=== PATIENT | female | born 2000 | race Caucasian/White ===

== ENCOUNTER 2023-07-15 06:45 | Emergency (ER) | payer OTHER, MEDICAID, SELFPAY ==
[2023-07-15 06:47] VITALS: BP 130/79; PULSE 86; RESP 18; TEMP 36.6; O2SAT 96; BMI 36.7
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
== END 2023-07-15 08:07 | disposition home or self-care (01) ==
PROVIDERS: Emergency Provider Emergency Medicine
DX: O9A.213 Injury, poisoning and certain other consequences of external causes complicating pregnancy, third trimester (principal); S20.219A Contusion of unspecified front wall of thorax, initial encounter; Z3A.37 37 weeks gestation of pregnancy; V40.5XXA Car driver injured in collision with pedestrian or animal in traffic accident, initial encounter
CPT/HCPCS: 71045; 99283

== ENCOUNTER 2023-07-15 08:09 | Observation (INO) | payer OTHER, MEDICAID, SELFPAY ==
[2023-07-15] MEDS: ACETAMINOPHEN 500 MG TABLET 1000 MG PO (09:52)
== END 2023-07-15 10:30 | disposition home or self-care (01) ==
LOC: FBC 08:13
PROVIDERS: Admitting Provider Obstetrics & Gynecology; Visit Provider Obstetrics & Gynecology
DX: O9A.213 Injury, poisoning and certain other consequences of external causes complicating pregnancy, third trimester (principal); S20.219A Contusion of unspecified front wall of thorax, initial encounter; Z3A.37 37 weeks gestation of pregnancy; V40.5XXA Car driver injured in collision with pedestrian or animal in traffic accident, initial encounter
CPT/HCPCS: 59025; 71045; 99283; G0378

== ENCOUNTER 2024-04-24 10:10 | Outpatient (OUT) | payer MEDICAID, SELFPAY ==
--- NOTE | 2024-04-24 10:13 | US_ITS ---
[address] [address] Patient Name: HOLLIS RFEED MRN: [id number] date: 2000 Sex: F Assigned Patient Location: [facility] Current Patient Location: [facility] Accession/Order Number: [id number] Exam Date: 04/24/2024 10:13 Report Date: 04/24/2024 15:49 At the request of: JO SAEZ Procedure: US OB transvaginal EXAMINATION: US OB transvaginal HISTORY: MISSED MENSES COMPARISON: No relevant comparison available. FINDINGS: GESTATIONAL SAC: Present and normal appearing. YOLK SAC: Present and normal appearing. POLE: Present and normal appearing. CARDIAC: Present. UTERUS: Normal size and appearance. OVARIES: Right: Normal. Left: Not seen. CERVIX: 4.0 cm in length and closed. CUL-DE-SAC: Normal. OTHER: None. AGE BY LMP: 8 weeks 5 days NOEMI BY LMP: 11/29/2024 AGE BY US CRL: 9 weeks 2 days NOEMI BY US CRL: 11/25/2024 US/US OB transvaginal IMPRESSION: 1. Single live intrauterine . Electronically authenticated by: LLUVIA ASTORGA Date: 04/24/2024 15:49
--- OUTSIDE RECORDS SUMMARY | 2024-04-24 10:14 | XMS_ITS | CCD ---
Author Organization [facility] Care Team Providers Care Finish Carpenter Name Role Phone NO FAMILY DOCTOR Unavailable Unavailable NO FAMILY DOCTOR, NO FAMILY DOCTOR Unavailable Unavailable STEVE COELLO Unavailable Unavailable Unavailable Unavailable Gricelda, Dr. Bee Campbell Attending Unavai lable Ledesma, Dr. Bee Campbell Attending Unavai labletha Undetermined, Awaiting Assignment Primary Care P rovider Unavailable Jos Fuchs Attending Unavailable Jos Fuchs Admitting Unavailable Gwen Sky Primary Care Physician TAWANA MONTENEGRO Attending Unavailable TAWANA MONTENEGRO Referring Unavailable GWEN SKY Primary Care Unavailable TAWANA MONTENEGRO Attending Unavailable TAWANA MONTENEGRO Referring Unavailable GWEN SKY Primary Care Unavailable TAWANA MONTENEGRO Attending Unavailable TAWANA MONTENEGRO Referring Unavailable UNDETERMINED, AWAITING ASSIGNMENT Primary Care Unavailable TAWANA MONTENEGRO Admitting Unavailable TAWANA MONTENEGRO Attending Unavailable GWEN SKY Primary Care Unavailable Allergies Allergy Classification Reported Allergen(s) Allergy Type Date of Onset Reaction(s) Facility (4 sources) Penicillins; Translations: [PENICILLINS] Propensity to adverse reactions to drug (disorder) 04-01-20 08 Hives [facility] Repository (1 source) Oseltamivir Drug Allergy 05-08-20 [facility] (2 sources) Sulfamethoxazole / Trimethoprim; Translations: [sulfamethoxazole-t rimethoprim] Drug Allergy 10-18-19 Vomiting (disorder) [facility] (2 sources) Amoxicillin / Clavulanate; Translations: [Augmentin] Drug Allergy [facility] Repository (2 sources) cefdinir; Translations: [cefdinir] Drug Allergy Eruption of skin (disorder) [facility] Repository (2 sources) Oseltamivir; Translations: [Tamiflu] Drug Allergy [facility] Repository (1 source) Sulfamethoxazole / Trimethoprim; Translations: [Bactrim] Drug Allergy [facility] Repository Medications Current Medications Medication Drug Class(es) Dates Sig (Normalized) Sig (Original) docusate sodium 100 mg oral tablet (1 source) Start: 04-22-2023 Dulcolax Stool Softener 100 mg, Oral, Refills(s) 0 Start Date: 04/22/23 Status: Ordered Multivitamins (1 source) Start: 04-22-2023 take 1 tablet by mouth once daily Multivitamins 1 tab(s), Oral, Daily, Refill(s) 0 Start Date: 04/22/23 Status: Ordered promethazine hydrochloride 25 mg oral tablet (1 source) Phenothiazine Start: 04-30-2021 take 1 tablet by mouth every four hours promethazine 25 mg Tab 25 mg = 1 tab(s), Oral, q4hr, # 12 tab(s), Refills(s) 0, Pharmacy: [facility], 163, cm, 04/30/21 15:32:00 EDT, Height/Length Dosing, 68, kg, 04/30/21 15:32:00 EDT, Weight Dosing Start Date: 04/30/21 Status: Ordered Completed/Discontinued Medications Medication Drug Class(es) Dates Sig (Normalized) Sig (Original) ibuprofen 400 mg oral tablet (1 source) Nonsteroidal Anti-inflammator y Drug Start: 1 take 1-3 tablets by mouth every six hours as needed ibuprofen 400 mg Tab 400 mg = 1 tab(s), Oral, q6hr, PRN Pain 1-3, # 12 tab(s), Refills(s) 0, Pharmacy: [facility], 163, cm, 04/30/21 15:32:00 EDT, Height/Length Dosing, 68, kg, 04/30/21 15:32:00 EDT, Weight Dosing Start Date: 04/30/21 Status: Ordered methylPREDNISolone 4 MG Oral Tablet Therapy Pack (1 source) Start: 2 methylPREDNISolone 4 MG Oral Tablet Therapy Pack USE DIRECTED ; QTY 21 TABLET Quantity: 1 Refills: 0 Ordered: 20-Mar-2022 Bee Ledesma MD Start : 20-Mar-2022 Active Problems Active Problems Problem Classification Problem Date Documented Date Episodic/Chronic Abdominal pain (2 sources) Abdominal pain; Translations: [Pelvic and perineal pain] Onset: 01-17-2024 11-20-2013 Episodic Fluid and electrolyte disorders (1 source) Hypokalemia 11-20-2013 Episodic Headache; including migraine (1 source) Headache 10-09-2013 Episodic Menstrual disorders (1 source) Secondary amenorrhea; Translations: [Secondary amenorrhea] Chronic Nausea and vomiting (1 source) Vomiting 11-20-2013 Episodic Other connective tissue disease (1 source) Foot pain; Translations: [Pain in limb] Episodic Other connective tissue disease (1 source) Pain in right foot; Translations: [Pain in right foot] Onset: 03-20-2022 Episodic Other endocrine disorders (1 source) Precocious puberty; Translations: [Precocious puberty] Onset: 04-01-2008 10-23-2019 Chronic Other non-traumatic joint disorders (1 source) Ankle pain; Translations: [Pain in joint, ankle and foot] Episodic Other non-traumatic joint disorders (1 source) Sesamoiditis; Translations: [Other disorders of bone and cartilage] Episodic Other non-traumatic joint disorders (1 source) Other specified joint disorders, right ankle and foot; Translations: [Other specified joint disorders, right ankle and foot] Onset: 03-20-2022 Episodic Other non-traumatic joint disorders (1 source) Pain in right ankle and joints of right foot; Translations: [Pain in right ankle] Onset: 03-20-2022 Episodic Sprains and strains (1 source) Unspecified sprain of right foot, initial encounter; Translations: [Unspecified sprain of right foot, initial encounter] Onset: 03-20-2022 Episodic Substance-related disorders (1 source) Smoker 01-13-2020 Chronic Comment on above: Added secondary to d ocumentation in Social History. Unclassified (1 source) Unknown / UNK(Unknown) Onset: 05-27-2017 Unclassified (1 source) Onset: 04-22-2023 04-22-2023 Past or Other Problems Problem Classification Problem Date Documented Da te Episodic/Chronic Heart valve disorders (1 source) Heart murmur Onset: 07-29-2015 01-13-2020 Episodic Other and delivery including normal (7 sources) Urine test positive; Translations: [Encounter for test, result positive] Onset: 03-01-2023 Episodic Ovarian cyst (1 source) Unspecified ovarian cyst, right side; Translations: [Unspecified ovarian cyst, right side] Onset: 07-12-2023 Episodic Residual codes; unclassified (1 source) 31 weeks gestation of ; Translations: [31 weeks gestation of ] Onset: 06-28-2023 Episodic Residual codes; unclassified (1 source) 11 weeks gestation of ; Translations: [11 weeks gestation of ] Onset: 03-01-2023 Episodic Unclassified (1 source) None (qualifier value) 2012 Results Test Name Value Interpretation Reference Range Facility US NON OB TRANSVAGINALon US NON OB TRANSVAGINAL EXAM: US Pelvis Transabdominal and Transvaginal, Complete and US Duplex Arterial/Venous of the Pelvis, Complete EXAM DATE/TIME: 01/17/2024 6:09 pm; 01/17/2024 7:16 pm CLINICAL HISTORY: ORDERING SYSTEM PROVIDED HISTORY: Right ovarian cyst, Pelvic pain TECHNOLOGIST PROVIDED HISTORY: This procedure can be scheduled via [employer]. Release to patient - Note: Delayed release will only apply to this order. Orders that are changed or resulted outside of the EHR will not respect a delayed release to MyChart.->Delay Immediate Release by 3 Days Reason for preventing immediate release->Likely risk of substantial harm What reading provider will be dictating this exam?->CRC; ORDERING SYSTEM PROVIDED HISTORY: PELVIC PAIN TECHNOLOGIST PROVIDED HISTORY: This procedure can be scheduled via [employer]. ; ORDERING SYSTEM PROVIDED HISTORY: Right ovarian cyst, Pelvic pain TECHNOLOGIST PROVIDED HISTORY: Release to patient - Note: Delayed release will only apply to this order. Orders that are changed or resulted outside of the EHR will not respect a delayed release to MyChart.->Delay Immediate Release by 3 Days Reason for preventing immediate release->Likely risk of substantial harm What reading provider will be dictating this exam?->CRC TECHNIQUE: Real-time complete transabdominal and transvaginal pelvic ultrasound with image documentation. Transvaginal imaging was used for better evaluation of the endometrium and adnexa. Real-time duplex ultrasound scan of the arterial and venous flow of the pelvis with color Doppler flow and spectral waveform analysis. COMPARISON: 06/28/2023 FINDINGS: Uterus/cervix: No acute findings. No myometrial mass. The uterus measures 9.2 x 4.3 x 3.3 cm. The endometrial stripe measures 1.12 cm in thickness. Right ovary: Interval resolution of a previously noted right ovarian cyst. No torsion. The right ovary measures 2.9 x 2.2 x 1.3 cm. Left ovary: No acute findings. No torsion. The left ovary measures 2.8 x 1.6 x 1.7 cm. Free fluid: Very small amount of free fluid noted within the retrouterine cul-de-sac. Bladder: Unremarkable as visualized. Wall is normal thickness for degree of distention. IMPRESSION: 1. Interval resolution of a previously noted right ovarian cyst. 2. Very small amount of free fluid noted within the retrouterine cul-de-sac. 3. Otherwise negative exam with no evidence of ovarian torsion. Interpreted by: Steve Borja MD Signed by: Steve Borja MD 01/18/24 Final result Normal [facility] US PELVIS COMPLETEon 024 US PELVIS COMPLETE EXAM: US Pelvis Transabdominal and Transvaginal, Complete and US Duplex Arterial/Venous of the Pelvis, Complete EXAM DATE/TIME: 01/17/2024 6:09 pm; 01/17/2024 7:16 pm CLINICAL HISTORY: ORDERING SYSTEM PROVIDED HISTORY: Right ovarian cyst, Pelvic pain TECHNOLOGIST PROVIDED HISTORY: This procedure can be scheduled via MyChart. Release to patient - Note: Delayed release will only apply to this order. Orders that are changed or resulted outside of the EHR will not respect a delayed release to MyChart.->Delay Immediate Release by 3 Days Reason for preventing immediate release->Likely risk of substantial harm What reading provider will be dictating this exam?->CRC; ORDERING SYSTEM PROVIDED HISTORY: PELVIC PAIN TECHNOLOGIST PROVIDED HISTORY: This procedure can be scheduled via MyChart. ; ORDERING SYSTEM PROVIDED HISTORY: Right ovarian cyst, Pelvic pain TECHNOLOGIST PROVIDED HISTORY: Release to patient - Note: Delayed release will only apply to this order. Orders that are changed or resulted outside of the EHR will not respect a delayed release to MyChart.->Delay Immediate Release by 3 Days Reason for preventing immediate release->Likely risk of substantial harm What reading provider will be dictating this exam?->CRC TECHNIQUE: Real-time complete transabdominal and transvaginal pelvic ultrasound with image documentation. Transvaginal imaging was used for better evaluation of the endometrium and adnexa. Real-time duplex ultrasound scan of the arterial and venous flow of the pelvis with color Doppler flow and spectral waveform analysis. COMPARISON: 06/28/2023 FINDINGS: Uterus/cervix: No acute findings. No myometrial mass. The uterus measures 9.2 x 4.3 x 3.3 cm. The endometrial stripe measures 1.12 cm in thickness. Right ovary: Interval resolution of a previously noted right ovarian cyst. No torsion. The right ovary measures 2.9 x 2.2 x 1.3 cm. Left ovary: No acute findings. No torsion. The left ovary measures 2.8 x 1.6 x 1.7 cm. Free fluid: Very small amount of free fluid noted within the retrouterine cul-de-sac. Bladder: Unremarkable as visualized. Wall is normal thickness for degree of distention. IMPRESSION: 1. Interval resolution of a previously noted right ovarian cyst. 2. Very small amount of free fluid noted within the retrouterine cul-de-sac. 3. Otherwise negative exam with no evidence of ovarian torsion. Interpreted by: Steve Borja MD Signed by: Steve Borja MD 01/18/24 Final result Normal [facility] CBC With Platelet No Differe ntialon 07-28-2023 Erythrocyte distribution width (RBC) [Ratio] 12.5 % Normal 11.5-14.5 [facility] Comment on above: Performed By: #### C BCND #### [facility] [address] [place] [address] Hematocrit (Bld) [Volume fraction] 28.3 % Low 37.0-47.0 [facility] Comment on above: Performed By: #### C BCND #### [facility] [address] [place] [address] Hemoglobin (Bld) [Mass/Vol] 9.2 g/dL Low 12.0-16.0 [facility] Comment on above: Performed By: #### C BCND #### [facility] [address] [place] [address] MCH (RBC) [Entitic mass] 28.9 pg Normal 27.0-31.3 [facility] Comment on above: Performed By: #### C BCND #### [facility] [address] [place] [address] MCHC 32.5 % Low 33.0-37.0 [facility] Comment on above: Performed By: #### C BCND #### [facility] [address] [place] [address] MCV (RBC) [Entitic vol] 89.0 fL Normal 79.4-94.8 [facility] Comment on above: Performed By: #### C BCND #### [facility] [address] [place] [address] Platelets (Bld) [#/Vol] 241 10*3/uL Normal 130-400 [facility] Comment on above: Performed By: #### C BCND #### [facility] [address] [place] [address] RBC (Bld) [#/Vol] 3.18 10*6/uL Low 4.20-5.40 [facility] Comment on above: Performed By: #### C BCND #### [facility] [address] [place] [address] WBC (Bld) [#/Vol] 16.6 10*3/uL Critically high 4.8-10.8 [facility] Comment on above: Performed By: #### C BCND #### [facility] [address] [place] [address] HIV Ag/Abon 07-27-2023 HIV Ag/Ab Non-Reactive Normal NR [facility] Comment on above: Result Comment: No l aboratory evidence of HIV infection. If acute HIV infection is suspected, consider testing for HIV-1 RNA. Performed at [facility], [address] [place] [id number] . CBC With Platelet and Differ entialon 07-26-2023 Basophils (Bld) [#/Vol] 0.1 10*3/uL Normal 0.0-0.2 [facility] Comment on above: Performed By: #### U A #### [facility] [address] [place] [address] Basophils/100 WBC (Bld) 0.5 % Normal [facility] Comment on above: Performed By: #### U A #### [facility] [address] [place] [address] Eosinophils (Bld) [#/Vol] 0.1 10*3/uL Normal 0.0-0.7 [facility] Comment on above: Performed By: #### U A #### [facility] [address] [place] [address] Eosinophils/100 WBC (Bld) 1.0 % Normal [facility] Comment on above: Performed By: #### U A #### [facility] [address] [place] [address] Erythrocyte distribution width (RBC) [Ratio] 12.3 % Normal 11.5-14.5 [facility] Comment on above: Performed By: #### U A #### [facility] [address] [place] [address] Hematocrit (Bld) [Volume fraction] 36.9 % Low 37.0-47.0 [facility] Comment on above: Performed By: #### U A #### [facility] [address] [place] [address] Hemoglobin (Bld) [Mass/Vol] 11.9 g/dL Low 12.0-16.0 [facility] Comment on above: Performed By: #### U A #### [facility] [address] [place] [address] Lymphocytes (Bld) [#/Vol] 2.0 10*3/uL Normal 1.0-4.8 [facility] Comment on above: Performed By: #### U A #### [facility] [address] [place] [address] Lymphocytes/100 WBC (Bld) 17.5 % Normal [facility] Comment on above: Performed By: #### U A #### [facility] [address] [place] [address] MCH (RBC) [Entitic mass] 29.0 pg Normal 27.0-31.3 [facility] Comment on above: Performed By: #### U A #### [facility] [address] [place] [address] MCHC 32.2 % Low 33.0-37.0 [facility] Comment on above: Performed By: #### U A #### [facility] [address] [place] [address] MCV (RBC) [Entitic vol] 90.0 fL Normal 79.4-94.8 [facility] Comment on above: Performed By: #### U A #### [facility] [address] [place] [address] Monocytes (Bld) [#/Vol] 1.1 10*3/uL Critically high 0.2-0.8 [facility] Comment on above: Performed By: #### U A #### [facility] [address] [place] [address] Monocytes/100 WBC (Bld) 9.7 % Normal [facility] Comment on above: Performed By: #### U A #### [facility] [address] [place] [address] Neutrophils (Bld) [#/Vol] 7.9 10*3/uL Critically high 1.4-6.5 [facility] Comment on above: Performed By: #### U A #### [facility] [address] [place] [address] Neutrophils/100 WBC (Bld) 70.4 % Normal [facility] Comment on above: Performed By: #### U A #### [facility] [address] [place] [address] Platelets (Bld) [#/Vol] 289 10*3/uL Normal 130-400 [facility] Comment on above: Performed By: #### U A #### [facility] [address] [place] [address] RBC (Bld) [#/Vol] 4.10 10*6/uL Low 4.20-5.40 [facility] Comment on above: Performed By: #### U A #### [facility] [address] [place] [address] WBC (Bld) [#/Vol] 11.2 10*3/uL Critically high 4.8-10.8 [facility] Comment on above: Performed By: #### U A #### [facility] [address] [place] [address] Comprehensive Metabolic Pane mello 07-26-2023 Albumin [Mass/Vol] 3.4 g/dL Low 3.5-4.6 [facility] Comment on above: Performed By: #### C MP #### [facility] [address] [place] [address] ALP [Catalytic activity/Vol] 134 U/L Critically high 40-130 [facility] Comment on above: Performed By: #### C MP #### [facility] [address] [place] [address] ALT [Catalytic activity/Vol] 13 U/L Normal 0-33 [facility] Comment on above: Performed By: #### C MP #### [facility] [address] [place] [address] Anion gap [Moles/Vol] 14 mmol/L Normal 9-15 [facility] Comment on above: Performed By: #### C MP #### [facility] [address] [place] [address] AST [Catalytic activity/Vol] 19 U/L Normal 0-35 [facility] Comment on above: Performed By: #### C MP #### [facility] [address] [place] [address] Bilirubin [Mass/Vol] mg/dL Normal 0.2-0.7 [facility] Comment on above: Performed By: #### C MP #### [facility] [address] [place] [address] Calcium [Mass/Vol] 9.7 mg/dL Normal 8.5-9.9 [facility] Comment on above: Performed By: #### C MP #### [facility] [address] [place] [address] Chloride [Moles/Vol] 103 mmol/L Normal 95-107 [facility] Comment on above: Performed By: #### C MP #### [facility] [address] [place] [address] CO2 [Moles/Vol] 19 mmol/L Low 20-31 [facility] Comment on above: Performed By: #### C MP #### [facility] [address] [place] [address] Creatinine [Mass/Vol] 0.75 mg/dL Normal 0.50-0.90 [facility] Comment on above: Performed By: #### C MP #### [facility] [address] [place] [address] GFR >60.0 Normal >60 [facility] Comment on above: Result Comment: Gunnar atric calculator link https://www.kidney.org/professionals/kdoqi/gfr_calculatorped Effective Apr 30, 2022 These results are not intended for use in patients <18 years of age. eGFR results are calculated without a race factor using the 2020 CKD-EPI equation. Careful clinical correlation is recommended, particularly when comparing to results calculated using previous equations. The CKD-EPI equation is less accurate in patients with extremes of muscle mass, extra-renal metabolism of creatinine, excessive creatinine ingestion, or following therapy that affects renal tubular secretion. Performed By: #### C MP #### [facility] [address] [place] [address] Globulin (S) [Mass/Vol] 2.9 g/dL Normal 2.3-3.5 [facility] Comment on above: Performed By: #### C MP #### [facility] [address] [place] [address] Glucose [Mass/Vol] 65 mg/dL Low 70-99 [facility] Comment on above: Performed By: #### C MP #### [facility] [address] [place] [address] Potassium [Moles/Vol] 4.5 mmol/L Normal 3.4-4.9 [facility] Comment on above: Performed By: #### C MP #### [facility] [address] [place] [address] Protein [Mass/Vol] 6.3 g/dL Normal 6.3-8.0 [facility] Comment on above: Performed By: #### C MP #### [facility] [address] [place] [address] Sodium [Moles/Vol] 136 mmol/L Normal 135-144 [facility] Comment on above: Performed By: #### C MP #### [facility] [address] [place] [address] Urea nitrogen [Mass/Vol] 8 mg/dL Normal 6-20 [facility] Comment on above: Performed By: #### C MP #### [facility] [address] [place] [address] Hepatitis B Surface Agon Hepatitis B Surface Ag Interp Non-Reactive Normal [facility] Comment on above: Performed By: #### H BSG #### [facility] [address] [place] [address] RPRon 07-26-2023 Reagin Ab RPR Ql (S) Non-Reactive Normal Non-reacti [facility] Comment on above: Performed By: #### R GA #### [facility] [address] [place] [address] Type and Screen Capture 3 sc rn cellon 07-26-2023 Type and Screen Capture 3 scrn cell PATIENT: ABDIAZIZ Drake LOC: [facility],0324,01 BILL# : [id number] : 2000 SEX: F ORDERED BY: KASSIDY BARAHONA ORDERED : 07/26/2023 09:26 COLLECTED: 07/26/2023 09:44 ORDER : [id number] RECEIVED : 07/26/2023 09:44 TEST NAME RESULT UNITS RANGES ABN FL ST ABORH Capture A POS F Antibody 3 Cell Scrn Captu NEG F Normal [facility] Comment on above: Performed By: #### T S3C #### [facility] [address] [place] [address] UR Drugs of Abuse Panelon Drug Screen Comment see below Normal [facility] Comment on above: Result Comment: This method is a screening test to detect only these drug classes as part of a medical workup. Confirmatory testing by another method should be ordered if clinically indicated. Performed By: #### U DRGS #### [facility] [address] [place] [address] UR Amphetamines Screen Negative Normal Negative < [facility] Comment on above: Performed By: #### U DRGS #### [facility] [address] [place] [address] UR Barbiturates Screen Negative Normal Negative < [facility] Comment on above: Performed By: #### U DRGS #### [facility] [address] [place] [address] UR Benzo Screen Negative Normal Negative < [facility] Comment on above: Performed By: #### U DRGS #### [facility] [address] [place] [address] UR Cannabinoids Screen Negative Normal Negative < [facility] Comment on above: Performed By: #### U DRGS #### [facility] [address] [place] [address] UR Cocaine Screen Negative Normal Negative < [facility] Comment on above: Performed By: #### U DRGS #### [facility] [address] [place] [address] UR Fentanyl Screen Negative Normal Negative < [facility] Comment on above: Performed By: #### U DRGS #### [facility] [address] [place] [address] UR Methadone Screen Negative Normal Negative < [facility] Comment on above: Performed By: #### U DRGS #### [facility] [address] [place] [address] UR Opiates Screen Negative Normal Negative < [facility] Comment on above: Performed By: #### U DRGS #### [facility] [address] [place] [address] UR Oxycodone Screen Negative Normal Negative < [facility] Comment on above: Performed By: #### U DRGS #### [facility] [address] [place] [address] UR PCP Screen Negative Normal Negative < [facility] Comment on above: Performed By: #### U DRGS #### [facility] [address] [place] [address] UR Propoxyphene Screen Negative Normal Negative < [facility] Comment on above: Performed By: #### U DRGS #### [facility] [address] [place] [address] Urinalysis, reflex to micros copicon 07-26-2023 Bilirubin Ql (U) Negative Normal Negative [facility] Comment on above: Performed By: #### U A #### [facility] [address] [place] [address] Clarity (U) Clear Normal Clear [facility] Comment on above: Performed By: #### U A #### [facility] [address] [place] [address] Color (U) Yellow Normal Straw/[place] [facility] Comment on above: Performed By: #### U A #### [facility] [address] [place] [address] Glucose Ql (U) Negative Normal Negative [facility] Comment on above: Performed By: #### U A #### [facility] [address] [place] [address] Hemoglobin Ql (U) Negative Normal Negative [facility] Comment on above: Performed By: #### U A #### [facility] [address] [place] [address] Ketones Ql (U) Negative Normal Negative [facility] Comment on above: Performed By: #### U A #### [facility] [address] [place] [address] Leukocyte esterase Test strip Ql (U) TRACE Abnormal Negative [facility] Comment on above: Performed By: #### U A #### [facility] [address] [place] [address] Nitrite Ql (U) Negative Normal Negative [facility] Comment on above: Performed By: #### U A #### [facility] [address] [place] [address] pH (U) 6.5 [pH] Normal 5.0-9.0 [facility] Comment on above: Performed By: #### U A #### [facility] [address] [place] [address] Protein Ql (U) TRACE Abnormal Negative [facility] Comment on above: Performed By: #### U A #### [facility] [address] [place] [address] Specific gravity (U) [Rel density] 1.009 Normal 1.005-1.03 [facility] Comment on above: Performed By: #### U A #### [facility] [address] [place] [address] Urobilinogen Qn (U) 0.2 {Yoselyn'U}/dL Normal < 2.0 [facility] Comment on above: Performed By: #### U A #### [facility] [address] [place] [address] Urine Microscopicon 07-26-20 23 Urine Bacteria RARE Abnormal Negative [facility] Comment on above: Performed By: #### U DEBBI #### [facility] [address] [place] [address] Urine Epithelial Cells Auto 20-50 Normal 0-5 [facility] Comment on above: Performed By: #### U DEBBI #### [facility] [address] [place] [address] Urine Hyaline Casts Auto 1-3 Normal 0-5 [facility] Comment on above: Performed By: #### U DEBBI #### [facility] [address] [place] [address] Urine RBC Auto 0-2 Normal 0-5 [facility] Comment on above: Performed By: #### U DEBBI #### [facility] [address] [place] [address] Urine WBC Auto 10-20 Abnormal 0-5 [facility] Comment on above: Performed By: #### U DEBBI #### [facility] [address] [place] [address] Culture, Group B Strepon Culture, Group B Strep ORDER#: [id number] ORDERED BY: TAWANA YI SOURCE: Vagina Genital COLLECTED: 07/12/23 15:54 ANTIBIOTICS AT [place].: RECEIVED : 07/12/23 16:18 Culture, Group B Strep FINAL 07/16/23 08:16 Rule Out Grp.B Strep: NEGATIVE FOR GROUP B STREPTOCOCCI Performed at [facility] [address] [place] [address] ([phone] Normal [facility] Comment on above: Performed By: #### R UBEL #### [facility] [address] [place] [address] US OB 1 OR MORE FETUS LIMITE Don 06-28-2023 US OB 1 OR MORE FETUS LIMITED EXAMINATION: 3rd TRIMESTER OBSTETRIC ULTRASOUND 06/28/2023 COMPARISON: None HISTORY: ORDERING SYSTEM PROVIDED HISTORY: Encounter for supervision in primigravida, antepartum, 31 weeks gestation of TECHNOLOGIST PROVIDED HISTORY: This procedure can be scheduled via [employer]. Access your [employer] account by visiting [employer]. What reading provider will be dictating this exam?->CRC FINDINGS: Single live intrauterine . heart rate 140 beats per minute. body and limb movements identified. Cephalic position. Grade 2 posterior placenta. DARÍO 18.4 cm. Cervical length not visualized secondary to gestational age. Limited imaging secondary to gestational age shows a 6.0 x 5.9 x 4.2 cm cyst is visualized within the right adnexa. Four-chamber heart, stomach, kidneys, three-vessel cord, urinary bladder, cervical, thoracic, and lumbar spine identified. Estimated sonographic gestational age 35 weeks, 6 days. Gestational age by dates, 35 weeks, 0 days. Sonographic estimated date of delivery July 27, 2023. Estimated weight 2845 g (78%, by LMP percentile). BPD 8.90 cm. HC 32.58 cm. AC 33.63 cm. FL 6.28 cm. IMPRESSION: Single live intrauterine with estimated sonographic gestational age 35 weeks, 6 days. Estimated weight 2845 g. Limited imaging secondary to gestational age shows a 6.0 x 5.9 x 4.2 cm right adnexal cyst. Interpreted by: Casey Hall MD Signed by: Casey Hall MD 07/02/23 Final result Normal [facility] RPRon 05-01-2023 Reagin Ab RPR Ql (S) Non-Reactive Normal Non-reacti [facility] Comment on above: Performed By: #### R GA #### [facility] [address] [place] [address] Glucose 1hr PPon 04-30-2023 Glucose [Mass/Vol] 101 mg/dL Normal 60-140 [facility] Comment on above: Result Comment: Gluc ose tolerance is IMPAIRED when the 1 hour post 50 gram load glucose is greater than 130mg/dL Performed By: #### G L1PP #### [facility] [address] [place] [address] Hemoglobin and Hematocriton 04-30-2023 Hematocrit (Bld) [Volume fraction] 35.4 % Low 37.0-47.0 [facility] Comment on above: Performed By: #### C BCWD #### [facility] [address] [place] [address] Hemoglobin (Bld) [Mass/Vol] 11.3 g/dL Low 12.0-16.0 [facility] Comment on above: Performed By: #### C BCWD #### [facility] [address] [place] [address] Nursing Assessmenton 023 Nursing Assessment [id number]#[id number]:127 Normal [facility] Auth for Release of Medical Recordson 04-22-2023 Auth for Release of Medical Records [id number]#[id number]:127 Normal [facility] Discharge Instructionson Discharge Instructions [id number]#[id number]:127 Normal [facility] Inpatient Clinical Summaryon 04-22-2023 Inpatient Clinical Summary [place] [id number] Clinical Summary Person Information Name: SARA FREED[place] Age: 23 Years : 2000 Sex: Female PCP: Gwen Sky DO Marital Status: Single Race: White Ethnicity: Non- or Language: Indonesian Visit Id: Visit Reason: fELL AT HOME Speciality: Acuity: Obs Enc Type: OB Triage Med Service: Obstetrics Arrival: 04/22/2023 14:32:43 Discharge: 04/22/2023 16:33:00 Dispo Type: Home (Routine DC) Address: [address] [place] [id number] Provider Notes: Diagnosis: Problems Active (04/22/2023) Smoker Abdominal pain Vomiting Hypokalemia Smoking Status: Former Smoker Functional Status: Sensory Deficits: History of Falls: Mobility Assistance Prior to Admission: ADLs: Current Level of Assistance for Self-Care/Mobility: Cognitive Status: Allergies penicillins (Augmentin) Augmentin Tamiflu Bactrim (Vomiting) cefdinir (Rash) Laboratory or Other Results This Visit (last charted value for your 04/22/2023 visit) Urinalysis 04/22/2023 2:43 PM UA Bacteria: Trace /HPF UA Bili: Negative UA CA Ox Crystal: Present UA Color: Yellow UA Glucose: Negative UA Ketones: Negative UA Leuk Est: Trace UA Mucous: Trace UA Nitrite: Negative UA Protein: Negative UA RBC: 0-3 /HPF UA Squam Epithelial: 9-10 /HPF UA Urobilinogen: 0.2 EU/dL -- Normal range between ( 0.0 and 1.0 ) UA WBC: 0-5 /HPF UA Spec Desc: Clean Catch UA Blood: Negative UA Clarity: SL CLOUDY UA pH: 7.5 -- Normal range between ( 5.0 and 9.0 ) UA Spec Grav: 1.010 -- Normal range between ( 1.005 and 1.030 ) UA Amorph Katarzyna: Present Measurements: Height: 160 cm Weight: 77 kg Blood Pressure: 124 mmHg / 64 mmHg BMI: 30.08 kg/m2 Procedures No Procedures Documented Immunizations No Immunizations Documented This Visit Final Med List: docusate (Dulcolax Stool Softener) 100 Milligram By Mouth. ibuprofen (ibuprofen 400 mg Tab) 1 Tablets By Mouth every 6 hours as needed Pain 1-3. Refills: 0. multivitamin, ( Multivitamins) 1 Tablets By Mouth every day. promethazine (promethazine 25 mg Tab) 1 Tablets By Mouth every 4 hours. Refills: 0. Care Team Members: Attending Physician: Jos Fuchs MD Consulting Physician: Referring Physician: Follow up: With: Address: When: TWAANA YI [address] [place] [address] 04/30/2023 10:15 AM Patient Education Information: Round Ligament Pain Normal [facility] Inpatient Patient Summaryon 04-22-2023 Inpatient Patient Summary [place] [address] Patient Discharge Instructions PERSON INFORMATION Name: SARA FREED Date of : 2000 Current Date: 04/22/2023 16:38:22 PHYSICIANS Admitting Physician: Primary Care Physician: Gwen Sky DO PCP Comment: Discharge Diagnosis: Condition at Discharge: SARA FREED has been given the following list of follow-up instructions, prescriptions, and patient education materials: PATIENT FOLLOW-UP INFORMATION Diet: Activity: Wound Care Instructions: Remove Your Dressing IN: Days Call Your Doctor For: IF UNABLE TO CONTACT YOUR PHYSICIAN AND YOU FEEL IT IS AN EMERGENCY, GO TO THE NEAREST EMERGENCY ROOM OR CALL 911 Home Treatment: Devices/Equipment: Special Services: Additional Instructions: Physician to provide the following pending test results: Follow up: With: Address: When: TAWANA YI [address] [place] [address] 04/30/2023 10:15 AM In the event that this physician does not participate in your insurance network, please consult with your insurance company to find a nearby participating provider. Comment: IABDIAZIZ AUDREY P, have received the attached patient education materials/instructions and have verbalized understanding. Patient Signature Date Clinican/Nurse Signature Date MEDICATION LIST Medications to Continue with No Changes Other Medications docusate (Dulcolax Stool Softener) 100 Milligram By Mouth. Last Dose: Next Dose: ibuprofen (ibuprofen 400 mg Tab) 1 Tablets By Mouth every 6 hours as needed Pain 1-3. Refills: 0. Last Dose: Next Dose: multivitamin, ( Multivitamins) 1 Tablets By Mouth every day. Last Dose: Next Dose: promethazine (promethazine 25 mg Tab) 1 Tablets By Mouth every 4 hours. Refills: 0. Last Dose: Next Dose: Pharmacy Information: [facility] PATIENT EDUCATION INFORMATION Instructions: Round Ligament Pain The round ligaments are a pair of cord-like tissues that help support the uterus. They can become a source of pain during as the ligaments soften and stretch as the baby grows. The pain usually begins in the second trimester (13?28 weeks) of , and should only last for a few seconds when it occurs. However, the pain can come and go until the baby is delivered. The pain does not cause harm to the baby. Round ligament pain is usually a short, sharp, and pinching pain, but it can also be a dull, lingering, and aching pain. The pain is felt in the lower side of the abdomen or in the groin. It usually starts deep in the groin and moves up to the outside of the hip area. The pain may happen when you: ? Suddenly change position, such as quickly going from a sitting to standing position. ? Do physical activity. ? Cough or sneeze. Follow these instructions at home: Managing pain ? When the pain starts, relax. Then, try any of these methods to help with the pain: ? Sit down. ? Flex your knees up to your abdomen. ? Lie on your side with one pillow under your abdomen and another pillow between your legs. ? Sit in a warm bath for 15?20 minutes or until the pain goes away. General instructions ? Watch your condition for any changes. ? Move slowly when you sit down or stand up. ? Stop or reduce your physical activities if they cause pain. ? Avoid long walks if they cause pain. ? Take crfs-kcv-teanaab and prescription medicines only as told by your health care provider. ? Keep all follow-up visits. This is important. Contact a health care provider if: ? Your pain does not go away with treatment. ? You feel pain in your back that you did not have before. ? Your medicine is not helping. ? You have a fever or chills. ? You have nausea or vomiting. ? You have diarrhea. ? You have pain when you urinate. Get help right away if: ? You have pain that is a rhythmic, cramping pain similar to labor pains. Labor pains are usually 2 minutes apart, last for about 1 minute, and involve a bearing down feeling or pressure in your pelvis. ? You have vaginal bleeding. These symptoms may represent a serious problem that is an emergency. Do not wait to see if the symptoms will go away. Get medical help right away. Call your local emergency services (911 in the [place] Do not drive yourself to the hospital. Summary ? Round ligament pain is felt in the lower abdomen or groin. ? This pain usually begins in the second trimester (13?28 weeks) and should only last for a few sec (more content not included)... Normal [facility] Insurance Correspondence Off ice04-22-2023 Insurance Correspondence Office [id number]#[id number]:127 Normal [facility] UA With Cult Reflexon 2022 Bacteria LM Ql (Urine sed) TRACE Normal Trace [facility] Comment on above: Performed By: #### 1 [id number] #### [facility] [address] [address] Bilirubin Ql (U) Negative Normal Negative [facility] Comment on above: Performed By: #### 1 [id number] #### [facility] [address] [place] [address] Calcium oxalate crystals LM Ql (Urine sed) Present Normal [facility] Comment on above: Performed By: #### 1 [id number] #### [facility] [address] [place] [address] Clarity (U) SL CLOUDY Invalid Interpretation Code [facility] Comment on above: Performed By: #### 1 [id number] #### [facility] [address] [place] [address] Color (U) YELLOW Normal Yellow [facility] Comment on above: Performed By: #### 1 [id number] #### [facility] [address] [place] [address] Crystals LM Ql (Urine sed) Present Normal [facility] Comment on above: Performed By: #### 1 [id number] #### [facility] [address] [place] [address] Epithelial cells.squamous LM.HPF (Urine sed) [#/Area] 9-10 Normal 0-2 [facility] Comment on above: Performed By: #### 1 [id number] #### [facility] [address] [place] [address] Glucose Test strip (U) [Mass/Vol] Negative Normal Negative [facility] Comment on above: Performed By: #### 1 [id number] #### [facility] [address] [place] [address] Hemoglobin Ql (U) Negative Normal Negative [facility] Comment on above: Performed By: #### 1 [id number] #### [facility] [address] [place] [address] Ketones (U) [Mass/Vol] Negative Normal Negative [facility] Comment on above: Performed By: #### 1 [id number] #### [facility] [address] [place] [address] [place].plasma/Lit hium.RBC (Bld) [Mass ratio] 0-3 Normal 0-3 [facility] Comment on above: Performed By: #### 1 [id number] #### [facility] [address] [place] [address] Mucus Ql (Urine sed) TRACE Normal [facility] Comment on above: Performed By: #### 1 [id number] #### [facility] [address] [place] [address] Nitrite Ql (U) Negative Normal Negative [facility] Comment on above: Performed By: #### 1 [id number] #### [facility] [address] [place] [address] pH (U) 7.5 [pH] Invalid Interpretation Code 5.0-9.0 [facility] Comment on above: Performed By: #### 1 [id number] #### [facility] [address] [place] [address] Protein (U) [Mass/Vol] Negative Normal Negative [facility] Comment on above: Performed By: #### 1 [id number] #### [facility] [address] [place] [address] Specific gravity (U) [Rel density] 1.010 Invalid Interpretation Code 1.005-1.03 0 [facility] Comment on above: Performed By: #### 1 [id number] #### [facility] [address] [place] [address] Type of Urine collection method Clean Catch Normal [facility] Comment on above: Performed By: #### 1 [id number] #### [facility] [address] [place] [address] Urobilinogen Qn (U) 0.2 {Yoselyn'U}/dL Normal 0.0-1.0 [facility] Comment on above: Performed By: #### 1 [id number] #### [facility] [address] [place] [address] WBC Auto Ql (U) TRACE Abnormal Negative [facility] Comment on above: Performed By: #### 1 [id number] #### [facility] [address] [place] [address] WBC LM.HPF (Urine sed) [#/Area] 0-5 Normal 0-5 [facility] Comment on above: Performed By: #### 1 [id number] #### [facility] [address] [facility] [place] [address] US OB 14 PLUS WEEKS SINGLE O R FIRST GESTATIONon 03-01-2023 US OB 14 PLUS WEEKS SINGLE OR FIRST GESTATION EXAMINATION: OBSTETRIC ULTRASOUND 03/01/2023 3:11 pm TECHNIQUE: Transabdominal sonographic evaluation of the pelvis was performed. COMPARISON: 12/31/2022. HISTORY: ORDERING SYSTEM PROVIDED HISTORY: 11 weeks gestation of , Supervision of other normal , antepartum TECHNOLOGIST PROVIDED HISTORY: This procedure can be scheduled via [employer]. Access your [employer] account by visiting [employer]. What reading provider will be dictating this exam?->CRC FINDINGS: A single live intrauterine is identified in transverse position. Somatic movement is observed. The heart rate is 150 beats per minute. The cerebral ventricles, choroid plexus, posterior fossa, cerebellum, four-chamber heart, stomach, urinary bladder, three-vessel cord, and cord insertion are visualized. There is suboptimal visualization of the right and left ventricular outflow tracts, diaphragm, kidneys, spine, limbs, and nose/lips due to position and the relatively early age of gestation. Standard measurements were obtained and correspond to an estimated gestational age of 18 weeks and 3 days. The estimated current weight is 235 g which correlates to 66th percentile based upon last menstrual period or this 's baseline ultrasound. The placenta is anterior in position. Placental grade is 1. The lower margin of the placenta is 3.8 cm from the internal os. A color image demonstrating no vasa previa was obtained. The cervix measures 3.7 cm in length. Amniotic fluid volume is subjectively within normal limits. IMPRESSION: Single live intrauterine with an estimated gestational age of 18 weeks and 3 days. EFW is 235 g. Cervical length is 3.7 cm. Interpreted by: Jalil Noe MD Signed by: Jalil Noe MD 03/01/23 Final result Normal [facility] US OB LESS THAN 14 WEEKS SIN GLE OR FIRST GESTATIONon 12-31-2022 1. Single IUP with best estimate of gestational age being 9 weeks and 3 days. No abnormal fluid collections about the gestation. Yolk sac, pole and cardiac motion noted, with heart rate of 176 BPM. 2. 2.6 cm, slightly complex, left ovarian cyst. Possibly a corpus luteum cyst. [facility] EXAM: US First Trimester , Transabdominal and US Duplex Arterial/Venous of the Pelvis, Complete EXAM DATE/TIME: 12/31/2022 4:36 pm CLINICAL History lines: ORDERING SYSTEM PROVIDED Secondary amenorrhea, Positive urine test TECHNOLOGIST PROVIDED History lines: This procedure can be scheduled via [employer]. Access your [employer] account by visiting [employer]. What reading provider will be dictating this exam?->CRC TECHNIQUE: Real-time transabdominal obstetrical ultrasound of the maternal pelvis and a first trimester with image documentation. Real-time duplex ultrasound scan of the arterial and venous flow of the pelvis with color Doppler flow and spectral waveform analysis. COMPARISON: No relevant prior studies available. FINDINGS: Gestation: Single IUP with best estimate of gestational age being 9 weeks and 3 days. No abnormal fluid collections about the gestation. Yolk sac, pole and cardiac motion noted, with heart rate of 176 BPM. Placenta/amniotic fluid: Cannot be adequately evaluated due to the early gestational age. Uterus/cervix: No acute findings. No myometrial mass. The uterus measures 10.9 x 6.9 x 4.7 cm. Cervical length was measured at 3.7 cm. Right ovary: No acute findings. No torsion. The right ovary measures 2.4 x 1.6 x 1.0 cm. Left ovary: 2.6 cm, slightly complex, left ovarian cyst. Possibly a corpus luteum cyst. No torsion. The left ovary measures 3.7 x 2.8 x 2.0 cm. Free fluid: No free fluid. [facility] Steve Borja MD - 12/31/2022 EXAM: US First Trimester , Transabdominal and US Duplex Arterial/Venous of the Pelvis, Complete EXAM DATE/TIME: 12/31/2022 4:36 pm CLINICAL History lines: ORDERING SYSTEM PROVIDED Secondary amenorrhea, Positive urine test TECHNOLOGIST PROVIDED History lines: This procedure can be scheduled via [employer]. Access your [employer] account by visiting [employer]. What reading provider will be dictating this exam?->CRC TECHNIQUE: Real-time transabdominal obstetrical ultrasound of the maternal pelvis and a first trimester with image documentation. Real-time duplex ultrasound scan of the arterial and venous flow of the pelvis with color Doppler flow and spectral waveform analysis. COMPARISON: No relevant prior studies available. FINDINGS: Gestation: Single IUP with best estimate of gestational age being 9 weeks and 3 days. No abnormal fluid collections about the gestation. Yolk sac, pole and cardiac motion noted, with heart rate of 176 BPM. Placenta/amniotic fluid: Cannot be adequately evaluated due to the early gestational age. Uterus/cervix: No acute findings. No myometrial mass. The uterus measures 10.9 x 6.9 x 4.7 cm. Cervical length was measured at 3.7 cm. Right ovary: No acute findings. No torsion. The right ovary measures 2.4 x 1.6 x 1.0 cm. Left ovary: 2.6 cm, slightly complex, left ovarian cyst. Possibly a corpus luteum cyst. No torsion. The left ovary measures 3.7 x 2.8 x 2.0 cm. Free fluid: No free fluid. IMPRESSION: 1. Single IUP with best estimate of gestational age being 9 weeks and 3 days. No abnormal fluid collections about the gestation. Yolk sac, pole and cardiac motion noted, with heart rate of 176 BPM. 2. 2.6 cm, slightly complex, left ovarian cyst. Possibly a corpus luteum cyst. [employer] Phone: Radiology Study observation (narrative) [employer] Phone: US OB LESS THAN 14 WEEKS SIN GLE OR FIRST GESTATIONOrdered By: Steve Borja on 12-31-2022 [employer] Phone: HPV DNA Typingon 12-26-2022 HPV Type 16 Not detected Normal Not Detect [facility] HPV Type 18 Not detected Normal Not Detect [facility] HPVOH (Other types) Detected Abnormal Not Detect [facility] Comment on above: Result Comment: *Inc ludes 31,33,35,39,45,51,52,56,58,59,66,68 genotypes C.trachomatis N.gonorrhoeae DNAon 12-25-2022 C. trachomatis DNA EVONNE+probe Ql (Unsp spec) Negative Normal Negative [facility] N. gonorrhoeae DNA EVONNE+probe Ql (Unsp spec) Negative Normal Negative [facility] Drug Panel 9A, Screen Only, Urineon 12-21-2022 Alcohol, Urine Negative Normal Cutoff 40 [facility] Amphetamines, Urine Negative Normal Cutoff 300 [facility] Barbiturates, Urine Negative Normal Cutoff 200 [facility] Benzodiazepines, Urine Negative Normal Cutoff 200 [facility] CDTI 9A Comments See Note Normal [facility] Comment on above: Result Comment: INTE RPRETIVE INFORMATION: Drug Panel 9A, Screen Only, Urine This is a screening test only. False positive and false negative results can occur. Positive results are not automatically reflexed to a confirmatory test. Confirmation by GC/MS and/or LC-MS/MS must be requested separately. Confirmatory testing for drugs and/or drug classes detected by this screening test is recommended. The absence of expected drug(s) and/or drug metabolite(s) may indicate non-compliance, inappropriate timing of specimen collection relative to drug administration, poor drug absorption, diluted/adulterated urine, or limitations of testing. The concentration at which the screening test can detect a drug or metabolite varies within a drug class. The concentration value must be greater than or equal to the cutoff to be reported as positive. Interpretive questions should be directed to the laboratory. The following opioids are not detected in this test, but can be ordered separately: fentanyl, buprenorphine, meperidine, tramadol, and tapentadol. A comprehensive panel that includes these opioids is available or individual opioid testing can be ordered. Refer to [email or web address] for test information. For medical purposes only; not valid for forensic use. Performed by [facility], [address] [place] [id number] [email or web address], Nolberto Marie MD, PHD - Lab. Director Cocaine, Urine Negative Normal Cutoff 150 [facility] Creatinine, Urine 65.0 mg/dL Normal 20.0-400.0 [facility] Marijuana, Urine Positive Normal Cutoff 50 [facility] Comment on above: Result Comment: Pres umptively POSITIVE for cannabinoids (marijuana or Marinol use) by enzyme immunoassay. NOT CONFIRMED by LC-MS/MS. Unconfirmed positive may be useful for medical purposes, but does not meet forensic standards. MDMA, Urine Negative Normal Cutoff 500 [facility] Methadone, Urine Negative Normal Cutoff 150 [facility] Opiates, Urine Negative Normal Cutoff 300 [facility] Oxycodone, Urine Negative Normal Cutoff 100 [facility] Phencyclidine, Urine Negative Normal Cutoff 25 [facility] Propoxyphene, Urine Negative Normal Cutoff 300 [facility] HSV 1 Glycoprotein G Ab, IgG on 12-21-2022 HSV 1 Glycoprotein G Ab, IgG 27.20 IV Critically high <=0.89 [facility] Comment on above: Result Comment: REFE RENCE INTERVAL: HSV 1 Glycoprotein G Ab, IgG 0.89 IV or less ...... Negative - No significant level of detectable IgG antibody to HSV type 1 glycoprotein G. 0.90 - 1.09 IV ....... Equivocal - Questionable presence of IgG antibody to HSV type 1 glycoprotein G. Repeat testing in 10 - 14 days may be helpful. 1.10 IV or greater ... Positive - IgG antibody to HSV type 1 glycoprotein G detected, which may indicate a current or past HSV infection. Individuals infected with HSV may not exhibit detectable IgG antibody to type-specific HSV antigens 1 and 2 in early stages of infection. Detection of antibody presence in these cases may only be possible using a non-type specific screening test. Performed By: [facility] [address] [place] [id number] Methods Specialist Engineer: Nolberto Marie MD, PhD HSV 2 Glycoprotein G Ab, IgG on 12-21-2022 HSV 2 Glycoprotein G Ab, IgG 0.06 IV Normal <=0.89 [facility] Comment on above: Result Comment: REFE RENCE INTERVAL: HSV 2 Glycoprotein G Ab, IgG 0.89 IV or less ....... Negative - No significant level of detectable IgG antibody to HSV type 2 glycoprotein G. 0.90 - 1.09 IV ........ Equivocal - Questionable presence of IgG antibody to HSV type 2 glycoprotein G. Repeat testing in 10 - 14 days may be helpful. 1.10 IV or greater .... Positive - IgG antibody to HSV type 2 glycoprotein G detected, which may indicate a current or past HSV infection. Individuals infected with HSV may not exhibit detectable IgG antibody to type-specific HSV antigens 1 and 2 in early stages of infection. Detection of antibody presence in these cases may only be possible using a non-type specific screening test. Performed By: [facility] [address] [place] [id number] Methods Specialist Engineer: Nolberto Marie MD, PhD Varicella-Zoster Virus Ab, I gGon 12-21-2022 Varicella-Zoster Virus Ab, IgG 240.8 IV Normal [facility] Comment on above: Result Comment: INTE RPRETIVE INFORMATION: VZV Ab, IgG 134.9 IV or less ....... Negative - No significant level of detectable IgG varicella-zoster antibody. 135.0 - 164.9 IV ....... Equivocal - Repeat testing in 10-14 days may be helpful. 165.0 IV or greater .... Positive - IgG antibody to varicella-zoster detected, which may indicate a current or past varicella-zoster infection. The best evidence for current infection is a significant change on two appropriately timed specimens, where both tests are done in the same laboratory at the same time. Performed By: [facility] [address] [place] [address] Methods Specialist Engineer: Nolberto Marie MD, PhD HIV Ag/Abon 12-20-2022 HIV Ag/Ab Non-Reactive Normal NR [facility] Comment on above: Result Comment: No l aboratory evidence of HIV infection. If acute HIV infection is suspected, consider testing for HIV-[address] [address] Hep C Abon 12-20-2022 Hep C Ab Non-Reactive Normal NR [facility] Comment on above: Result Comment: The hepatitis C procedure used in our laboratory is a Chemiluminescent test specific for three recombinant HCV antigens. A negative anti-HCV result indicates that the antibodies to hepatitis C virus are not present at this time. Individuals with reactive anti-HCV should be considered infected and infectious until proven otherwise. Confirmation of all equivocal or reactive results is recommended by ordering HCV RNA by PCR. [address] [place] [address] RPRon 12-20-2022 Reagin Ab RPR Ql (S) Non-Reactive Normal Non-reacti [facility] Comment on above: Performed By: #### R UBEL #### [facility] [address] [place] [address] Trichmonas Vaginalis Screen (EIA)on 12-20-2022 Trichomonas Vaginalis Screen (EIA) Negative Normal [facility] Comment on above: Performed By: #### E TRIC #### [facility] [address] [place] [address] Wet Prep-Medical Purposes On rivera 12-20-2022 Wet Prep Clue Cellls None Seen Normal [facility] Comment on above: Performed By: #### C BCWD #### [facility] [address] [place] [address] Wet Prep Trichomonas See EIA Normal [facility] Comment on above: Performed By: #### C BCWD #### [facility] [address] [place] [address] Wet Prep Yeast None Seen Normal [facility] Comment on above: Performed By: #### C BCWD #### [facility] [address] [place] [address] CBC With Platelet and Differ entialon 12-19-2022 Basophils (Bld) [#/Vol] 0.0 10*3/uL Normal 0.0-0.2 [facility] Comment on above: Performed By: #### C BCWD #### [facility] [address] [place] [address] Basophils/100 WBC (Bld) 0.8 % Normal [facility] Comment on above: Performed By: #### C BCWD #### [facility] [address] [place] [address] Eosinophils (Bld) [#/Vol] 0.1 10*3/uL Normal 0.0-0.7 [facility] Comment on above: Performed By: #### C BCWD #### [facility] [address] [place] [address] Eosinophils/100 WBC (Bld) 1.7 % Normal [facility] Comment on above: Performed By: #### C BCWD #### [facility] [address] [place] [address] Erythrocyte distribution width (RBC) [Ratio] 12.4 % Normal 11.5-14.5 [facility] Comment on above: Performed By: #### C BCWD #### [facility] [address] [place] [address] Hematocrit (Bld) [Volume fraction] 33.7 % Low 37.0-47.0 [facility] Comment on above: Performed By: #### C BCWD #### [facility] [address] [place] [address] Hemoglobin (Bld) [Mass/Vol] 11.5 g/dL Low 12.0-16.0 [facility] Comment on above: Performed By: #### C BCWD #### [facility] [address] [place] [address] Lymphocytes (Bld) [#/Vol] 1.0 10*3/uL Normal 1.0-4.8 [facility] Comment on above: Performed By: #### C BCWD #### [facility] [address] [place] [address] Lymphocytes/100 WBC (Bld) 21.8 % Normal [facility] Comment on above: Performed By: #### C BCWD #### [facility] [address] [place] [address] MCH (RBC) [Entitic mass] 30.7 pg Normal 27.0-31.3 [facility] Comment on above: Performed By: #### C BCWD #### [facility] [address] [place] [address] MCHC 34.1 % Normal 33.0-37.0 [facility] Comment on above: Performed By: #### C BCWD #### [facility] [address] [place] [address] MCV (RBC) [Entitic vol] 89.8 fL Normal 79.4-94.8 [facility] Comment on above: Performed By: #### C BCWD #### [facility] [address] [place] [address] Monocytes (Bld) [#/Vol] 0.4 10*3/uL Normal 0.2-0.8 [facility] Comment on above: Performed By: #### C BCWD #### [facility] [address] [place] [address] Monocytes/100 WBC (Bld) 9.6 % Normal [facility] Comment on above: Performed By: #### C BCWD #### [facility] [address] [place] [address] Neutrophils (Bld) [#/Vol] 3.0 10*3/uL Normal 1.4-6.5 [facility] Comment on above: Performed By: #### C BCWD #### [facility] [address] [place] [address] Neutrophils/100 WBC (Bld) 66.1 % Normal [facility] Comment on above: Performed By: #### C BCWD #### [facility] [address] [place] [address] Platelets (Bld) [#/Vol] 226 10*3/uL Normal 130-400 [facility] Comment on above: Performed By: #### C BCWD #### [facility] [address] [place] [address] RBC (Bld) [#/Vol] 3.76 10*6/uL Low 4.20-5.40 [facility] Comment on above: Performed By: #### C BCWD #### [facility] [address] [place] [address] WBC (Bld) [#/Vol] 4.5 10*3/uL Low 4.8-10.8 [facility] Comment on above: Performed By: #### C BCWD #### [facility] [address] [facility] [place] [address] Culture, Urineon 12-19-2022 Culture, Urine ORDER#: [id number] OR DERED BY: TAWANA YI SOURCE: Urine Clean Catch COLLECTED: 12/19/22 14:44 ANTIBIOTICS AT [place].: RECEIVED : 12/19/22 20:01 Culture, Urine FINAL 12/21/22 12:29 Cult,Urine: NO SIGNIFICANT GROWTH Performed at [address] [address] [phone] Normal [facility] Comment on above: Performed By: #### R UBEL #### [facility] [address] [facility] [address] Gynecological Specimen (Cyto logy)on 12-19-2022 Gynecological Specimen (Cytology) [facility] [address] [place], [place] [id number] FINAL CYTOLOGY PAP REPORT Patient Name: SARA FREED Accession No: [id number] Age Sex: 2000 22 Y / F Location: [facility] Account No: [id number] Collected: 12/19/2022 Med Rec No: [id number] Received: 12/20/2022 Attend Phys: TAWANA YI Completed: 01/03/2023 Perform Phys: TAWANA YI SPECIMEN ADEQUACY: Satisfactory for Evaluation. Endocervical cells/transformation zone component present. GENERAL CATEGORIZATION: Epithelial Cell Abnormality INTERPRETATION/RESULTS: Atypical squamous cells of undetermined significance. Specimen: THINPREP LIQUID BASE IMAGED DIAGNOSTIC History: Source: Thin Prep Site: Cervical History: Previous abnormal smear? No History of CA? No Lab Order#: [id number] Test Name Collected D AND T Result HPV Type 16 12/19/2022 Not Detected HPV Type 18 12/19/2022 Not Detected HPVOH (Other types) 12/19/2022 DETECTED HPV Comment 12/19/2022 See below Test Comment: This is information only. See above for results. HPV other genotypes: 31,33,35,39,45,51,52,56,58,59, 66,68 The Brant Erasmo HPV Test is a qualitative in-vitro test for the detection of Human Papillomavirus that provides specific genotyping information for HPV Types 16 and 18, while concurrently detecting 12 other high-risk HPV types 31,33,35, 39,45,51,52,56,58,59,66,68 in a pooled result. The test utilizes amplification of target DNA by Polymerase Chain Reaction (PCR) and nucleic acid hybridization. CPT: Technical: 51832 X1 Professional: 57193 X1 Screened by: JEROME BROOKS(ASCP) EARL CURRIE M.D. 01/03/2023 Electronically signed out by Cervical cytology is a screening test primarily for squamous cancers and precursors and has associated false negative and positive results. New technologies such as liquid based sampling may decrease but not eliminate all false negative results. Please refer to established guidelines All gynecologic cytology specimen processing and diagnostic testing is processed and screened using a Thin Prep Case Monitor at [facility] [address] [place] [address] All abnormal gynecologic interpretation is performed at [facility], unless otherwise noted in the report. Page 1 of 1 Abnormal [facility] Comment on above: Performed By: #### R UBEL #### [facility] [address] [facility] [address] HCG Quanton 12-19-2022 HCG Quant 55545.0 mIU/mL Normal [facility] Comment on above: Result Comment: Gest ational Age Expected HCG values (mIU/ml) 3 weeks 5-72 4 weeks 10-708 5 weeks 217-8,245 6 weeks 152-32,177 8 weeks 31,366-149,094 12 weeks 27,107-201,615 16 weeks 8,904-55,332 18 weeks 9,649-55,271 Performed By: #### R UBEL #### [facility] [address] [place] [address] HPV DNA Typingon 12-19-2022 HPV Comment See below Normal [facility] Comment on above: Result Comment: Th is is information only. See above for results. HPV other genotypes: 31,33,35,39,45,51,52,56,58,59,66,68 The Brant Erasmo HPV Test is a qualitative in-vitro test for the detection of Human Papillomavirus that provides specific genotyping information for HPV Types 16 and 18, while concurrently detecting 12 other high-risk HPV types 31,33,35, 39,45,51,52,56,58,59,66,68 in a pooled result. The test utilizes amplification of target DNA by Polymerase Chain Reaction (PCR) and nucleic acid hybridization. . Hepatitis B Surface Agon Hepatitis B Surface Ag Interp Non-Reactive Normal [facility] Comment on above: Performed By: #### H BSG #### [facility] [address] [place] [address] Rubella Ab, IgGon 12-19-2022 Rubella Ab, IgG 12.4 IU/mL Normal [facility] Comment on above: Result Comment: Yenni ent's result indicates immunity. Default Normal Ranges >=10 Presumed Immune <10 Presumed Not immune Performed By: #### R UBEL #### [facility] [address] [place] [address] Type and 3 cell Screen OB Ca ptureon 12-19-2022 Type and 3 cell Screen OB Capture PATIENT: ABDIAZIZ Drake LOC: [facility] BILL# : [id number] : 2000 SEX: F ORDERED BY: KASSIDY BARAHONA ORDERED : 12/19/2022 11:18 COLLECTED: 12/19/2022 11:19 ORDER : [id number] RECEIVED : 12/19/2022 15:40 TEST NAME RESULT UNITS RANGES ABN FL ST ABORH Capture A POS F Antibody 3 Cell Scrn Captu NEG F Normal [facility] Comment on above: Performed By: #### R WIL #### [facility] [address] [place] [address] Urinalysis, reflex to micros copicon 12-19-2022 Bilirubin Ql (U) Negative Normal Negative [facility] Comment on above: Performed By: #### C BCWD #### [facility] [address] [place] [address] Clarity (U) Clear Normal Clear [facility] Comment on above: Performed By: #### C BCWD #### [facility] [address] [place] [address] Color (U) Yellow Normal Straw/[place] [facility] Comment on above: Performed By: #### C BCWD #### [facility] [address] [place] [address] Glucose Ql (U) Negative Normal Negative [facility] Comment on above: Performed By: #### C BCWD #### [facility] [address] [place] [address] Hemoglobin Ql (U) Negative Normal Negative [facility] Comment on above: Performed By: #### C BCWD #### [facility] [address] [place] [address] Ketones Ql (U) Negative Normal Negative [facility] Comment on above: Performed By: #### C BCWD #### [facility] [address] [place] [address] Leukocyte esterase Test strip Ql (U) TRACE Abnormal Negative [facility] Comment on above: Performed By: #### C BCWD #### [facility] [address] [place] [address] Nitrite Ql (U) Negative Normal Negative [facility] Comment on above: Performed By: #### C BCWD #### [facility] [address] [place] [address] pH (U) 7.0 [pH] Normal 5.0-9.0 [facility] Comment on above: Performed By: #### C BCWD #### [facility] [address] [place] [address] Protein Ql (U) Negative Normal Negative [facility] Comment on above: Performed By: #### C BCWD #### [facility] [address] [place] [address] Specific gravity (U) [Rel density] 1.013 Normal 1.005-1.03 [facility] Comment on above: Performed By: #### C BCWD #### [facility] [address] [place] [address] Urobilinogen Qn (U) 0.2 {Yoselyn'U}/dL Normal < 2.0 [facility] Comment on above: Performed By: #### C BCWD #### [facility] [address] [place] [address] Urine Microscopicon 12-20-19 23 Bacteria LM.HPF (Urine sed) [#/Area] Negative Normal Negative [facility] Comment on above: Performed By: #### U DEBBI #### [facility] [address] [place] [address] Urine Epithelial Cells Auto 3-5 Normal 0-5 [facility] Comment on above: Performed By: #### U DEBBI #### [facility] [address] [place] [address] Urine Hyaline Casts Auto 0-1 Normal 0-5 [facility] Comment on above: Performed By: #### U DEBBI #### [facility] [address] [place] [address] Urine RBC Auto 3-5 Abnormal 0-5 [facility] Comment on above: Performed By: #### U DEBBI #### [facility] [address] [place] [address] Urine WBC Auto 0-2 Normal 0-5 [facility] Comment on above: Performed By: #### U DEBBI #### [facility] [address] [place] [address] ANKLE, COMPLETE, MIN 3 VIEWS on 03-20-2022 ANKLE, COMPLETE, MIN 3 VIEWS Patient Name: SARA FREED STUDY: ANKLE, COMPLETE, MIN 3 VIEWS; Right; 03/20/2022 2:21 pm INDICATION: pain M25.579: Ankle pain. ACCESSION NUMBER(S): [id number] ORDERING CLINICIAN: BEE LEDESMA FINDINGS: Right ankle x-rays three views AP, lateral and oblique view: No acute fractures, no dislocation. Mortise intact. Electronically signed by: BEE LEDESMA MD Normal [facility] FOOT COMPLETE, MIN 3 VIEWSon 03-20-2022 FOOT COMPLETE, MIN 3 VIEWS Patient Name: SARA FREED STUDY: FOOT; COMPLETE, MIN 3 VIEWS; Right; 03/20/2022 2:21 pm INDICATION: pain M25.579: Ankle pain M79.673: Foot pain. ACCESSION NUMBER(S): [id number] ORDERING CLINICIAN: BEE LEDESMA FINDINGS: Right foot x-rays three views AP, lateral and oblique view: No acute fractures, no dislocation. No significant degenerative changes. Electronically signed by: BEE LEDESMA MD Normal [facility] Initial Visit (Orthopaedic S urgery)on 03-20-2022 Initial Visit (Orthopaedic Surgery) Diagnoses/Problems Assessed Sesamoiditis of foot (733.99) (M25.879) Orders Sesamoiditis of foot Start: methylPREDNISolone 4 MG Oral Tablet Therapy Pack (Medrol); USE DIRECTED ; QTY 21 TABLET Provider Impressions ASSESSMENT: 1. Right foot sprain. 2. Right sesamoiditis. PLAN: Sara presents for right foot pain secondary foot sprain and sesamoiditis of the great toe. I will place her on a Medrol Dosepak and well supportive shoes/sneakers. I will see her back in several weeks. If she is still having some pain, possible custom orthotics, physical therapy, or further imaging. Chief Complaint Here for right foot and ankle pain. RT Foot and ankle injury. Xrays @ [facility] History of Present IllnessSara presents for right foot and ankle pain going on for the past several weeks. There was no fall. No traumatic injury. She had the gradual onset of pain mainly in the great toe, and now due to compensation is causing the ankle pain. Review of Systems Review of systems, past medical history, social history and family history documented and initialed on the patient information form dated March 20, 2022. This was reviewed and entered into the electronic medical record. No fevers or chills. No headache or neck pain. No nausea or vomiting. No blurry vision. No chest pain, shortness of breath, or cough. No rash. No lower extremity pitting edema. Active Problems Problems Ankle pain (719.47) (M25.579) Foot pain (729.5) (M79.673) Past Medical History Past medical history was reviewed; obtained today on March 20, 2022. Allergies No Known Drug Allergies Recorded By: Bee Ledesma; 03/20/2022 2:35:34 PM Physical Exam Physical examination of the right foot and ankle shows that the skin is intact. There are no open wounds. There is no pain over the lateral or medial malleolus. There is no pain of the deltoid ligament. There is no pain of the ATF, CF or PTF ligaments. No pain in the midfoot area. There is some mild pain of the Achilles tendon. The Achilles tendon is intact. Most of her pain is over the first MTP joint. It causes most of the discomfort. Her extensor and flexor mechanism is intact. There is some mild pain of the sesamoid bone. Distal pulses are palpable. She is neurovascularly intact. There is no erythema. There is no warmth. There are no clinical signs of infection. Results/Data DIAGNOSTIC STUDIES: X-rays were reviewed. Signatures Electronically signed by : Ev Gary, ; Mar 22 2022 4:44PM EST (Powder Coat Painter/Recorder) Electronically signed by : Bee Ledesma MD; Mar 23 2022 8:17AM EST Normal [facility] 03-20-2022 XR Ankle 3 Views Normal -[facility] -[facility] Work Phone: XR Foot 3 Views Normal -[facility] Work Phone: Tyrese 02-10-2018 [facility] Telephone (Ph.Creative) CL SARA HEWITT ([id number]) 2000 FDate Time Provider Department02/10/18 STEVE COELLO During your visit today, we recorded the following information about you:Julio Capone 02/10/2018 3:25 PM SignedReceived 02/01/18 lab results from [facility]. Placed in provider's inbox forreview.(Gonococcus, Trich, Chlamydia) negativeRoute to [facility] for scanning.Julio Capone 02/17/2018 8:35 AM SignedSent to scanning.Allergies As of Date: 02/10/2018 Noted Allergy ReactionPENICILLINS 04/01/2008 2 - Rash Comments: BlistersDate Reviewed: 05/27/2017Reviewed by: Cherelle Martinez - Fully AssessedReason for Visit: Outside Lab Results [753] Cmt: GC, chlamyd, trich neg 02/01/18Reason For Visit History RecordedPrescriptions as of 02/10/2018 Sig: NORGESTIMATE-ETHINYL ESTRADIO* Take by mouth.Problem List As Of Date 02/10/2018 Noted Resolved PREMATURE PUBERTY [E30.1] INVALID FOR* Status:Closed by STEVE COELLO MD on 02/15/18 [facility] Tyrese 05-29-2017 [facility]Ph.[facility] SARA CM ([id number]) 2000 FDate Time Provider Nerihnwcjr09/1/17 STEVE COELLO During your visit today, we recorded the following information about you:Rekha Pacheco RN 05/29/2017 8:54 AM Signed----- Message from Steve Coello sent at 05/29/2017 8:02 AM EDT -----The thyroid Function is fineDenise Junior COTA 05/29/2017 8:56 AM SignedMessage left on VMAllergies As of Date: 05/29/2017 Noted Allergy ReactionPENICILLINS 04/01/2008 2 - Rash Comments: BlistersDate Reviewed: 05/27/2017Reviewed by: Cherelle Martinez - Fully AssessedReason for Visit: Results [95] Cmt: thyroid labsReason For Visit History RecordedPrescriptions as of 05/29/2017 Sig: NORGESTIMATE-ETHINYL ESTRADIO* Take by mouth.Problem List As Of Date 05/29/2017 Noted Resolved PREMATURE PUBERTY [E30.1] INVALID FOR* Status:Closed by REKHA PACHECO RN on 05/29/17 Normal [facility] Free T4on 05-28-2017 Thyroxine (T4) free 1.3 ng/dL Normal 0.9-1.7 [facility] Comment on above: Performed By: #### F T4 ####[facility] [address] [place], [place] [id number] CNOVon 05-27-2017 CNOV Office Visit (FAMDNA) SARA CM ([id number]) 2000 [facility] Qicxfhxyyj25/30/17 4:20 PM STEVE COELLO FAMDNA During your visit today, we recorded the following information about you: Temperature Pulse Respiration Blood pressure 98 degrees 70/minute 16/minute 118/61 Weight Height Last Period 70.2 kg 1.613 m 05/25/17Cherelle Martinez MA 05/27/2017 4:29 PM SignedPatient presents with:PhysicalPain (Shoulder Pain): Right side pain on and offLauren SOPHIA Martinez 05/31/2017 2:26 PM SignedTETANUS due on 2009HPV VACCINE(1 of 3 - Female 3 Dose Series) due on 2009GC (GONORRHEA) SCREENING (18-24) due on 01/22/2016CHLAMYDIA SCREENING (18-24) due on 01/22/2016Cherelle Martinez MA 05/27/2017 4:29 PM Addendumplease get shot recordThomas Luis Alberto Coello MD 05/31/2017 2:26 PM SignedSUBJECTIVE:Chief Complaint:Sara Freed is a 17 year old female who presents for a comprehensive problemevaluation.ACTIVE PROBLEM LISTPREMATURE PUBERTYPAST MEDICAL HISTORYDiagnosis Date- NEGATIVE MEDICAL HISTORYPAST SURGICAL HISTORYProcedure Laterality Date- NONEFAMILY HISTORYProblem Relation Age of Onset- None Other- cerebral aneurysm [OTHER] Maternal Grandmother- esophageal cancer [OTHER] Maternal Grandfather- ckd [OTHER] Paternal Grandmother medication induced- gerd [OTHER] Paternal Grandmother- Diabetes Paternal GrandfatherSocial History Marital status: Single Spouse name: Years of education: Number of children:Social History Main TopicsSocial History Narrative April 01, 2008 Pediatric Family Social History: Family Members currently living in the home: Mother, Father, Brother(s) 2 andSister(s) 3; mother expecting 7th child may 02. ETOH: No. Tobacco: No. Substance Abuse: No Family Members have Guns in Home? : No Domestic Violence is a problem in the Home?: No Pets in the Home: Yes. Guinea pigs, dogThere is no immunization history on file for this patient.REVIEW OF SYSTEMS:GENERAL:Denies fever, chills, night sweats, or changes in weight.DERMATOLOGIC: Denies any new skin conditions, rashes or changing moles. nevusLeft thigh long standingEYES: Denies recent visual changes.ENT: Denies hearing loss or tinnitusRESPIRATORY: Denies any cough, dyspnea, or wheezing. Sob When supineCARDIOVASCULAR: Denies any chest pain with exertion or at rest, palpitations,syncope, or edema.BREASTS: Denies any breast lumps, tenderness, dimpling, skin changes, or nippledischarge.GASTROINTESTIN AL: Denies any nausea, vomiting, abdominal pain, heartburn,changes in bowel habit, Denies melena, Denies any rectal bleeding. Has Dailyloose stool For 9 months. No blood unless hemorrhoid . Some gas No relationto foodGENITOURINARY: Denies any urinary frequency, urgency, incontinence, dysuria.Denies vaginal odor, discharge or lesions. Denies irregular vaginal bleeding orspotting. MENSTRUAL HISTORY: menarche 12 G0 On ocp Uses condoms as well HORMONE REPLACEMENT: on ocpMUSCULOSKELETAL: Denies any joint swelling, joint pain, or loss of range ofmotion., Denies back pain. Right shoulder pa in for 1 year intermittentHurts with lifting things . Right hip can pop out at times - Nointerference with activityNEURO: Denies any headaches, tremors, dizziness, vertigo, memory loss,confusion., Denies weakness, numbness or tingling.. occ headache whenoverheated - Behind eyes Uses motrinPSYCHIATRIC: Denies any sleeping problems, history of abuse, marital discord.,Denies any anxiety or depression.HEMATOLOGIC/LYMPHAT IC/IMMUNOLOGIC: Denies anemia, bruising, bleedingabnormalities.ENDOCRIN E: Denies any heat or cold intolerance, polyuria or polydipsia.Exercise - not mch diet Avoiding popOBJECTIVE:PHYSICAL EXAMINATION:BP 118/61 Pulse 70 Temp 36.7 ?C (98 ?F) (Oral) Resp 16 Ht 161.3 cm (5'3.5ANDquot;) Wt 70.2 kg (154 lb 11.2 oz) LMP 05/25/2017 SpO2 98% BMI26.97 kg/m1ILSSTLP APPEARANCE: Well appearing, alert, in no acute distress, well-hydrated,well nourished.SKIN: Skin color, texture, turgor normal, no suspicious rashes or lesionsHEAD: No significant findings.EYES: PERRLA, EOMIEARS: External ears normal, canals clearNOSE/SINUSES: Nares normal. Septum midline.OROPHARYNX: Lips, mucosa, and tongue normal, teeth and gums normal, oropharynxnormalNECK: Supple, full range of motion, no lymphadenopathy, normal thyroid, nocarotid bruits and no JVDBACK: Back symmetric, Normal curvature, ROM normal, No CVAT.LUNGS: Normal breath sounds, Clear to auscultation, No wheezes, No cracklesHEART:Normal PMI, Regular rate and rhythm, Normal heart sounds, S1 and S2, Nomurmurs. and m Base loudest when supineBREASTS: Exam deferredABDOMEN: Soft, Non-tender, No palpable masses, Normal bowel sounds and Nohepatosplenomegaly.EXTREMITI ES:Normal, No deformities, No skin discoloration, No edema and Normalpulses bilaterally.MUSCULOSKELETAL: No joint swelling, deformity, or tendernessNEURO: Awake, alert and oriented x 3, Cranial nerves II-XII grossly intact,Reflexes symmetrical, Normal gait and No involuntary motions.GENITALIA: exam deferredRECTAL: exam deferredASSESSMENT/PLAN:Compre hensive problem evaluaton - Preventive Health Care HealthyRight shoulder pain - nothing on examHeart murmurHeat induced headacheDiarrheaSob When supineP:Exercise discussedDietary and supplemental calcium discussedWeight loss encouragedGet shot recordEchocardiogramincrease fiber in in [id number] PROBLEM LISTPREMATURE PUBERTYThomas Luis Alberto Coello MDKihei Roderick 05/27/2017 5:43 PM SignedVenipuncture performed to right antecubital. Number of tubes collected: 1 gold.Referring Provider: SELF [[id number]]Allergies As of Date: 05/27/2017 Noted Allergy ReactionPENICILLINS 04/01/2008 2 - Rash Comments: BlistersDate Reviewed: 05/27/2017Reviewed by: Cherelle Farfan)(Hist) Juan - Fully AssessedReason for Visit: Physical [83] Pain (Shoulder Pain) [1343] Cmt: Right side pain on and offPrimary Visit Diagnosis:Physical exam [Z00.00] Other Visit Diagnoses:Heart murmur [R01.1] Diarrhea, unspecified type [R19.7] Chronic right shoulder pain [M25.511, G89.29] Shortness of breath [R06.02]Order(s):ECHO [060941] Order #: [id number]: 1 FUTURE T4 FREE/FREE THYROX [SQFT4] Order #: [id number] FUTURE T4 FREE/FREE THYROX [SQFT4] Order #: [id number]. 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 Number of tubes collected: 1gold. Status:Closed by STEVE COELLO MD on 05/31/17 Normal [facility] PROGRESSon 05-27-2017 Protein HNO ID: [id number] thor: Steve Spenceervice: (none)Author Type: PhysicianType: Progress NotesFiled: 05/31/2017 2:26 PMNote Text:SUBJECTIVE:Chief Complaint:Sara Freed is a 17 year old female who presents for a comprehensiveproblem evaluation.ACTIVE PROBLEM LISTPREMATURE PUBERTYPAST MEDICAL HISTORYDiagnosis Date- NEGATIVE MEDICAL HISTORYPAST SURGICAL HISTORYProcedure Laterality Date- NONEFAMILY HISTORYProblem Relation Age of Onset- None Other- cerebral aneurysm [OTHER] Maternal Grandmother- esophageal cancer [OTHER] Maternal Grandfather- ckd [OTHER] Paternal Grandmother medication induced- gerd [OTHER] Paternal Grandmother- Diabetes Paternal GrandfatherSocial History Marital status: Single Spouse name: Years of education: Number of children:Social History Main TopicsSocial History Narrative April 01, 2008 Pediatric Family Social History: Family Members currently living in the home: Mother, Father, Brother(s)2 and Sister(s) 3; mother expecting 7th child may 02. ETOH: No. Tobacco: No. Substance Abuse: No Family Members have Guns in Home? : No Domestic Violence is a problem in the Home?: No Pets in the Home: Yes. Guinea pigs, dogThere is no immunization history on file for this patient.REVIEW OF SYSTEMS:GENERAL:Denies fever, chills, night sweats, or changes in weight.DERMATOLOGIC: Denies any new skin conditions, rashes or changing moles.nevus Left thigh long standingEYES: Denies recent visual changes.ENT: Denies hearing loss or tinnitusRESPIRATORY: Denies any cough, dyspnea, or wheezing. Sob When supineCARDIOVASCULAR: Denies any chest pain with exertion or at rest,palpitations, syncope, or edema.BREASTS: Denies any breast lumps, tenderness, dimpling, skin changes, ornipple discharge.GASTROINTESTINAL: Denies any nausea, vomiting, abdominal pain, heartburn,changes in bowel habit, Denies melena, Denies any rectal bleeding. HasDaily loose stool For 9 months. No blood unless hemorrhoid . Some gasNo relation to foodGENITOURINARY: Denies any urinary frequency, urgency, incontinence,dysuria. Denies vaginal odor, discharge or lesions. Denies irregularvaginal bleeding or spotting. MENSTRUAL HISTORY: menarche 12 G0 On ocp Uses condoms as well HORMONE REPLACEMENT: on ocpMUSCULOSKELETAL: Denies any joint swelling, joint pain, or loss of rangeof motion., Denies back pain. Right shoulder pa in for 1 yearintermittent Hurts with lifting things . Right hip can pop out at times - No interference with activityNEURO: Denies any headaches, tremors, dizziness, vertigo, memory loss,confusion., Denies weakness, numbness or tingling.. occ headache whenoverheated - Behind eyes Uses motrinPSYCHIATRIC: Denies any sleeping problems, history of abuse, maritaldiscord., Denies any anxiety or depression.HEMATOLOGIC/LYMPHAT IC/IMMUNOLOGIC: Denies anemia, bruising, bleedingabnormalities.ENDOCRIN E: Denies any heat or cold intolerance, polyuria or polydipsia.Exercise - not mch diet Avoiding popOBJECTIVE:PHYSICAL EXAMINATION:BP 118/61 Pulse 70 Temp 36.7 ?C (98 ?F) (Oral) Resp 16 Ht 161.3 cm(5' 3.5 ) Wt 70.2 kg (154 lb 11.2 oz) LMP 05/25/2017 SpO2 98% BMI26.97 kg/o7JWGALCB APPEARANCE: Well appearing, alert, in no acute distress,well-hydrated, well nourished.SKIN: Skin color, texture, turgor normal, no suspicious rashes or lesionsHEAD: No significant findings.EYES: PERRLA, EOMIEARS: External ears normal, canals clearNOSE/SINUSES: Nares normal. Septum midline.OROPHARYNX: Lips, mucosa, and tongue normal, teeth and gums normal,oropharynx normalNECK: Supple, full range of motion, no lymphadenopathy, normal thyroid, nocarotid bruits and no JVDBACK: Back symmetric, Normal curvature, ROM normal, No CVAT.LUNGS: Normal breath sounds, Clear to auscultation, No wheezes, NocracklesHEART:Normal PMI, Regular rate and rhythm, Normal heart sounds, S1 and S2,No murmurs. and m Base loudest when supineBREASTS: Exam deferredABDOMEN: Soft, Non-tender, No palpable masses, Normal bowel sounds and Nohepatosplenomegaly.EXTREMITI ES:Normal, No deformities, No skin discoloration, No edema andNormal pulses bilaterally.MUSCULOSKELETAL: No joint swelling, deformity, or tendernessNEURO: Awake, alert and oriented x 3, Cranial nerves II-XII grosslyintact, Reflexes symmetrical, Normal gait and No involuntary motions.GENITALIA: exam deferredRECTAL: exam deferredASSESSMENT/PLAN:Compre hensive problem evaluaton - Preventive Health Care HealthyRight shoulder pain - nothing on examHeart murmurHeat induced headacheDiarrheaSob When supineP:Exercise discussedDietary and supplemental calcium discussedWeight loss encouragedGet shot recordEchocardiogramincrease fiber in in [id number] PROBLEM LISTPREMATURE PUBERTYThomas L MD Mode Normal [facility] Protein HNO ID: [id number] thor: Cherelle Farfan)(Hist) VaughnService: (none)Author Type: Medical AssistantType: Progress NotesFiled: 05/31/2017 2:26 PMNote Text:TETANUS due on 06/26/2009HPV VACCINE(1 of 3 - Female 3 Dose Series) due on 2009GC (GONORRHEA) SCREENING (18-24) due on 01/22/2016CHLAMYDIA SCREENING (18-24) due on 01/22/2016 Normal [facility] Test, Serum (Walk In)on 03-12-2017 Test, Serum (Walk In) Negative Normal [facility] Healthcare Comment on above: Performed By: #### P GSWI ####[id number] [address] Arnulfoclifton springs [facility] [place] [address] Encounters Encounter Date Encounter Type Care Provider Facility Start: 01-17-2024 End: 01-19-2024 ambulatory [facility] Start: 07-26-2023 End: 07-29-2023 Evaluation and management of inpatient [facility] Start: 06-28-2023 End: 06-30-2023 ambulatory [facility] Start: 04-23-2023 End: 05-29-2023 Pre-admission assessment Jos Fuchs [facility] Start: 04-22-2023 End: 04-22-2023 ambulatory Jos Fuchs [facility] Start: 03-01-2023 End: [facility]: 12-31-[facility]22 End: 01-02-2023 Subsequent hospital visit by physician Tawana Montenegro DO Work Phone: [facility] Ul[facility]ound Comment on above: Secondary amenorrhea ; Positive urine test Start: 04-10-[address] Bee canseco Gricelda Facility:[id number] Start: 03-20-[address] Bee canseco Gricelda Facility:[id number] Start: 03-20-2022 Patient encounter procedure Bee Ledesma MD [facility] Phone: [facility] Work Phone: Start: 05-27-2017 End: 06-03-2017 Patient encounter STEVE COELLO [facility] Start: 03-12-2017 Ambulatory NO FAMILY DOCTOR Facili ty:[id number] Procedures Date Procedure Procedure Detail Performing Clinician Start: 12-31-2022 Us uterus 1 4 wk transabdl 07/29 gestat Tawaan Montenegro DO Work Phone: Start: 08-20-2019 Microscopic observat ion [Identifier] in Cervix by Cyto stain Tawana Montenegro DO Work Phone: None (qualifier value) Jos Fuchs Plan of Treatment Date Care Activity Detail Author Start: 12-20-2023 Depression Screen Depression Screen [facility] Start: 12-20-2023 Screening for Chlamy manisha trachomatis Chlamydia/GC screen [facility] Start: 02-26-2023 Influenza vaccination Flu vacc ine (Season Ended) [facility] Start: 01-16-2023 End: 01-16-2023 ambulatory 01/16/2023 Initial Obstetrics and Gynecology Tawana Montenegro DO [address] [place], [place] [id number] [facility] Obstetrics and Gynecology Start: 08-20-2022 Screening for malign ant neoplasm of cervix Pap smear [facility] Start: 04-10-2022 FUV, Provider: Bee Ledesma, Status: Pen, Time: 10:15 AM FUV, Provider: Bee Ledesma, Status: Pen, Time: 10:15 AM [facility] Work Phone: Start: 04-20-2019 DTaP/Tdap/Td vaccine (7 - Td or Tdap) DTaP/Tdap/Td vaccine (7 - Td or Tdap) [facility] Start: 07-06-2010 Hepatitis A vaccine (2 of 2 - 2-dose series) Hepatitis A vaccine (2 of 2 - 2-dose series) [facility] Start: 1998 COVID-19 Vaccine (#1) COVID-19 Vacci ne (#1) [facility] Immunizations Immunization Date Immunization Notes Care Provider Fa cility 05-29-2019 influenza virus vaccine, unspecified formulation Jos Fuchs [facility] Care Comment on above: Result Comment: [facility] [place] 06-07-2010 human papilloma viru s vaccine, quadrivalent Tawana Montenegro DO Work Phone: [facility] Work Phone: 06-07-2010 influenza virus vaccine, unspecified formulation Tawana Montenegro DO Work Phone: [facility] Work Phone: 01-04-2010 hepatitis A vaccine, unspecified formulation Tawana Montenegro DO Work Phone: [facility] Work Phone: 01-04-2010 human papilloma viru s vaccine, quadrivalent Tawana Montenegro DO Work Phone: [facility] Work Phone: 01-04-2010 varicella virus vaccine Tawana Montenegro DO Work Phone: [facility] Work Phone: 04-20-2009 human papilloma viru s vaccine, quadrivalent Tawana Montenegro DO Work Phone: [facility] Work Phone: 04-20-2009 tetanus toxoid, reduced diphtheria toxoid, and acellular pertussis vaccine, adsorbed Tawana Montenegro DO Work Phone: [facility] Work Phone: 08-19-2006 influenza virus vaccine, unspecified formulation Tawana Montenegro DO Work Phone: [facility] Work Phone: 06-14-2006 influenza virus vaccine, unspecified formulation Tawana Montenegro DO Work Phone: [facility] Work Phone: 03-02-2003 diphtheria, tetanus toxoids and acellular pertussis vaccine Tawana Montenegro DO Work Phone: [facility] Work Phone: 03-02-2003 measles, mumps and rubella virus vaccine Tawana Montenegro DO Work Phone: [facility] Work Phone: 03-02-2003 poliovirus vaccine, inactivated Tawana Montenegro DO Work Phone: [facility] Work Phone: 04-28-1999 diphtheria, tetanus toxoids and acellular pertussis vaccine Tawana Montenegro DO Work Phone: [facility] Work Phone: 04-28-1999 poliovirus vaccine, inactivated Tawana Montenegro DO Work Phone: [facility] Work Phone: 01-25-1999 Hib, unspecified Jimenezjoseemmanuel you DO Work Phone: [facility] Work Phone: 01-25-1999 measles, mumps and rubella virus vaccine Tawana Montenegro DO Work Phone: [facility] Work Phone: 01-25-1999 varicella virus vaccine Tawana Montenegro DO Work Phone: [facility] Work Phone: 1998 diphtheria, tetanus toxoids and acellular pertussis vaccine Tawana Montenegro DO Work Phone: [facility] Work Phone: 1998 hepatitis B vaccine, adult dosage Tawana Montenegro DO Work Phone: [facility] Work Phone: 1998 Hib, unspecified Tawana pickenson DO Work Phone: [facility] Work Phone: 1998 diphtheria, tetanus toxoids and acellular pertussis vaccine Tawana Montenegro DO Work Phone: [facility] Work Phone: 1998 hepatitis B vaccine, adult dosage Tawana Montenegro DO Work Phone: [facility] Work Phone: 1998 Hib, unspecified Tawana you DO Work Phone: [facility] Work Phone: 1998 poliovirus vaccine, inactivated Tawana Montenegro DO Work Phone: [facility] Work Phone: 1998 hepatitis B vaccine, adult dosage Tawana Montenegro DO Work Phone: [facility] Work Phone: 1998 diphtheria, tetanus toxoids and acellular pertussis vaccine Tawana Montenegro DO Work Phone: [facility] Work Phone: 1998 poliovirus vaccine, inactivated Tawana Montenegro DO Work Phone: [facility] Work Phone: Payers Date Payer Category Payer Private Health Insurance [id number] 1998 Unknown [id number] [id number] [id number] 1998 Unknown [id number] 2.16.8 [id number] 1998 Unknown [id number] 2.16.8 [id number] 1998 Unknown [id number] 2.16.8 [id number] 1998 Unknown [id number] 2.16.8 [id number] 1998 Unknown [id number] 2.16.8 [id number] 1998 Unknown [id number] 2.16.8 [id number] Unknown 1914 Unknown Self Pay Social History Date Type Detail Facility Start: 03-02-2020 End: 12-19-2022 Tobacco smoking status NHIS Never smoked tobacco [facility] Phone: Start: 12-19-2022 Tobacco use and exposure Smokeless tobacco non-user [facility] Phone: Start: 12-19-2022 Alcohol intake Ex-drinker (finding) [employer] Phone: Start: 2000 Sex Assigned At Not on file B ON [employer] Phone: Sex Assigned At Female [facility] Clinical Note 04-22-2023 Note Date & Type Note Facility 04-22-2023 Note The following Patien t Education Materials have been given to the patient: EducationMaterial [facility] Evaluation + Plan note Note Date & Type Note Facility Evaluation + Plan note No data available for this section [facility] Evaluation note Note Date & Type Note Facility Evaluation note Diagnosis Secondary amenorrhea Absence of menstruation Positive urine test documented in this encounter [facility] Phone: Hospital Discharge instructions Note Date & Type Note Facility Hospital Discharge instructions No data available for this section [facility] Progress note Note Date & Type Note Facility Progress note No data available for this section [facility] Summary Purpose Family History No Family History Records FoundNo Family History Records FoundNo Family History Records FoundNo Family History Records FoundNo Family History Records Found No data available for this section No Family History Records FoundNo Family History Records Found Advance Directives No Advanced Directives Records FoundNo Advanced Directives Records FoundNo Advanced Directives Records FoundNo Advanced Directives Records FoundNo Advanced Directives Records FoundNo Advanced Directives Records FoundNo Advanced Directives Records Found Chief Complaint RT Foot and ankle injury. Xrays @ [facility] Reason for Referral Specialty Diagnoses / Procedures Referred By Contac t Referred To Contact Radiology Diagnoses Secondary amenorrhea Positive urine test Procedures US OB TRANSVAGINAL Tawana Montenegro, DO [address] [place] [address] Referral ID Status Reason Start Date Expiration Date Visits Re quested Visits Authorized [id number] Open 12/19/2022 12/19/2023 1 1 Specialty Diagnoses / Procedures Referred By Contac t Referred To Contact Radiology Diagnoses Secondary amenorrhea Positive urine test Procedures US OB LESS THAN 14 WEEKS SINGLE OR FIRST GESTATION Tawana Montenegro DO [address] [place] [address] Referral ID Status Reason Start Date Expiration Date Visits Re quested Visits Authorized [id number] Open 12/19/2022 12/19/2023 1 1 Additional Source Comments INFORMATION SOURCE (unrecogn ized section and content) DATE CREATED AUTHOR 01/22/[address] [facility] DATE CREATED AUTHOR AUTHOR'S ORGANIZ ATION 02/17/2018 [facility] DATE CREATED AUTHOR AUTHOR'S ORGANIZ ATION 03/25/2022 [facility] DATE CREATED AUTHOR AUTHOR'S ORGANIZ ATION 04/29/2022 [facility] DATE CREATED AUTHOR AUTHOR'S ORGANIZ ATION 04/30/2023 [facility] DATE CREATED AUTHOR AUTHOR'S ORGANIZ ATION 07/17/2023 [facility] DATE CREATED AUTHOR AUTHOR'S ORGANIZ ATION [facility] [place] Reason for Visit (unrecogniz ed section and content) Specialty Diagnoses / Procedures Referred By Contac t Referred To Contact Radiology Diagnoses Secondary amenorrhea Positive urine test Procedures US OB LESS THAN 14 WEEKS SINGLE OR FIRST GESTATION Tawana Montenegro, DO [address] [place] [address] Referral ID Status Reason Start Date Expiration Date Visits Re quested Visits Authorized [id number] Open 12/19/2022 12/19/2023 1 1 Care Teams (unrecognized sec tion and content) Finish Carpenter Relationship Specialty Start Date End Date Undetermined, Awaiting Assignment PCP - General 08/12/19 FOR RECORDS PERTAINING TO PATIENTS WHO ARE OR HAVE BEEN ENROLLED IN A CHEMICAL DEPENDENCY/SUBSTANCEABUSE PROGRAM, SOME INFORMATION MAY BE OMITTED. This clinical summary was aggregated from multiple sources. Caution should be exercised in using it in the provision of clinical care. This summary normalizes information from multiple sources, and as a consequence, information in this document may materially change the coding, format and clinical context of patient data. In addition, data may be omitted in some cases. CLINICAL DECISIONS SHOULD BE BASED ON THE PRIMARY CLINICAL RECORDS. [facility] [employer] [facility]. provides no warranty or guarantee of the accuracy or completeness of information in this document.
== END 2024-04-24 10:11 | disposition home or self-care (01) ==
LOC: NOMS 10:11
PROVIDERS: Visit Provider Obstetrics & Gynecology
DX: Z34.91 Encounter for supervision of normal pregnancy, unspecified, first trimester (principal); Z3A.08 8 weeks gestation of pregnancy; N92.6 Irregular menstruation, unspecified
CPT/HCPCS: 76817

== ENCOUNTER 2024-05-05 10:26 | Outpatient (OUT) | payer MEDICAID, SELFPAY ==
--- OUTSIDE RECORDS SUMMARY | 2024-05-05 10:35 | XMS_ITS | CCD ---
Author Organization [facility] [employer] [facility] Care Team Providers Care Healthcare Consulting Manager Name Role Phone NO FAMILY DOCTOR Unavailable Unavailable NO FAMILY DOCTOR, NO FAMILY DOCTOR Unavailable Unavailable STEVE COELLO Unavailable Unavailable Unavailable Unavailable Gricelda, Dr. Bee Campbell Attending Unavai labletha Ledesma, Dr. Bee Campbell Attending Unavarachel labletha Undetermined, Awaiting Assignment Primary Care P [...] to adverse reactions to drug (disorder) [facility] (1 source) Oseltamivir Drug Allergy 05-08-20 [facility] (2 sources) Sulfamethoxazole / Trimethoprim; Translations: [sulfamethoxazole-t rimethoprim] Drug Allergy 10-18-19 Vomiting (disorder) [facility] (2 sources) Amoxicillin / Clavulanate; Translations: [Augmentin] Drug Allergy [facility] Repository (2 sources) cefdinir; Translations: [cefdinir] Drug Allergy Eruption of skin (disorder) [facility] Repository (2 sources) Oseltamivir; Translations: [Tamiflu] Drug Allergy [facility] Repository (1 source) Sulfamethoxazole / Trimethoprim; Translations: [Bactrim] Drug Allergy [facility] Repository Medications Current Medications Medication Drug [...] q4hr, # 12 tab(s), Refills(s) 0, Pharmacy: [facility] #[facility], 163, cm, 04/30/21 15:32:00 EDT, Height/Length [...] 1-3, # 12 tab(s), Refills(s) 0, Pharmacy: [facility] #[facility], 163, cm, 04/30/21 15:32:00 EDT, Height/Length [...] HISTORY: This procedure can be scheduled via [employer]. Release to patient - Note: Delayed release [...] HISTORY: This procedure can be scheduled via [employer]. ; ORDERING SYSTEM PROVIDED HISTORY: Right ovarian [...] Steve Borja MD 01/18/24 Final result Normal [facility] US PELVIS COMPLETEon 01-16- 024 US PELVIS COMPLETE EXAM: US Pelvis [...] Steve Borja MD 01/18/24 Final result Normal [facility] CBC With Platelet No Differe ntialon 07-28-2023 Erythrocyte distribution width (RBC) [Ratio] 12.5 % Normal 11.5-14.5 [facility] Comment on above: Performed By: #### C BCND #### [facility] [address] [place] [address] Hematocrit (Bld) [Volume fraction] 28.3 % Low 37.0-47.0 [facility] Comment on above: Performed By: #### C BCND #### [facility] [address] [place] [address] Hemoglobin (Bld) [Mass/Vol] 9.2 g/dL Low 12.0-16.0 [facility] Comment on above: Performed By: #### C BCND #### [facility] [address] [place] [address] MCH (RBC) [Entitic mass] 28.9 pg Normal 27.0-31.3 [facility] Comment on above: Performed By: #### C BCND #### [facility] [address] [place] [address] MCHC 32.5 % Low 33.0-37.0 [facility] Comment on above: Performed By: #### C BCND #### [facility] [address] [place] [address] MCV (RBC) [Entitic vol] 89.0 fL Normal 79.4-94.8 [facility] Comment on above: Performed By: #### C BCND #### [facility] [address] [place] [address] Platelets (Bld) [#/Vol] 241 10*3/uL Normal 130-400 [facility] Comment on above: Performed By: #### C BCND #### [facility] [address] [place] [address] RBC (Bld) [#/Vol] 3.18 10*6/uL Low 4.20-5.40 [facility] Comment on above: Performed By: #### C BCND #### [facility] [address] [place] [address] WBC (Bld) [#/Vol] 16.6 10*3/uL Critically high 4.8-10.8 [facility] Comment on above: Performed By: #### C BCND #### [facility] [address] [place] [address] HIV Ag/Abon 07-27-2023 HIV Ag/Ab Non-Reactive Normal NR [facility] Comment on above: Result Comment: No l aboratory evidence of HIV infection. If acute HIV infection is suspected, consider testing for HIV-1 RNA. Performed at [facility], [address] [place] [id number] . CBC With Platelet and Differ entialon 07-26-2023 Basophils (Bld) [#/Vol] 0.1 10*3/uL Normal 0.0-0.2 [facility] Comment on above: Performed By: #### U A #### [facility] [address] [place] [address] Basophils/100 WBC (Bld) 0.5 % Normal [facility] Comment on above: Performed By: #### U A #### [facility] [address] [place] [address] Eosinophils (Bld) [#/Vol] 0.1 10*3/uL Normal 0.0-0.7 [facility] Comment on above: Performed By: #### U A #### [facility] [address] [place] [address] Eosinophils/100 WBC (Bld) 1.0 % Normal [facility] Comment on above: Performed By: #### U A #### [facility] [address] [place] [address] Erythrocyte distribution width (RBC) [Ratio] 12.3 % Normal 11.5-14.5 [facility] Comment on above: Performed By: #### U A #### [facility] [address] [place] [address] Hematocrit (Bld) [Volume fraction] 36.9 % Low 37.0-47.0 [facility] Comment on above: Performed By: #### U A #### [facility] [address] [place] [address] Hemoglobin (Bld) [Mass/Vol] 11.9 g/dL Low 12.0-16.0 [facility] Comment on above: Performed By: #### U A #### [facility] [address] [place] [address] Lymphocytes (Bld) [#/Vol] 2.0 10*3/uL Normal 1.0-4.8 [facility] Comment on above: Performed By: #### U A #### [facility] [address] [place] [address] Lymphocytes/100 WBC (Bld) 17.5 % Normal [facility] Comment on above: Performed By: #### U A #### [facility] [address] [place] [address] MCH (RBC) [Entitic mass] 29.0 pg Normal 27.0-31.3 [facility] Comment on above: Performed By: #### U A #### [facility] [address] [place] [address] MCHC 32.2 % Low 33.0-37.0 [facility] Comment on above: Performed By: #### U A #### [facility] [address] [place] [address] MCV (RBC) [Entitic vol] 90.0 fL Normal 79.4-94.8 [facility] Comment on above: Performed By: #### U A #### [facility] [address] [place] [address] Monocytes (Bld) [#/Vol] 1.1 10*3/uL Critically high 0.2-0.8 [facility] Comment on above: Performed By: #### U A #### [facility] [address] [place] [address] Monocytes/100 WBC (Bld) 9.7 % Normal [facility] Comment on above: Performed By: #### U A #### [facility] [address] [place] [address] Neutrophils (Bld) [#/Vol] 7.9 10*3/uL Critically high 1.4-6.5 [facility] Comment on above: Performed By: #### U A #### [facility] [address] [place] [address] Neutrophils/100 WBC (Bld) 70.4 % Normal [facility] Comment on above: Performed By: #### U A #### [facility] [address] [place] [address] Platelets (Bld) [#/Vol] 289 10*3/uL Normal 130-400 [facility] Comment on above: Performed By: #### U A #### [facility] [address] [place] [address] RBC (Bld) [#/Vol] 4.10 10*6/uL Low 4.20-5.40 [facility] Comment on above: Performed By: #### U A #### [facility] [address] [place] [address] WBC (Bld) [#/Vol] 11.2 10*3/uL Critically high 4.8-10.8 [facility] Comment on above: Performed By: #### U A #### [facility] [address] [place] [address] Comprehensive Metabolic Pane mello 07-26-2023 Albumin [Mass/Vol] 3.4 g/dL Low 3.5-4.6 [facility] Comment on above: Performed By: #### C MP #### [facility] [address] [place] [address] ALP [Catalytic activity/Vol] 134 U/L Critically high 40-130 [facility] Comment on above: Performed By: #### C MP #### [facility] [address] [place] [address] ALT [Catalytic activity/Vol] 13 U/L Normal 0-33 [facility] Comment on above: Performed By: #### C MP #### [facility] [address] [place] [address] Anion gap [Moles/Vol] 14 mmol/L Normal 9-15 [facility] Comment on above: Performed By: #### C MP #### [facility] [address] [place] [address] AST [Catalytic activity/Vol] 19 U/L Normal 0-35 [facility] Comment on above: Performed By: #### C MP #### [facility] [address] [place] [address] Bilirubin [Mass/Vol] mg/dL Normal 0.2-0.7 [facility] Comment on above: Performed By: #### C MP #### [facility] [address] [place] [address] Calcium [Mass/Vol] 9.7 mg/dL Normal 8.5-9.9 [facility] Comment on above: Performed By: #### C MP #### [facility] [address] [place] [address] Chloride [Moles/Vol] 103 mmol/L Normal 95-107 [facility] Comment on above: Performed By: #### C MP #### [facility] [address] [place] [address] CO2 [Moles/Vol] 19 mmol/L Low 20-31 [facility] Comment on above: Performed By: #### C MP #### [facility] [address] [place] [address] Creatinine [Mass/Vol] 0.75 mg/dL Normal 0.50-0.90 [facility] Comment on above: Performed By: #### C MP #### [facility] [address] [place] [address] GFR >60.0 Normal >60 [facility] Comment on above: Result Comment: Gunnar atric [...] secretion. Performed By: #### C MP #### [facility] [address] [place] [address] Globulin (S) [Mass/Vol] 2.9 g/dL Normal 2.3-3.5 [facility] Comment on above: Performed By: #### C MP #### [facility] [address] [place] [address] Glucose [Mass/Vol] 65 mg/dL Low 70-99 [facility] Comment on above: Performed By: #### C MP #### [facility] [address] [place] [address] Potassium [Moles/Vol] 4.5 mmol/L Normal 3.4-4.9 [facility] Comment on above: Performed By: #### C MP #### [facility] [address] [place] [address] Protein [Mass/Vol] 6.3 g/dL Normal 6.3-8.0 [facility] Comment on above: Performed By: #### C MP #### [facility] [address] [place] [address] Sodium [Moles/Vol] 136 mmol/L Normal 135-144 [facility] Comment on above: Performed By: #### C MP #### [facility] [address] [place] [address] Urea nitrogen [Mass/Vol] 8 mg/dL Normal 6-20 [facility] Comment on above: Performed By: #### C MP #### [facility] [address] [place] [address] Hepatitis B Surface Agon Hepatitis B Surface Ag Interp Non-Reactive Normal [facility] Comment on above: Performed By: #### H BSG #### [facility] [address] [place] [address] RPRon 07-26-2023 Reagin Ab RPR Ql (S) Non-Reactive Normal Non-reacti [facility] Comment on above: Performed By: #### R NE #### [facility] [address] [place] [address] Type and Screen Capture 3 sc rn cellon 07-26-2023 Type and Screen Capture 3 scrn cell PATIENT: ABDIAZIZ Drake LOC: [facility],0324,01 BILL# : [id number] : 2000 SEX: F ORDERED BY: KASSIDY BARAHONA ORDERED : 07/26/2023 09:26 COLLECTED: 07/26/2023 09:44 ORDER : [id number] RECEIVED : 07/26/2023 09:44 TEST NAME RESULT UNITS RANGES ABN FL ST ABORH Capture A POS F Antibody 3 Cell Scrn Captu NEG F Normal [facility] Comment on above: Performed By: #### T S3C #### [facility] [address] [place] [address] UR Drugs of Abuse Panelon Drug Screen Comment see below Normal [facility] Comment on above: Result Comment: This method is a screening test to detect only these drug classes as part of a medical workup. Confirmatory testing by another method should be ordered if clinically indicated. Performed By: #### U DRGS #### [facility] [address] [place] [address] UR Amphetamines Screen Negative Normal Negative < [facility] Comment on above: Performed By: #### U DRGS #### [facility] [address] [place] [address] UR Barbiturates Screen Negative Normal Negative < [facility] Comment on above: Performed By: #### U DRGS #### [facility] [address] [place] [address] UR Benzo Screen Negative Normal Negative < [facility] Comment on above: Performed By: #### U DRGS #### [facility] [address] [place] [address] UR Cannabinoids Screen Negative Normal Negative < [facility] Comment on above: Performed By: #### U DRGS #### [facility] [address] [place] [address] UR Cocaine Screen Negative Normal Negative < [facility] Comment on above: Performed By: #### U DRGS #### [facility] [address] [place] [address] UR Fentanyl Screen Negative Normal Negative < [facility] Comment on above: Performed By: #### U DRGS #### [facility] [address] [place] [address] UR Methadone Screen Negative Normal Negative < [facility] Comment on above: Performed By: #### U DRGS #### [facility] [address] [place] [address] UR Opiates Screen Negative Normal Negative < [facility] Comment on above: Performed By: #### U DRGS #### [facility] [address] [place] [address] UR Oxycodone Screen Negative Normal Negative < [facility] Comment on above: Performed By: #### U DRGS #### [facility] [address] [place] [address] UR PCP Screen Negative Normal Negative < [facility] Comment on above: Performed By: #### U DRGS #### [facility] [address] [place] [address] UR Propoxyphene Screen Negative Normal Negative < [facility] Comment on above: Performed By: #### U DRGS #### [facility] [address] [place] [address] Urinalysis, reflex to micros copicon 07-26-2023 Bilirubin Ql (U) Negative Normal Negative [facility] Comment on above: Performed By: #### U A #### [facility] [address] [place] [address] Clarity (U) Clear Normal Clear [facility] Comment on above: Performed By: #### U A #### [facility] [address] [place] [address] Color (U) Yellow Normal Straw/Giles [facility] Comment on above: Performed By: #### U A #### [facility] [address] [place] [address] Glucose Ql (U) Negative Normal Negative [facility] Comment on above: Performed By: #### U A #### [facility] [address] [place] [address] Hemoglobin Ql (U) Negative Normal Negative [facility] Comment on above: Performed By: #### U A #### [facility] [address] [place] [address] Ketones Ql (U) Negative Normal Negative [facility] Comment on above: Performed By: #### U A #### [facility] [address] [place] [address] Leukocyte esterase Test strip Ql (U) TRACE Abnormal Negative [facility] Comment on above: Performed By: #### U A #### [facility] [address] [place] [address] Nitrite Ql (U) Negative Normal Negative [facility] Comment on above: Performed By: #### U A #### [facility] [address] [place] [address] pH (U) 6.5 [pH] Normal 5.0-9.0 [facility] Comment on above: Performed By: #### U A #### [facility] [address] [place] [address] Protein Ql (U) TRACE Abnormal Negative [facility] Comment on above: Performed By: #### U A #### [facility] [address] [place] [address] Specific gravity (U) [Rel density] 1.009 Normal 1.005-1.03 [facility] Comment on above: Performed By: #### U A #### [facility] [address] [place] [address] Urobilinogen Qn (U) 0.2 {Yoselyn'U}/dL Normal < 2.0 [facility] Comment on above: Performed By: #### U A #### [facility] [address] [place] [address] Urine Microscopicon 07-26-20 23 Urine Bacteria RARE Abnormal Negative [facility] Comment on above: Performed By: #### U DEBBI #### [facility] [address] [place] [address] Urine Epithelial Cells Auto 20-50 Normal 0-5 [facility] Comment on above: Performed By: #### U DEBBI #### [facility] [address] [place] [address] Urine Hyaline Casts Auto 1-3 Normal 0-5 [facility] Comment on above: Performed By: #### U DEBBI #### [facility] [address] [place] [address] Urine RBC Auto 0-2 Normal 0-5 [facility] Comment on above: Performed By: #### U DEBBI #### [facility] [address] [place] [address] Urine WBC Auto 10-20 Abnormal 0-5 [facility] Comment on above: Performed By: #### U DEBBI #### [facility] [address] [place] [address] Culture, Group B Strepon Culture, Group B Strep ORDER#: [id number] ORDERED BY: TAWANA YI SOURCE: Vagina Genital COLLECTED: 07/12/23 15:54 ANTIBIOTICS AT [place].: RECEIVED : 07/12/23 16:18 Culture, Group B Strep FINAL 07/16/23 08:16 Rule Out Grp.B Strep: NEGATIVE FOR GROUP B STREPTOCOCCI Performed at [facility] [place], [place] [id number] ([phone] Normal [facility] Comment on above: Performed By: #### R UBEL #### [facility] [address] [place] [address] [phone] US OB 1 OR MORE FETUS LIMITE Don 06-28-2023 US OB 1 OR MORE FETUS LIMITED EXAMINATION: 3rd TRIMESTER OBSTETRIC ULTRASOUND 06/28/2023 COMPARISON: None HISTORY: ORDERING SYSTEM PROVIDED HISTORY: Encounter for supervision in primigravida, antepartum, 31 weeks gestation of TECHNOLOGIST PROVIDED HISTORY: This procedure can be scheduled via [employer]. Access your [employer] account by visiting [employer]. What reading provider will be dictating this [...] Casey Hall MD 07/02/23 Final result Normal [facility] RPRon 05-01-2023 Reagin Ab RPR Ql (S) Non-Reactive Normal Non-reacti [facility] Comment on above: Performed By: #### R NE #### [facility] [address] [place] [address] Glucose 1hr PPon 04-30-2023 Glucose [Mass/Vol] 101 mg/dL Normal 60-140 [facility] Comment on above: Result Comment: Gluc ose tolerance is IMPAIRED when the 1 hour post 50 gram load glucose is greater than 130mg/dL Performed By: #### G L1PP #### [facility] [address] [place] [address] Hemoglobin and Hematocriton 04-30-2023 Hematocrit (Bld) [Volume fraction] 35.4 % Low 37.0-47.0 [facility] Comment on above: Performed By: #### C BCWD #### [facility] [address] [place] [address] Hemoglobin (Bld) [Mass/Vol] 11.3 g/dL Low 12.0-16.0 [facility] Comment on above: Performed By: #### C BCWD #### [facility] [address] [place] [address] Nursing Assessmenton 023 Nursing Assessment [id number]#[id number]:[address] [facility] Auth for Release of Medical Recordson 04-22-2023 Auth for Release of Medical Records [id number]#[id number]:[address] [facility] Discharge Instructionson Discharge Instructions [id number]#[id number]:[address] [facility] Inpatient Clinical Summaryon 04-22-2023 Inpatient Clinical Summary [place] [id number] Clinical Summary Person Information Name: SARA FREED[place] Age: 23 Years : 2000 Sex: Female PCP: Gwen Sky DO Marital Status: Single Race: White Ethnicity: Non- or Language: Romanian Visit Id: Visit Reason: fELL AT HOME Speciality: Acuity: Obs Enc Type: OB Triage Med Service: Obstetrics Arrival: 04/22/2023 14:32:43 Discharge: 04/22/2023 16:33:00 Dispo Type: Home (Routine DC) Address: [address] [place] [id number] Provider Notes: Diagnosis: Problems Active (04/22/2023) Smoker [...] Refills: 0. Care Team Members: Attending Physician: Jef ALLEN, Jos Canales Consulting Physician: Referring Physician: Follow up: With: Address: When: TAWANA YI [address] [place] [address] 04/30/2023 10:15 AM Patient Education Information: Round Ligament Pain Normal [facility] Inpatient Patient Summaryon 04-22-2023 Inpatient Patient Summary [place] [id number] Patient Discharge Instructions PERSON INFORMATION Name: SARA [...] With: Address: When: TAWANA YI [address] [place] [address] 04/30/2023 10:15 AM In the event that [...] Last Dose: Next Dose: [facility] Information: [facility] PATIENT EDUCATION INFORMATION Instructions: Round Ligament Pain [...] walks if they cause pain. ? Take vyps-xjh-evlsckw and prescription medicines only as told by [...] few sec (more content not included)... Normal [facility] Insurance Correspondence Off ice04-22-2023 Insurance Correspondence Office [id number]#[id number]:[address] [facility] UA With Cult Reflexon 2022 Bacteria LM Ql (Urine sed) TRACE Normal Trace [facility] Comment on above: Performed By: #### 1 [id number] #### [facility] [address] [place] [address] Bilirubin Ql (U) Negative Normal Negative [facility] Comment on above: Performed By: #### 1 [id number] #### [facility] [address] [place] [address] Calcium oxalate crystals LM Ql (Urine sed) Present Normal [facility] Comment on above: Performed By: #### 1 [id number] #### [facility] [facility] [address] [place] [address] Clarity (U) SL CLOUDY Invalid Interpretation Code [facility] Comment on above: Performed By: #### 1 [id number] #### [facility] [address] [place] [address] Color (U) YELLOW Normal Yellow [facility] Comment on above: Performed By: #### 1 [id number] #### [facility] [address] [place] [address] Crystals LM Ql (Urine sed) Present Normal [facility] Comment on above: Performed By: #### 1 [id number] #### [facility] [address] [place] [address] Epithelial cells.squamous LM.HPF (Urine sed) [#/Area] 9-10 Normal 0-[address] [facility] Comment on above: Performed By: #### 1 [id number] #### [facility] [address] [place] [address] Glucose Test strip (U) [Mass/Vol] Negative Normal Negative [facility] Comment on above: Performed By: #### 1 [id number] #### [facility] [address] [place] [address] Hemoglobin Ql (U) Negative Normal Negative [facility] Comment on above: Performed By: #### 1 [id number] #### [facility] [address] [place] [address] Ketones (U) [Mass/Vol] Negative Normal Negative [facility] Comment on above: Performed By: #### 1 [id number] #### [facility] [address] [place] [address] [place].plasma/Lit hium.RBC (Bld) [Mass ratio] 0-3 Normal 0-[address] [facility] Comment on above: Performed By: #### 1 [id number] #### [facility] [address] [place] [address] Mucus Ql (Urine sed) TRACE Normal [facility] Comment on above: Performed By: #### 1 [id number] #### [facility] [address] [place] [address] Nitrite Ql (U) Negative Normal Negative [facility] Comment on above: Performed By: #### 1 [id number] #### [facility] [address] [place] [address] pH (U) 7.5 [pH] Invalid Interpretation Code 5.0-9.[address] [facility] Comment on above: Performed By: #### 1 [id number] #### [facility] [address] [place] [address] Protein (U) [Mass/Vol] Negative Normal Negative [facility] Comment on above: Performed By: #### 1 [id number] #### [facility] [address] [place] [address] Specific gravity (U) [Rel density] 1.010 Invalid Interpretation Code 1.005-1.[address] [facility] Comment on above: Performed By: #### 1 [id number] #### [facility] [address] [place] [address] Type of Urine collection method Clean Catch Normal [facility] Comment on above: Performed By: #### 1 [id number] #### [facility] [address] [place] [address] Urobilinogen Qn (U) 0.2 {Yoselyn'U}/dL Normal 0.0-1.[address] [facility] Comment on above: Performed By: #### 1 [id number] #### [facility] [address] [place] [address] WBC Auto Ql (U) TRACE Abnormal Negative [facility] Comment on above: Performed By: #### 1 [id number] #### [facility] [address] [place] [address] WBC LM.HPF (Urine sed) [#/Area] 0-5 Normal 0-[address] [facility] Comment on above: Performed By: #### 1 [id number] #### [facility] [address] [place] [address] US OB 14 PLUS WEEKS SINGLE O R FIRST GESTATIONon 03-01-2023 US OB 14 PLUS WEEKS SINGLE OR FIRST GESTATION EXAMINATION: OBSTETRIC ULTRASOUND 03/01/2023 3:11 pm TECHNIQUE: Transabdominal sonographic evaluation of the pelvis was performed. COMPARISON: 12/31/2022. HISTORY: ORDERING SYSTEM PROVIDED HISTORY: 11 weeks gestation of , Supervision of other normal , antepartum TECHNOLOGIST PROVIDED HISTORY: This procedure can be scheduled via [employer]. Access your [employer] account by visiting [employer]. What reading provider will be dictating this [...] Jalil Noe MD 03/01/23 Final result Normal [facility] US OB LESS THAN 14 WEEKS SIN GLE OR FIRST GESTATIONon 12-31-2022 1. Single IUP with best estimate of gestational age being 9 weeks and 3 days. No abnormal fluid collections about the gestation. Yolk sac, pole and cardiac motion noted, with heart rate of 176 BPM. 2. 2.6 cm, slightly complex, left ovarian cyst. Possibly a corpus luteum cyst. [facility] RADIOLOGY EXAM: US First Trimester , Transabdominal and US Duplex Arterial/Venous of the Pelvis, Complete EXAM DATE/TIME: 12/31/2022 4:36 pm CLINICAL History lines: ORDERING SYSTEM PROVIDED Secondary amenorrhea, Positive urine test TECHNOLOGIST PROVIDED History lines: This procedure can be scheduled via [employer]. Access your [employer] account by visiting [employer]. What reading provider will be dictating this [...] 2.0 cm. Free fluid: No free fluid. [facility] RADIOLOGY Steve Borja MD - 12/31/2022 EXAM: US First Trimester , Transabdominal and US Duplex Arterial/Venous of the Pelvis, Complete EXAM DATE/TIME: 12/31/2022 4:36 pm CLINICAL History lines: ORDERING SYSTEM PROVIDED Secondary amenorrhea, Positive urine test TECHNOLOGIST PROVIDED History lines: This procedure can be scheduled via [employer]. Access your [employer] account by visiting [employer]. What reading provider will be dictating this [...] ovarian cyst. Possibly a corpus luteum cyst. [employer] Phone: Radiology Study observation (narrative) [employer] Phone: US OB LESS THAN 14 WEEKS SIN GLE OR FIRST GESTATIONOrdered By: Steve Borja on 12-31-2022 [employer] Phone: HPV DNA Typingon 12-26-2022 HPV Type 16 Not detected Normal Not Detect [facility] HPV Type 18 Not detected Normal Not Detect [facility] HPVOH (Other types) Detected Abnormal Not Detect [facility] Comment on above: Result Comment: *Inc ludes 31,33,35,39,45,51,52,56,58,59,66,68 genotypes C.trachomatis N.gonorrhoeae DNAon 12-25-2022 C. trachomatis DNA EVONNE+probe Ql (Unsp spec) Negative Normal Negative [facility] N. gonorrhoeae DNA EVONNE+probe Ql (Unsp spec) Negative Normal Negative [facility] Drug Panel 9A, Screen Only, Urineon 12-21-2022 Alcohol, Urine Negative Normal Cutoff 40 [facility] Amphetamines, Urine Negative Normal Cutoff 300 [facility] Barbiturates, Urine Negative Normal Cutoff 200 [facility] Benzodiazepines, Urine Negative Normal Cutoff [address] [facility] CDTI 9A Comments See Note Normal [facility] Comment on above: Result Comment: INTE RPRETIVE [...] opioid testing can be ordered. Refer to [employer] for test information. For medical purposes only; not valid for forensic use. Performed by [facility], [address] [place] [id number] www.[employer], Nolberto Marie MD, PHD - Lab. Director Cocaine, Urine Negative Normal Cutoff 150 [facility] Creatinine, Urine 65.0 mg/dL Normal 20.0-400.0 [facility] Marijuana, Urine Positive Normal Cutoff 50 [facility] Comment on above: Result Comment: Pres umptively POSITIVE for cannabinoids (marijuana or Marinol use) by enzyme immunoassay. NOT CONFIRMED by LC-MS/MS. Unconfirmed positive may be useful for medical purposes, but does not meet forensic standards. MDMA, Urine Negative Normal Cut[address] [facility] Methadone, Urine Negative Normal [address] [facility] Opiates, Urine Negative Normal [address] [facility] Oxycodone, Urine Negative Normal Cutoff 100 [facility] Phencyclidine, Urine Negative Normal Cutoff 25 [facility] Propoxyphene, Urine Negative Normal [address] [facility] HSV 1 Glycoprotein G Ab, IgG on 12-21-2022 HSV 1 Glycoprotein G Ab, IgG 27.20 IV Critically high <=0.89 [facility] Comment on above: Result Comment: REFE RENCE [...] a non-type specific screening test. Performed By: [facility] [address] [place] [address] [employer] Coach: Nolberto Marie MD, PhD HSV 2 Glycoprotein G Ab, IgG on 12-21-2022 HSV 2 Glycoprotein G Ab, IgG 0.06 IV Normal <=0.89 [facility] Comment on above: Result Comment: REFE RENCE [...] a non-type specific screening test. Performed By: [facility] [address] [place] [address] [employer]S Soccer Coach: Nolberto Marie MD, PhD Varicella-Zoster Virus Ab, I gGon 12-21-2022 Varicella-Zoster Virus Ab, IgG 240.8 IV Normal [facility] Comment on above: Result Comment: INTE RPRETIVE [...] laboratory at the same time. Performed By: [facility] [address] [place] [address] Women'S Soccer Coach: Nolberto Marie MD, PhD HIV Ag/Abon 12-20-2022 HIV Ag/Ab Non-Reactive Normal NR [facility] Comment on above: Result Comment: No l aboratory evidence of HIV infection. If acute HIV infection is suspected, consider testing for HIV-[address] [address] Hep C Abon 12-20-2022 Hep C Ab Non-Reactive Normal NR [facility] Comment on above: Result Comment: The hepatitis [...] recommended by ordering HCV RNA by PCR. [employer] [facility] [place] [address] RPRon 12-20-2022 Reagin Ab RPR Ql (S) Non-Reactive Normal Non-reacti [facility] Comment on above: Performed By: #### R UBEL #### [facility] [address] [place] [address] Trichmonas Vaginalis Screen (EIA)on 12-20-2022 Trichomonas Vaginalis Screen (EIA) Negative Normal [facility] Comment on above: Performed By: #### E TRIC #### [facility] [address] [place] [address] Wet Prep-Medical Purposes On rivera 12-20-2022 Wet Prep Clue Cellls None Seen Normal [facility] Comment on above: Performed By: #### C BCWD #### [facility] [address] [place] [address] Wet Prep Trichomonas See EIA Normal [facility] Comment on above: Performed By: #### C BCWD #### [facility] [address] [place] [address] Wet Prep Yeast None Seen Normal [facility] Comment on above: Performed By: #### C BCWD #### [facility] [address] [place] [address] CBC With Platelet and Differ entialon 12-19-2022 Basophils (Bld) [#/Vol] 0.0 10*3/uL Normal 0.0-0.2 [facility] Comment on above: Performed By: #### C BCWD #### [facility] [address] [place] [address] Basophils/100 WBC (Bld) 0.8 % Normal [facility] Comment on above: Performed By: #### C BCWD #### [facility] [address] [place] [address] Eosinophils (Bld) [#/Vol] 0.1 10*3/uL Normal 0.0-0.7 [facility] Comment on above: Performed By: #### C BCWD #### [facility] [address] [place] [address] Eosinophils/100 WBC (Bld) 1.7 % Normal [facility] Comment on above: Performed By: #### C BCWD #### [facility] [address] [place] [address] Erythrocyte distribution width (RBC) [Ratio] 12.4 % Normal 11.5-14.5 [facility] Comment on above: Performed By: #### C BCWD #### [facility] [address] [place] [address] Hematocrit (Bld) [Volume fraction] 33.7 % Low 37.0-47.0 [facility] Comment on above: Performed By: #### C BCWD #### [facility] [address] [place] [address] Hemoglobin (Bld) [Mass/Vol] 11.5 g/dL Low 12.0-16.0 [facility] Comment on above: Performed By: #### C BCWD #### [facility] [address] [place] [address] Lymphocytes (Bld) [#/Vol] 1.0 10*3/uL Normal 1.0-4.8 [facility] Comment on above: Performed By: #### C BCWD #### [facility] [address] [place] [address] Lymphocytes/100 WBC (Bld) 21.8 % Normal [facility] Comment on above: Performed By: #### C BCWD #### [facility] [address] [place] [address] MCH (RBC) [Entitic mass] 30.7 pg Normal 27.0-31.3 [facility] Comment on above: Performed By: #### C BCWD #### [facility] [address] [place] [address] MCHC 34.1 % Normal 33.0-37.0 [facility] Comment on above: Performed By: #### C BCWD #### [facility] [address] [place] [address] MCV (RBC) [Entitic vol] 89.8 fL Normal 79.4-94.8 [facility] Comment on above: Performed By: #### C BCWD #### [facility] [address] [place] [address] Monocytes (Bld) [#/Vol] 0.4 10*3/uL Normal 0.2-0.8 [facility] Comment on above: Performed By: #### C BCWD #### [facility] [address] [place] [address] Monocytes/100 WBC (Bld) 9.6 % Normal [facility] Comment on above: Performed By: #### C BCWD #### [facility] [address] [place] [address] Neutrophils (Bld) [#/Vol] 3.0 10*3/uL Normal 1.4-6.5 [facility] Comment on above: Performed By: #### C BCWD #### [facility] [address] [place] [address] Neutrophils/100 WBC (Bld) 66.1 % Normal [facility] Comment on above: Performed By: #### C BCWD #### [facility] [address] [place] [address] Platelets (Bld) [#/Vol] 226 10*3/uL Normal 130-400 [facility] Comment on above: Performed By: #### C BCWD #### [facility] [address] [place] [address] RBC (Bld) [#/Vol] 3.76 10*6/uL Low 4.20-5.40 [facility] Comment on above: Performed By: #### C BCWD #### [facility] [address] [place] [address] WBC (Bld) [#/Vol] 4.5 10*3/uL Low 4.8-10.8 [facility] Comment on above: Performed By: #### C BCWD #### [facility] [address] [place] [address] Culture, Urineon 12-19-2022 Culture, Urine ORDER#: [id number] OR DERED BY: TAWANA YI SOURCE: Urine Clean Catch COLLECTED: 12/19/22 14:44 ANTIBIOTICS AT [place].: RECEIVED : 12/19/22 20:01 Culture, Urine FINAL 12/21/22 12:29 Cult,Urine: NO SIGNIFICANT GROWTH Performed at [address] [address] [phone] Normal [facility] Comment on above: Performed By: #### R UBEL #### [facility] [address] [facility] [place] [address] Gynecological Specimen (Cyto logy)on 12-19-2022 Gynecological Specimen (Cytology) [facility] [address] [place] [address] FINAL CYTOLOGY PAP REPORT Patient Name: SARA FREED Accession No: [id number] Age Sex: 2000 22 Y / F Location: [facility] Account No: [id number] Collected: 12/19/2022 Med Rec No: [id number] Received: 12/20/2022 Attend Phys: TAWANA YI Completed: 01/03/2023 Perform Phys: TAWANA YI SPECIMEN ADEQUACY: Satisfactory for Evaluation. Endocervical cells/transformation zone component present. GENERAL CATEGORIZATION: Epithelial Cell Abnormality INTERPRETATION/RESULTS: Atypical squamous cells of undetermined significance. Specimen: THINPREP LIQUID BASE IMAGED DIAGNOSTIC History: Source: Thin Prep Site: Cervical History: Previous abnormal smear? No History of CA? No Lab Order#: [id number] Test Name Collected D AND T Result [...] (PCR) and nucleic acid hybridization. CPT: Technical: 85299 X1 Professional: 97528 X1 Screened by: JEROME BROOKS(ASCP) EARL CURRIE [...] processed and screened using a Thin Prep Tractor Driver Teamster at [facility] [address] [place] [address] All abnormal gynecologic interpretation is performed at [facility], unless otherwise noted in the report. Page 1 of 1 Abnormal [facility] Comment on above: Performed By: #### R UBEL #### [facility] [address] [place] [address] HCG Quanton 12-19-2022 HCG Quant 16078.0 mIU/mL Normal [facility] Comment on above: Result Comment: Gest ational Age Expected HCG values (mIU/ml) 3 weeks 5-72 4 weeks 10-708 5 weeks 217-8,245 6 weeks 152-32,177 8 weeks 31,366-149,094 12 weeks 27,107-201,615 16 weeks 8,904-55,332 18 weeks 9,649-55,271 Performed By: #### R UBEL #### [facility] [address] [place] [address] HPV DNA Typingon 12-19-2022 HPV Comment See below Normal [facility] Comment on above: Result Comment: Th is [...] Hepatitis B Surface Ag Interp Non-Reactive Normal [facility] Comment on above: Performed By: #### H BSG #### [facility] [address] [place] [address] Rubella Ab, IgGon 12-19-2022 Rubella Ab, IgG 12.4 IU/mL Normal [facility] Comment on above: Result Comment: Yenni ent's result indicates immunity. Default Normal Ranges >=10 Presumed Immune <10 Presumed Not immune Performed By: #### R UBEL #### [facility] [address] [place] [address] Type and 3 cell Screen OB Ca ptureon 12-19-2022 Type and 3 cell Screen OB Capture PATIENT: ABDIAZIZ Drake LOC: [facility] BILL# : [id number] : 2000 SEX: F ORDERED BY: KASSIDY BARAHONA ORDERED : 12/19/2022 11:18 COLLECTED: 12/19/2022 11:19 ORDER : [id number] RECEIVED : 12/19/2022 15:40 TEST NAME RESULT UNITS RANGES ABN FL ST ABORH Capture A POS F Antibody 3 Cell Scrn Captu NEG F Normal [facility] Comment on above: Performed By: #### R WIL #### [facility] [address] [place] [address] Urinalysis, reflex to micros copicon 12-19-2022 Bilirubin Ql (U) Negative Normal Negative [facility] Comment on above: Performed By: #### C BCWD #### [facility] [address] [place] [address] Clarity (U) Clear Normal Clear [facility] Comment on above: Performed By: #### C BCWD #### [facility] [address] [place] [address] Color (U) Yellow Normal Straw/Giles [facility] Comment on above: Performed By: #### C BCWD #### [facility] [address] [place] [address] Glucose Ql (U) Negative Normal Negative [facility] Comment on above: Performed By: #### C BCWD #### [facility] [address] [place] [address] Hemoglobin Ql (U) Negative Normal Negative [facility] Comment on above: Performed By: #### C BCWD #### [facility] [address] [place] [address] Ketones Ql (U) Negative Normal Negative [facility] Comment on above: Performed By: #### C BCWD #### [facility] [address] [place] [address] Leukocyte esterase Test strip Ql (U) TRACE Abnormal Negative [facility] Comment on above: Performed By: #### C BCWD #### [facility] [address] [place] [address] Nitrite Ql (U) Negative Normal Negative [facility] Comment on above: Performed By: #### C BCWD #### [facility] [address] [place] [address] pH (U) 7.0 [pH] Normal 5.0-9.0 [facility] Comment on above: Performed By: #### C BCWD #### [facility] [address] [place] [address] Protein Ql (U) Negative Normal Negative [facility] Comment on above: Performed By: #### C BCWD #### [facility] [address] [place] [address] Specific gravity (U) [Rel density] 1.013 Normal 1.005-1.03 [facility] Comment on above: Performed By: #### C BCWD #### [facility] [address] [place] [address] Urobilinogen Qn (U) 0.2 {Yoselyn'U}/dL Normal < 2.0 [facility] Comment on above: Performed By: #### C BCWD #### [facility] [address] [place] [address] Urine Microscopicon 12-20-19 23 Bacteria LM.HPF (Urine sed) [#/Area] Negative Normal Negative [facility] Comment on above: Performed By: #### U DEBBI #### [facility] [address] [place] [address] Urine Epithelial Cells Auto 3-5 Normal 0-5 [facility] Comment on above: Performed By: #### U DEBBI #### [facility] [address] [place] [address] Urine Hyaline Casts Auto 0-1 Normal 0-5 [facility] Comment on above: Performed By: #### U DEBBI #### [facility] [address] [place] [address] Urine RBC Auto 3-5 Abnormal 0-5 [facility] Comment on above: Performed By: #### U DEBBI #### [facility] [address] [place] [address] Urine WBC Auto 0-2 Normal 0-5 [facility] Comment on above: Performed By: #### U DEBBI #### [facility] [address] [place] [address] ANKLE, COMPLETE, MIN 3 VIEWS on 03-20-2022 ANKLE, COMPLETE, MIN 3 VIEWS Patient Name: SARA FREED STUDY: ANKLE, COMPLETE, MIN 3 VIEWS; Right; 03/20/2022 2:21 pm INDICATION: pain M25.579: Ankle pain. ACCESSION NUMBER(S): [id number] ORDERING CLINICIAN: BEE LEDESMA FINDINGS: Right ankle x-rays three views AP, lateral and oblique view: No acute fractures, no dislocation. Mortise intact. Electronically signed by: BEE LEDESMA MD Normal [facility] FOOT COMPLETE, MIN 3 VIEWSon 03-20-2022 FOOT COMPLETE, MIN 3 VIEWS Patient Name: SARA FREED STUDY: FOOT; COMPLETE, MIN 3 VIEWS; Right; 03/20/2022 2:21 pm INDICATION: pain M25.579: Ankle pain M79.673: Foot pain. ACCESSION NUMBER(S): [id number] ORDERING CLINICIAN: BEE LEDESMA FINDINGS: Right foot x-rays three views AP, lateral and oblique view: No acute fractures, no dislocation. No significant degenerative changes. Electronically signed by: BEE LEDESMA MD [facility] Initial Visit (Orthopaedic S urgery)on 03-20-2022 Initial [...] RT Foot and ankle injury. Xrays @ [employer] History of Present IllnessSara presents for right [...] Gary, ; Mar 22 2022 4:44PM EST (Medical Billing Coder/Recorder) Electronically signed by : Bee Ledesma MD; Mar 23 2022 8:17AM EST Normal [facility]-20-2022 XR Ankle 3 Views Normal -[facility] Work Phone: XR Foot 3 Views Normal -[facility] Work Phone: COLBYNon 02-10-2018 [facility] Telephone ([employer]AM[employer]umpstarter) CL SARA HEWITT ([id number]) 2000 FDate Time Provider Department02/10/18 STEVE COELLO During your visit today, we recorded the following information about you:Julio Capone 02/10/2018 3:25 PM SignedReceived 02/01/18 lab results from [facility]. Placed in provider's inbox forreview.(Gonococcus, Trich, Chlamydia) [...] Status:Closed by STEVE COELLO MD on 02/15/18 Normal [facility] Tyrese 05-29-2017 [facility] Telephone (FAMJumpstarter) SARA CM ([id number]) 2000 [facility] Time Provider Valcrrgxrf16/1/17 STEVE COELLO During your visit today, we [...] by REKHA PACHECO RN on 05/29/17 Normal [facility] Free T4on 05-28-2017 Thyroxine (T4) free 1.3 ng/dL Normal 0.9-1.7 [facility] Comment on above: Performed By: #### F T4 ####[facility] [address] [place], [place] [phone] CNOVon 05-27-2017 CNOV Office Visit (FAMDNA) SARA CM ([id number]) 2000 FDate Time Provider Ckihkfmihl30/30/17 4:20 PM STEVE COELLO FAMDNA During your [...] 11.2 oz) LMP 05/25/2017 SpO2 98% BMI26.97 kg/d9NWNGYUH APPEARANCE: Well appearing, alert, in no acute [...] loss encouragedGet shot recordEchocardiogramincrease fiber in in [id number] PROBLEM LISTPREMATURE PUBERTYThomas Luis Alberto Coello MDMountain View Campusrashmi nader 05/27/2017 5:43 PM SignedVenipuncture performed to right [...] pain [M25.511, G89.29] Shortness of breath [R06.02]Order(s):ECHO [520384] Order #: [id number]: 1 FUTURE T4 FREE/FREE THYROX [SQFT4] Order #: [id number] FUTURE T4 FREE/FREE THYROX [SQFT4] Order #: [id number]. #:[id number] riptions as of 05/27/2017 Sig: NORGESTIMATE-ETHINYL ESTRADIO* [...] by STEVE COELLO MD on 05/31/17 Normal [facility] PROGRESSon 05-27-2017 Protein HNO ID: [id number] thor: Steve Spenceervice: (none)Author Type: PhysicianType: Progress [...] 11.2 oz) LMP 05/25/2017 SpO2 98% BMI26.97 kg/p5NMFFTAA APPEARANCE: Well appearing, alert, in no acute [...] loss encouragedGet shot recordEchocardiogramincrease fiber in in [id number] PROBLEM LISTPREMATURE PUBERTYThomas L MD Mode Normal [facility] Protein HNO ID: [id number] thor: Cherelle Farfan)(Hist) VaughnService: (none)Author Type: Medical AssistantType: Progress NotesFiled: 05/31/2017 2:26 PMNote Text:TETANUS due on 2009HPV VACCINE(1 of 3 - Female 3 Dose Series) due on 2009GC (GONORRHEA) SCREENING (18-24) due on 01/22/2016CHLAMYDIA SCREENING (18-24) due on 01/22/2016 Normal [facility] Test, Serum (Walk In)on 03-12-2017 Test, Serum (Walk In) Negative Normal [facility] Healthcare Comment on above: Performed By: #### P GSWI ####[id number] [place] [address] Encounters Encounter Date Encounter Type Care Provider Facility Start: 04-24-2024 End: 04-24-2024 ambulatory Not Available Start: 01-17-2024 End: [facility] Start: 07-26-2023 End: 07-29-2023 Evaluation and management of inpatient [facility] Start: 06-28-2023 End: 06-30-2023 ambulatory [facility] Start: 04-23-2023 End: 05-29-2023 Pre-admission assessment Jos Fuchs [facility] Start: 04-22-2023 End: 04-22-2023 ambulatory Jos Fuchs Facility:[facility] Start: 03-01-2023 End: 03-03-2023 [facility] Start: 12-31-2022 End: 01-02-2023 Subsequent hospital visit by physician Tawana Montenegro DO Work Phone: [facility] Ul[facility] Comment on above: Secondary amenorrhea ; Positive urine test Start: 04-10-[address] Bee canseco Gricelda Facility:[id number] Start: 03-20-[address] Bee canseco Gricelda Facility:[id number] Start: 03-20-2022 Patient encounter procedure Bee Ledesma MD Work Phone[facility] Work Phone: Start: 05-27-2017 End: 06-03-2017 Patient encounter STEVE COELLO [facility] Start: 03-12-2017 Ambulatory NO FAMILY DOCTOR Facili ty:[id number] Procedures Date Procedure Procedure Detail Performing Clinician Start: 12-31-2022 Us uterus 1 4 wk transabdl 07/29 gestat Tawana Montenegro DO Work Phone: Start: 08-20-2019 Microscopic observat ion [Identifier] in Cervix by Cyto stain Tawana Montenegro DO Work Phone: None (qualifier value) Jos Fuchs Plan of Treatment Date Care Activity Detail Author Start: 12-20-2023 Depression Screen Depression Screen [facility] Start: 12-20-2023 Screening for Chlamy manisha trachomatis Chlamydia/GC screen [facility] Start: 02-26-2023 Influenza vaccination Flu vacc ine (Season Ended) [facility] Start: 01-16-2023 End: 01-16-2023 ambulatory 01/16/2023 Initial Obstetrics and Gynecology Tawana Montenegro DO [address] [place] [address] [facility] Obstetrics and Gynecology Start: 08-20-2022 Screening for malign ant neoplasm of cervix Pap smear [facility] Start: 04-10-2022 FUV, Provider: Bee Ledesma, Status: Pen, Time: 10:15 AM FUV, Provider: Bee Ledesma, Status: Pen, Time: 10:15 AM -[place] [facility] Work Phone: Start: 04-20-2019 DTaP/Tdap/Td vaccine (7 - Td or Tdap) DTaP/Tdap/Td vaccine (7 - Td or Tdap) [facility] Start: 07-06-2010 Hepatitis A vaccine (2 of 2 - 2-dose series) Hepatitis A vaccine (2 of 2 - 2-dose series) [facility] Start: 2000 COVID-19 Vaccine (#1) COVID-19 Vacci ne (#1) [facility] Immunizations Immunization Date Immunization Notes Care Provider Angelique beatty 05-29-2019 influenza virus vaccine, unspecified formulation Jos Fuchs [facility] Comment on above: Result Comment: [facility] [place] [facility] [place] 06-07-2010 human papilloma viru s vaccine, quadrivalent Tawana Lan DO Work Phone: [employer] Work Phone: 06-07-2010 influenza virus vaccine, unspecified formulation Tawana Lan DO Work Phone: [employer] Work Phone: 01-04-2010 hepatitis A vaccine, unspecified formulation Jimenezjosefa Montenegro DO Work Phone: [employer] Work Phone: 01-04-2010 human papilloma viru s vaccine, quadrivalent Tawana Lan DO Work Phone: [employer] Work Phone: 01-04-2010 varicella virus vaccine Tawana Montenegro DO Work Phone: [employer] Work Phone: 04-20-2009 human papilloma viru s vaccine, quadrivalent Tawana Montenegro DO Work Phone: [employer] Work Phone: 04-20-2009 tetanus toxoid, reduced diphtheria toxoid, and acellular pertussis vaccine, adsorbed Tawana Lan DO Work Phone: [employer] Work Phone: 08-19-2006 influenza virus vaccine, unspecified formulation Tawana Lan DO Work Phone: [employer] Work Phone: 06-14-2006 influenza virus vaccine, unspecified formulation Jimenezjosefa Montenegro DO Work Phone: [employer] Work Phone: 03-02-2003 diphtheria, tetanus toxoids and acellular pertussis vaccine Tawana Montenegro DO Work Phone: [employer] Work Phone: 03-02-2003 measles, mumps and rubella virus vaccine Tawana Montenegro DO Work Phone: [employer] Work Phone: 03-02-2003 poliovirus vaccine, inactivated Tawana Montenegro DO Work Phone: [employer] Work Phone: 04-28-1999 diphtheria, tetanus toxoids and acellular pertussis vaccine Tawana Montenegro DO Work Phone: [employer] Work Phone: 04-28-1999 poliovirus vaccine, inactivated Tawana Montenegro DO Work Phone: [employer] Work Phone: 01-25-1999 Hib, unspecified Tawana Anderson neliaon DO Work Phone: [employer] Work Phone: 01-25-1999 measles, mumps and rubella virus vaccine Tawana Montenegro DO Work Phone: [employer] Work Phone: 01-25-1999 varicella virus vaccine Tawana Montenegro DO Work Phone: [employer] Work Phone: 1998 diphtheria, tetanus toxoids and acellular pertussis vaccine Tawana Montenegro DO Work Phone: [employer] Work Phone: 1998 hepatitis B vaccine, adult dosage Tawana Montenegro DO Work Phone: [employer] Work Phone: 1998 Hib, unspecified Tawana you DO Work Phone: [employer] Work Phone: 2000 diphtheria, tetanus toxoids and acellular pertussis vaccine Tawana Montenegro DO Work Phone: [employer] Work Phone: 1998 hepatitis B vaccine, adult dosage Tawana Montenegro DO Work Phone: [employer] Work Phone: 1998 Hib, unspecified Tawana you DO Work Phone: [employer] Work Phone: 1998 poliovirus vaccine, inactivated Tawana Montenegro DO Work Phone: [employer] Work Phone: 1998 hepatitis B vaccine, adult dosage Tawana Montenegro DO Work Phone: [employer] Work Phone: 1998 diphtheria, tetanus toxoids and acellular pertussis vaccine Tawana Montenegro DO Work Phone: [employer] Work Phone: 1998 poliovirus vaccine, inactivated Tawana Montenegro DO Work Phone: [employer] Work Phone: Payers Date Payer Category Payer Private Health Insurance [id number] 2000 Unknown [id number] 2.16.8 [id number] 1998 Unknown [id number] 2.16.8 [id number] 1998 Unknown [id number] 2.16.8 [id number] 1998 Unknown [id number] 2.16.8 [id number] 1998 Unknown [id number] 2.16.8 [id number] 1998 Unknown [id number] 2.16.8 [id number] 1998 Unknown [id number] 2.16.8 [id number] 1998 Unknown [id number] 2.16.84 [id number] Unknown 1914 Unknown Self Pay Social History Date Type Detail Facility Start: 03-02-2020 End: 12-19-2022 Tobacco smoking status NHIS Never smoked tobacco [employer] Phone: Start: 12-19-2022 Tobacco use and exposure Smokeless tobacco non-user [employer] Phone: Start: 12-19-2022 Alcohol intake Ex-drinker (finding) [employer] Phone: Start: 2000 Sex Assigned At Not on file B ON [employer] Phone: Sex Assigned At Female [facility] Clinical Note 04-22-2023 Note Date & Type Note Facility 04-22-2023 Note The following Patien t Education Materials have been given to the patient: EducationMaterial [facility] Evaluation + Plan note Note Date & Type Note Facility Evaluation + Plan note No data available for this section [facility] Evaluation note Note Date & Type Note Facility Evaluation note Diagnosis Secondary amenorrhea Absence of menstruation Positive urine test documented in this encounter [facility] Phone: Hospital Discharge instructions Note Date & Type Note Facility Hospital Discharge instructions No data available for this section [facility] Progress note Note Date & Type Note Facility Progress note No data available for this section [facility] Summary Purpose Family History No Family History [...] RT Foot and ankle injury. Xrays @ [facility] Reason for Referral Specialty Diagnoses / Procedures Referred By Contac t Referred To Contact Radiology Diagnoses Secondary amenorrhea Positive urine test Procedures US OB TRANSVAGINAL Tawana Montenegro, DO [address] [place] [address] Referral ID Status Reason Start Date Expiration Date Visits Re quested Visits Authorized [id number] Open 12/19/2022 12/19/2023 1 1 Specialty Diagnoses / Procedures Referred By Contac t Referred To Contact Radiology Diagnoses Secondary amenorrhea Positive urine test Procedures US OB LESS THAN 14 WEEKS SINGLE OR FIRST GESTATION Tawana Montenegro, [address] [place] [address] Referral ID Status Reason Start Date Expiration Date Visits Re quested Visits Authorized [id number] Open 12/19/2022 12/19/2023 1 1 Additional Source Comments INFORMATION SOURCE (unrecogn ized section and content) DATE CREATED AUTHOR 01/22/2018 [facility] DATE CREATED AUTHOR AUTHOR'S ORGANIZ ATION 02/17/2018 [facility] DATE CREATED AUTHOR AUTHOR'S ORGANIZ ATION 03/25/2022 [employer] DATE CREATED AUTHOR AUTHOR'S ORGANIZ ATION 04/29/2022 [facility] DATE CREATED AUTHOR AUTHOR'S ORGANIZ ATION 04/30/2023 [facility] DATE CREATED AUTHOR AUTHOR'S ORGANIZ ATION 07/17/2023 [facility] DATE CREATED AUTHOR AUTHOR'S ORGANIZ ATION 01/20/2024 [facility] [place] DATE CREATED AUTHOR AUTHOR'S ORGANIZ ATION 04/25/2024 [facility] Reason for Visit (unrecogniz ed section and content) Specialty Diagnoses / Procedures Referred By Contac t Referred To Contact Radiology Diagnoses Secondary amenorrhea Positive urine test Procedures US OB LESS THAN 14 WEEKS SINGLE OR FIRST GESTATION Tawana Montenegro DO [address] [place] [address] Referral ID Status Reason Start Date Expiration Date Visits Re quested Visits Authorized [id number] Open 12/19/2022 12/19/2023 1 1 Care Teams (unrecognized sec tion and content) Healthcare Consulting Manager Relationship Specialty Start Date End Date Undetermined, [...] BE BASED ON THE PRIMARY CLINICAL RECORDS. [facility] [employer] provides no warranty or guarantee of the accuracy or completeness of information in this document.
[2024-05-05 10:59] LABS: BOX Test Reference Lab UNITY; BOX Test Sent Out UNITY; Basophils Absolute Auto 0.1 10^3/uL (0.0-0.1); Basophils Percent Auto 0.8 % (0.2-2.0); Eosinophils Absolute Auto 0.2 10^3/uL (0.0-0.7); Eosinophils Percent Auto 2.8 % (0.9-7.0); Hematocrit 37.9 % (36.0-48.0); Hemoglobin 12.7 g/dL (12.0-16.0); Immature Granulocytes Abs Auto 0.03 10^3/uL (0.00-0.03); Immature Granulocytes Pct Auto 0.4 % (0.0-0.5); Lymphocytes Absolute Auto 1.1 10^3/uL (1.2-3.8); Lymphocytes Percent Auto 14.2 % (20.5-60.0); Mean Corpuscular HGB Conc 33.5 g/dL (29.9-35.2); Mean Corpuscular Hemoglobin 29.3 pg (26.7-34.0); Mean Corpuscular Volume 87.5 fL (81.0-99.0); Mean Platelet Volume 9.7 fL (9.5-13.5); Monocytes Absolute Auto 0.5 10^3/uL (0.3-0.8); Monocytes Percent Auto 5.7 % (1.7-12.0); Neutrophils Percent Auto 76.1 % (43.0-75.0); Platelet Count 301 10^3/uL (150-450); Red Blood Count 4.33 10^6/uL (4.20-5.40); Red Cell Distribution Width 12.5 % (11.0-15.0); White Blood Count 7.9 10^3/uL (4.0-11.0)
[2024-05-05 11:08] LABS: Estimated Average Glucose 105 mg/dL; Glycohemoglobin A1C 5.3 % (4.5-6.2)
[2024-05-05 11:08] LABS: Amphetamine Screen Urine NEGATIVE (NEGATIVE); Barbiturates Screen Urine NEGATIVE (NEGATIVE); Benzodiazepines Screen Urine NEGATIVE (NEGATIVE); Buprenorphine Screen Urine NEGATIVE (NEGATIVE); Cannabinoid Screen Urine NEGATIVE (NEGATIVE); Cocaine Screen Urine NEGATIVE (NEGATIVE); Methadone Screen Urine NEGATIVE (NEGATIVE); Methamphetamines Screen Urine NEGATIVE (NEGATIVE); Opiate Screen Urine NEGATIVE (NEGATIVE); Oxycodone Screen Urine NEGATIVE (NEGATIVE); Phencyclidine Screen Urine NEGATIVE (NEGATIVE); Tricyclic Antidepressant Urine NEGATIVE (NEGATIVE)
[2024-05-06 06:10] LABS: HBsAg Screen Negative (Negative); HCV Ab Non Reactive (Non Reactive); HIV Ab/p24 Ag Screen Non Reactive (Non Reactive)
[2024-05-06 07:10] LABS: Rubella Antibodies, IgG <0.90 index (Immune >0.99)
[2024-05-06 12:09] LABS: Rapid Plasma Reagin, Quant Non Reactive titer (NonRea<1:1)
== END 2024-05-05 10:27 | disposition home or self-care (01) ==
LOC: LAB 10:28
PROVIDERS: Visit Provider Obstetrics & Gynecology
DX: Z34.01 Encounter for supervision of normal first pregnancy, first trimester (principal); N92.6 Irregular menstruation, unspecified; Z36.0 Encounter for antenatal screening for chromosomal anomalies
CPT/HCPCS: 36415; 80307; 83036; 85025; 86592; 86762; 86803; 86850; 86900; 86901; 87086; 87340; 87389

== ENCOUNTER 2024-07-15 11:02 | Outpatient (OUT) | payer MEDICAID, SELFPAY ==
--- NOTE | 2024-07-15 11:08 | US_ITS ---
[address] [address] Patient Name: HOLLIS FREED MRN: [id number] date: 2000 Sex: F Assigned Patient Location: US Current Patient Location: Accession/Order Number: [id number] Exam Date: 07/15/2024 11:09 Report Date: 07/16/2024 04:35 At the request of: MORENO MCINTYRE Procedure: US OB cervical length EXAMINATION: US OB anatomy, US OB cervical length HISTORY: Screening Anatomic Survey COMPARISON: Ultrasound OB transvaginal 04/24/2024 TECHNIQUE: Transabdominal sonographic examination was performed for obstetrical and evaluation. FINDINGS: Number: 1 Heart Rate: 149.17 bpm Amniotic Fluid Volume: Subjectively normal Placental Location: Anterior-fundal with lower margin 6.4 cm from os. Cervix Length: 4.68 cm ; closed. ANATOMY: Normal Structures -cerebellum, choroid plexus, cisterna magna, lateral cerebral ventricles, orbits, midline falx, hard palate, four-chamber heart, RVOT, LVOT, stomach, kidneys, bladder, umbilical cord insertion into abdomen, three-vessel cord, cervical spine, thoracic spine, lumbar spine, sacral spine, right upper extremity, left upper extremity, right lower extremity, left lower extremity. SUBOPTIMALLY SEEN: None ABNORMALITIES: None BIOMETRY: BPD: 4.96 cm; 21 weeks 0 days; 72.60 % HC: 18.73 cm; 21 weeks 0 days; 69.80 % AC: 16.26 cm; 21 weeks 2 days; 73.50 % FL: 3.40 cm; 20 weeks 5 days; 50.30 % EFW:394.44 g; 78.20 % FL/AC: 20.88 FL/BPD: 68.52 HC/AC: 1.15 GESTATIONAL AGE: Age by EDC: 20 weeks 3 days Age by current US: 21 weeks 0 days NOEMI by current US: 2024-11-25 NOEMI by EDC: 2024-11-29 US/US OB cervical length IMPRESSION: 1. Single live intrauterine with growth detailed above. Electronically authenticated by: LLUVIA ASTORGA Date: 07/16/2024 04:35
--- NOTE | 2024-07-15 11:08 | US_ITS ---
[address] [address] Patient Name: HOLLIS FREED MRN: [id number] date: 2000 Sex: F Assigned Patient Location: US Current Patient Location: Accession/Order Number: [id number] Exam Date: 07/15/2024 11:09 Report Date: 07/16/2024 04:35 At the request of: MORENO MCINTYRE Procedure: US OB anatomy EXAMINATION: US OB anatomy, US OB cervical length HISTORY: Screening Anatomic Survey COMPARISON: Ultrasound OB transvaginal 04/24/2024 TECHNIQUE: Transabdominal sonographic examination was performed for obstetrical and evaluation. FINDINGS: Number: 1 Heart Rate: 149.17 bpm Amniotic Fluid Volume: Subjectively normal Placental Location: Anterior-fundal with lower margin 6.4 cm from os. Cervix Length: 4.68 cm ; closed. ANATOMY: Normal Structures -cerebellum, choroid plexus, cisterna magna, lateral cerebral ventricles, orbits, midline falx, hard palate, four-chamber heart, RVOT, LVOT, stomach, kidneys, bladder, umbilical cord insertion into abdomen, three-vessel cord, cervical spine, thoracic spine, lumbar spine, sacral spine, right upper extremity, left upper extremity, right lower extremity, left lower extremity. SUBOPTIMALLY SEEN: None ABNORMALITIES: None BIOMETRY: BPD: 4.96 cm; 21 weeks 0 days; 72.60 % HC: 18.73 cm; 21 weeks 0 days; 69.80 % AC: 16.26 cm; 21 weeks 2 days; 73.50 % FL: 3.40 cm; 20 weeks 5 days; 50.30 % EFW:394.44 g; 78.20 % FL/AC: 20.88 FL/BPD: 68.52 HC/AC: 1.15 GESTATIONAL AGE: Age by EDC: 20 weeks 3 days Age by current US: 21 weeks 0 days NOEMI by current US: 2024-11-25 NOEMI by EDC: 2024-11-29 US/US OB anatomy IMPRESSION: 1. Single live intrauterine with growth detailed above. Electronically authenticated by: LLUVIA ASTORGA Date: 07/16/2024 04:35
--- OUTSIDE RECORDS SUMMARY | 2024-07-15 11:22 | XMS_ITS | CCD ---
Author Organization [facility] Care Team Providers Care Faculty Administrator Name Role Phone NO FAMILY DOCTOR Unavailable Unavailable NO FAMILY DOCTOR, NO FAMILY DOCTOR Unavailable Unavailable STEVE COELLO Unavailable Unavailable Unavailable Unavailable Gricelda, Dr. Bee Campbell Attending Chin Ledesma, Dr. Bee Campbell Attending Chin flynn Undetermined, Awaiting Assignment Primary Care P connie Unavailable Jos Fuchs Attending Unavailable Jos Fuchs Admitting Unavailable Gwen Sky Primary Care Physician [phone] BROOKLYN MONTENEGRO Attending Unavailable BROOKLYN MONTENEGRO Referring Unavailable LAVINIA GWEN Primary Care Unavailable BROOKLYN MONTENEGRO Attending Unavailable BROOKLYN MONTENEGRO Referring Unavailable LAVINIA, GWEN Primary Care Unavailable BROOKLYN MONTENEGRO Attending Unavailable BROOLKYN MONTENEGRO Referring Unavailable UNDETERMINED, AWAITING ASSIGNMENT Primary Care Unavailable BROOKLYN MONTENEGRO Admitting Unavailable BROOKLYN MONTENEGRO Attending Unavailable LAVINIA, GWEN Primary Care Unavailable Unavailable Primary Care Provider UnavailROBERTO Rodriges Attending Unavailable MARILYN CMINTYRE Attending Unavailable Allergies Allergy Classification Reported Allergen(s) Allergy Type Date of Onset Reaction(s) Facility (12 sources) Penicillins; Translations: [PENICILLINS] Propensity to adverse reactions to drug (disorder) 04-01-[address] [facility] (1 source) Oseltamivir Drug Allergy 05-08-20 18 [facility] (10 sources) Sulfamethoxazole / Trimethoprim; Translations: [sulfamethoxazole-t rimethoprim] Drug Allergy 10-18-19 21 Vomiting (disorder), Nausea And Vomiting [facility] (2 sources) Amoxicillin / Clavulanate; Translations: [Augmentin] Drug Allergy [facility] (10 sources) cefdinir; Translations: [cefdinir] Drug Allergy 05-03-20 Eruption of skin (disorder), Rash [facility] (2 sources) Oseltamivir; Translations: [Tamiflu] Drug Allergy [facility] (1 source) Sulfamethoxazole / Trimethoprim; Translations: [Bactrim] Drug Allergy [facility] (8 sources) Clavulanate Drug Allergy 07-15-20 [facility] (8 sources) Oseltamivir Drug Allergy 05-08-20 [facility] (8 sources) Amoxicillin-Pot Clavulanate Drug Allergy 04-24-20 [facility] Work Phone: Medications Current Medications Medication Drug Class(es) Dates Sig (Normalized) Sig (Original) docusate sodium 100 mg oral tablet (1 source) Start: 04-22-2023 Dulcolax Stool Softener 100 mg, Oral, Refills(s) 0 Start Date: 04/22/23 Status: Ordered ondansetron 4 mg oral tablet (6 sources) Serotonin-3 Receptor Antagonist Start: 05-19-2024 take 1 tablet by mouth every six hours as needed for nausea and vomiting and nausea and nausea ondansetron (Zofran) 4 MG tablet Indications: Nausea Take 1 tablet (4 mg) by mouth every 6 (six) hours if needed for nausea or vomiting for up to 120 doses Take 1 tablet by mouth every 6 hours as needed for nausea. 30 tablet 3 05/19/2024 Active Multivitamins (1 source) Start: 04-22-2023 take 1 tablet by mouth once daily Multivitamins 1 tab(s), Oral, Daily, Refill(s) 0 Start Date: 04/22/23 Status: Ordered Vit-Fe Fumarate-FA ( 1 PLUS 1 PO) (8 sources) Vit-Fe Fumarate-FA ( 1 PLUS 1 PO) Take by mouth Active promethazine hydrochloride 12.5 mg oral tablet (9 sources) Phenothiazine Start: 04-27-2024 take 1 tablet by mouth every six hours as needed for nausea and vomiting and nausea and nausea promethazine (Phenergan) 12.5 MG tablet Indications: Nausea Take 1 tablet (12.5 mg) by mouth every 6 (six) hours if needed for nausea or vomiting for up to 30 doses Take 1 tablet by mouth every 6 hours as needed for nausea. 30 tablet 2 04/27/2024 Active Start: 04-30-2021 take 1 tablet by rowan th every four hours promethazine 25 mg Tab 25 mg = 1 tab(s), Oral, q4hr, # 12 tab(s), Refills(s) 0, Pharmacy: [id number], 163, cm, 04/30/21 15:32:00 EDT, Height/Length Dosing, 68, kg, 04/30/21 15:32:00 EDT, Weight Dosing Start Date: 04/30/21 Status: Ordered Completed/Discontinued Medications Medication Drug Class(es) Dates Sig (Normalized) Sig (Original) ibuprofen 400 mg oral tablet (1 source) Nonsteroidal Anti-inflammator y Drug Start: take 1-3 tablets by mouth every six hours as needed ibuprofen 400 mg Tab 400 mg = 1 tab(s), Oral, q6hr, PRN Pain 1-3, # 12 tab(s), Refills(s) 0, Pharmacy: [id number], 163, cm, 04/30/21 15:32:00 EDT, Height/Length Dosing, 68, kg, 04/30/21 15:32:00 EDT, Weight Dosing Start Date: 04/30/21 Status: Ordered methylPREDNISolone 4 MG Oral Tablet Therapy Pack (1 source) Start: methylPREDNISolone 4 MG Oral Tablet Therapy [...] including migraine (1 source) Headache 10-09-2013 Episodic Immunizations and screening for infectious disease (2 sources) Exposure to sexually transmissible disorder; Translations: [Contact with and (suspected) exposure to infections with a predominantly sexual mode of transmission] 06-16-2024 Episodic Menstrual disorders (1 source) Secondary amenorrhea; Translations: [Secondary amenorrhea] Chronic Nausea and vomiting (3 sources) Vomiting; Translations: [Nausea] 11-20-2013 Episodic Other connective tissue disease (1 [...] [Pain in right ankle] Onset: 03-20-2022 Episodic Other and delivery including normal (11 sources) Urine test positive; Translations: [Encounter for test, result positive] Onset: 03-01-2023 Episodic Other screening for suspected conditions (not mental disorders or infectious disease) (4 sources) Alpha-fetoprotein blood test status; Translations: [Encounter for screening for raised alphafetoprotein level] 06-16-2024 Episodic Residual codes; unclassified (2 sources) Gestation period, 12 weeks; Translations: [12 weeks gestation of ] 05-19-2024 Episodic Sprains and strains (1 source) Unspecified [...] source) Heart murmur Onset: 07-29-2015 01-13-2020 Episodic Ovarian cyst (1 source) Unspecified ovarian [...] Test Name Value Interpretation Reference Range Facility RECURRENT VAGINITIS (HTRX)on 06-18-2024 ATOPOBIUM VAGINAE 0 [facility] ATOPOBIUM VAGINAE Not detected [facility] BVAB 2,3 (BACTERIAL VAGINOSIS ASSOCIATED BACTERIA 2, 3); MOBILUNCUS SPP 0 [facility] BVAB 2,3 (BACTERIAL VAGINOSIS ASSOCIATED BACTERIA 2, 3); MOBILUNCUS SPP Not detected [facility] TIERA ALBICANS, PARAPSILOSIS, TROPICALIS 0 [facility] TIERA ALBICANS, PARAPSILOSIS, TROPICALIS Not detected [facility] TIERA GLABRATA 0 [facility] TIERA GLABRATA Not detected [facility] TIERA KRUSEI 0 [facility] TIERA KRUSEI Not detected [facility] CHLAMYDIA TRACHOMATIS 0 [facility] CHLAMYDIA TRACHOMATIS Not detected [facility] GARDNERELLA VAGINALIS 0 [facility] GARDNERELLA VAGINALIS Not detected [facility] MEGASPHAERA (TYPES 1, 2) 0 [facility] MEGASPHAERA (TYPES 1, 2) Not detected [facility] MYCOPLASMA GENITALIUM 0 [facility] MYCOPLASMA GENITALIUM Not detected [facility] NEISSERIA GONORRHOEAE 0 [facility] NEISSERIA GONORRHOEAE Not detected [facility] TRICHOMONAS VAGINALIS 0 [facility] TRICHOMONAS VAGINALIS Not detected [facility] Urinalysis macro (dipstick) panel (U)on 06-16-2024 Bilirubin, UA Negative Negative - 4(70) +++ mg/dL [facility] Blood, UA Negative Negative - 50 Ilia/mcL [facility] Clarity, UA Clear [facility] Color, UA Colorless [facility] Glucose, UA Negative Negative - 2000(110) ++++ mg/dL [facility] Interpretation and review of laboratory results Normal [facility] Ketones, UA Negative Negative - 160(16) ++++ mg/dL [facility] Leukocytes, UA Negative Negative - 500+++ Sophy/mcL [facility] Nitrite, UA Negative Negative - Positive [facility] pH, UA 7 5 - 9 [facility] Protein, UA Negative Negative - 2000(20) ++++ mg/dL [facility] Spec Grav, UA 1.015 1 - 1.03 [facility] Urobilinogen, UA 0.2 0.2 - 12 mg/dL [facility] Urinalysis macro (dipstick) panel (U)on 05-19-2024 Bilirubin, UA Negative Negative - 4(70) +++ mg/dL [facility] Blood, UA Negative Negative - 50 Ilia/mcL [facility] Clarity, UA Clear [facility] Color, UA Colorless [facility] Glucose, UA Negative Negative - 2000(110) ++++ mg/dL [facility] Interpretation and review of laboratory results Normal [facility] Ketones, UA Negative Negative - 160(16) ++++ mg/dL [facility] Leukocytes, UA Negative Negative - 500+++ Sophy/mcL [facility] Nitrite, UA Negative Negative - Positive [facility] pH, UA 6 5 - 9 [facility] Protein, UA Negative Negative - 2000(20) ++++ mg/dL [facility] Spec Grav, UA 1.01 1 - 1.03 [facility] Urobilinogen, UA 0.2 0.2 - 12 mg/dL [facility] BOX TESTon 05-05-2024 BOX TEST SENT OUT [facility] BOX1 [facility] BOX2 05/05/24 [facility] BOX [facility] US NON OB TRANSVAGINALon US NON OB [...] Steve Borja MD 01/18/24 Final result Normal [facility] US PELVIS COMPLETEon 024 US PELVIS COMPLETE [...] Steve Borja MD 01/18/24 Final result Normal [facility] CBC With Platelet No Differe ntialon 07-28-2023 Erythrocyte distribution width (RBC) [Ratio] 12.5 % Normal 11.5-14.5 [facility] Comment on above: Performed By: #### C BCND #### [facility] [address] [place] [address] Hematocrit (Bld) [Volume fraction] 28.3 % Low 37.0-47.0 [facility] Comment on above: Performed By: #### C BCND #### [facility] [address] [place] [address] Hemoglobin (Bld) [Mass/Vol] 9.2 g/dL Low 12.0-16.0 [facility] Comment on above: Performed By: #### C BCND #### [facility] [address] [place] [address] MCH (RBC) [Entitic mass] 28.9 pg Normal 27.0-31.3 [facility] Comment on above: Performed By: #### C BCND #### [facility] [address] [place] [address] MCHC 32.5 % Low 33.0-37.0 [facility] Comment on above: Performed By: #### C BCND #### [facility] [address] [place] [address] MCV (RBC) [Entitic vol] 89.0 fL Normal 79.4-94.8 [facility] Comment on above: Performed By: #### C BCND #### [facility] [address] [place] [address] Platelets (Bld) [#/Vol] 241 10*3/uL Normal 130-400 [facility] Comment on above: Performed By: #### C BCND #### [facility] [address] [place] [address] RBC (Bld) [#/Vol] 3.18 10*6/uL Low 4.20-5.40 [facility] Comment on above: Performed By: #### C BCND #### [facility] [address] [place] [address] WBC (Bld) [#/Vol] 16.6 10*3/uL Critically high 4.8-10.8 [facility] Comment on above: Performed By: #### C BCND #### [facility] [address] [place] [address] HIV Ag/Abon 07-27-2023 HIV Ag/Ab Non-Reactive Normal NR [facility] Comment on above: Result Comment: No l aboratory evidence of HIV infection. If acute HIV infection is suspected, consider testing for HIV-1 RNA. Performed at [facility], [address] [place], [place] [id number] . CBC With Platelet and Differ entialon 07-26-2023 Basophils (Bld) [#/Vol] 0.1 10*3/uL Normal 0.0-0.2 [facility] Comment on above: Performed By: #### U A #### [facility] [address] [place] [address] Basophils/100 WBC (Bld) 0.5 % Normal [facility] Comment on above: Performed By: #### U A #### [facility] [address] [place] [address] Eosinophils (Bld) [#/Vol] 0.1 10*3/uL Normal 0.0-0.7 [facility] Comment on above: Performed By: #### U A #### [facility] [address] [place] [address] Eosinophils/100 WBC (Bld) 1.0 % Normal [facility] Comment on above: Performed By: #### U A #### [facility] [address] [facility] [address] Erythrocyte distribution width (RBC) [Ratio] 12.3 % Normal 11.5-14.5 [facility] Comment on above: Performed By: #### U A #### [facility] [address] [place] [address] Hematocrit (Bld) [Volume fraction] 36.9 % Low 37.0-47.0 [facility] Comment on above: Performed By: #### U A #### [facility] [address] [place] [address] Hemoglobin (Bld) [Mass/Vol] 11.9 g/dL Low 12.0-16.0 [facility] Comment on above: Performed By: #### U A #### [facility] [address] [place] [address] Lymphocytes (Bld) [#/Vol] 2.0 10*3/uL Normal 1.0-4.8 [facility] Comment on above: Performed By: #### U A #### [facility] [address] [place] [address] Lymphocytes/100 WBC (Bld) 17.5 % Normal [facility] Comment on above: Performed By: #### U A #### [facility] [address] [place] [address] MCH (RBC) [Entitic mass] 29.0 pg Normal 27.0-31.3 [facility] Comment on above: Performed By: #### U A #### [facility] [address] [place] [address] MCHC 32.2 % Low 33.0-37.0 [facility] Comment on above: Performed By: #### U A #### [facility] [address] [place] [address] MCV (RBC) [Entitic vol] 90.0 fL Normal 79.4-94.8 [facility] Comment on above: Performed By: #### U A #### [facility] [address] [place] [address] Monocytes (Bld) [#/Vol] 1.1 10*3/uL Critically high 0.2-0.8 [facility] Comment on above: Performed By: #### U A #### [facility] [address] [place] [address] Monocytes/100 WBC (Bld) 9.7 % Normal [facility] Comment on above: Performed By: #### U A #### [facility] [address] [place] [address] Neutrophils (Bld) [#/Vol] 7.9 10*3/uL Critically high 1.4-6.5 [facility] Comment on above: Performed By: #### U A #### [facility] [address] [place] [address] Neutrophils/100 WBC (Bld) 70.4 % Normal [facility] Comment on above: Performed By: #### U A #### [facility] [address] [place] [address] Platelets (Bld) [#/Vol] 289 10*3/uL Normal 130-400 [facility] Comment on above: Performed By: #### U A #### [facility] [address] [place] [address] RBC (Bld) [#/Vol] 4.10 10*6/uL Low 4.20-5.40 [facility] Comment on above: Performed By: #### U A #### [facility] [address] [place] [address] WBC (Bld) [#/Vol] 11.2 10*3/uL Critically high 4.8-10.8 [facility] Comment on above: Performed By: #### U A #### [facility] [address] [place] [address] Comprehensive Metabolic Pane mello 07-26-2023 Albumin [Mass/Vol] 3.4 g/dL Low 3.5-4.6 [facility] Comment on above: Performed By: #### C MP #### [facility] [address] [place] [address] ALP [Catalytic activity/Vol] 134 U/L Critically high 40-130 [facility] [place] Comment on above: Performed By: #### C MP #### [facility] [address] [place] [address] ALT [Catalytic activity/Vol] 13 U/L Normal 0-33 [facility] Comment on above: Performed By: #### C MP #### [facility] [address] [place] [address] Anion gap [Moles/Vol] 14 mmol/L Normal 9-15 [facility] Comment on above: Performed By: #### C MP #### [facility] [address] [place] [address] AST [Catalytic activity/Vol] 19 U/L Normal 0-35 [facility] Comment on above: Performed By: #### C MP #### [facility] [address] [place] [address] Bilirubin [Mass/Vol] mg/dL Normal 0.2-0.7 [facility] Comment on above: Performed By: #### C MP #### [facility] [address] [place] [address] Calcium [Mass/Vol] 9.7 mg/dL Normal 8.5-9.9 [facility] Comment on above: Performed By: #### C MP #### [facility] [address] [place] [address] Chloride [Moles/Vol] 103 mmol/L Normal 95-107 [facility] Comment on above: Performed By: #### C MP #### [facility] [address] [place] [address] CO2 [Moles/Vol] 19 mmol/L Low 20-31 [facility] Comment on above: Performed By: #### C MP #### [facility] [address] [place] [address] Creatinine [Mass/Vol] 0.75 mg/dL Normal 0.50-0.90 [facility] Comment on above: Performed By: #### C MP #### [facility] [address] [place] [address] GFR >60.0 Normal >60 [facility] Comment on above: Result Comment: Gunnar atric [...] secretion. Performed By: #### C MP #### [facility] [address] [place] [address] Globulin (S) [Mass/Vol] 2.9 g/dL Normal 2.3-3.5 [facility] [place] Comment on above: Performed By: #### C MP #### [facility] [address] [place] [address] Glucose [Mass/Vol] 65 mg/dL Low 70-99 [facility] Comment on above: Performed By: #### C MP #### [facility] [address] [place] [address] Potassium [Moles/Vol] 4.5 mmol/L Normal 3.4-4.9 [facility] Comment on above: Performed By: #### C MP #### [facility] [address] [place] [address] Protein [Mass/Vol] 6.3 g/dL Normal 6.3-8.0 [facility] Comment on above: Performed By: #### C MP #### [facility] [address] [place] [address] Sodium [Moles/Vol] 136 mmol/L Normal 135-144 [facility] Comment on above: Performed By: #### C MP #### [facility] [address] [place] [address] Urea nitrogen [Mass/Vol] 8 mg/dL Normal 6-20 [facility] Comment on above: Performed By: #### C MP #### [facility] [address] [place] [address] Hepatitis B Surface Agon Hepatitis B Surface Ag Interp Non-Reactive Normal [facility] [place] [facility] Comment on above: Performed By: #### H BSG #### [facility] [address] [place] [address] RPRon 07-26-2023 Reagin Ab RPR Ql (S) Non-Reactive Normal Non-reacti [facility] [place] [facility] Comment on above: Performed By: #### R VT #### [facility] [address] [place] [address] Type and Screen Capture 3 sc rn cellon 07-26-2023 Type and Screen Capture 3 scrn cell PATIENT: ABDIAZIZ Drake LOC: [facility],[id number] BILL# : [id number] : 2000 SEX: F ORDERED BY: KASSIDY BARAHONA ORDERED : 07/26/2023 09:26 COLLECTED: 07/26/2023 09:44 ORDER : [id number] RECEIVED : 07/26/2023 09:44 TEST NAME RESULT UNITS RANGES ABN FL ST ABORH Capture A POS F Antibody 3 Cell Scrn Captu NEG F Normal [facility] [place] Comment on above: Performed By: #### T S3C #### [facility] [place] [facility] [address] [place] [address] UR Drugs of Abuse Panelon Drug Screen Comment see below Normal [facility] Comment on above: Result Comment: This method is a screening test to detect only these drug classes as part of a medical workup. Confirmatory testing by another method should be ordered if clinically indicated. Performed By: #### U DRGS #### [facility] [address] [place] [address] UR Amphetamines Screen Negative Normal Negative < [facility] Comment on above: Performed By: #### U DRGS #### [facility] [place] [facility] [address] [place] [address] UR Barbiturates Screen Negative Normal Negative < [facility] Comment on above: Performed By: #### U DRGS #### [facility] [place] [facility] [address] [place] [address] UR Benzo Screen Negative Normal Negative < [facility] Comment on above: Performed By: #### U DRGS #### [facility] [place] [facility] [address] [place] [address] UR Cannabinoids Screen Negative Normal Negative < [facility] [place] [facility] Comment on above: Performed By: #### U DRGS #### [facility] [address] [place] [address] UR Cocaine Screen Negative Normal Negative < [facility] Comment on above: Performed By: #### U DRGS #### [facility] [address] [place] [address] UR Fentanyl Screen Negative Normal Negative < [facility] Comment on above: Performed By: #### U DRGS #### [facility] [address] [place] [address] UR Methadone Screen Negative Normal Negative < [facility] [place] [facility] Comment on above: Performed By: #### U DRGS #### [facility] [place] [facility] [address] [place] [address] UR Opiates Screen Negative Normal Negative < [facility] Comment on above: Performed By: #### U DRGS #### [facility] [place] [address] [place] [address] UR Oxycodone Screen Negative Normal Negative < [facility] [place] Comment on above: Performed By: #### U DRGS #### [facility] [place] [address] [place] [address] UR PCP Screen Negative Normal Negative < [facility] [place] Comment on above: Performed By: #### U DRGS #### [facility] [place] [address] [place] [address] UR Propoxyphene Screen Negative Normal Negative < [facility] [place] Comment on above: Performed By: #### U DRGS #### [facility] [place] [address] [place] [address] Urinalysis, reflex to micros copicon 07-26-2023 Bilirubin Ql (U) Negative Normal Negative [facility] [place] Comment on above: Performed By: #### U A #### [facility] [place] [address] [place] [address] Clarity (U) Clear Normal Clear [facility] [place] Comment on above: Performed By: #### U A #### [facility] [place] [address] [place] [address] Color (U) Yellow Normal Straw/Arroyo [facility] [place] Comment on above: Performed By: #### U A #### [facility] [place] [address] [place] [address] Glucose Ql (U) Negative Normal Negative [facility] [place] Comment on above: Performed By: #### U A #### [facility] [place] [address] [place] [address] Hemoglobin Ql (U) Negative Normal Negative [facility] [place] Comment on above: Performed By: #### U A #### [facility] [place] [address] [place] [address] Ketones Ql (U) Negative Normal Negative [facility] [place] Comment on above: Performed By: #### U A #### [facility] [place] [address] [place] [address] Leukocyte esterase Test strip Ql (U) TRACE Abnormal Negative [facility] [place] Comment on above: Performed By: #### U A #### [facility] [place] [address] [place] [address] Nitrite Ql (U) Negative Normal Negative [facility] [place] Comment on above: Performed By: #### U A #### [facility] [place] [address] [place] [address] pH (U) 6.5 [pH] Normal 5.0-9.0 [facility] [place] Comment on above: Performed By: #### U A #### [facility] [place] [address] [place] [address] Protein Ql (U) TRACE Abnormal Negative [facility] [place] Comment on above: Performed By: #### U A #### [facility] [place] [address] [place] [address] Specific gravity (U) [Rel density] 1.009 Normal 1.005-1.03 [facility] [place] Comment on above: Performed By: #### U A #### [facility] [place] [address] [place] [address] Urobilinogen Qn (U) 0.2 {Yoselyn'U}/dL Normal < 2.0 [facility] [place] Comment on above: Performed By: #### U A #### [facility] [place] [address] [place] [address] Urine Microscopicon 07-26-20 23 Urine Bacteria RARE Abnormal Negative [facility] [place] Comment on above: Performed By: #### U DEBBI #### [facility] [place] [address] [place] [address] Urine Epithelial Cells Auto 20-50 Normal 0-5 [facility] [place] Comment on above: Performed By: #### U DEBBI #### [facility] [place] [address] [place] [address] Urine Hyaline Casts Auto 1-3 Normal 0-5 [facility] [place] Comment on above: Performed By: #### U DEBBI #### [facility] [place] [address] [place] [address] Urine RBC Auto 0-2 Normal 0-5 [facility] [place] Comment on above: Performed By: #### U DEBBI #### [facility] [place] [address] [place] [address] Urine WBC Auto 10-20 Abnormal 0-5 [facility] [place] Comment on above: Performed By: #### U DEBBI #### [facility] [place] [address] [place] [address] Culture, Group B Strepon Culture, Group B Strep ORDER#: [id number] ORDERED BY: [place] Y[place] SOURCE: Vagina Genital COLLECTED: 07/12/23 15:54 ANTIBIOTICS AT [place].: RECEIVED : 07/12/23 16:18 Culture, Group B Strep FINAL 07/16/23 08:16 Rule Out Grp.B Strep: NEGATIVE FOR GROUP B STREPTOCOCCI Performed at [facility] [address] [place] [phone] ([phone] Normal [facility] [place] Comment on above: Performed By: #### R UBEL #### [facility] [place] [address] [place] [address] US OB 1 OR MORE FETUS LIMITE Don 06-28-2023 US OB 1 OR MORE FETUS LIMITED EXAMINATION: 3rd TRIMESTER OBSTETRIC ULTRASOUND 06/28/2023 COMPARISON: None HISTORY: ORDERING SYSTEM PROVIDED HISTORY: Encounter for supervision in primigravida, antepartum, 31 weeks gestation of TECHNOLOGIST PROVIDED HISTORY: This procedure can be scheduled via [facility]. Access your [facility] account by visiting [employer]. What reading provider will be dictating this [...] Casey Hall MD 07/02/23 Final result Normal [facility] [place] RPRon 05-01-2023 Reagin Ab RPR Ql (S) Non-Reactive Normal Non-reacti [facility] [place] Comment on above: Performed By: #### R VT #### [facility] [place] [address] [facility] [address] Glucose 1hr PPon 04-30-2023 Glucose [Mass/Vol] 101 mg/dL Normal 60-140 [facility] [place] Comment on above: Result Comment: Gluc ose tolerance is IMPAIRED when the 1 hour post 50 gram load glucose is greater than 130mg/dL Performed By: #### G L1PP #### [facility] [place] [address] [facility] [address] Hemoglobin and Hematocriton 04-30-2023 Hematocrit (Bld) [Volume fraction] 35.4 % Low 37.0-47.0 [facility] [place] Comment on above: Performed By: #### C BCWD #### [facility] [place] [address] [place] [address] Hemoglobin (Bld) [Mass/Vol] 11.3 g/dL Low 12.0-16.0 [facility] [place] [facility] Comment on above: Performed By: #### C BCWD #### [facility] [place] [address] [place] [address] Nursing Assessmenton 023 Nursing Assessment [id number]#[id number]:127 Normal [facility] Auth for Release of Medical Recordson 04-22-2023 Auth for Release of Medical Records [id number]#[id number]:127 Normal [facility] Discharge Instructionson Discharge Instructions [id number]#[id number]:127 Normal [facility] Inpatient Clinical Summaryon 04-22-2023 Inpatient Clinical Summary [address] [address] Clinical Summary Person Information Name: HOLLIS FREED [place] Age: 23 Years : 2000 Sex: Female PCP: Gwen Sky DO Marital Status: Single Race: White Ethnicity: Non- or Language: Cape Verdean Visit Id: Visit Reason: fELL AT HOME Speciality: Acuity: Obs Enc Type: OB Triage Med Service: Obstetrics Arrival: 04/22/2023 14:32:43 Discharge: 04/22/2023 16:33:00 Dispo Type: Home (Routine DC) Address: [address] [place] [id number] Provider Notes: Diagnosis: Problems Active (04/22/2023) Smoker [...] Referring Physician: Follow up: With: Address: When: [place] [address] [place] [address] 04/30/2023 10:15 AM Patient Education Information: Round Ligament Pain Normal [facility] Inpatient Patient Summaryon 04-22-2023 Inpatient Patient Summary [place] [id number] Patient Discharge Instructions PERSON INFORMATION Name: HOLLIS FREED Date of : 2000 Current Date: 04/22/2023 16:38:22 PHYSICIANS Admitting Physician: Primary Care Physician: Gwen Sky DO PCP Comment: Discharge Diagnosis: Condition at Discharge: HOLLIS FREED has been given the following list [...] test results: Follow up: With: Address: When: [place] [address] [place] [address] 04/30/2023 10:15 AM In the event that this physician does not participate in your insurance network, please consult with your insurance company to find a nearby participating provider. Comment: ABDIAZIZ Simms AUDREY P, have received the attached patient [...] 0. Last Dose: Next Dose: Pharmacy Information: [facility] PATIENT EDUCATION INFORMATION Instructions: Round Ligament [...] walks if they cause pain. ? Take tdfv-tys-kahndwk and prescription medicines only as told by [...] few sec (more content not included)... Normal [facility] Insurance Correspondence Off iceon 04-22-2023 Insurance Correspondence Office [id number]#[id number]:127 Normal [facility] UA With Cult Reflexon 2022 Bacteria LM Ql (Urine sed) TRACE Normal Trace [facility] Comment on above: Performed By: #### 1 [id number] #### [facility] [address] [place] [address] Bilirubin Ql (U) Negative Normal Negative [facility] Comment on above: Performed By: #### 1 [id number] #### [facility] [address] [place] [address] Calcium oxalate crystals LM Ql (Urine sed) Present Normal [facility] Comment on above: Performed By: #### 1 [id number] #### [facility] [address] [place] [address] Clarity (U) SL CLOUDY Invalid Interpretation Code [facility] Comment on above: Performed By: #### 1 [id number] #### [facility] [address] [place] [address] Color (U) YELLOW Normal Yellow [facility] Comment on above: Performed By: #### 1 [id number] #### [facility] [address] [place] [address] Crystals LM Ql (Urine sed) Present Normal [facility] Comment on above: Performed By: #### 1 [id number] #### [facility] [address] [place] [address] Epithelial cells.squamous LM.HPF (Urine sed) [#/Area] 9-10 Normal 0-2 [facility] Comment on above: Performed By: #### 1 [id number] #### [facility] [address] [place] [address] Glucose Test strip (U) [Mass/Vol] Negative Normal Negative [facility] Comment on above: Performed By: #### 1 [id number] #### [facility] [address] [place] [address] Hemoglobin Ql (U) Negative Normal Negative [facility] Comment on above: Performed By: #### 1 [id number] #### [facility] [address] [place] [address] Ketones (U) [Mass/Vol] Negative Normal Negative [facility] Comment on above: Performed By: #### 1 [id number] #### [facility] [address] [place] [address] [place].plasma/Lit hium.RBC (Bld) [Mass ratio] 0-3 Normal 0-3 [facility] Comment on above: Performed By: #### 1 [id number] #### [facility] [address] [place] [address] Mucus Ql (Urine sed) TRACE Normal [facility] Comment on above: Performed By: #### 1 [id number] #### [facility] [address] [place] [address] Nitrite Ql (U) Negative Normal Negative [facility] Comment on above: Performed By: #### 1 [id number] #### [facility] [address] [place] [address] pH (U) 7.5 [pH] Invalid Interpretation Code 5.0-9.0 [facility] Comment on above: Performed By: #### 1 [id number] #### [facility] [address] [place] [address] Protein (U) [Mass/Vol] Negative Normal Negative [facility] Comment on above: Performed By: #### 1 [id number] #### [facility] [address] [place] [address] Specific gravity (U) [Rel density] 1.010 Invalid Interpretation Code 1.005-1.03 0 [facility] Comment on above: Performed By: #### 1 [id number] #### [facility] [address] [place] [address] Type of Urine collection method Clean Catch Normal [facility] Comment on above: Performed By: #### 1 [id number] #### [facility] [address] [place] [address] Urobilinogen Qn (U) 0.2 {Yoselyn'U}/dL Normal 0.0-1.0 [facility] Comment on above: Performed By: #### 1 [id number] #### [facility] [address] [place] [address] WBC Auto Ql (U) TRACE Abnormal Negative [facility] Comment on above: Performed By: #### 1 [id number] #### [facility] [address] [place] [address] WBC LM.HPF (Urine sed) [#/Area] 0-5 Normal 0-5 [facility] Comment on above: Performed By: #### 1 [id number] #### [facility] [address] [place] [address] US OB 14 PLUS WEEKS SINGLE O R FIRST GESTATIONon 03-01-2023 US OB 14 PLUS WEEKS SINGLE OR FIRST GESTATION EXAMINATION: OBSTETRIC ULTRASOUND 03/01/2023 3:11 pm TECHNIQUE: Transabdominal sonographic evaluation of the pelvis was performed. COMPARISON: 12/31/2022. HISTORY: ORDERING SYSTEM PROVIDED HISTORY: 11 weeks gestation of , Supervision of other normal , antepartum TECHNOLOGIST PROVIDED HISTORY: This procedure can be scheduled via [facility]. Access your [facility] account by visiting [employer]. What reading provider will be dictating this [...] Jalil Noe MD 03/01/23 Final result Normal [facility] [place] US OB LESS THAN 14 WEEKS SIN GLE OR FIRST GESTATIONon 12-31-2022 1. Single IUP with best estimate of gestational age being 9 weeks and 3 days. No abnormal fluid collections about the gestation. Yolk sac, pole and cardiac motion noted, with heart rate of 176 BPM. 2. 2.6 cm, slightly complex, left ovarian cyst. Possibly a corpus luteum cyst. [facility] EXAM: US First Trimester , Transabdominal and US Duplex Arterial/Venous of the Pelvis, Complete EXAM DATE/TIME: 12/31/2022 4:36 pm CLINICAL History lines: ORDERING SYSTEM PROVIDED Secondary amenorrhea, Positive urine test TECHNOLOGIST PROVIDED History lines: This procedure can be scheduled via [facility]. Access your [facility] account by visiting [employer]. What reading provider will be dictating this [...] 2.0 cm. Free fluid: No free fluid. [facility] Steve Borja MD - 12/31/2022 EXAM: US First Trimester , Transabdominal and US Duplex Arterial/Venous of the Pelvis, Complete EXAM DATE/TIME: 12/31/2022 4:36 pm CLINICAL History lines: ORDERING SYSTEM PROVIDED Secondary amenorrhea, Positive urine test TECHNOLOGIST PROVIDED History lines: This procedure can be scheduled via [facility]. Access your [facility] account by visiting [employer]. What reading provider will be dictating this [...] ovarian cyst. Possibly a corpus luteum cyst. [facility] [employer]: Radiology Study observation (narrative) [facility]: US OB LESS THAN 14 WEEKS SIN GLE OR FIRST GESTATIONOrdered By: Steve Borja on 12-31-2022 [facility] [employer]: HPV DNA Typingon 12-26-2022 HPV Type 16 Not detected Normal Not Detect [facility] [place] [facility] HPV Type 18 Not detected Normal Not Detect [facility] [place] [facility] HPVOH (Other types) Detected Abnormal Not Detect [facility] [place] [facility] Comment on above: Result Comment: *Inc ludes 31,33,35,39,45,51,52,56,58,59,66,68 genotypes C.trachomatis N.gonorrhoeae DNAon 12-25-2022 C. trachomatis DNA EVNONE+probe Ql (Unsp spec) Negative Normal Negative [facility] [place] N. gonorrhoeae DNA EVONNE+probe Ql (Unsp spec) Negative Normal Negative [facility] [place] [facility] Drug Panel 9A, Screen Only, Urineon 12-21-2022 Alcohol, Urine Negative Normal Cutoff 40 [facility] [place] [facility] Amphetamines, Urine Negative Normal Cutoff 300 [facility] [place] [facility] Barbiturates, Urine Negative Normal Cutoff 200 [facility] [place] [facility] Benzodiazepines, Urine Negative Normal Cutoff [address] [facility] [place] [facility] CDTI 9A Comments See Note Normal [facility] [place] Comment on above: Result Comment: INTE RPRETIVE [...] opioid testing can be ordered. Refer to [facility] for test information. For medical purposes only; not valid for forensic use. Performed by [facility], [address] [place] [id number] [email or web address], Nolberto Marie MD, PHD - Lab. Director Cocaine, Urine Negative Normal Cutoff 150 [facility] [place] [facility] Creatinine, Urine 65.0 mg/dL Normal 20.0-400.0 [facility] [place] [facility] Marijuana, Urine Positive Normal Cutoff 50 [facility] [place] Comment on above: Result Comment: Pres umptively POSITIVE for cannabinoids (marijuana or Marinol use) by enzyme immunoassay. NOT CONFIRMED by LC-MS/MS. Unconfirmed positive may be useful for medical purposes, but does not meet forensic standards. MDMA, Urine Negative Normal Cutoff [address] [facility] [place] Methadone, Urine Negative Normal Cutoff [address] [facility] [place] Opiates, Urine Negative Normal Cutoff 300 [facility] [place] Oxycodone, Urine Negative Normal Cutoff 100 [facility] [place] [facility] Phencyclidine, Urine Negative Normal Cutoff 25 [facility] [place] Propoxyphene, Urine Negative Normal Cutoff [address] [facility] [place] HSV 1 Glycoprotein G Ab, IgG on 12-21-2022 HSV 1 Glycoprotein G Ab, IgG 27.20 IV Critically high <=0.89 [facility] [place] Comment on above: Result Comment: REFE RENCE [...] a non-type specific screening test. Performed By: [facility] [address] [place] [address] Side L[employer] Tack: Nolberto Marie MD, PhD HSV 2 Glycoprotein G Ab, IgG on 12-21-2022 HSV 2 Glycoprotein G Ab, IgG 0.06 IV Normal <=0.89 [facility] [place] Comment on above: Result Comment: REFE RENCE [...] a non-type specific screening test. Performed By: [facility] [address] [place], [place] [id number] Side Laster Tack: Nolberto Marie MD, PhD Varicella-Zoster Virus Ab, I gGon 12-21-2022 Varicella-Zoster Virus Ab, IgG 240.8 IV Normal [facility] [place] Comment on above: Result Comment: INTE RPRETIVE [...] laboratory at the same time. Performed By: [facility] [address] [place] [address] Side Laster Tack: Nolberto Marie MD, PhD HIV Ag/Abon 12-20-2022 HIV Ag/Ab Non-Reactive Normal NR [facility] [place] Comment on above: Result Comment: No l aboratory evidence of HIV infection. If acute HIV infection is suspected, consider testing for HIV-[address] [id number] ([phone] Hep C Abon 12-20-2022 Hep C Ab Non-Reactive Normal NR [facility] [place] Comment on above: Result Comment: The hepatitis [...] recommended by ordering HCV RNA by PCR. [address] [id number] ([phone] RPRon 12-20-2022 Reagin Ab RPR Ql (S) Non-Reactive Normal Non-reacti [facility] [place] Comment on above: Performed By: #### R UBEL #### [facility] [place] [address] [place] [address] Trichmonas Vaginalis Screen (EIA)on 12-20-2022 Trichomonas Vaginalis Screen (EIA) Negative Normal [facility] [place] Comment on above: Performed By: #### E TRIC #### [facility] [place] [address] [place] [address] Wet Prep-Medical Purposes On rivera 12-20-2022 Wet Prep Clue Cellls None Seen Normal [facility] [place] Comment on above: Performed By: #### C BCWD #### [facility] [place] [address] [place] [address] Wet Prep Trichomonas See EIA Normal [facility] [place] Comment on above: Performed By: #### C BCWD #### [facility] [place] [address] [place] [address] Wet Prep Yeast None Seen Normal [facility] [place] Comment on above: Performed By: #### C BCWD #### [facility] [place] [address] [place] [address] CBC With Platelet and Differ entialon 12-19-2022 Basophils (Bld) [#/Vol] 0.0 10*3/uL Normal 0.0-0.2 [facility] [place] Comment on above: Performed By: #### C BCWD #### [facility] [place] [address] [place] [address] Basophils/100 WBC (Bld) 0.8 % Normal [facility] [place] Comment on above: Performed By: #### C BCWD #### [facility] [place] [address] [place] [address] Eosinophils (Bld) [#/Vol] 0.1 10*3/uL Normal 0.0-0.7 [facility] [place] Comment on above: Performed By: #### C BCWD #### [facility] [place] [address] [place] [address] Eosinophils/100 WBC (Bld) 1.7 % Normal [facility] [place] Comment on above: Performed By: #### C BCWD #### [facility] [place] [address] [place] [address] Erythrocyte distribution width (RBC) [Ratio] 12.4 % Normal 11.5-14.5 [facility] [place] Comment on above: Performed By: #### C BCWD #### [facility] [place] [address] [place] [address] Hematocrit (Bld) [Volume fraction] 33.7 % Low 37.0-47.0 [facility] [place] Comment on above: Performed By: #### C BCWD #### [facility] [place] [address] [place] [address] Hemoglobin (Bld) [Mass/Vol] 11.5 g/dL Low 12.0-16.0 [facility] [place] Comment on above: Performed By: #### C BCWD #### [facility] [place] [facility] [address] [place] [address] Lymphocytes (Bld) [#/Vol] 1.0 10*3/uL Normal 1.0-4.8 [facility] [place] Comment on above: Performed By: #### C BCWD #### [facility] [place] [address] [place] [address] Lymphocytes/100 WBC (Bld) 21.8 % Normal [facility] [place] Comment on above: Performed By: #### C BCWD #### [facility] [place] [address] [place] [address] MCH (RBC) [Entitic mass] 30.7 pg Normal 27.0-31.3 [facility] [place] [facility] Comment on above: Performed By: #### C BCWD #### [facility] [place] [address] [place] [address] MCHC 34.1 % Normal 33.0-37.0 [facility] [place] Comment on above: Performed By: #### C BCWD #### [facility] [place] [address] [place] [address] MCV (RBC) [Entitic vol] 89.8 fL Normal 79.4-94.8 [facility] [place] Comment on above: Performed By: #### C BCWD #### [facility] [place] [facility] [address] [place] [address] Monocytes (Bld) [#/Vol] 0.4 10*3/uL Normal 0.2-0.8 [facility] [place] [facility] Comment on above: Performed By: #### C BCWD #### [facility] [place] [facility] [address] [place] [address] Monocytes/100 WBC (Bld) 9.6 % Normal [facility] [place] [facility] Comment on above: Performed By: #### C BCWD #### [facility] [place] [facility] [address] [place] [address] Neutrophils (Bld) [#/Vol] 3.0 10*3/uL Normal 1.4-6.5 [facility] [place] [facility] Comment on above: Performed By: #### C BCWD #### [facility] [place] [facility] [address] [place] [address] Neutrophils/100 WBC (Bld) 66.1 % Normal [facility] [place] [facility] Comment on above: Performed By: #### C BCWD #### [facility] [place] [facility] [address] [place] [address] Platelets (Bld) [#/Vol] 226 10*3/uL Normal 130-400 [facility] [place] Comment on above: Performed By: #### C BCWD #### [facility] [place] [address] [facility] [place] [address] RBC (Bld) [#/Vol] 3.76 10*6/uL Low 4.20-5.40 [facility] [place] Comment on above: Performed By: #### C BCWD #### [facility] [place] [address] [facility] [place] [address] WBC (Bld) [#/Vol] 4.5 10*3/uL Low 4.8-10.8 [facility] [place] Comment on above: Performed By: #### C BCWD #### [facility] [place] [address] [facility] [address] Culture, Urineon 12-19-2022 Culture, Urine ORDER#: [id number] OR DERED BY: BROOKLYN YI SOURCE: Urine Clean Catch COLLECTED: 12/19/22 14:44 ANTIBIOTICS AT [place].: RECEIVED : 12/19/22 20:01 Culture, Urine FINAL 12/21/22 12:29 Cult,Urine: NO SIGNIFICANT GROWTH Performed at [address] [address] ([phone] Normal [facility] [place] Comment on above: Performed By: #### R UBEL #### [facility] [place] [address] [facility] [address] Gynecological Specimen (Cyto logy)on 12-19-2022 Gynecological Specimen (Cytology) [facility] [address] [place], [place] [id number] FINAL CYTOLOGY PAP REPORT Patient Name: HOLLIS FREED Accession No: [id number] Age Sex: 2000 22 Y / F Location: [facility] Account No: [id number] Collected: 12/19/2022 Med Rec No: [id number] Received: 12/20/2022 Attend Phys: BROOKLYN YI Completed: 01/03/2023 Perform Phys: BROOKLYN YI SPECIMEN ADEQUACY: Satisfactory for Evaluation. Endocervical cells/transformation zone component present. GENERAL CATEGORIZATION: Epithelial Cell Abnormality INTERPRETATION/RESULTS: Atypical squamous cells of undetermined significance. Specimen: THINPREP LIQUID BASE IMAGED DIAGNOSTIC History: Source: Thin Prep Site: Cervical History: Previous abnormal smear? No History of CA? No Lab Order#: [id number] Test Name Collected D AND T Result [...] (PCR) and nucleic acid hybridization. CPT: Technical: 60052 X1 Professional: 65415 X1 Screened by: JEROME BROOKS(ASCP) EARL CURRIE [...] processed and screened using a Thin Prep Home Supervisor at [facility] [address] [place] [address] All abnormal gynecologic interpretation is performed at [facility], unless otherwise noted in the report. Page 1 of 1 Abnormal [facility] [place] Comment on above: Performed By: #### R UBEL #### [facility] [place] [address] [place] [address] HCG Quanton 05-24-2023 HCG Quant 67781.0 mIU/mL Normal [facility] [place] Comment on above: Result Comment: Gest ational Age Expected HCG values (mIU/ml) 3 weeks 5-72 4 weeks 10-708 5 weeks 217-8,245 6 weeks 152-32,177 8 weeks 31,366-149,094 12 weeks 27,107-201,615 16 weeks 8,904-55,332 18 weeks 9,649-55,271 Performed By: #### R UBEL #### [facility] [place] [address] [place] [address] HPV DNA Typingon 12-19-2022 HPV Comment See below Normal [facility] [place] Comment on above: Result Comment: Th is [...] Hepatitis B Surface Ag Interp Non-Reactive Normal [facility] [place] Comment on above: Performed By: #### H BSG #### [facility] [place] [address] [place] [address] Rubella Ab, IgGon 12-19-2022 Rubella Ab, IgG 12.4 IU/mL Normal [facility] [place] Comment on above: Result Comment: Yenni ent's result indicates immunity. Default Normal Ranges >=10 Presumed Immune <10 Presumed Not immune Performed By: #### R UBEL #### [facility] [place] [address] [place] [address] Type and 3 cell Screen OB Ca ptureon 12-19-2022 Type and 3 cell Screen OB Capture PATIENT: ABDIAZIZ Drake LOC: [facility],, BILL# : [id number] : 2000 SEX: F ORDERED BY: KASSIDY BARAHONA ORDERED : 12/19/2022 11:18 COLLECTED: 12/19/2022 11:19 ORDER : [id number] RECEIVED : 12/19/2022 15:40 TEST NAME RESULT UNITS RANGES ABN FL ST ABORH Capture A POS F Antibody 3 Cell Scrn Captu NEG F Normal [facility] [place] Comment on above: Performed By: #### R UBEL #### [facility] [place] [address] [place] [address] Urinalysis, reflex to micros copicon 12-19-2022 Bilirubin Ql (U) Negative Normal Negative [facility] [place] Comment on above: Performed By: #### C BCWD #### [facility] [place] [address] [place] [address] Clarity (U) Clear Normal Clear [facility] [place] Comment on above: Performed By: #### C BCWD #### [facility] [place] [address] [place] [address] Color (U) Yellow Normal Straw/Arroyo [facility] [place] Comment on above: Performed By: #### C BCWD #### [facility] [place] [address] [place] [address] Glucose Ql (U) Negative Normal Negative [facility] [place] Comment on above: Performed By: #### C BCWD #### [facility] [place] [address] [place] [address] Hemoglobin Ql (U) Negative Normal Negative [facility] [place] Comment on above: Performed By: #### C BCWD #### [facility] [place] [address] [place] [address] Ketones Ql (U) Negative Normal Negative [facility] [place] Comment on above: Performed By: #### C BCWD #### [facility] [place] [address] [place] [address] Leukocyte esterase Test strip Ql (U) TRACE Abnormal Negative [facility] [place] Comment on above: Performed By: #### C BCWD #### [facility] [place] [address] [place] [address] Nitrite Ql (U) Negative Normal Negative [facility] [place] Comment on above: Performed By: #### C BCWD #### [facility] [place] [address] [place] [address] pH (U) 7.0 [pH] Normal 5.0-9.0 [facility] [place] Comment on above: Performed By: #### C BCWD #### [facility] [place] [address] [place] [address] Protein Ql (U) Negative Normal Negative [facility] [place] Comment on above: Performed By: #### C BCWD #### [facility] [place] [address] [place] [address] Specific gravity (U) [Rel density] 1.013 Normal 1.005-1.03 [facility] [place] Comment on above: Performed By: #### C BCWD #### [facility] [place] [address] [place] [address] Urobilinogen Qn (U) 0.2 {Yoselyn'U}/dL Normal < 2.0 [facility] [place] Comment on above: Performed By: #### C BCWD #### [facility] [place] [address] [place] [address] Urine Microscopicon 12-20-19 23 Bacteria LM.HPF (Urine sed) [#/Area] Negative Normal Negative [facility] [place] Comment on above: Performed By: #### U DEBBI #### [facility] [place] [address] [place] [address] Urine Epithelial Cells Auto 3-5 Normal 0-5 [facility] [place] Comment on above: Performed By: #### U DEBBI #### [facility] [place] [address] [place] [address] Urine Hyaline Casts Auto 0-1 Normal 0-5 [facility] [place] Comment on above: Performed By: #### U DEBBI #### [facility] [place] [address] [place] [address] Urine RBC Auto 3-5 Abnormal 0-5 [facility] [place] Comment on above: Performed By: #### U DEBBI #### [facility] [place] [address] [place] [address] Urine WBC Auto 0-2 Normal 0-5 [facility] [place] Comment on above: Performed By: #### U DEBBI #### [facility] [place] [address] [place] [address] ANKLE, COMPLETE, MIN 3 VIEWS on 03-20-2022 ANKLE, COMPLETE, MIN 3 VIEWS Patient Name: ABDIAZIZ HOLLIS STUDY: ANKLE, COMPLETE, MIN 3 VIEWS; Right; 03/20/2022 2:21 pm INDICATION: pain M25.579: Ankle pain. ACCESSION NUMBER(S): [id number] ORDERING CLINICIAN: BEE LEDESMA FINDINGS: Right ankle x-rays three views AP, lateral and oblique view: No acute fractures, no dislocation. Mortise intact. Electronically signed by: BEE LEDESMA MD [facility] FOOT COMPLETE, MIN 3 VIEWSon 03-20-2022 FOOT COMPLETE, MIN 3 VIEWS Patient Name: HOLLIS FREED STUDY: FOOT; COMPLETE, MIN 3 VIEWS; Right; 03/20/2022 2:21 pm INDICATION: pain M25.579: Ankle pain M79.673: Foot pain. ACCESSION NUMBER(S): [id number] ORDERING CLINICIAN: BEE LEDESMA FINDINGS: Right foot x-rays three views AP, lateral and oblique view: No acute fractures, no dislocation. No significant degenerative changes. Electronically signed by: BEE LEDESMA MD [facility] Initial Visit (Orthopaedic S urgery)on 03-20-2022 Initial Visit (Orthopaedic Surgery) Diagnoses/Problems Assessed Sesamoiditis of foot (733.99) (M25.879) Orders Sesamoiditis of foot Start: methylPREDNISolone 4 MG Oral Tablet Therapy Pack (Medrol); USE DIRECTED ; QTY 21 TABLET Provider Impressions ASSESSMENT: 1. Right foot sprain. 2. Right sesamoiditis. PLAN: Hollis presents for right foot pain secondary foot [...] RT Foot and ankle injury. 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) Electronically signed by : Bee Ledesma MD; Mar 23 2022 8:17AM EST Normal [facility] 03-20-2022 XR Ankle 3 Views Normal -[facility] Work Phone: XR Foot 3 Views Normal [facility] Work Phone: CNPNon 02-10-2018 CNPN Telephone ([facility]) CL HOLLIS HEWITT ([id number]) 2000 FDate Time Provider Department02/10/18 STEVE COELLO [facility] During your visit today, we recorded the following information about you:Julio Capone 02/10/2018 3:25 PM SignedReceived 02/01/18 lab results from [facility]. 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.1] INVALID FOR* Status:Closed by TATIANA PACHECO RN on 05/29/17 Normal [facility] Free T4on 05-28-2017 Thyroxine (T4) free 1.3 ng/dL Normal 0.9-1.7 [facility] Comment on above: Performed By: #### F T4 ####[facility] [address] [place], [place] [phone] CNOVon 05-27-2017 CNOV Office Visit ([facility]) CL HOLLIS HEWITT ([id number]) 2000 FDate Time Provider Qrcwxnujno51/30/17 4:20 PM STEVE COELLO [facility] During your [...] Alberto Coello MD 05/31/2017 2:26 PM SignedSUBJECTIVE:Chief Complaint:Hollis Freed is a 17 year old female [...] 11.2 oz) LMP 05/25/2017 SpO2 98% BMI26.97 kg/q4OGLRVFI APPEARANCE: Well appearing, alert, in no acute [...] loss encouragedGet shot recordEchocardiogramincrease fiber in in [id number] PROBLEM LISTPREMATURE PUBERTYThomas Flavia Simpson 05/27/2017 5:43 PM SignedVenipuncture performed to right antecubital. Number of tubes collected: 1 gold.Referring Provider: SELF [200]Allergies As of Date: 05/27/2017 Noted Allergy ReactionPENICILLINS 04/01/2008 2 - Rash Comments: BlistersDate Reviewed: 05/27/2017Reviewed by: Cherelle Vicente(Hist) Juan - Fully AssessedReason for Visit: Physical [83] Pain (Shoulder Pain) [1343] Cmt: Right side pain on and offPrimary Visit Diagnosis:Physical exam [Z00.00] Other Visit Diagnoses:Heart murmur [R01.1] Diarrhea, unspecified type [R19.7] Chronic right shoulder pain [M25.511, G89.29] Shortness of breath [R06.02]Order(s):ECHO [614200] Order #: [id number]: 1 FUTURE T4 FREE/FREE THYROX [SQFT4] Order #: [id number] FUTURE T4 FREE/FREE THYROX [SQFT4] Order #: [id number]. 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 Number of tubes collected: 1gold. Status:Closed by STEVE COELLO MD on 05/31/17 Normal [facility] PROGRESSon 05-27-2017 Protein HNO ID: [id number] thor: Steve Spenceervice: (none)Author Type: PhysicianType: Progress NotesFiled: 05/31/2017 2:26 PMNote Text:SUBJECTIVE:Chief Complaint:Hollis Freed is a 17 year old female [...] 11.2 oz) LMP 05/25/2017 SpO2 98% BMI26.97 kg/q2NWNNXFB APPEARANCE: Well appearing, alert, in no acute [...] loss encouragedGet shot recordEchocardiogramincrease fiber in in [id number] PROBLEM LISTPREMATURE PUBERTYThomas L MD Mode Normal [facility] Protein HNO ID: [id number] thor: Cherelle Farfan)(Hist) VaughnService: (none)Author Type: Medical AssistantType: Progress NotesFiled: 05/31/2017 2:26 PMNote Text:TETANUS due on 2009HPV VACCINE(1 of 3 - Female 3 Dose Series) due on 2009GC (GONORRHEA) SCREENING (18-24) due on 01/22/2016CHLAMYDIA SCREENING (18-24) due on 01/22/2016 Normal [facility] Test, Serum (Walk In)on 03-12-2017 Test, Serum (Walk In) Negative Normal [facility] Comment on above: Performed By: #### P GSUT ####[address] [place] [address] Vital Signs Date Time Vital Sign Value Performing Clinician Giovanna sheriff 06-16-2024 13:37-0500 Body weight 83.01 kg Marilyn LIVINGSTON Work Phone: [facility] 06-16-2024 13:37-0500 Diastolic blood pressure 64 mm[Hg] Marilyn LIVINGSTON Work Phone: [facility] 06-16-2024 13:37-0500 Systolic blood pressure 112 mm[Hg] Marilyn LIVINGSTON Work Phone: [facility] 05-19-2024 15:04-0400 Body weight 80.74 kg Roberto Huma DO Work Phone: [facility] 05-19-2024 15:04-0400 Diastolic blood pressure 76 mm[Hg] Roberto Huma DO Work Phone: [facility] 05-19-2024 15:04-0400 Systolic blood pressure 138 mm[Hg] Roberto Huma DO Work Phone: [facility] Encounters Encounter Date Encounter Type Care Provider Facility Start: 06-16-2024 End: 06-16-2024 Bamboo flowsheet Marilyn LIVINGSTON Work Phone: [facility] Start: 06-16-2024 End: 06-18-2024 Bamboo flowsheet Marilyn LIVINGSTON Work Phone: [facility] Start: 06-16-2024 End: 06-18-2024 External Result Encounter Marilyn LIVINGSTON Work Phone: [facility] Unsolicited Start: 06-16-2024 End: 06-16-2024 Office outpatient visit 15 minutes Marilyn LIVINGSTON Work Phone: [facility] Comment on above: Second trimester pre gnancy; Exposure to STD; Need for maternal serum alpha-protein (MSAFP) screening; Screening, , for anatomic survey Start: 06-16-2024 End: 06-16-2024 ambulatory MARILYN MIGUELINA Not Available Start: 05-19-2024 End: 05-19-2024 ambulatory ROBERTO HUMA Not Available Start: 05-19-2024 End: 05-19-2024 Office outpatient visit 15 minutes Roberto Huma DO Work Phone: [facility] Comment on above: Nausea; 12 weeks gestation of ; First trimester Start: 05-19-2024 End: 05-19-2024 Bamboo flowsheet Roberto Huma DO Work Phone: [facility] Start: 05-19-2024 End: 05-19-2024 Bamboo flowsheet Roberto Huma DO Work Phone: [facility] Start: 05-05-2024 End: 05-05-2024 Clinisync Result Encounter Roberto Huma DO Work Phone: [facility] Unsolicited Start: 05-05-2024 End: 05-05-2024 Clinisync Result Encounter Roberto Huma DO Work Phone: [facility] Unsolicited Start: 04-24-2024 End: 04-24-2024 ambulatory ROBERTO FINN Not Available Start: 01-17-2024 End: 01-19-2024 ambulatory BROOKLYN MONTENEGRO [facility] Start: 07-26-2023 End: 07-29-2023 [facility] Start: 06-28-2023 End: 06-30-2023 ambulatory [facility] Start: 04-23-2023 End: 05-29-2023 Pre-admission assessment Jos Fuchs [facility] Start: 04-22-2023 End: 04-22-2023 ambulatory Jos Fuchs Facility:[facility] Start: 03-01-2023 End: 03-03-2023 ambulatory BROOKLYN [facility] Start: 12-31-2022 End: 01-02-2023 Subsequent hospital visit by physician Brooklyn Montenegro DO Work Phone: [facility] Comment on above: Secondary amenorrhea ; Positive urine test Start: 04-10-[address] Bee canseco Gricelda Facility:[id number] Start: 03-20-[address] Bee Ledesma Facility:[id number] Start: 03-20-2022 Patient encounter procedure Bee Ledesma MD [facility] Phone: [facility] Work Phone: Start: 05-27-2017 End: 06-03-2017 Patient encounter STEVE COELLO [facility] Start: 03-12-2017 Ambulatory NO FAMILY DOCTOR Facili ty:1637 Procedures Date Procedure Procedure Detail Performing Clinician Start: 06-16-2024 RECURRENT VAGINITIS (HTRX) Marilyn LIVINGSTON Work Phone: Start: 06-16-2024 Urnls dip stick/tabl et rgnt non-auto w/o micrscp Marilyn LIVINGSTON Work Phone: Start: 05-19-2024 Urnls dip stick/tabl et rgnt non-auto w/o micrscp Roberto Finn DO Work Phone: Start: 05-05-2024 BOX TEST Roberto martinez DO Work Phone: Start: 12-31-2022 Us uterus 1 4 wk transabdl 07/29 gestat Brooklyn Montenegro DO Work Phone: Start: 08-20-2019 Microscopic observat ion [Identifier] in Cervix by Cyto stain Brooklyn Montenegro DO Work Phone: None (qualifier value) Jos Fuchs Plan of Treatment Date Care Activity Detail Author Start: 07-16-2024 End: 07-16-2024 Alpha fetoprotein, maternal Alpha fetoprotein, maternal Lab Routine Need for maternal serum alpha-protein (MSAFP) screening Expected: 07/16/2024 (Approximate), Expires: 07/16/2024 [facility] Work Phone: Comment on above: Expected: 07/16/2024 (Approximate), Expires: 07/16/2024 Start: 07-16-2024 End: 07-16-2024 Patient encounter procedure 07/16/2024 10:20 AM EST Routine [facility] [address] [place] [place] [address] Roberto Finn, DO [address] [place] [address] [address] [address] [facility] Start: 06-16-2024 End: 06-16-2025 US for US OB ANATOMY SINGLE W US OB CERVICAL LENGTH Imaging Routine Screening, , for anatomic survey Expected: 06/16/2024 (Approximate), Expires: 06/16/2025 [facility] Comment on above: Expected: 06/16/2024 (Approximate), Expires: 06/16/2025 Start: 06-16-2024 End: 06-16-2024 Patient encounter procedure 06/16/2024 1:00 PM EST Routine [facility] [address] [place] [id number] Marilyn Mcintyre PA [address] [place], [place] [id number] [facility] Start: 05-19-2024 End: 05-19-2024 Patient encounter procedure 05/19/2024 2:40 PM EDT Routine [facility] [address] [place] [address] Roberto Finn DO [address] [place] [address] [facility] Start: 12-20-2023 Depression Screen Depression Screen [facility] Start: 12-20-2023 Screening for Chlamy manisha trachomatis Chlamydia/GC screen [facility] Start: 02-26-2023 Influenza vaccination Flu vacc ine (Season Ended) [facility] Start: 01-16-2023 End: 01-16-2023 ambulatory 01/16/2023 Initial Obstetrics and Gynecology Brooklyn Montenegro, [address] [place] [address] [facility] Start: 08-20-2022 Screening for malign ant neoplasm of cervix Pap smear [facility] Start: 04-10-2022 FUV, Provider: Bee Ledesma, Status: Pen, Time: 10:15 AM FUV, Provider: Bee Ledesma, Status: Pen, Time: 10:15 AM [facility] Work Phone: Start: 04-20-2019 DTaP/Tdap/Td vaccine (7 - Td or Tdap) DTaP/Tdap/Td vaccine (7 - Td or Tdap) [facility] Start: 07-06-2010 Hepatitis A vaccine (2 of 2 - 2-dose series) Hepatitis A vaccine (2 of 2 - 2-dose series) [facility] Start: 2000 COVID-19 Vaccine (#1) COVID-19 Vacci ne (#1) [facility] CHLAMYDIA TRACHOMATI S (GENITO/STI) CHLAMYDIA TRACHOMATIS (GENITO/STI) Lab Routine Exposure to STD Ordered: 06/16/2024 [facility] Comment on above: Ordered: 06/16/2024 Neisseria gonorrhoea e DNA [Presence] in Unspecified specimen by EVONNE with probe detection Neisseria gonorrhea DNA probe, direct Lab Routine Exposure to STD Ordered: 06/16/2024 [facility] Comment on above: Ordered: 06/16/2024 SURESWAB(R) ADVANCED VAGINITIS PLUS, TMA SURESWAB(R) ADVANCED VAGINITIS PLUS, TMA Pathology and Cytology Routine Exposure to STD Ordered: 06/16/2024 [facility] Comment on above: Ordered: 06/16/2024 Immunizations Immunization Date Immunization Notes Care Provider Angelique beatty 05-29-2019 influenza virus vaccine, unspecified formulation Jos Jef [facility] Comment on above: Result Comment: [facility] [place] in [place] 06-07-2010 human papilloma viru s vaccine, quadrivalent Brooklyn Montenegro DO Work Phone: [facility] Work Phone: 06-07-2010 influenza virus vaccine, unspecified formulation Brooklyn Montenegro DO Work Phone: [facility] [employer] Work Phone: 01-04-2010 hepatitis A vaccine, unspecified formulation Brooklyn Montenegro DO Work Phone: [facility] Work Phone: 01-04-2010 human papilloma viru s vaccine, quadrivalent Brooklyn Montenegro DO Work Phone: [facility] Work Phone: 01-04-2010 varicella virus vaccine Brooklyn Montenegro DO Work Phone: [facility] [employer] Work Phone: 04-20-2009 human papilloma viru s vaccine, quadrivalent Brooklyn Montenegro DO Work Phone: [employer] Work Phone: 04-20-2009 tetanus toxoid, reduced diphtheria toxoid, and acellular pertussis vaccine, adsorbed Brooklyn Montenegro DO Work Phone: [employer] Work Phone: 08-19-2006 influenza virus vaccine, unspecified formulation Brooklyn Montenegro DO Work Phone: [employer] Work Phone: 06-14-2006 influenza virus vaccine, unspecified formulation Brooklyn Montenegro DO Work Phone: [employer] Work Phone: 03-02-2003 diphtheria, tetanus toxoids and acellular pertussis vaccine Brooklyn Montenegro DO Work Phone: [employer] Work Phone: 03-02-2003 measles, mumps and rubella virus vaccine Brooklyn Montenegro DO Work Phone: [employer] Work Phone: 03-02-2003 poliovirus vaccine, inactivated Brooklyn Montenegro DO Work Phone: [employer] Work Phone: 04-28-1999 diphtheria, tetanus toxoids and acellular pertussis vaccine Brooklyn Montenegro DO Work Phone: [facility] [employer] Work Phone: 04-28-1999 poliovirus vaccine, inactivated Brooklyn Montenegro DO Work Phone: [employer] Work Phone: 01-25-1999 Hib, unspecified Brooklyn Monica you DO Work Phone: [employer] Work Phone: 01-25-1999 measles, mumps and rubella virus vaccine Brooklyn Montenegro DO Work Phone: [employer] Work Phone: 01-25-1999 varicella virus vaccine Brooklyn Montenegro DO Work Phone: [employer] Work Phone: 1998 diphtheria, tetanus toxoids and acellular pertussis vaccine Brooklyn Montenegro DO Work Phone: [employer] Work Phone: 1998 hepatitis B vaccine, adult dosage Brooklyn Montenegro DO Work Phone: [employer] Work Phone: 1998 Hib, unspecified Brooklyn you DO Work Phone: [employer] Work Phone: 1998 diphtheria, tetanus toxoids and acellular pertussis vaccine Brooklyn Montenegro DO Work Phone: [employer] Work Phone: 1998 hepatitis B vaccine, adult dosage Brooklyn Montenegro DO Work Phone: [employer] Work Phone: 1998 Hib, unspecified Brooklyn you DO Work Phone: [employer] Work Phone: 1998 poliovirus vaccine, inactivated Brooklyn Montenegro DO Work Phone: [employer] Work Phone: 1998 hepatitis B vaccine, adult dosage Brooklyn Montenegro DO Work Phone: [employer] Work Phone: 1998 diphtheria, tetanus toxoids and acellular pertussis vaccine Brooklyn Montenegro DO Work Phone: [employer] Work Phone: 1998 poliovirus vaccine, inactivated Brooklyn Montenegro DO Work Phone: [employer] Phone: Payers Date Payer Category Payer Medicaid [id number] 2022 Private Health Insurance [id number] 1998 Unknown [id number] 2.16.8 [id number] 1998 Unknown [id number] 2.16.8 [id number] 1998 Unknown [id number] 2.16.8 [id number] 1998 Unknown [id number] 2.16.8 [id number] 1998 Unknown [id number] 2.16.8 [id number] 1998 Unknown [id number] 2.16.8 [id number] 1998 Unknown [id number] 2.16.8 [id number] 1998 Unknown [id number] 2.16.84 [id number] 1998 Unknown [id number] 2.16.84 [id number] 1998 Unknown [id number] 2.16.84 [id number] Unknown 1914 Unknown Self Pay Social History Date Type Detail Facility Start: 03-02-2020 End: 12-19-2022 Tobacco smoking status ORIS Never smoked tobacco [employer] Phone: Start: 12-19-2022 Tobacco use and exposure Smokeless tobacco non-user [facility] [employer] Phone: Start: 12-19-2022 Alcohol intake Ex-drinker (finding) [employer] Phone: Start: 1998 Sex Assigned At Not on file [facility] [employer] Phone: Sex Assigned At Female [facility] Tobacco smoking status NHIS Tobacco smoking consumption unknown [facility] Start: 03-08-2024 [facility] Start: 1998 Sex assigned at Female [facility] Start: 04-17-2024 Gender identity Identifies as female gender (finding) [facility] History of Present illness Narrative 06-16-2024 YARA Winter - 06/16/2024 1:10 PM EST Note Date & Type Note Facility 06-16-2024 History of Presen t illness Narrative Reason for Appointment: Patient ID: Hollis Freed is a 24 y.o. female who presents for Routine Visit Patient presents today for Std check and routine OB visit. MEDICATIONS Current Outpatient Medications Medication Instructions ondansetron (ZOFRAN) 4 mg, Oral, Every 6 hours PRN, Take 1 tablet by mouth every 6 hours as needed for nausea. Vit-Fe Fumarate-FA ( 1 PLUS 1 PO) Oral promethazine (PHENERGAN) 12.5 mg, Oral, Every 6 hours PRN, Take 1 tablet by mouth every 6 hours as needed for nausea. ALLERGIES Allergies Allergen Reactions Sulfamethoxazole-Trimethoprim Nausea And Vomiting Other Reaction(s): Other (See Comments), Vomiting Amoxicillin-Pot Clavulanate Clavulanic Acid Oseltamivir Penicillins Hives Other Reaction(s): Augmentin Cefdinir Rash PROBLEMS Active Ambulatory Problems Diagnosis Date Noted No Active Ambulatory Problems Resolved Ambulatory Problems Diagnosis Date Noted No Resolved Ambulatory Problems No Additional Past Medical History HISTORY PAST MEDICAL HISTORY SOCIAL HISTORY No past medical history on file. Social History Tobacco Use Smoking status: Not on file Smokeless tobacco: Not on file Substance Use Topics Alcohol use: Not on file Drug use: Not on file FAMILY HISTORY No family history on file. SURGICAL HISTORY History reviewed. No pertinent surgical history. REVIEW OF SYSTEMS Review of Systems: Review of Systems Constitutional: Negative. HENT: Negative. Eyes: Negative. Respiratory: Negative. Cardiovascular: Negative. Gastrointestinal: Negative. Genitourinary: Negative. Musculoskeletal: Negative. Skin: Negative. Neurological: Negative. All other systems reviewed and are negative. Hematological: Negative. Endocrine: Negative. Allergic/Immunologic: Negative. OBJECTIVE Objective: Physical Exam Constitutional: Appearance: Normal appearance. She is normal weight. HENT: Head: Normocephalic. Cardiovascular: Rate and Rhythm: Normal rate. Pulses: Normal pulses. Pulmonary: Effort: Pulmonary effort is normal. Breath sounds: Normal breath sounds. Abdominal: Palpations: Abdomen is soft. Musculoskeletal: General: Normal range of motion. Neurological: General: No focal deficit present. Mental Status: She is alert and oriented to person, place, and time. Psychiatric: Mood and Affect: Mood normal. Behavior: Behavior normal. Thought Content: Thought content normal. Judgment: Judgment normal. Vitals and nursing note reviewed. Vitals: There is no height or weight on file to calculate BMI. BP: Patient's last menstrual period was 02/23/2024. ASSESSMENT & PLAN ICD-10-CM 1. Well woman exam with routine gynecological exam Z01.419 Pap Smear 2. Second trimester Z34.92 POCT urinalysis dipstick manually resulted 3. Exposure to STD Z20.2 SURESWAB(R) ADVANCED VAGINITIS PLUS, TMA CHLAMYDIA TRACHOMATIS (GENITO/STI) Neisseria gonorrhea DNA probe, direct 4. Need for maternal serum alpha-protein (MSAFP) screening Z36.1 Alpha fetoprotein, maternal Alpha fetoprotein, maternal 5. Screening, , for anatomic survey Z36.89 US OB ANATOMY SINGLE W US OB CERVICAL LENGTH Return OB/Annual Exam: Patient presents today for a std check/routine obstetrics appointment. Patient is currently 16w2d . Patient is doing well and states she has no complaints. Cultures were obtained without difficulty and patient was given msAFP/Anatomy US order to have obtained. Orders Placed This Encounter Procedures US OB ANATOMY SINGLE W US OB CERVICAL LENGTH Alpha fetoprotein, maternal CHLAMYDIA TRACHOMATIS (GENITO/STI) Neisseria gonorrhea DNA probe, direct POCT urinalysis dipstick manually resulted Follow Up: Patient is to return to our office in 4 weeks for routine OB appointment Documented by Samra Farnsworth MA on behalf of: YARA Winter documented in this encounter [facility] History of Present illness Narrative 05-19-2024 Della Blanco, [employer] - 05/19/2024 2:40 PM EDT Note Date & Type Note Facility 05-19-2024 History of Presen t illness Narrative Reason for Appointment: Patient ID: Hollis Freed is a 24 y.o. female who presents for Routine Visit Patient presents today for Return OB appointment. MEDICATIONS Current Outpatient Medications Medication Instructions ondansetron (ZOFRAN) 4 mg, Oral, Every 6 hours PRN, Take 1 tablet by mouth every 6 hours as needed for nausea. Vit-Fe Fumarate-FA ( 1 PLUS 1 PO) Oral promethazine (PHENERGAN) 12.5 mg, Oral, Every 6 hours PRN, Take 1 tablet by mouth every 6 hours as needed for nausea. ALLERGIES Allergies Allergen Reactions Sulfamethoxazole-Trimethoprim Nausea And Vomiting Other Reaction(s): Other (See Comments), Vomiting Amoxicillin-Pot Clavulanate Clavulanic Acid Oseltamivir Penicillins Hives Other Reaction(s): Augmentin Cefdinir Rash PROBLEMS Active Ambulatory Problems Diagnosis Date Noted No Active Ambulatory Problems Resolved Ambulatory Problems Diagnosis Date Noted No Resolved Ambulatory Problems No Additional Past Medical History HISTORY PAST MEDICAL HISTORY SOCIAL HISTORY History reviewed. No pertinent past medical history. Social History Tobacco Use Smoking status: Not on file Smokeless tobacco: Not on file Substance Use Topics Alcohol use: Not on file Drug use: Not on file FAMILY HISTORY No family history on file. SURGICAL HISTORY History reviewed. No pertinent surgical history. REVIEW OF SYSTEMS Review of Systems: Review of Systems Constitutional: Negative. HENT: Negative. Eyes: Negative. Respiratory: Negative. Cardiovascular: Negative. Gastrointestinal: Negative. Genitourinary: Negative. Musculoskeletal: Negative. Skin: Negative. Neurological: Negative. All other systems reviewed and are negative. Hematological: Negative. Endocrine: Negative. Allergic/Immunologic: Negative. OBJECTIVE Objective: Physical Exam Constitutional: Appearance: Normal appearance. She is well-developed. Cardiovascular: Rate and Rhythm: Normal rate and regular rhythm. Pulmonary: Effort: Pulmonary effort is normal. Breath sounds: Normal breath sounds. Abdominal: General: Bowel sounds are normal. There is no distension. Palpations: Abdomen is soft. Tenderness: There is no abdominal tenderness. There is no guarding or rebound. Musculoskeletal: General: No swelling. Normal range of motion. Right lower leg: No edema. Left lower leg: No edema. Neurological: Mental Status: She is alert and oriented to person, place, and time. Skin: General: Skin is warm and dry. Psychiatric: Mood and Affect: Mood normal. Behavior: Behavior normal. Vitals and nursing note reviewed. Exam conducted with a gyn present. Vitals: There is no height or weight on file to calculate BMI. BP: 138/76 Patient's last menstrual period was 02/23/2024. ASSESSMENT & PLAN ICD-10-CM 1. Nausea R11.0 ondansetron (Zofran) 4 MG tablet 2. 12 weeks gestation of Z3A.12 POCT urinalysis dipstick manually resulted 3. First trimester Z34.91 New OB: Patient presents today for 1st time obstetrics appointment with provider. Patient is currently 12w2d . Patients history has been reviewed in great detail including any potential risks. Patient stated she currently has no complaints. Expectations throughout regarding labs, ultrasounds, and appointments have been discussed with the patient in detail. It was reiterated that the patient is to drink 6-8 glasses of water a day, eat 6 small meals a day, do not consume raw or undercooked meat, and stay away from [facility]. Patient has been consulted regarding any further do's and don'ts of . Patient voiced understanding and all questions and concerns were answered. Pt states hemorrhaged with first delivery- discussed in great detail with pt. Orders Placed This Encounter Procedures POCT urinalysis dipstick manually resulted Follow Up: Patient is to return in 4 weeks for routine OB appointment. Documented by Della Blanco LPN on behalf of: Roberto Finn DO documented in this encounter [facility] Clinical Note 04-22-2023 Note Date & Type Note Facility 04-22-2023 Note The following Patien t Education Materials have been given to the patient: EducationMaterial [facility] Evaluation + Plan note Note Date & Type Note Facility Evaluation + Plan note No data available for this section [facility] Evaluation note Note Date & Type Note Facility Evaluation note Diagnosis Secondary amenorrhea Absence of menstruation Positive urine test documented in this encounter [facility] [employer] Phone: Evaluation note Note Date & Type Note Facility Evaluation note Diagnosis Nausea Nausea alone 12 weeks gestation of First trimester state, incidental documented in this encounter [facility] Evaluation note Note Date & Type Note Facility Evaluation note Diagnosis Second trimester state, incidental Exposure to STD Need for maternal serum alpha-protein (MSAFP) screening Screening, , for anatomic survey Encounter for anatomic survey documented in this encounter [facility] Discharge instructions Note Date & Type Note Facility Hospital Discharge instructions No data available for this section [facility] Progress note Note Date & Type Note Facility Progress note No data available for this section [facility] Summary Purpose Family History No Family [...] RT Foot and ankle injury. Xrays @ [facility] [employer] [facility] Reason for Referral Specialty Diagnoses / Procedures Referred By Contac t Referred To Contact Radiology Diagnoses Secondary amenorrhea Positive urine test Procedures US OB TRANSVAGINAL Brooklyn Montenegro, DO [address] [place] [address] Referral ID Status Reason Start Date Expiration Date Visits Re quested Visits Authorized [id number] Open 12/19/2022 12/19/2023 1 1 Specialty Diagnoses / Procedures Referred By Contac t Referred To Contact Radiology Diagnoses Secondary amenorrhea Positive urine test Procedures US OB LESS THAN 14 WEEKS SINGLE OR FIRST GESTATION Brooklyn Montenegro, DO [address] [place] [address] Referral ID Status Reason Start Date Expiration Date Visits Re quested Visits Authorized [id number] Open 12/19/2022 12/19/2023 1 1 Additional Source Comments INFORMATION SOURCE (unrecogn ized section and content) DATE CREATED AUTHOR 01/22/2018 [facility] DATE CREATED AUTHOR AUTHOR'S ORGANIZ ATION 02/17/2018 [facility] DATE CREATED AUTHOR AUTHOR'S ORGANIZ ATION 03/25/2022 [employer] DATE CREATED AUTHOR AUTHOR'S ORGANIZ ATION 04/29/2022 [facility] DATE CREATED AUTHOR AUTHOR'S ORGANIZ ATION 04/30/2023 [facility] DATE CREATED AUTHOR AUTHOR'S ORGANIZ ATION 07/17/2023 [facility] DATE CREATED AUTHOR AUTHOR'S ORGANIZ ATION 01/20/2024 [facility] DATE CREATED AUTHOR AUTHOR'S ORGANIZ ATION 06/19/2024 [facility] Reason for Visit (unrecogniz ed section and content) Specialty Diagnoses / Procedures Referred By Contac t Referred To Contact Radiology Diagnoses Secondary amenorrhea Positive urine test Procedures US OB LESS THAN 14 WEEKS SINGLE OR FIRST GESTATION Brooklyn Montenegro DO [address] [place] [address] Referral ID Status Reason Start Date Expiration Date Visits Re quested Visits Authorized [id number] Open 12/19/2022 12/19/2023 1 1 Reason Comments Routine Visit Care Teams (unrecognized sec tion and content) Faculty Administrator Relationship Specialty Start Date End Date Undetermined, [...] BE BASED ON THE PRIMARY CLINICAL RECORDS. [employer] provides no warranty or guarantee of the accuracy or completeness of information in this document.
== END 2024-07-15 11:03 | disposition home or self-care (01) ==
LOC: US 11:02
PROVIDERS: Visit Provider Physician Assistant
DX: Z36.89 Encounter for other specified antenatal screening (principal); Z3A.20 20 weeks gestation of pregnancy
CPT/HCPCS: 76805; 76817

== ENCOUNTER 2024-09-10 11:39 | Outpatient (OUT) | payer MEDICAID, SELFPAY ==
--- OUTSIDE RECORDS SUMMARY | 2024-09-10 11:45 | XMS_ITS | CCD ---
Author Organization [facility] Care Team Providers Care Charger Tester Name Role Phone NO FAMILY DOCTOR Unavailable Unavailable NO FAMILY DOCTOR, NO FAMILY DOCTOR Unavailable Unavailable STEVE COELLO Unavailable Unavailable Unavailable Unavailable Gricelda, Dr. Bee Campbell Attending Chin Ledesma, Dr. Bee Campbell Attending Chin flynn Undetermined, Awaiting Assignment Primary Care P connie Unavailable oJs Fuchs Attending Unavailable Jos Fuchs Admitting Unavailable Gwen Sky Primary Care Physician [phone] BROOKLYN MONTENEGRO Attending Unavailable BROOKLYN MONTENEGRO Referring Unavailable LAVINIA, GWEN Primary Care Unavailable BROOKLYN MONTENEGRO Attending Unavailable BROOKLYN MONTENEGRO Referring Unavailable LAVINIA, GWEN Primary Care Unavailable BROOKLYN MONTENEGRO Attending Unavailable BROOKLYN MONTENEGRO Referring Unavailable UNDETERMINED, AWAITING ASSIGNMENT Primary Care Unavailable BROOKLYN MONTENEGRO Admitting Unavailable BROOKLYN MONTENEGRO Attending Unavailable LAVINIA, GWEN Primary Care Unavailable Unavailable Primary Care Provider Unavailabl e ROBERTO FINN Attending Unavailable MARILYN MCINTYRE Attending Unavailable ROBERTO FINN Attending Unavailable MARILYN MCINTYRE Attending Unavailable Allergies Allergy Classification Reported Allergen(s) Allergy Type Date of Onset Reaction(s) Facility (18 sources) Penicillins; Translations: [PENICILLINS] Propensity to adverse reactions to drug (disorder) 04-01-20 08 Hives [facility] Repository (1 source) Oseltamivir Drug Allergy 05-08-20 [facility] (16 sources) Sulfamethoxazole / Trimethoprim; Translations: [sulfamethoxazole-t rimethoprim] Drug Allergy 10-18-19 21 Vomiting (disorder), Nausea And Vomiting [facility] (2 sources) Amoxicillin / Clavulanate; Translations: [Augmentin] Drug Allergy [facility] Repository (16 sources) cefdinir; Translations: [cefdinir] Drug Allergy 05-03-20 Eruption of skin (disorder), Rash [facility] Repository (2 sources) Oseltamivir; Translations: [Tamiflu] Drug Allergy [facility] Repository (1 source) Sulfamethoxazole / Trimethoprim; Translations: [Bactrim] Drug Allergy [facility] Repository (14 sources) Clavulanate Drug Allergy 07-15-20 [facility] (14 sources) Oseltamivir Drug Allergy 05-08-20 18 [facility] (14 sources) Amoxicillin-Pot Clavulanate Drug Allergy 04-24-20 24 [facility] Work Phone: Medications Current Medications Medication Drug Class(es) Dates Sig (Normalized) Sig (Original) docusate sodium 100 mg oral tablet (1 source) Start: 04-22-2023 Dulcolax Stool Softener 100 mg, Oral, Refills(s) 0 Start Date: 04/22/23 Status: Ordered ondansetron 4 mg oral tablet (11 sources) Serotonin-3 Receptor Antagonist Start: 05-19-2024 take [...] Vit-Fe Fumarate-FA ( 1 PLUS 1 PO) (14 sources) Vit-Fe Fumarate-FA ( 1 PLUS 1 PO) Take by mouth Active Completed/Discontinued Medications Medication Drug Class(es) Dates Sig (Normalized) Sig (Original) ibuprofen 400 mg oral tablet (1 source) Nonsteroidal Anti-inflammatory Drug Start: take 1-3 tablets by mouth every six hours as needed ibuprofen 400 mg Tab 400 mg = 1 tab(s), Oral, q6hr, PRN Pain 1-3, # 12 tab(s), Refills(s) 0, Pharmacy: [id number], 163, cm, 04/30/21 15:32:00 EDT, Height/Length Dosing, 68, kg, 04/30/21 15:32:00 EDT, Weight Dosing Start Date: 04/30/21 Status: Ordered methylPREDNISolone 4 MG Oral Tablet Therapy Pack (1 source) Start: 2 methylPREDNISolone 4 MG Oral Tablet Therapy Pack USE DIRECTED ; QTY 21 TABLET Quantity: 1 Refills: 0 Ordered: 20-Mar-2022 Bee Ledesma MD Start : 20-Mar-2022 Active promethazine hydrochloride 12.5 mg oral tablet (11 sources) Phenothiazine Start: 4 End: 4 take 1 tablet by mouth every six hours as needed for nausea and vomiting and nausea and nausea promethazine (Phenergan) 12.5 MG tablet Indications: Nausea Take 1 tablet (12.5 mg) by mouth every 6 (six) hours if needed for nausea or vomiting for up to 30 doses Take 1 tablet by mouth every 6 hours as needed for nausea. 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 Nausea [...] 03-20-2022 Episodic Other and delivery including normal (18 sources) Urine test positive; Translations: [Encounter for test, result positive] Onset: 03-01-2023 Episodic Other screening for suspected conditions (not mental disorders or infectious disease) (6 sources) Alpha-fetoprotein blood test status; Translations: [Encounter for screening for raised alphafetoprotein level] 06-16-2024 Episodic Residual codes; unclassified (2 sources) Gestation period, 12 weeks; Translations: [12 weeks gestation of ] 05-19-2024 Episodic Residual codes; unclassified (1 source) Gestation period, 8 weeks; Translations: [8 weeks gestation of ] 04-24-2024 Episodic Residual codes; unclassified (2 sources) Gestation period, 20 weeks; Translations: [20 weeks gestation of ] 07-16-2024 Episodic Residual codes; unclassified (2 sources) Gestation period, 25 weeks; Translations: [25 weeks gestation of ] 08-17-2024 Episodic Sprains and strains (1 source) Unspecified [...] Test Name Value Interpretation Reference Range Facility Urinalysis macro (dipstick) panel (U)on 08-17-2024 Bilirubin, UA Negative Negative - 4(70) +++ mg/dL [facility] Blood, UA Negative Negative - 50 Ilia/mcL [facility] Clarity, UA Clear [facility] Color, UA Yellow [facility] Glucose, UA Negative Negative - 1999(110) ++++ mg/dL [facility] Interpretation and review of laboratory results Normal [facility] Ketones, UA Negative Negative - 160(16) ++++ mg/dL [facility] Leukocytes, UA Negative Negative - 500+++ Sophy/mcL [facility] Nitrite, UA Negative Negative - Positive [facility] pH, UA 7 5 - 9 [facility] Protein, UA Negative Negative - 2000(20) ++++ mg/dL [facility] Spec Grav, UA 1.02 1 - 1.03 [facility] Urobilinogen, UA 0.2 0.2 - 12 mg/dL [facility] Urinalysis macro (dipstick) panel (U)on 07-16-2024 Bilirubin, UA Negative Negative - 4(70) +++ mg/dL [facility] Blood, UA Negative Negative - 50 Ilia/mcL [facility] Clarity, UA Clear [facility] Color, UA Yellow [facility] Glucose, UA Negative Negative - 1999(110) ++++ mg/dL [facility] Interpretation and review of laboratory results Abnormal [facility] Ketones, UA Negative Negative - 160(16) ++++ mg/dL [facility] Leukocytes, UA Trace Negative - 500+++ Sophy/mcL [facility] Nitrite, UA Negative Negative - Positive [facility] pH, UA 6.5 5 - 9 [facility] Protein, UA Negative Negative - 1999(20) ++++ mg/dL [facility] Spec Grav, UA 1.02 1 - 1.03 [facility] Urobilinogen, UA 1.0 0.2 - 12 mg/dL [facility] RECURRENT VAGINITIS (HTRX)on 06-18-2024 ATOPOBIUM VAGINAE 0 [facility] ATOPOBIUM VAGINAE Not detected [facility] BVAB 2,3 (BACTERIAL VAGINOSIS ASSOCIATED BACTERIA 2, 3); MOBILUNCUS SPP 0 [facility] BVAB 2,3 (BACTERIAL VAGINOSIS ASSOCIATED BACTERIA 2, 3); MOBILUNCUS SPP Not detected [facility] TIERA ALBICANS, PARAPSILOSIS, TROPICALIS 0 [facility] TIERA ALBICANS, PARAPSILOSIS, TROPICALIS Not detected [facility] TIERA GLABRATA 0 [facility] TIERA GLABRATA Not detected [facility] TIERA KRUSEI 0 [facility] TIERA KRUSEI Not detected [facility] CHLAMYDIA TRACHOMATIS 0 [facility] CHLAMYDIA TRACHOMATIS Not detected [facility] GARDNERELLA VAGINALIS 0 [facility] GARDNERELLA VAGINALIS Not detected [facility] MEGASPHAERA (TYPES 1, 2) 0 [facility] MEGASPHAERA (TYPES 1, 2) Not detected [facility] MYCOPLASMA GENITALIUM 0 [facility] MYCOPLASMA GENITALIUM Not detected [facility] NEISSERIA GONORRHOEAE 0 [facility] NEISSERIA GONORRHOEAE Not detected [facility] TRICHOMONAS VAGINALIS 0 [facility] TRICHOMONAS VAGINALIS Not detected [facility] Urinalysis macro (dipstick) panel (U)on 06-16-2024 Bilirubin, UA Negative Negative - 4(70) +++ mg/dL [facility] Blood, UA Negative Negative - 50 Ilia/mcL [facility] Clarity, UA Clear [facility] Color, UA Colorless [facility] Glucose, UA Negative Negative - 1999(110) ++++ mg/dL [facility] Interpretation and review of laboratory results Normal [facility] Ketones, UA Negative Negative - 160(16) ++++ mg/dL [facility] Leukocytes, UA Negative Negative - 500+++ Sophy/mcL [facility] Nitrite, UA Negative Negative - Positive [facility] pH, UA 7 5 - 9 [facility] Protein, UA Negative Negative - 1999(20) ++++ mg/dL [facility] Spec Grav, UA 1.015 1 - 1.03 [facility] Urobilinogen, UA 0.2 0.2 - 12 mg/dL [facility] Urinalysis macro (dipstick) panel (U)on 05-19-2024 Bilirubin, UA Negative Negative - 4(70) +++ mg/dL [facility] Blood, UA Negative Negative - 50 Ilia/mcL [facility] Clarity, UA Clear [facility] Color, UA Colorless [facility] Glucose, UA Negative Negative - 1999(110) ++++ mg/dL [facility] Interpretation and review of laboratory results Normal [facility] Ketones, UA Negative Negative - 160(16) ++++ mg/dL [facility] Leukocytes, UA Negative Negative - 500+++ Sophy/mcL [facility] Nitrite, UA Negative Negative - Positive [facility] pH, UA 6 5 - 9 [facility] Protein, UA Negative Negative - 1999(20) ++++ mg/dL [facility] Spec Grav, UA 1.01 1 - 1.03 [facility] Urobilinogen, UA 0.2 0.2 - 12 mg/dL [facility] BOX TESTon 05-05-2024 BOX TEST SENT OUT [facility] BOX1 [facility] BOX2 05/05/[address] [facility] Ql (U)o n 04-24-2024 Interpretation and review of laboratory results Abnormal [facility] Preg Test, Ur Positive [facility] Urinalysis macro (dipstick) panel (U)on 04-24-2024 Bilirubin, UA Negative Negative - 4(70) +++ mg/dL [facility] Blood, UA Negative Negative - 50 Ilia/mcL [facility] Clarity, UA Clear [facility] Color, UA Yellow [facility] Glucose, UA Negative Negative - 1999(110) ++++ mg/dL [facility] Interpretation and review of laboratory results Abnormal [facility] Ketones, UA Negative Negative - 160(16) ++++ mg/dL [facility] Leukocytes, UA Positive Negative - 500+++ Sophy/mcL [facility] Nitrite, UA Negative Negative - Positive [facility] pH, UA 6.0 5 - 9 [facility] Protein, UA Negative Negative - 1999(20) ++++ mg/dL [facility] Spec Grav, UA 1.020 1 - 1.03 [facility] Urobilinogen, UA 1.0 0.2 - 12 mg/dL [facility] US NON OB TRANSVAGINALon US NON OB [...] Steve Borja MD 01/18/24 Final result Normal [facility] US PELVIS COMPLETEon 024 US PELVIS COMPLETE [...] Steve Borja MD 01/18/24 Final result Normal [facility] CBC With Platelet No Differe ntialon 07-28-2023 Erythrocyte distribution width (RBC) [Ratio] 12.5 % Normal 11.5-14.5 [facility] Comment on above: Performed By: #### C BCND #### [facility] [address] [facility] [address] Hematocrit (Bld) [Volume fraction] 28.3 % Low 37.0-47.0 [facility] Comment on above: Performed By: #### C BCND #### [facility] [address] [place] [address] Hemoglobin (Bld) [Mass/Vol] 9.2 g/dL Low 12.0-16.0 [facility] Comment on above: Performed By: #### C BCND #### [facility] [address] [facility] [address] MCH (RBC) [Entitic mass] 28.9 pg Normal 27.0-31.3 [facility] Comment on above: Performed By: #### C BCND #### [facility] [address] [place] [address] MCHC 32.5 % Low 33.0-37.0 [facility] Comment on above: Performed By: #### C BCND #### [facility] [address] [place] [address] MCV (RBC) [Entitic vol] 89.0 fL Normal 79.4-94.8 [facility] Comment on above: Performed By: #### C BCND #### [facility] [address] [place] [address] Platelets (Bld) [#/Vol] 241 10*3/uL Normal 130-400 [facility] Comment on above: Performed By: #### C BCND #### [facility] [address] [place] [address] RBC (Bld) [#/Vol] 3.18 10*6/uL Low 4.20-5.40 [facility] Comment on above: Performed By: #### C BCND #### [facility] [address] [place] [address] WBC (Bld) [#/Vol] 16.6 10*3/uL Critically high 4.8-10.8 [facility] Comment on above: Performed By: #### C BCND #### [facility] [address] [place] [address] HIV Ag/Abon 07-27-2023 HIV Ag/Ab Non-Reactive Normal NR [facility] Comment on above: Result Comment: No l aboratory evidence of HIV infection. If acute HIV infection is suspected, consider testing for HIV-1 RNA. [facility], [address] [place] [id number] . CBC With Platelet and Differ entialon 07-26-2023 Basophils (Bld) [#/Vol] 0.1 10*3/uL Normal 0.0-0.2 [facility] Comment on above: Performed By: #### U A #### [facility] [address] [place] [address] Basophils/100 WBC (Bld) 0.5 % Normal [facility] Comment on above: Performed By: #### U A #### [facility] [address] [place] [address] Eosinophils (Bld) [#/Vol] 0.1 10*3/uL Normal 0.0-0.7 [facility] Comment on above: Performed By: #### U A #### [facility] [address] [place] [address] Eosinophils/100 WBC (Bld) 1.0 % Normal [facility] Comment on above: Performed By: #### U A #### [facility] [address] [place] [address] Erythrocyte distribution width (RBC) [Ratio] 12.3 % Normal 11.5-14.5 [facility] Comment on above: Performed By: #### U A #### [facility] [address] [place] [address] Hematocrit (Bld) [Volume fraction] 36.9 % Low 37.0-47.0 [facility] Comment on above: Performed By: #### U A #### [facility] [address] [place] [address] Hemoglobin (Bld) [Mass/Vol] 11.9 g/dL Low 12.0-16.0 [facility] Comment on above: Performed By: #### U A #### [facility] [address] [place] [address] Lymphocytes (Bld) [#/Vol] 2.0 10*3/uL Normal 1.0-4.8 [facility] Comment on above: Performed By: #### U A #### [facility] [address] [place] [address] Lymphocytes/100 WBC (Bld) 17.5 % Normal [facility] Comment on above: Performed By: #### U A #### [facility] [address] [place] [address] MCH (RBC) [Entitic mass] 29.0 pg Normal 27.0-31.3 [facility] Comment on above: Performed By: #### U A #### [facility] [address] [place] [address] MCHC 32.2 % Low 33.0-37.0 [facility] Comment on above: Performed By: #### U A #### [facility] [address] [place] [address] MCV (RBC) [Entitic vol] 90.0 fL Normal 79.4-94.8 [facility] Comment on above: Performed By: #### U A #### [facility] [address] [place] [address] Monocytes (Bld) [#/Vol] 1.1 10*3/uL Critically high 0.2-0.8 [facility] Comment on above: Performed By: #### U A #### [facility] [address] [place] [address] Monocytes/100 WBC (Bld) 9.7 % Normal [facility] Comment on above: Performed By: #### U A #### [facility] [address] [place] [address] Neutrophils (Bld) [#/Vol] 7.9 10*3/uL Critically high 1.4-6.5 [facility] Comment on above: Performed By: #### U A #### [facility] [address] [place] [address] Neutrophils/100 WBC (Bld) 70.4 % Normal [facility] Comment on above: Performed By: #### U A #### [facility] [address] [place] [address] Platelets (Bld) [#/Vol] 289 10*3/uL Normal 130-400 [facility] Comment on above: Performed By: #### U A #### [facility] [address] [place] [address] RBC (Bld) [#/Vol] 4.10 10*6/uL Low 4.20-5.40 [facility] Comment on above: Performed By: #### U A #### [facility] [address] [place] [address] WBC (Bld) [#/Vol] 11.2 10*3/uL Critically high 4.8-10.8 [facility] Comment on above: Performed By: #### U A #### [facility] [address] [place] [address] Comprehensive Metabolic Pane mello 07-26-2023 Albumin [Mass/Vol] 3.4 g/dL Low 3.5-4.6 [facility] Comment on above: Performed By: #### C MP #### [facility] [address] [place] [address] ALP [Catalytic activity/Vol] 134 U/L Critically high 40-130 [facility] Comment on above: Performed By: #### C MP #### [facility] [address] [place] [address] ALT [Catalytic activity/Vol] 13 U/L Normal 0-33 [facility] Comment on above: Performed By: #### C MP #### [facility] [address] [place] [address] Anion gap [Moles/Vol] 14 mmol/L Normal 9-15 [facility] Comment on above: Performed By: #### C MP #### [facility] [address] [place] [address] AST [Catalytic activity/Vol] 19 U/L Normal 0-35 [facility] Comment on above: Performed By: #### C MP #### [facility] [address] [place] [address] Bilirubin [Mass/Vol] mg/dL Normal 0.2-0.7 [facility] Comment on above: Performed By: #### C MP #### [facility] [address] [place] [address] Calcium [Mass/Vol] 9.7 mg/dL Normal 8.5-9.9 [facility] Comment on above: Performed By: #### C MP #### [facility] [address] [place] [address] Chloride [Moles/Vol] 103 mmol/L Normal 95-107 [facility] Comment on above: Performed By: #### C MP #### [facility] [address] [place] [address] CO2 [Moles/Vol] 19 mmol/L Low 20-31 [facility] Comment on above: Performed By: #### C MP #### [facility] [address] [place] [address] Creatinine [Mass/Vol] 0.75 mg/dL Normal 0.50-0.90 [facility] Comment on above: Performed By: #### C MP #### [facility] [address] [place] [address] GFR >60.0 Normal >60 [facility] Comment on above: Result Comment: Gunnar atric [...] secretion. Performed By: #### C MP #### [facility] [address] [place] [address] Globulin (S) [Mass/Vol] 2.9 g/dL Normal 2.3-3.5 [facility] Comment on above: Performed By: #### C MP #### [facility] [address] [place] [address] Glucose [Mass/Vol] 65 mg/dL Low 70-99 [facility] Comment on above: Performed By: #### C MP #### [facility] [address] [place] [address] Potassium [Moles/Vol] 4.5 mmol/L Normal 3.4-4.9 [facility] Comment on above: Performed By: #### C MP #### [facility] [address] [place] [address] Protein [Mass/Vol] 6.3 g/dL Normal 6.3-8.0 [facility] Comment on above: Performed By: #### C MP #### [facility] [address] [place] [address] Sodium [Moles/Vol] 136 mmol/L Normal 135-144 [facility] Comment on above: Performed By: #### C MP #### [facility] [address] [place] [address] Urea nitrogen [Mass/Vol] 8 mg/dL Normal 6-20 [facility] Comment on above: Performed By: #### C MP #### [facility] [address] [place] [address] Hepatitis B Surface Agon Hepatitis B Surface Ag Interp Non-Reactive Normal [facility] Comment on above: Performed By: #### H BSG #### [facility] [address] [place] [address] RPRon 07-26-2023 Reagin Ab RPR Ql (S) Non-Reactive Normal Non-reacti [facility] Comment on above: Performed By: #### R IN #### [facility] [address] [place] [address] Type and Screen Capture 3 sc rn cellon 07-26-2023 Type and Screen Capture 3 scrn cell PATIENT: ABDIAZIZ Drake LOC: [facility],0324,01 BILL# : [id number] : 2000 SEX: F ORDERED BY: KASSIDY BARAHONA ORDERED : 07/26/2023 09:26 COLLECTED: 07/26/2023 09:44 ORDER : [id number] RECEIVED : 07/26/2023 09:44 TEST NAME RESULT UNITS RANGES ABN FL ST ABORH Capture A POS F Antibody 3 Cell Scrn Captu NEG F Normal [facility] Comment on above: Performed By: #### T S3C #### [facility] [address] [place] [address] UR Drugs of Abuse Panelon Drug Screen Comment see below Normal [facility] Comment on above: Result Comment: This method is a screening test to detect only these drug classes as part of a medical workup. Confirmatory testing by another method should be ordered if clinically indicated. Performed By: #### U DRGS #### [facility] [address] [place] [address] UR Amphetamines Screen Negative Normal Negative < [facility] Comment on above: Performed By: #### U DRGS #### [facility] [address] [place] [address] UR Barbiturates Screen Negative Normal Negative < [facility] Comment on above: Performed By: #### U DRGS #### [facility] [address] [place] [address] UR Benzo Screen Negative Normal Negative < [facility] Comment on above: Performed By: #### U DRGS #### [facility] [address] [place] [address] UR Cannabinoids Screen Negative Normal Negative < [facility] Comment on above: Performed By: #### U DRGS #### [facility] [address] [place] [address] UR Cocaine Screen Negative Normal Negative < [facility] Comment on above: Performed By: #### U DRGS #### [facility] [address] [place] [address] UR Fentanyl Screen Negative Normal Negative < [facility] Comment on above: Performed By: #### U DRGS #### [facility] [address] [place] [address] UR Methadone Screen Negative Normal Negative < [facility] Comment on above: Performed By: #### U DRGS #### [facility] [address] [place] [address] UR Opiates Screen Negative Normal Negative < [facility] Comment on above: Performed By: #### U DRGS #### [facility] [address] [place] [address] UR Oxycodone Screen Negative Normal Negative < [facility] Comment on above: Performed By: #### U DRGS #### [facility] [address] [place] [address] UR PCP Screen Negative Normal Negative < [facility] Comment on above: Performed By: #### U DRGS #### [facility] [address] [place] [address] UR Propoxyphene Screen Negative Normal Negative < [facility] Comment on above: Performed By: #### U DRGS #### [facility] [address] [place] [address] Urinalysis, reflex to micros copicon 07-26-2023 Bilirubin Ql (U) Negative Normal Negative [facility] Comment on above: Performed By: #### U A #### [facility] [facility] [address] [place] [address] Clarity (U) Clear Normal [facility] Comment on above: Performed By: #### U A #### [facility] [address] [place] [address] Color (U) Yellow Normal Straw/[facility] Comment on above: Performed By: #### U A #### [facility] [address] [place] [address] Glucose Ql (U) Negative Normal Negative [facility] Comment on above: Performed By: #### U A #### [facility] [address] [place] [address] Hemoglobin Ql (U) Negative Normal Negative [facility] Comment on above: Performed By: #### U A #### [facility] [address] [place] [address] Ketones Ql (U) Negative Normal Negative [facility] Comment on above: Performed By: #### U A #### [facility] [address] [place] [address] Leukocyte esterase Test strip Ql (U) TRACE Abnormal Negative [facility] Comment on above: Performed By: #### U A #### [facility] [address] [place] [address] Nitrite Ql (U) Negative Normal Negative [facility] Comment on above: Performed By: #### U A #### [facility] [address] [place] [address] pH (U) 6.5 [pH] Normal 5.0-9.0 [facility] Comment on above: Performed By: #### U A #### [facility] [address] [place] [address] Protein Ql (U) TRACE Abnormal Negative [facility] Comment on above: Performed By: #### U A #### [facility] [address] [place] [address] Specific gravity (U) [Rel density] 1.009 Normal 1.005-1.03 [facility] Comment on above: Performed By: #### U A #### [facility] [address] [place] [address] Urobilinogen Qn (U) 0.2 {Yoselyn'U}/dL Normal < 2.0 [facility] Comment on above: Performed By: #### U A #### [facility] [address] [place] [address] Urine Microscopicon 07-26-20 23 Urine Bacteria RARE Abnormal Negative [facility] Comment on above: Performed By: #### U DEBBI #### [facility] [address] [place] [address] Urine Epithelial Cells Auto 20-50 Normal 0-5 [facility] Comment on above: Performed By: #### U DEBBI #### [facility] [address] [place] [address] Urine Hyaline Casts Auto 1-3 Normal 0-5 [facility] Comment on above: Performed By: #### U DEBBI #### [facility] [address] [place] [address] Urine RBC Auto 0-2 Normal 0-5 [facility] Comment on above: Performed By: #### U DEBBI #### [facility] [address] [place] [address] Urine WBC Auto 10-20 Abnormal 0-5 [facility] Comment on above: Performed By: #### U DEBBI #### [facility] [address] [place] [address] Culture, Group B Strepon Culture, Group B Strep ORDER#: [id number] ORDERED BY: [place] YI SOURCE: Vagina Genital COLLECTED: 07/12/23 15:54 ANTIBIOTICS AT [place].: RECEIVED : 07/12/23 16:18 Culture, Group B Strep FINAL 07/16/23 08:16 Rule Out Grp.B Strep: NEGATIVE FOR GROUP B STREPTOCOCCI Performed at [facility] [place] [address] ([phone] Normal [facility] Comment on above: Performed By: #### R UBEL #### [facility] [address] [place] [address] US OB 1 OR MORE FETUS LIMITE Don 06-28-2023 US OB 1 OR MORE FETUS LIMITED EXAMINATION: 3rd TRIMESTER OBSTETRIC ULTRASOUND 06/28/2023 COMPARISON: None HISTORY: ORDERING SYSTEM PROVIDED HISTORY: Encounter for supervision in primigravida, antepartum, 31 weeks gestation of TECHNOLOGIST PROVIDED HISTORY: This procedure can be scheduled via [employer]. Access your [employer] account by visiting [employer]. What reading provider will be dictating this [...] Casey Hall MD 07/02/23 Final result Normal [facility] RPRon 05-01-2023 Reagin Ab RPR Ql (S) Non-Reactive Normal Non-reacti [facility] Comment on above: Performed By: #### R IN #### [facility] [address] [facility] [address] Glucose 1hr PPon 04-30-2023 Glucose [Mass/Vol] 101 mg/dL Normal 60-140 [facility] Comment on above: Result Comment: Gluc ose tolerance is IMPAIRED when the 1 hour post 50 gram load glucose is greater than 130mg/dL Performed By: #### G L1PP #### [facility] [address] [facility] [address] Hemoglobin and Hematocriton 04-30-2023 Hematocrit (Bld) [Volume fraction] 35.4 % Low 37.0-47.0 [facility] Comment on above: Performed By: #### C BCWD #### [facility] [address] [facility] [address] Hemoglobin (Bld) [Mass/Vol] 11.3 g/dL Low 12.0-16.0 [facility] Comment on above: Performed By: #### C BCWD #### [facility] [address] [facility] [address] Nursing Assessmenton 023 Nursing Assessment [id number]#[id number]:127 Normal [facility] Auth for Release of Medical Recordson 04-22-2023 Auth for Release of Medical Records [id number]#[id number]:127 Normal [facility] Discharge Instructionson Discharge Instructions [id number]#[id number]:127 Normal [facility] Inpatient Clinical Summaryon 04-22-2023 Inpatient Clinical Summary [address] [address] Clinical Summary Person Information Name: HOLLIS FREED [place] Age: 23 Years : 2000 Sex: Female PCP: Gwen Sky DO Marital Status: Single Race: White Ethnicity: Non- or Language: Polish Visit Id: Visit Reason: fELL AT HOME Speciality: Acuity: Obs Enc Type: OB Triage Med Service: Obstetrics Arrival: 04/22/2023 14:32:43 Discharge: 04/22/2023 16:33:00 Dispo Type: Home (Routine DC) Address: [address] [place] [id number] Provider Notes: Diagnosis: Problems Active (04/22/2023) Smoker [...] up: With: Address: When: [place] YI [address] [place] [address] 04/30/2023 10:15 AM Patient Education Information: Round Ligament Pain Normal [facility] Inpatient Patient Summaryon 04-22-2023 Inpatient Patient Summary [address] [address] Patient Discharge Instructions PERSON INFORMATION Name: HOLLIS [...] up: With: Address: When: [place] Y[place] [address] [place] [address] 04/30/2023 10:15 AM In the event that [...] 0. Last Dose: Next Dose: Pharmacy Information: [facility] [place] PATIENT EDUCATION INFORMATION Instructions: Round Ligament Pain [...] walks if they cause pain. ? Take [id number]-epmrvnf and prescription medicines only as told by [...] few sec (more content not included)... Normal [facility] Insurance Correspondence Off ice04-22-2023 Insurance Correspondence Office [id number]#[id number]:127 Normal [facility] UA With Cult Reflexon 2022 Bacteria LM Ql (Urine sed) TRACE Normal Trace [facility] Comment on above: Performed By: #### 1 [id number] #### [facility] [address] [place] [address] Bilirubin Ql (U) Negative Normal Negative [facility] Comment on above: Performed By: #### 1 [id number] #### [facility] [address] [place] [address] Calcium oxalate crystals LM Ql (Urine sed) Present Normal [facility] Comment on above: Performed By: #### 1 [id number] #### [facility] [address] [place] [address] Clarity (U) SL CLOUDY Invalid Interpretation Code [facility] Comment on above: Performed By: #### 1 [id number] #### [facility] [address] [place] [address] Color (U) YELLOW Normal Yellow [facility] Comment on above: Performed By: #### 1 [id number] #### [facility] [address] [place] [address] Crystals LM Ql (Urine sed) Present Normal [facility] Comment on above: Performed By: #### 1 [id number] #### [facility] [address] [place] [address] Epithelial cells.squamous LM.HPF (Urine sed) [#/Area] 9-10 Normal 0-2 [facility] Comment on above: Performed By: #### 1 [id number] #### [facility] [address] [place] [address] Glucose Test strip (U) [Mass/Vol] Negative Normal Negative [facility] Comment on above: Performed By: #### 1 [id number] #### [facility] [address] [place] [address] Hemoglobin Ql (U) Negative Normal Negative [facility] Comment on above: Performed By: #### 1 [id number] #### [facility] [address] [place] [address] Ketones (U) [Mass/Vol] Negative Normal Negative [facility] Comment on above: Performed By: #### 1 [id number] #### [facility] [address] [place] [address] [place].plasma/Lit hium.RBC (Bld) [Mass ratio] 0-3 Normal 0-3 [facility] Comment on above: Performed By: #### 1 [id number] #### [facility] [address] [place] [address] Mucus Ql (Urine sed) TRACE Normal [facility] Comment on above: Performed By: #### 1 [id number] #### [facility] [address] [place] [address] Nitrite Ql (U) Negative Normal Negative [facility] Comment on above: Performed By: #### 1 [id number] #### [facility] [address] [place] [address] pH (U) 7.5 [pH] Invalid Interpretation Code 5.0-9.0 [facility] Comment on above: Performed By: #### 1 [id number] #### [facility] [address] [place] [address] Protein (U) [Mass/Vol] Negative Normal Negative [facility] Comment on above: Performed By: #### 1 [id number] #### [facility] [address] [place] [address] Specific gravity (U) [Rel density] 1.010 Invalid Interpretation Code 1.005-1.03 0 [facility] Comment on above: Performed By: #### 1 [id number] #### [facility] [address] [place] [address] Type of Urine collection method Clean Catch Normal [facility] Comment on above: Performed By: #### 1 [id number] #### [facility] [address] [place] [address] Urobilinogen Qn (U) 0.2 {Yoselyn'U}/dL Normal 0.0-1.0 [facility] Comment on above: Performed By: #### 1 [id number] #### [facility] [address] [place] [address] WBC Auto Ql (U) TRACE Abnormal Negative [facility] Comment on above: Performed By: #### 1 [id number] #### [facility] [address] [place] [address] WBC LM.HPF (Urine sed) [#/Area] 0-5 Normal 0-5 [facility] Comment on above: Performed By: #### 1 [id number] #### [facility] [address] [place] [address] US OB 14 PLUS WEEKS SINGLE O R FIRST GESTATIONon 03-01-2023 US OB 14 PLUS WEEKS SINGLE OR FIRST GESTATION EXAMINATION: OBSTETRIC ULTRASOUND 03/01/2023 3:11 pm TECHNIQUE: Transabdominal sonographic evaluation of the pelvis was performed. COMPARISON: 12/31/2022. HISTORY: ORDERING SYSTEM PROVIDED HISTORY: 11 weeks gestation of , Supervision of other normal , antepartum TECHNOLOGIST PROVIDED HISTORY: This procedure can be scheduled via [employer]. Access your [employer] account by visiting Birdbox. What reading provider will be dictating this [...] Jalil Noe MD 03/01/23 Final result Normal [facility] US OB LESS THAN 14 WEEKS SIN GLE OR FIRST GESTATIONon 12-31-2022 1. Single IUP with best estimate of gestational age being 9 weeks and 3 days. No abnormal fluid collections about the gestation. Yolk sac, pole and cardiac motion noted, with heart rate of 176 BPM. 2. 2.6 cm, slightly complex, left ovarian cyst. Possibly a corpus luteum cyst. [facility] EXAM: US First Trimester , Transabdominal and US Duplex Arterial/Venous of the Pelvis, Complete EXAM DATE/TIME: 12/31/2022 4:36 pm CLINICAL History lines: ORDERING SYSTEM PROVIDED Secondary amenorrhea, Positive urine test TECHNOLOGIST PROVIDED History lines: This procedure can be scheduled via [employer]. Access your [employer] account by visiting Birdbox. What reading provider will be dictating this [...] 2.0 cm. Free fluid: No free fluid. [facility] Steve Borja MD - 12/31/2022 EXAM: US First Trimester , Transabdominal and US Duplex Arterial/Venous of the Pelvis, Complete EXAM DATE/TIME: 12/31/2022 4:36 pm CLINICAL History lines: ORDERING SYSTEM PROVIDED Secondary amenorrhea, Positive urine test TECHNOLOGIST PROVIDED History lines: This procedure can be scheduled via [employer]. Access your [employer] account by visiting Birdbox. What reading provider will be dictating this [...] ovarian cyst. Possibly a corpus luteum cyst. [facility]: Radiology Study observation (narrative) [facility]: US OB LESS THAN 14 WEEKS SIN GLE OR FIRST GESTATIONOrdered By: Steve Borja on 12-31-2022 [facility] Phone: HPV DNA Typingon 12-26-2022 HPV Type 16 Not detected Normal Not Detect [facility] HPV Type 18 Not detected Normal Not Detect [facility] HPVOH (Other types) Detected Abnormal Not Detect [facility] Comment on above: Result Comment: *Inc ludes 31,33,35,39,45,51,52,56,58,59,66,68 genotypes C.trachomatis N.gonorrhoeae DNAon 12-25-2022 C. trachomatis DNA EVONNE+probe Ql (Unsp spec) Negative Normal Negative [facility] N. gonorrhoeae DNA EVONNE+probe Ql (Unsp spec) Negative Normal Negative [facility] Drug Panel 9A, Screen Only, Urineon 12-21-2022 Alcohol, Urine Negative Normal Cutoff 40 [facility] Amphetamines, Urine Negative Normal Cutoff 300 [facility] Barbiturates, Urine Negative Normal Cutoff 200 [facility] Benzodiazepines, Urine Negative Normal Cutoff 200 [facility] CDTI 9A Comments See Note Normal [facility] Comment on above: Result Comment: INTE RPRETIVE [...] opioid testing can be ordered. Refer to [facility] for test information. For medical purposes only; not valid for forensic use. Performed by [facility], [address] [place] [id number] www.[employer] [employer], Nolberto Marie MD, PHD - Lab. Director Cocaine, Urine Negative Normal Cutoff 150 [facility] Creatinine, Urine 65.0 mg/dL Normal 20.0-400.0 [facility] Marijuana, Urine Positive Normal Cutoff 50 [facility] Comment on above: Result Comment: Pres umptively POSITIVE for cannabinoids (marijuana or Marinol use) by enzyme immunoassay. NOT CONFIRMED by LC-MS/MS. Unconfirmed positive may be useful for medical purposes, but does not meet forensic standards. MDMA, Urine Negative Normal Cutoff 500 [facility] Methadone, Urine Negative Normal Cutoff 150 [facility] Opiates, Urine Negative Normal Cutoff 300 [facility] Oxycodone, Urine Negative Normal Cutoff 100 [facility] Phencyclidine, Urine Negative Normal Cutoff 25 [facility] Propoxyphene, Urine Negative Normal Cutoff 300 [facility] HSV 1 Glycoprotein G Ab, IgG on 12-21-2022 HSV 1 Glycoprotein G Ab, IgG 27.20 IV Critically high <=0.89 [facility] Comment on above: Result Comment: REFE RENCE [...] a non-type specific screening test. Performed By: [facility] [address] [place] [id number] [employer]: Nolberto Marie MD, PhD HSV 2 Glycoprotein G Ab, IgG on 12-21-2022 HSV 2 Glycoprotein G Ab, IgG 0.06 IV Normal <=0.89 [facility] Comment on above: Result Comment: REFE RENCE [...] a non-type specific screening test. Performed By: [facility] [address] [place] [address] [employer]: Nolberto Marie MD, PhD Varicella-Zoster Virus Ab, I gGon 12-21-2022 Varicella-Zoster Virus Ab, IgG 240.8 IV Normal [facility] Comment on above: Result Comment: INTE RPRETIVE [...] laboratory at the same time. Performed By: [facility] [address] [place] [address] [employer]: Nolberto Marie MD, PhD HIV Ag/Abon 12-20-2022 HIV Ag/Ab Non-Reactive Normal NR [facility] Comment on above: Result Comment: No l aboratory evidence of HIV infection. If acute HIV infection is suspected, consider testing for HIV-[address] [address] Hep C Abon 12-20-2022 Hep C Ab Non-Reactive Normal NR [facility] Comment on above: Result Comment: The hepatitis [...] recommended by ordering HCV RNA by PCR. [address] [id number] [phone] RPRon 12-20-2022 Reagin Ab RPR Ql (S) Non-Reactive Normal Non-reacti [facility] Comment on above: Performed By: #### R UBEL #### [facility] [address] [place] [address] Trichmonas Vaginalis Screen (EIA)on 12-20-2022 Trichomonas Vaginalis Screen (EIA) Negative Normal [facility] Comment on above: Performed By: #### E TRIC #### [facility] [address] [place] [address] Wet Prep-Medical Purposes On rivera 12-20-2022 Wet Prep Clue Cellls None Seen Normal [facility] Comment on above: Performed By: #### C BCWD #### [facility] [address] [place] [address] Wet Prep Trichomonas See EIA Normal [facility] Comment on above: Performed By: #### C BCWD #### [facility] [address] [place] [address] Wet Prep Yeast None Seen Normal [facility] Comment on above: Performed By: #### C BCWD #### [facility] [address] [place] [address] CBC With Platelet and Differ entialon 12-19-2022 Basophils (Bld) [#/Vol] 0.0 10*3/uL Normal 0.0-0.2 [facility] Comment on above: Performed By: #### C BCWD #### [facility] [address] [place] [address] Basophils/100 WBC (Bld) 0.8 % Normal [facility] Comment on above: Performed By: #### C BCWD #### [facility] [address] [place] [address] Eosinophils (Bld) [#/Vol] 0.1 10*3/uL Normal 0.0-0.7 [facility] Comment on above: Performed By: #### C BCWD #### [facility] [address] [place] [address] Eosinophils/100 WBC (Bld) 1.7 % Normal [facility] Comment on above: Performed By: #### C BCWD #### [facility] [address] [place] [address] Erythrocyte distribution width (RBC) [Ratio] 12.4 % Normal 11.5-14.5 [facility] Comment on above: Performed By: #### C BCWD #### [facility] [address] [place] [address] Hematocrit (Bld) [Volume fraction] 33.7 % Low 37.0-47.0 [facility] Comment on above: Performed By: #### C BCWD #### [facility] [address] [place] [address] Hemoglobin (Bld) [Mass/Vol] 11.5 g/dL Low 12.0-16.0 [facility] Comment on above: Performed By: #### C BCWD #### [facility] [address] [place] [address] Lymphocytes (Bld) [#/Vol] 1.0 10*3/uL Normal 1.0-4.8 [facility] Comment on above: Performed By: #### C BCWD #### [facility] [address] [place] [address] Lymphocytes/100 WBC (Bld) 21.8 % Normal [facility] Comment on above: Performed By: #### C BCWD #### [facility] [address] [place] [address] MCH (RBC) [Entitic mass] 30.7 pg Normal 27.0-31.3 [facility] Comment on above: Performed By: #### C BCWD #### [facility] [address] [place] [address] MCHC 34.1 % Normal 33.0-37.0 [facility] Comment on above: Performed By: #### C BCWD #### [facility] [address] [place] [address] MCV (RBC) [Entitic vol] 89.8 fL Normal 79.4-94.8 [facility] Comment on above: Performed By: #### C BCWD #### [facility] [address] [place] [address] Monocytes (Bld) [#/Vol] 0.4 10*3/uL Normal 0.2-0.8 [facility] Comment on above: Performed By: #### C BCWD #### [facility] [address] [place] [address] Monocytes/100 WBC (Bld) 9.6 % Normal [facility] Comment on above: Performed By: #### C BCWD #### [facility] [address] [place] [address] Neutrophils (Bld) [#/Vol] 3.0 10*3/uL Normal 1.4-6.5 [facility] Comment on above: Performed By: #### C BCWD #### [facility] [address] [place] [address] Neutrophils/100 WBC (Bld) 66.1 % Normal [facility] Comment on above: Performed By: #### C BCWD #### [facility] [address] [place] [address] Platelets (Bld) [#/Vol] 226 10*3/uL Normal 130-400 [facility] Comment on above: Performed By: #### C BCWD #### [facility] [address] [place] [address] RBC (Bld) [#/Vol] 3.76 10*6/uL Low 4.20-5.40 [facility] Comment on above: Performed By: #### C BCWD #### [facility] [address] [place] [address] WBC (Bld) [#/Vol] 4.5 10*3/uL Low 4.8-10.8 [facility] Comment on above: Performed By: #### C BCWD #### [facility] [address] [place] [id number] Culture, Urineon 12-19-2022 Culture, Urine ORDER#: [id number] OR DERED BY: [place] YI SOURCE: Urine Clean Catch COLLECTED: 12/19/22 14:44 ANTIBIOTICS AT [place].: RECEIVED : 12/19/22 20:01 Culture, Urine FINAL 12/21/22 12:29 Cult,Urine: NO SIGNIFICANT [place] [address] Normal [facility] Comment on above: Performed By: #### R UBEL #### [facility] [address] [place] [id number] Gynecological Specimen (Cyto logy)on 12-19-2022 Gynecological Specimen (Cytology) [facility] [address] [place], [place] [id number] FINAL CYTOLOGY PAP REPORT Patient Name: HOLLIS FREED Accession No: [id number] Age Sex: 2000 22 Y / F Location: [facility] Account No: [id number] Collected: 12/19/2022 Med Rec No: [id number] Received: 12/20/2022 Attend Phys: [place] YI Completed: 01/03/2023 Perform Phys: [place] YI SPECIMEN ADEQUACY: Satisfactory for Evaluation. Endocervical cells/transformation zone component present. GENERAL CATEGORIZATION: Epithelial Cell Abnormality INTERPRETATION/RESULTS: Atypical squamous cells of undetermined significance. Specimen: THINPREP LIQUID BASE IMAGED DIAGNOSTIC History: Source: Thin Prep Site: Cervical History: Previous abnormal smear? No History of CA? No Lab Order#: [id number] Test Name Collected D AND T Result [...] (PCR) and nucleic acid hybridization. CPT: Technical: 77167 X1 Professional: 19395 X1 Screened by: JEROME BROOKS(ASCP) EARL CURRIE [...] processed and screened using a Thin Prep Doormaker at [facility] [address] [place] [address] All abnormal gynecologic interpretation is performed at [facility], unless otherwise noted in the report. Page 1 of 1 Abnormal [facility] Comment on above: Performed By: #### R UBEL #### [facility] [address] [facility] [address] HCG Quanton 12-19-2022 HCG Quant 28767.0 mIU/mL Normal [facility] Comment on above: Result Comment: Gest ational Age Expected HCG values (mIU/ml) 3 weeks 5-72 4 weeks 10-708 5 weeks 217-8,245 6 weeks 152-32,177 8 weeks 31,366-149,094 12 weeks 27,107-201,615 16 weeks 8,904-55,332 18 weeks 9,649-55,271 Performed By: #### R UBEL #### [facility] [address] [facility] [address] HPV DNA Typingon 12-19-2022 HPV Comment See below Normal [facility] Comment on above: Result Comment: Th is [...] Hepatitis B Surface Ag Interp Non-Reactive Normal [facility] Comment on above: Performed By: #### H BSG #### [facility] [address] [place] [address] Rubella Ab, IgGon 12-19-2022 Rubella Ab, IgG 12.4 IU/mL Normal [facility] Comment on above: Result Comment: Yenni ent's result indicates immunity. Default Normal Ranges >=10 Presumed Immune <10 Presumed Not immune Performed By: #### R UBEL #### [facility] [address] [place] [address] Type and 3 cell Screen OB Ca ptureon 12-19-2022 Type and 3 cell Screen OB Capture PATIENT: ABDIAZIZ Drake LOC: [facility],OSIEL# : [id number] : 2000 SEX: F ORDERED BY: KASSIDY BARAHONA ORDERED : 12/19/2022 11:18 COLLECTED: 12/19/2022 11:19 ORDER : [id number] RECEIVED : 12/19/2022 15:40 TEST NAME RESULT UNITS RANGES ABN FL ST ABORH Capture A POS F Antibody 3 Cell Scrn Captu NEG F Normal [facility] Comment on above: Performed By: #### R WIL #### [facility] [address] [place] [address] Urinalysis, reflex to micros copicon 12-19-2022 Bilirubin Ql (U) Negative Normal Negative [facility] Comment on above: Performed By: #### C BCWD #### [facility] [address] [place] [address] Clarity (U) Clear Normal Clear [facility] Comment on above: Performed By: #### C BCWD #### [facility] [address] [place] [address] Color (U) Yellow Normal Straw/Brooke [facility] Comment on above: Performed By: #### C BCWD #### [facility] [address] [place] [address] Glucose Ql (U) Negative Normal Negative [facility] Comment on above: Performed By: #### C BCWD #### [facility] [address] [place] [address] Hemoglobin Ql (U) Negative Normal Negative [facility] Comment on above: Performed By: #### C BCWD #### [facility] [address] [place] [address] Ketones Ql (U) Negative Normal Negative [facility] Comment on above: Performed By: #### C BCWD #### [facility] [address] [place] [address] Leukocyte esterase Test strip Ql (U) TRACE Abnormal Negative [facility] Comment on above: Performed By: #### C BCWD #### [facility] [address] [place] [address] Nitrite Ql (U) Negative Normal Negative [facility] Comment on above: Performed By: #### C BCWD #### [facility] [address] [place] [address] pH (U) 7.0 [pH] Normal 5.0-9.0 [facility] Comment on above: Performed By: #### C BCWD #### [facility] [address] [place] [address] Protein Ql (U) Negative Normal Negative [facility] Comment on above: Performed By: #### C BCWD #### [facility] [address] [place] [address] Specific gravity (U) [Rel density] 1.013 Normal 1.005-1.03 [facility] Comment on above: Performed By: #### C BCWD #### [facility] [address] [place] [address] Urobilinogen Qn (U) 0.2 {Yoselyn'U}/dL Normal < 2.0 [facility] Comment on above: Performed By: #### C BCWD #### [facility] [address] [place] [address] Urine Microscopicon 12-20-19 23 Bacteria LM.HPF (Urine sed) [#/Area] Negative Normal Negative [facility] Comment on above: Performed By: #### U DEBBI #### [facility] [address] [place] [address] Urine Epithelial Cells Auto 3-5 Normal 0-5 [facility] Comment on above: Performed By: #### U DEBBI #### [facility] [address] [place] [address] Urine Hyaline Casts Auto 0-1 Normal 0-5 [facility] Comment on above: Performed By: #### U DEBBI #### [facility] [address] [place] [address] Urine RBC Auto 3-5 Abnormal 0-5 [facility] Comment on above: Performed By: #### U DEBBI #### [facility] [address] [place] [address] Urine WBC Auto 0-2 Normal 0-5 [facility] Comment on above: Performed By: #### U DEBBI #### [facility] [address] [place] [address] ANKLE, COMPLETE, MIN 3 VIEWS on 03-20-2022 ANKLE, COMPLETE, MIN 3 VIEWS Patient Name: HOLLIS FREED STUDY: ANKLE, COMPLETE, MIN 3 VIEWS; Right; 03/20/2022 2:21 pm INDICATION: pain M25.579: Ankle pain. ACCESSION NUMBER(S): [id number] ORDERING CLINICIAN: BEE LEDESMA FINDINGS: Right ankle x-rays three views AP, lateral and oblique view: No acute fractures, no dislocation. Mortise intact. Electronically signed by: BEE LEDESMA MD Normal [facility] FOOT COMPLETE, MIN 3 VIEWSon 03-20-2022 FOOT COMPLETE, MIN 3 VIEWS Patient Name: HOLLIS FREED STUDY: FOOT; COMPLETE, MIN 3 VIEWS; Right; 03/20/2022 2:21 pm INDICATION: pain M25.579: Ankle pain M79.673: Foot pain. ACCESSION NUMBER(S): [id number] ORDERING CLINICIAN: BEE LEDESMA FINDINGS: Right foot x-rays three views AP, lateral and oblique view: No acute fractures, no dislocation. No significant degenerative changes. Electronically signed by: BEE LEDESMA MD Normal [facility] Initial Visit (Orthopaedic S urgery)on 03-20-2022 [...] RT Foot and ankle injury. 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) Electronically signed by : Bee Ledesma MD; Mar 23 2022 8:17AM EST Normal [facility]-20-2022 XR Ankle 3 Views Normal -[facility] Work Phone: XR Foot 3 Views Normal -[facility] Work Phone: Tyrese 02-10-2018 [facility] Telephone ([facility]) CL HOLLIS HEWITT ([id number]) 2000 FDate Time Provider Department02/10/18 STEVE COELLO During your visit today, we recorded the following information about you:Julio Capone 02/10/2018 3:25 PM SignedReceived 02/01/18 lab results from [facility] [employer] Placed in provider's inbox forreview.(Gonococcus, Trich, Chlamydia) negativeRoute to CT for scanning.Julio Capone 02/17/2018 8:35 AM SignedSent to scanning.Allergies As of Date: 02/10/2018 Noted Allergy ReactionPENICILLINS 04/01/2008 2 - Rash Comments: BlistersDate Reviewed: 05/27/2017Reviewed by: Cherelle (Sophia) Juan - Jesse AssessedReason for Visit: Outside Lab Results [753] Cmt: GC, chlamyd, trich neg 02/01/18Reason For Visit History RecordedPrescriptions as of 02/10/2018 Sig: NORGESTIMATE-ETHINYL ESTRADIO* Take by mouth.Problem List As Of Date 02/10/2018 Noted Resolved PREMATURE PUBERTY [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.1] INVALID FOR* Status:Closed by STEVE COELLO MD on 02/15/18 [facility] 05-29-2017 [facility] HOLLIS CM ([id number]) 2000 FDate Time Provider Glmtakxhsh94/1/17 STEVE COELLO During your visit today, we recorded the following information about you:Tatiana Pacheco RN 05/29/2017 8:54 AM Signed----- Message from Steve Coello sent at 05/29/2017 8:02 AM EDT -----The thyroid Function is fineDenise Junior COTA 05/29/2017 8:56 AM SignedMessage left on VMAllergies As of Date: 05/29/2017 Noted Allergy ReactionPENICILLINS 04/01/2008 2 - Rash Comments: BlistersDate Reviewed: 05/27/2017Reviewed by: Cherelle aMrtinez - Fully AssessedReason for Visit: Results [95] Cmt: thyroid labsReason For Visit History RecordedPrescriptions as of 05/29/2017 Sig: NORGESTIMATE-ETHINYL ESTRADIO* Take by mouth.Problem List As Of Date 05/29/2017 Noted Resolved PREMATURE PUBERTY [E30.1] INVALID FOR* Status:Closed by TATIANA PACHECO RN on 05/29/17 Normal [facility] Free T4on 05-28-2017 Thyroxine (T4) free 1.3 ng/dL Normal 0.9-1.7 [facility] Comment on above: Performed By: #### F T4 ####[facility] [address] [place], [place] [phone] CNOVon 05-27-2017 CNOV Office Visit ([facility]) HOLLIS CM ([id number]) 2000 FDate Time Provider Gxhibpmqsc38/30/17 4:20 PM STEVE COELLO During your visit today, we [...] due on 01/22/2016CHLAMYDIA SCREENING (18-24) due on 01/22/2016Jessicajamie Martinez MA 05/27/2017 4:29 PM Addendumplease get [...] 11.2 oz) LMP 05/25/2017 SpO2 98% BMI26.97 kg/y1SEWBOCE APPEARANCE: Well appearing, alert, in no acute [...] loss encouragedGet shot recordEchocardiogramincrease fiber in in [id number] PROBLEM LISTPREMATURE PUBERTYThomas Flavia Simpson 05/27/2017 5:43 [...] pain [M25.511, G89.29] Shortness of breath [R06.02]Order(s):ECHO [536555] Order #: [id number]: 1 FUTURE T4 FREE/FREE THYROX [SQFT4] Order #: [id number] FUTURE T4 FREE/FREE THYROX [SQFT4] Order #: [id number]. 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 Number of tubes collected: 1gold. Status:Closed by STEVE COELLO MD on 05/31/17 Normal [facility] PROGRESSon 05-27-2017 Protein HNO ID: [id number] thor: Steve Spenceervice: (none)Author Type: PhysicianType: Progress [...] 11.2 oz) LMP 05/25/2017 SpO2 98% BMI26.97 kg/s6PCILBTT APPEARANCE: Well appearing, alert, in no acute [...] loss encouragedGet shot recordEchocardiogramincrease fiber in in [id number] PROBLEM LISTPREMATURE PUBERTYThomas L MD Mode Normal [facility] Protein HNO ID: [id number] thor: Cherelle Farfan)(Hist) VaughnService: (none)Author Type: Medical AssistantType: Progress NotesFiled: 05/31/2017 2:26 PMNote Text:TETANUS due on 2009HPV VACCINE(1 of 3 - Female 3 Dose Series) due on 2009GC (GONORRHEA) SCREENING (18-24) due on 01/22/2016CHLAMYDIA SCREENING (18-24) due on 01/22/2016 Normal [facility] Test, Serum (Walk In)on 03-12-2017 Test, Serum (Walk In) Negative Normal [facility] Healthcare Comment on above: Performed By: #### P GSWI ####[id number]Are[facility] [place] [address] Vital Signs Date Time Vital Sign Value Performing Clinician Giovanna sheriff 08-17-2024 14:24-0500 Body weight 93.62 kg Marilyn LIVINGSTON Work Phone: [facility] 08-17-2024 14:24-0500 Diastolic blood pressure 60 mm[Hg] Marilyn LIVINGSTON Work Phone: [facility] 08-17-2024 14:24-0500 Systolic blood pressure 120 mm[Hg] Marilyn LIVINGSTON Work Phone: [facility] 07-16-2024 10:48-0500 Body weight 88.91 kg Roberto Huma DO Work Phone: [facility] 07-16-2024 10:48-0500 Diastolic blood pressure 60 mm[Hg] Roberto Huma DO Work Phone: [facility] 07-16-2024 10:48-0500 Systolic blood pressure 110 mm[Hg] Roberto Huma DO Work Phone: [facility] 06-16-2024 13:37-0500 Body weight 83.01 kg Marilyn LIVINGSTON Work Phone: [facility] 06-16-2024 13:37-0500 Diastolic blood pressure 64 mm[Hg] Marilyn LIVINGSTON Work Phone: [facility] 06-16-2024 13:37-0500 Systolic blood pressure 112 mm[Hg] Marilyn LIVINGSTON Work Phone: [facility] 05-19-2024 15:04-0400 Body weight 80.74 kg Roberto Huma DO Work Phone: [facility] 05-19-2024 15:04-0400 Diastolic blood pressure 76 mm[Hg] Roberto Huma DO Work Phone: [facility] Healthcare 05-19-2024 15:04-0400 Systolic blood pressure 138 mm[Hg] Roebrto Huma DO Work Phone: [facility] Healthcare Encounters Encounter Date Encounter Type Care Provider Facility Start: 08-17-2024 End: 08-17-2024 Office outpatient visit 15 minutes Marilyn LIVINGSTON Work Phone: [facility] Comment on above: Diabetes mellitus sc reening; Second trimester ; 25 weeks gestation of Start: 08-17-2024 End: 08-17-2024 ambulatory MARILYN MCINTYRE Not Available Start: 08-17-2024 End: 08-17-2024 Bamboo flowsheet Marilyn LIVINGSTON Work Phone: [facility] Start: 08-17-2024 End: 08-17-2024 Bamboo flowsheet Marilyn LIVINGSTON Work Phone: [facility] Start: 07-16-2024 End: 07-16-2024 Office outpatient visit 15 minutes Roberto Huma DO Work Phone: [facility] Comment on above: 20 weeks gestation o f ; Second trimester Start: 07-16-2024 End: 07-16-2024 ambulatory ROBERTO HUMA Not Available Start: 06-16-2024 End: 06-16-2024 Bamboo flowsheet Marilyn LIVINGSTON Work Phone: [facility] Start: 06-16-2024 End: 06-18-2024 Bamboo flowsheet Marilyn LIVINGSTON Work Phone: [facility] Start: 06-16-2024 End: 06-18-2024 External Result Encounter Marilyn LIVINGSTON Work Phone: [facility] External Department Unsolicited Start: 06-16-2024 End: 06-16-2024 Office outpatient visit 15 minutes Marilyn LIVINGSTON Work Phone: [facility] Comment on above: Second trimester pre gnancy; Exposure to STD; Need for maternal serum alpha-protein (MSAFP) screening; Screening, , for anatomic survey Start: 06-16-2024 End: 06-16-2024 ambulatory MARILYN MCINTYRE Not Available Start: 05-19-2024 End: 05-19-2024 ambulatory ROBERTO HICKMANO Not Available Start: 05-19-2024 End: 05-19-2024 Office [...] Unsolicited Start: 04-24-2024 End: 04-24-2024 ambulatory ROBERTO HUMA Not Available Start: 04-24-2024 End: 04-24-2024 Office outpatient visit 5 minutes [facility] Huma Nurse [facility] Comment on above: GA: 8w5d Start: 01-17-2024 End: 01-19-2024 ambulatory [facility] Start: 07-26-2023 End: 07-29-2023 Evaluation and management of inpatient [facility] Start: 06-28-2023 End: 06-30-2023 ambulatory [facility] Start: 04-23-2023 End: 05-29-2023 Pre-admission assessment Jos Fuchs [facility] Start: 04-22-2023 End: 04-22-2023 ambulatory Jos Fuchs Facility[facility] Start: 03-01-2023 End: 03-03-2023 ambulatory BROOKLYN MONTENEGRO [facility] Start: 12-31-2022 End: 01-02-2023 Subsequent hospital visit by physician Brooklyn Montenegro DO Work Phone: [facility] Ultrasound Comment on above: Secondary amenorrhea ; Positive urine test Start: 04-10-[address] Bee Finley [facility] [place] Facility:[id number] Start: 03-20-[address] [id number] Start: 03-20-2022 Patient encounter procedure Bee Ledesma MD Work Phone[facility] Work Phone: Start: 05-27-2017 End: 06-03-2017 Patient encounter STEVE COELLO [facility] Start: 03-12-2017 Ambulatory NO FAMILY DOCTOR Facili ty:[id number] Procedures Date Procedure Procedure Detail Performing Clinician Start: 08-17-2024 Urnls dip stick/tabl et rgnt non-auto w/o micrscp Marilyn LIVINGSTON Work Phone: Start: 07-16-2024 Urnls dip stick/tabl et rgnt non-auto w/o micrscp Roberto Huma DO Work Phone: Start: 06-16-2024 RECURRENT VAGINITIS (HTRX) Marilyn LIVINGSTON Work Phone: Start: 06-16-2024 Urnls dip stick/tabl et rgnt non-auto w/o micrscp Marilyn LIVINGSTON Work Phone: Start: 05-19-2024 Urnls dip stick/tabl et rgnt non-auto w/o micrscp Roberto Huma DO Work Phone: Start: 05-05-2024 BOX TEST Roberto Fazi o DO Work Phone: Start: 04-24-2024 End: 04-24-2024 Urnls dip stick/tablet rgnt non-auto w/o micrscp Roberto Finn DO Work Phone: Start: 12-31-2022 Us uterus 1 4 wk transabdl 07/29 gestat Brooklyn Montenegro DO Work Phone: Start: 08-20-2019 Microscopic observat ion [Identifier] in Cervix by Cyto stain Brooklyn Montenegro DO Work Phone: None (qualifier value) Jos Fuchs Plan of Treatment Date Care Activity Detail Author Start: 09-15-2024 End: 09-15-2024 Patient encounter procedure 09/15/2024 11:10 AM EST Routine [facility] [address] [place] [address] Roberto Finn, DO [address] [place] [address] [facility] Start: 08-17-2024 End: 08-17-2024 Patient encounter procedure 08/17/2024 2:20 PM EST Routine [facility] [address] [place] [address] Marilyn Mcintyre PA [address] [place], [place] [phone] Arrived [facility] Comment on above: Arrived Start: 08-17-2024 End: 08-17-2025 CBC panel - Blood by Automated count CBC Lab Routine Diabetes mellitus screening Expected: 08/17/2024 (Approximate), Expires: 08/17/2025 [facility] Work Phone: Comment on above: Expected: 08/17/2024 (Approximate), Expires: 08/17/2025 Start: 08-17-2024 End: 08-17-2025 Measurement of glucose 1 hour after glucose challenge for glucose tolerance test Glucose tolerance, 1 hour Lab Routine Diabetes mellitus screening Expected: 08/17/2024 (Approximate), Expires: 08/17/2025 [facility] Comment on above: Expected: 08/17/2024 (Approximate), Expires: 08/17/2025 Start: 08-13-2024 End: 08-13-2024 Patient encounter procedure 08/13/2024 1:30 PM EST Routine [facility] [address] [place] [phone] Marilyn Mcintyre PA [address] [place], [place] [id number] [facility] Start: 07-16-2024 End: 07-16-2024 Alpha fetoprotein, maternal Alpha fetoprotein, maternal Lab Routine Need for maternal serum alpha-protein (MSAFP) screening Expected: 07/16/2024 (Approximate), Expires: 07/16/2024 [facility] Work Phone: Comment on above: Expected: 07/16/2024 (Approximate), Expires: 07/16/2024 Start: 07-16-2024 End: 07-16-2024 Patient encounter procedure 07/16/2024 10:20 AM EST Routine [facility] [address] [place] [phone] Roberto Finn DO [address] [place] [address] [facility] Start: 06-16-2024 End: 06-16-2025 US for US OB ANATOMY SINGLE W US OB CERVICAL LENGTH Imaging Routine Screening, , for anatomic survey Expected: 06/16/2024 (Approximate), Expires: 06/16/2025 [facility] Healthcare Comment on above: Expected: 06/16/2024 (Approximate), Expires: 06/16/2025 Start: 06-16-2024 End: 06-16-2024 Patient encounter procedure 06/16/2024 1:00 PM EST Routine [facility] [address] [place] [phone] Marilyn Mcintyre, PA [address] [place], [place] [phone] [facility] Start: 05-19-2024 End: 05-19-2024 Patient encounter procedure 05/19/2024 2:40 PM EDT Routine [facility] OB [address] [place] [address] Huma Roberto, [address] [place] [address] [facility] OB Start: 04-24-2024 End: 04-24-2025 ABO/Rh ABO/Rh Lab Routine Missed menses , unspecified gestational age Expected: 04/24/2024 (Approximate), Expires: 04/24/2025 [facility] Healthcare Comment on above: Expected: 04/24/2024 (Approximate), Expires: 04/24/2025 Start: 04-24-2024 End: 04-24-2025 Blood type and Indirect antibody screen panel - Blood Type and screen Lab Routine Missed menses , unspecified gestational age Expected: 04/24/2024 (Approximate), Expires: 04/24/2025 [facility] Work Phone: Comment on above: Expected: 04/24/2024 (Approximate), Expires: 04/24/2025 Start: 04-24-2024 End: 04-24-2025 Drugs of abuse panel - Urine by Screen method Rapid drug screen, urine Lab Routine , unspecified gestational age Encounter for supervision of normal first in first trimester Expected: 04/24/2024 (Approximate), Expires: 04/24/2025 [facility] Healthcare Comment on above: Expected: 04/24/2024 (Approximate), Expires: 04/24/2025 Start: 04-24-2024 End: 04-24-2025 US Pelvis transvaginal US OB transvaginal Imaging Routine Missed menses Expected: 04/24/2024 (Approximate), Expires: 04/24/2025 [facility] Healthcare Comment on above: Expected: 04/24/2024 (Approximate), Expires: 04/24/2025 Start: 12-20-2023 Depression Screen Depression Screen [facility] Start: 12-20-2023 Screening for Chlamy manisha trachomatis Chlamydia/GC screen [facility] Start: 02-26-2023 Influenza vaccination Flu vacc ine (Season Ended) [facility] Start: 01-16-2023 End: 01-16-2023 ambulatory 01/16/2023 Initial Obstetrics and Gynecology Brooklyn Montenegro DO [address] [place], [place] [id number] [facility] Ob[facility]etrics [facility]ne[facility] Start: 08-20-2022 Screening for malign ant neoplasm of cervix Pap smear [facility] Start: 04-10-2022 FUV, Provider: Bee Ledesma, Status: Pen, Time: 10:15 AM FUV, Provider: Bee Ledesma, Status: Pen, Time: 10:15 AM [facility] Work Phone: Start: 04-20-2019 DTaP/Tdap/Td vaccine (7 - Td or Tdap) DTaP/Tdap/Td vaccine (7 - Td or Tdap) [facility] Start: 07-06-2010 Hepatitis A vaccine (2 of 2 - 2-dose series) Hepatitis A vaccine (2 of 2 - 2-dose series) [facility] Start: 2000 COVID-19 Vaccine (#1) COVID-19 Vacci ne (#1) [facility] Bacteria identified in Urine by Culture Urine culture Microbiology Routine Missed menses Ordered: 04/24/2024 [facility] Healthcare Comment on above: Ordered: 04/24/2024 CBC W Auto Different ial panel - Blood CBC and differential Lab Routine Missed menses , unspecified gestational age Ordered: 04/24/2024 [facility] Healthcare Comment on above: Ordered: 04/24/2024 CHLAMYDIA TRACHOMATI S (GENITO/STI) CHLAMYDIA TRACHOMATIS (GENITO/STI) Lab Routine Exposure to STD Ordered: 06/16/2024 [facility] Healthcare Comment on above: Ordered: 06/16/2024 Hemoglobin A1c/Hemoglobin.total in Blood Hemoglobin A1c Lab Routine Missed menses , unspecified gestational age Ordered: 04/24/2024 [facility] Comment on above: Ordered: 04/24/2024 Hepatitis B virus surface Ag [Presence] in Serum or Plasma by Immunoassay Hepatitis B surface antigen Lab Routine Missed menses , unspecified gestational age Ordered: 04/24/2024 [facility] Comment on above: Ordered: 04/24/2024 Hepatitis C virus Ab [Presence] in Serum or Plasma by Immunoassay Hepatitis C antibody Lab Routine Missed menses , unspecified gestational age Ordered: 04/24/2024 [facility] Comment on above: Ordered: 04/24/2024 HIV-1/HIV-2 antigen/antibody combination immunoassay HIV-1 and HIV-2 antibodies Lab Routine Missed menses , unspecified gestational age Ordered: 04/24/2024 [facility] Comment on above: Ordered: 04/24/2024 Neisseria gonorrhoea e DNA [Presence] in Unspecified specimen by EVONNE with probe detection Neisseria gonorrhea DNA probe, direct Lab Routine Exposure to STD Ordered: 06/16/2024 [facility] Comment on above: Ordered: 06/16/2024 Reagin Ab [Presence] in Serum by RPR RPR Lab Routine Missed menses , unspecified gestational age Ordered: 04/24/2024 [facility] Comment on above: Ordered: 04/24/2024 Rubella antibody, IgG Rubella an tibody, IgG Lab Routine Missed menses , unspecified gestational age Ordered: 04/24/2024 [facility] Comment on above: Ordered: 04/24/2024 SURESWAB(R) ADVANCED VAGINITIS PLUS, TMA SURESWAB(R) ADVANCED VAGINITIS PLUS, TMA Pathology and Cytology Routine Exposure to STD Ordered: 06/16/2024 [facility] Comment on above: Ordered: 06/16/2024 Immunizations Immunization Date Immunization Notes Care Provider Fa cility 05-29-2019 influenza virus vaccine, unspecified formulation Jos Fuchs [facility] Comment on above: Result Comment: [facility] [place] [facility] [place] 06-07-2010 human papilloma viru s vaccine, quadrivalent Brooklyn Montenegro DO Work Phone: [facility] [employer] Work Phone: 06-07-2010 influenza virus vaccine, unspecified formulation Brooklyn Montenegro DO Work Phone: [facility] Work Phone: 01-04-2010 hepatitis A vaccine, unspecified formulation Brooklyn Montenegro DO Work Phone: [facility] [employer] Work Phone: 01-04-2010 human papilloma viru s vaccine, quadrivalent Brooklyn Montenegro DO Work Phone: [facility] Work Phone: 01-04-2010 varicella virus vaccine Brooklyn Montenegro DO Work Phone: [facility] Work Phone: 04-20-2009 human papilloma viru s vaccine, quadrivalent Brooklyn Montenegro DO Work Phone: [facility] [employer] Work Phone: 04-20-2009 tetanus toxoid, reduced diphtheria toxoid, and acellular pertussis vaccine, adsorbed Brooklyn Montenegro DO Work Phone: [facility] Work Phone: 08-19-2006 influenza virus vaccine, unspecified formulation Brooklyn Montenegro DO Work Phone: [facility] [employer] Work Phone: 06-14-2006 influenza virus vaccine, unspecified formulation Brooklyn Montenegro DO Work Phone: [facility] [employer] Work Phone: 03-02-2003 diphtheria, tetanus toxoids and acellular pertussis vaccine Brooklyn Montenegro DO Work Phone: [facility] Work Phone: 03-02-2003 measles, mumps and rubella virus vaccine Brooklyn Montenegro DO Work Phone: [facility] [employer] Work Phone: 03-02-2003 poliovirus vaccine, inactivated Brooklyn Montenegro DO Work Phone: [facility] Work Phone: 04-28-1999 diphtheria, tetanus toxoids and acellular pertussis vaccine Brooklyn Montenegro DO Work Phone: [facility] Work Phone: 04-28-1999 poliovirus vaccine, inactivated Brooklyn Montenegro DO Work Phone: [facility] Work Phone: 01-25-1999 Hib, unspecified Brooklyn W neliaon DO Work Phone: [facility] Work Phone: 01-25-1999 measles, mumps and rubella virus vaccine Brooklyn Montenegro DO Work Phone: [facility] Work Phone: 01-25-1999 varicella virus vaccine Brooklyn Montenegro DO Work Phone: [facility] Work Phone: 1998 diphtheria, tetanus toxoids and acellular pertussis vaccine Brooklyn Montenegro DO Work Phone: [facility] Work Phone: 1998 hepatitis B vaccine, adult dosage Brooklyn Montenegro DO Work Phone: [facility] Work Phone: 1998 Hib, unspecified Brooklyn pickenson DO Work Phone: [facility] Work Phone: 1998 diphtheria, tetanus toxoids and acellular pertussis vaccine Brooklyn oMntenegro DO Work Phone: [facility] Work Phone: 1998 hepatitis B vaccine, adult dosage Brooklyn Montenegro DO Work Phone: [facility] Work Phone: 1998 Hib, unspecified Brooklyn you DO Work Phone: [facility] Work Phone: 1998 poliovirus vaccine, inactivated Brooklyn Montenegro DO Work Phone: [facility] Work Phone: 1998 hepatitis B vaccine, adult dosage Brooklyn Montenegro DO Work Phone: [facility] Work Phone: 1998 diphtheria, tetanus toxoids and acellular pertussis vaccine Brooklyn Montenegro DO Work Phone: [facility] Work Phone: 1998 poliovirus vaccine, inactivated Brooklyn Montenegro DO Work Phone: [facility] Work Phone: Payers Date Payer Category Payer Medicaid [id number] 2022 Private Health Insurance [id number] 1998 Unknown [id number] 2.16.8 [id number] 1998 Unknown [id number] 2.16.8 [id number] 1998 Unknown [id number] 2.16.8 [id number] 1998 Unknown [id number] 2.16.8 [id number] 1998 Unknown [id number] 2.16.8 [id number] 1998 Unknown [id number] 2.16.8 [id number] 1998 Unknown [id number] 2.16.8 [id number] 1998 Unknown [id number] 2.16.84 [id number] 1998 Unknown [id number] 2.16.84 [id number] 1998 Unknown [id number] 2.16.84 [id number] 1998 Unknown [id number] 2.16.84 [id number] 1998 Unknown [id number] 2.16.84 [id number] Unknown 1914 Unknown Self Pay Social History Date Type Detail Facility Start: 03-02-2020 End: 12-19-2022 Tobacco smoking status OKIS Never smoked tobacco [facility] Phone: Start: 12-19-2022 Tobacco use and exposure Smokeless tobacco non-user [facility] Phone: Start: 12-19-2022 Alcohol intake Ex-drinker (finding) [facility] Phone: Start: 1998 Sex Assigned At Not on file B [facility] Phone: Sex Assigned At Female [facility] Tobacco smoking status OKIS Tobacco smoking consumption unknown [facility] Start: 03-08-2024 [facility] Start: [facility] Sex assigned at Female [facility] Start: 04-17-2024 Gender identity Identifies as female gender (finding) [facility] Clinical Notes 04-22-2023 to 08-17-2024 YARA Winter - 08/17/2024 2:20 PM Germaine Parsons LPN - 07/16/2024 10:20 AM YARA Holm - 06/16/2024 1:10 PM Emelia Blanco LPN - 05/19/2024 2:40 PM EDT Note Date & Type Note Facility 08-17-2024 History of Present illness Narrative Reason for Appointment: Patient ID: Hollis Freed is a 24 y.o. female who presents for Routine Visit Patient presents today for Return OB appointment. MEDICATIONS Current Outpatient Medications Medication Instructions ondansetron (ZOFRAN) 4 mg, Oral, Every 6 hours PRN, Take 1 tablet by mouth every 6 hours as needed for nausea. Vit-Fe Fumarate-FA ( 1 PLUS 1 PO) Take by mouth ALLERGIES Allergies Allergen Reactions Sulfamethoxazole-Trimethoprim Nausea And [...] No family history on file. SURGICAL HISTORY No past surgical history on file. REVIEW OF SYSTEMS Review of Systems: Review [...] weight on file to calculate BMI. BP: 120/60 Patient's last menstrual period was 02/23/2024. ASSESSMENT & PLAN ICD-10-CM 1. Diabetes mellitus screening Z13.1 CBC Glucose tolerance, 1 hour CBC Glucose tolerance, 1 hour 2. Second trimester Z34.92 POCT urinalysis dipstick manually resulted 3. 25 weeks gestation of Z3A.25 Return OB: Patient presents today for a routine obstetrics appointment. Patient is currently 25w1d . Patient states she is doing well but has complaints of being tired due to current . Patient has verbalizes frequent movement. Orders Placed This Encounter Procedures CBC Glucose tolerance, 1 hour POCT urinalysis dipstick manually resulted Follow Up: Patient is to return to office in 4 week for routine OB appointment. Documented by YARA Winter on behalf of: YARA Winter documented in this encounter [facility] 07-16-2024 History of Present illness Narrative Reason for Appointment: Patient ID: Hollis Freed is a 24 y.o. female who presents for No chief complaint on file. Patient presents today for Return OB appointment. MEDICATIONS Current Outpatient Medications Medication Instructions ondansetron (ZOFRAN) 4 mg, Oral, Every 6 hours PRN, Take 1 tablet by mouth every 6 hours as needed for nausea. Vit-Fe Fumarate-FA ( 1 PLUS 1 PO) Take by mouth ALLERGIES Allergies Allergen Reactions Sulfamethoxazole-Trimethoprim Nausea And [...] SYSTEMS Review of Systems: Review of Systems All other systems reviewed and are negative. OBJECTIVE Objective: Physical Exam Constitutional: Appearance: Normal [...] nursing note reviewed. Exam conducted with a grain mixer present. Vitals: There is no height or weight on file to calculate BMI. BP: 110/60 Patient's last menstrual period was 02/23/2024. ASSESSMENT & PLAN ICD-10-CM 1. 20 weeks gestation of Z3A.20 POCT urinalysis dipstick manually resulted 2. Second trimester Z34.92 POCT urinalysis dipstick manually resulted Patient presents today for a routine obstetrics appointment. Patient is currently 20w4d with a Estimated Date of Delivery: 11/29/24. Patient complaints of tailbone pain when lifting other child in car seat. Reassurance given and discussed belly band. Patient to RTC in 4 weeks. Discussed getting growth scan later on in . Patient does not prefer to have IOL with this , but if she has not delivered prior to December 07 then she will have IOL. Documented by Hilda Parsons LPN on behalf of: Roberto Finn DO documented in this encounter [facility] 06-16-2024 History of Present illness Narrative Reason for Appointment: Patient ID: [...] of: YARA Winter documented in this encounter [facility] 05-19-2024 History of Present illness Narrative Reason for Appointment: Patient ID: [...] nursing note reviewed. Exam conducted with a grain mixer present. Vitals: There is no height or [...] or undercooked meat, and stay away from [facility]. Patient has been consulted regarding any further [...] Roberto Finn DO documented in this encounter [facility] 04-24-2024 History of Present illness Narrative Reason for Appointment: Patient ID: Hollis Freed is a 24 y.o. female who presents for Amenorrhea Patient presents today for a Nurse OB Intake appointment. Patient is 8w5d with a Estimated Date of Delivery: 11/29/24 OB History Para Term AB Living 1 SAB IAB Ectopic Multiple Live Births # Outcome Date GA Lbr Oniel/2nd Weight Sex Type Anes PTL Lv 1 Current Current Medications: has a current medication list which includes the following prescription(s): vit-fe fumarate-fa. Medical History: Active Ambulatory Problems Diagnosis Date Noted No Active Ambulatory Problems Resolved Ambulatory Problems Diagnosis Date Noted No Resolved Ambulatory Problems No Additional Past Medical History No family history on file. Social History Tobacco Use Smoking status: Not on file Smokeless tobacco: Not on file Substance Use Topics Alcohol use: Not on file Drug use: Not on file No past surgical history on file. Allergies Allergen Reactions Sulfamethoxazole-Trimethoprim Nausea And Vomiting Other Reaction(s): Other (See Comments), Vomiting Amoxicillin-Pot Clavulanate Clavulanic Acid Oseltamivir Penicillins Hives Other Reaction(s): Augmentin Cefdinir Rash Vitals: There is no height or weight on file to calculate BMI. BP: Patient's last menstrual period was 02/23/2024. Assessment/Plan Diagnoses and all orders for this visit: Missed menses - Type and screen; Future - ABO/Rh; Future - CBC and differential - Hemoglobin A1c - RPR - Rubella antibody, IgG - Hepatitis B surface antigen - Hepatitis C antibody - HIV-1 and HIV-2 antibodies - Urine culture - US OB transvaginal; Future - POCT , urine manually resulted - POCT urinalysis dipstick manually resulted 8 weeks gestation of First trimester , unspecified gestational age - Type and screen; Future - ABO/Rh; Future - CBC and differential - Hemoglobin A1c - RPR - Rubella antibody, IgG - Hepatitis B surface antigen - Hepatitis C antibody - HIV-1 and HIV-2 antibodies - Rapid drug screen, urine; Future Encounter for supervision of normal first in first trimester - Rapid drug screen, urine; Future Nurse Note: OB Intake: Patient presents today for first OB visit. Patients history has been reviewed in great detail including any potential risks. Patient signed consent forms and patient desires testing in both trimesters. Patient currently has no complaints and has been advised to drink 6-8 glasses of water a day, eat no raw or undercooked meat, and stay away from [facility]. Patient has also been advised to not change litter boxes and eat 6 small meals a day. Patient has been consulted regarding the do's and don'ts of . Patient was given labs and all questions and concerns were answered. Follow Up: Patient is to return in 4 weeks for routine OB appointment. Follow Up: Patient is to have labs drawn at directed and return to office for initial OB appointment with provider. Patient may call office as needed with any concerns or questions. Nurse Visit Completed by: Connie Chau LPN documented in this encounter [facility] 04-22-2023 Note The following Patien t Education Materials have been given to the patient: EducationMaterial [facility] Evaluation + Plan note No data available for this section [facility] Evaluation note Diagnosis Secondary amenorrhea Absence of menstruation Positive urine test documented in this encounter [facility]: evaluation note* Diagnosis Nausea Nausea alone 12 weeks gestation of First trimester state, incidental documented in this encounter [facility] HealthcareEvaluation note* Diagnosis Second trimester state, incidental Exposure to STD Need for maternal serum alpha-protein (MSAFP) screening Screening, , for anatomic survey Encounter for anatomic survey documented in this encounter [facility] HealthcareEvaluation note* Diagnosis Missed menses 8 weeks gestation of First trimester state, incidental , unspecified gestational age Encounter for supervision of normal first in first trimester documented in this encounter [facility] HealthcareEvaluation note* Diagnosis 20 weeks gestation of Second trimester state, incidental documented in this encounter [facility] HealthcareEvaluation note* Diagnosis Diabetes mellitus screening Screening for diabetes mellitus Second trimester state, incidental 25 weeks gestation of documented in this encounter [facility] Healthcare[facility]ospital Discharge instructions No data available for this section [facility] data available for this section [facility] Summary Purpose Family History No Family [...] RT Foot and ankle injury. Xrays @ [facility] Reason for Referral Specialty Diagnoses / Procedures Referred By Contac t Referred To Contact Radiology Diagnoses Secondary amenorrhea Positive urine test Procedures US OB TRANSVAGINAL Brooklyn Montenegro, [address] [place] [address] Referral ID Status Reason Start Date Expiration Date Visits Re quested Visits Authorized [id number] Open 12/19/2022 12/19/2023 1 1 Specialty Diagnoses / Procedures Referred By Contac t Referred To Contact Radiology Diagnoses Secondary amenorrhea Positive urine test Procedures US OB LESS THAN 14 WEEKS SINGLE OR FIRST GESTATION Brooklyn Montenegro, [address] [place] [address] Referral ID Status Reason Start Date Expiration Date Visits Re quested Visits Authorized [id number] Open 12/19/2022 12/19/2023 1 1 Additional Source Comments INFORMATION SOURCE (unrecogn ized section and content) DATE CREATED AUTHOR 01/22/2018 [facility] DATE CREATED AUTHOR AUTHOR'S ORGANIZ ATION 02/17/2018 [facility] DATE CREATED AUTHOR AUTHOR'S ORGANIZ ATION 03/25/2022 [facility] DATE CREATED AUTHOR AUTHOR'S ORGANIZ ATION 04/29/2022 [facility] DATE CREATED AUTHOR AUTHOR'S ORGANIZ ATION 04/30/2023 [facility] DATE CREATED AUTHOR AUTHOR'S ORGANIZ ATION 07/17/2023 [facility] DATE CREATED AUTHOR AUTHOR'S ORGANIZ ATION 01/20/2024 [facility] DATE CREATED AUTHOR AUTHOR'S ORGANIZ ATION 08/19/2024 [facility] Reason for Visit (unrecogniz ed section and content) Specialty Diagnoses / Procedures Referred By Contkizzy t Referred To Contact Radiology Diagnoses Secondary amenorrhea Positive urine test Procedures US OB LESS THAN 14 WEEKS SINGLE OR FIRST GESTATION Brooklyn Montenegro DO [address] [place] [address] Referral ID Status Reason Start Date Expiration Date Visits Re quested Visits Authorized [id number] Open 12/19/2022 12/19/2023 1 1 Reason Comments Routine Visit Reason Comments Amenorrhea Care Teams (unrecognized sec tion and content) [employer] Relationship Specialty Start Date End Date Undetermined, [...] BE BASED ON THE PRIMARY CLINICAL RECORDS. [email or web address] provides no warranty or guarantee of the accuracy or completeness of information in this document.
[2024-09-10 12:54] LABS: Basophils Percent Auto 0.4 % (0.2-2.0); Eosinophils Absolute Auto 0.1 10^3/uL (0.0-0.7); Hematocrit 34.3 % (36.0-48.0); Immature Granulocytes Abs Auto 0.06 10^3/uL (0.00-0.03); Immature Granulocytes Pct Auto 0.9 % (0.0-0.5); Lymphocytes Absolute Auto 1.3 10^3/uL (1.2-3.8); Lymphocytes Percent Auto 19.5 % (20.5-60.0); Mean Corpuscular HGB Conc 32.1 g/dL (29.9-35.2); Mean Corpuscular Hemoglobin 29.2 pg (26.7-34.0); Mean Platelet Volume 9.5 fL (9.5-13.5); Monocytes Absolute Auto 0.5 10^3/uL (0.3-0.8); Monocytes Percent Auto 6.9 % (1.7-12.0); Neutrophils Absolute Auto 4.9 10^3/uL (1.4-6.5); Neutrophils Percent Auto 71.3 % (43.0-75.0); Platelet Count 281 10^3/uL (150-450); Red Blood Count 3.77 10^6/uL (4.20-5.40); Red Cell Distribution Width 12.3 % (11.0-15.0); White Blood Count 6.8 10^3/uL (4.0-11.0)
[2024-09-10 13:08] LABS: Glucose 1 Hour 146 mg/dL (<130)
== END 2024-09-10 11:40 | disposition home or self-care (01) ==
LOC: LAB 11:40
PROVIDERS: Visit Provider Physician Assistant
DX: Z13.1 Encounter for screening for diabetes mellitus (principal)
CPT/HCPCS: 36415; 82950; 85025

== ENCOUNTER 2024-09-12 08:44 | Outpatient (OUT) | payer MEDICAID, SELFPAY ==
--- OUTSIDE RECORDS SUMMARY | 2024-09-12 08:47 | XMS_ITS | CCD ---
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 Bee Campbell Attending Chin Ledesma, Dr. Bee Campbell Attending Chin flynn Undetermined, Awaiting Assignment Primary Care P connie Unavailable Jos Fuchs Attending Unavailable Jos Fuchs Admitting Unavailable Gwen Sky Primary Care Physician BROOKLYN MONTENEGRO Attending Unavailable BROOKLYN MONTENEGRO Referring [...] Allergy Type Date of Onset Reaction(s) Facility (19 sources) Penicillins; Translations: [PENICILLINS] Propensity to adverse reactions to drug (disorder) 04-01-20 08 Hives [facility] Repository (1 source) Oseltamivir Drug Allergy 05-08-20 [facility] (17 sources) Sulfamethoxazole / Trimethoprim; Translations: [sulfamethoxazole-t rimethoprim] Drug Allergy 10-18-19 21 Vomiting (disorder), Nausea And Vomiting [facility] (2 sources) Amoxicillin / Clavulanate; Translations: [Augmentin] Drug Allergy [facility] Repository (17 sources) cefdinir; Translations: [cefdinir] Drug Allergy 05-03-20 Eruption of skin (disorder), Rash [facility] Repository (2 sources) Oseltamivir; Translations: [Tamiflu] Drug Allergy [facility] Repository (1 source) Sulfamethoxazole / Trimethoprim; Translations: [Bactrim] Drug Allergy [facility] Repository (15 sources) Clavulanate Drug Allergy 07-15-20 [facility] (15 sources) Oseltamivir Drug Allergy 05-08-20 18 [facility] (15 sources) Amoxicillin-Pot Clavulanate Drug Allergy 04-24-20 24 [facility] Work Phone: Medications Current Medications Medication Drug Class(es) Dates Sig (Normalized) Sig (Original) docusate sodium 100 mg oral tablet (1 source) Start: 04-22-2023 Dulcolax Stool Softener 100 mg, Oral, Refills(s) 0 Start Date: 04/22/23 Status: Ordered ondansetron 4 mg oral tablet (12 sources) Serotonin-3 Receptor Antagonist Start: 05-19-2024 take [...] Vit-Fe Fumarate-FA ( 1 PLUS 1 PO) (15 sources) Vit-Fe Fumarate-FA ( 1 PLUS 1 PO) Take by mouth Active Completed/Discontinued Medications Medication Drug Class(es) Dates Sig (Normalized) Sig (Original) ibuprofen 400 mg oral tablet (1 source) Nonsteroidal Anti-inflammatory Drug Start: take 1-3 tablets by mouth every six hours as needed ibuprofen 400 mg Tab 400 mg = 1 tab(s), Oral, q6hr, PRN Pain 1-3, # 12 tab(s), Refills(s) 0, Pharmacy: [facility], 163, cm, 04/30/21 15:32:00 EDT, Height/Length [...] q4hr, # 12 tab(s), Refills(s) 0, Pharmacy: [facility], 163, cm, 04/30/21 15:32:00 EDT, Height/Length [...] Test Name Value Interpretation Reference Range Facility ALL CBC WITH AUTO DIFFon BASOPHILS ABSOLUTE AUTO 0 [facility] Basophils/100 WBC (Bld) 0.4 % 0.2 - 2.0 % [facility] Eosinophils/100 WBC (Bld) 1 % 0.9 - 7.0 % [facility] Erythrocyte distribution width (RBC) [Ratio] 12.3 % 11.0 - 15.0 % [facility] Hematocrit (Bld) [Volume fraction] 34.3 % Low 36.0 - 48.0 % [facility] Hemoglobin (Bld) [Mass/Vol] 11 g/dL Low 12.0 - 16.0 g/dL [facility] IMMATURE GRANULOCYTES ABS AUTO 0.06 High [facility] Immature granulocytes/100 WBC (Bld) 0.9 % High 0.0 - 0.5 % [facility] Interpretation and review of laboratory results Abnormal [facility] LYMPHOCYTES ABSOLUTE AUTO 1.3 [facility] Lymphocytes/100 WBC (Bld) 19.5 % Low 20.5 - 60.0 % [facility] MCH (RBC) [Entitic mass] 29.2 pg 26.7 - 34.0 pg [facility] MCHC (RBC) [Mass/Vol] 32.1 g/dL 29.9 - 35.2 g/dL [facility] MCV (RBC) [Entitic vol] 91 fL 81.0 - 99.0 fL [facility] MONOCYTES ABSOLUTE AUTO 0.5 [facility] Monocytes/100 WBC (Bld) 6.9 % 1.7 - 12.0 % [facility] NEUTROPHILS ABSOLUTE AUTO 4.9 [facility] Neutrophils/100 WBC (Bld) 71.3 % 43.0 - 75.0 % [facility] Platelet mean volume (Bld) [Entitic vol] 9.5 fL 9.5 - 13.5 fL [facility] TBH EO # 0.1 [facility] TB PLT 281 [facility] RBC 3.77 Low [facility] WBC 6.8 [facility] Urinalysis macro (dipstick) panel (U)on 08-17-2024 Bilirubin, UA Negative Negative - 4(70) +++ mg/dL [facility] Blood, UA Negative Negative - 50 Ilia/mcL [facility] Clarity, UA Clear [facility] Color, UA Yellow [facility] Glucose, UA Negative Negative - 1999(110) ++++ mg/dL [facility] Interpretation and review of laboratory results Normal [facility] Ketones, UA Negative Negative - 160(16) ++++ mg/dL [facility] Leukocytes, UA Negative Negative - 500+++ Sophy/mcL [facility] Nitrite, UA Negative Negative - Positive [facility] pH, UA 7 5 - 9 [facility] Protein, UA Negative Negative - 1999(20) ++++ mg/dL [facility] Spec Grav, UA 1.02 1 - 1.03 [facility] Urobilinogen, UA 0.2 0.2 - 12 mg/dL [facility] Urinalysis macro (dipstick) panel (U)on 07-16-2024 Bilirubin, UA Negative Negative - 4(70) +++ mg/dL [facility] Blood, UA Negative Negative - 50 Ilia/mcL [facility] Clarity, UA Clear [facility] Color, UA Yellow [facility] Glucose, UA Negative Negative - 1999(110) ++++ mg/dL [facility] Interpretation and review of laboratory results Abnormal [facility] Ketones, UA Negative Negative - 160(16) ++++ mg/dL [facility] Leukocytes, UA Trace Negative - 500+++ Sophy/mcL [facility] Nitrite, UA Negative Negative - Positive [facility] pH, UA 6.5 5 - 9 [facility] Protein, UA Negative Negative - 1999(20) ++++ mg/dL [facility] Spec Grav, UA 1.02 1 - 1.03 [facility] Urobilinogen, UA 1.0 0.2 - 12 mg/dL [facility] RECURRENT VAGINITIS (HTRX)on 06-18-2024 ATOPOBIUM VAGINAE 0 [facility] ATOPOBIUM VAGINAE Not detected [facility] BVAB 2,3 (BACTERIAL VAGINOSIS ASSOCIATED BACTERIA 2, 3); MOBILUNCUS SPP 0 [facility] BVAB 2,3 (BACTERIAL VAGINOSIS ASSOCIATED BACTERIA 2, 3); MOBILUNCUS SPP Not detected [facility] TIERA ALBICANS, PARAPSILOSIS, TROPICALIS 0 [facility] TIERA ALBICANS, PARAPSILOSIS, TROPICALIS Not detected [facility] TIERA GLABRATA 0 [facility] TIERA GLABRATA Not detected [facility] TIERA KRUSEI 0 [facility] TIERA KRUSEI Not detected [facility] CHLAMYDIA TRACHOMATIS 0 [facility] CHLAMYDIA TRACHOMATIS Not detected [facility] GARDNERELLA VAGINALIS 0 [facility] GARDNERELLA VAGINALIS Not detected [facility] MEGASPHAERA (TYPES 1, 2) 0 [facility] MEGASPHAERA (TYPES 1, 2) Not detected [facility] MYCOPLASMA GENITALIUM 0 [facility] MYCOPLASMA GENITALIUM Not detected [facility] NEISSERIA GONORRHOEAE 0 [facility] NEISSERIA GONORRHOEAE Not detected [facility] TRICHOMONAS VAGINALIS 0 [facility] TRICHOMONAS VAGINALIS Not detected [facility] Urinalysis macro (dipstick) panel (U)on 06-16-2024 Bilirubin, UA Negative Negative - 4(70) +++ mg/dL [facility] Blood, UA Negative Negative - 50 Ilia/mcL [facility] Clarity, UA Clear [facility] Color, UA Colorless [facility] Glucose, UA Negative Negative - 1999(110) ++++ mg/dL [facility] Interpretation and review of laboratory results Normal [facility] Ketones, UA Negative Negative - 160(16) ++++ mg/dL [facility] Leukocytes, UA Negative Negative - 500+++ Sophy/mcL [facility] Nitrite, UA Negative Negative - Positive [facility] pH, UA 7 5 - 9 [facility] Protein, UA Negative Negative - 1999(20) ++++ mg/dL [facility] Spec Grav, UA 1.015 1 - 1.03 [facility] Urobilinogen, UA 0.2 0.2 - 12 mg/dL [facility] Urinalysis macro (dipstick) panel (U)on 05-19-2024 Bilirubin, UA Negative Negative - 4(70) +++ mg/dL [facility] Blood, UA Negative Negative - 50 Ilia/mcL [facility] Clarity, UA Clear [facility] Color, UA Colorless [facility] Glucose, UA Negative Negative - 1999(110) ++++ mg/dL [facility] Interpretation and review of laboratory results Normal [facility] Ketones, UA Negative Negative - 160(16) ++++ mg/dL [facility] Leukocytes, UA Negative Negative - 500+++ Sophy/mcL [facility] Nitrite, UA Negative Negative - Positive [facility] pH, UA 6 5 - 9 [facility] Protein, UA Negative Negative - 1999(20) ++++ mg/dL [facility] Spec Grav, UA 1.01 1 - 1.03 [facility] Urobilinogen, UA 0.2 0.2 - 12 mg/dL [facility] BOX TESTon 05-05-2024 BOX TEST SENT OUT [facility] BOX1 [facility] BOX2 05/05/24 [facility] Ql (U)o n 04-24-2024 Interpretation and review of laboratory results Abnormal [facility] Preg Test, Ur Positive [facility] Urinalysis macro (dipstick) panel (U)on 04-24-2024 Bilirubin, UA Negative Negative - 4(70) +++ mg/dL [facility] Blood, UA Negative Negative - 50 Ilia/mcL [facility] Clarity, UA Clear [facility] Color, UA Yellow [facility] Glucose, UA Negative Negative - 1999(110) ++++ mg/dL [facility] Interpretation and review of laboratory results Abnormal [facility] Ketones, UA Negative Negative - 160(16) ++++ mg/dL [facility] Leukocytes, UA Positive Negative - 500+++ Sophy/mcL [facility] Nitrite, UA Negative Negative - Positive [facility] pH, UA 6.0 5 - 9 [facility] Protein, UA Negative Negative - 2000(20) ++++ mg/dL [facility] Spec Grav, UA 1.020 1 - 1.03 [facility] Urobilinogen, UA 1.0 0.2 - 12 mg/dL [facility] US NON OB TRANSVAGINALon US NON OB [...] Steve Borja MD 01/18/24 Final result [facility] US PELVIS COMPLETEon 024 US PELVIS [...] Steve Borja MD 01/18/24 Final result [facility] CBC With Platelet No Differe ntialon 07-28-2023 Erythrocyte distribution width (RBC) [Ratio] 12.5 % Normal 11.5-14.5 [facility] Comment on above: Performed By: #### C BCND #### [facility] [address] [place] [address] Hematocrit (Bld) [Volume fraction] 28.3 % Low 37.0-47.0 [facility] Comment on above: Performed By: #### C BCND #### [facility] [address] [place] [address] Hemoglobin (Bld) [Mass/Vol] 9.2 g/dL Low 12.0-16.0 [facility] Comment on above: Performed By: #### C BCND #### [facility] [address] [place] [address] MCH (RBC) [Entitic mass] 28.9 pg Normal 27.0-31.3 [facility] Comment on above: Performed By: #### C BCND #### [facility] [address] [place] [address] MCHC 32.5 % Low 33.0-37.0 [facility] Comment on above: Performed By: #### C BCND #### [facility] [address] [place] [address] MCV (RBC) [Entitic vol] 89.0 fL Normal 79.4-94.8 [facility] Comment on above: Performed By: #### C BCND #### [facility] [address] [place] [address] Platelets (Bld) [#/Vol] 241 10*3/uL Normal 130-400 [facility] Comment on above: Performed By: #### C BCND #### [facility] [address] [place] [address] RBC (Bld) [#/Vol] 3.18 10*6/uL Low 4.20-5.40 [facility] Comment on above: Performed By: #### C BCND #### [facility] [address] [place] [address] WBC (Bld) [#/Vol] 16.6 10*3/uL Critically high 4.8-10.8 [facility] Comment on above: Performed By: #### C BCND #### [facility] [address] [place] [address] HIV Ag/Abon 07-27-2023 HIV Ag/Ab Non-Reactive Normal NR [facility] Comment on above: Result Comment: No l aboratory evidence of HIV infection. If acute HIV infection is suspected, consider testing for HIV-1 RNA. Performed at [facility], [address] [place] [id number] . CBC With Platelet and Differ entialon 07-26-2023 Basophils (Bld) [#/Vol] 0.1 10*3/uL Normal 0.0-0.2 [facility] Comment on above: Performed By: #### U A #### [facility] [address] [place] [address] Basophils/100 WBC (Bld) 0.5 % Normal [facility] Comment on above: Performed By: #### U A #### [facility] [address] [place] [address] Eosinophils (Bld) [#/Vol] 0.1 10*3/uL Normal 0.0-0.7 [facility] Comment on above: Performed By: #### U A #### [facility] [address] [place] [address] Eosinophils/100 WBC (Bld) 1.0 % Normal [facility] Comment on above: Performed By: #### U A #### [facility] [address] [place] [address] Erythrocyte distribution width (RBC) [Ratio] 12.3 % Normal 11.5-14.5 [facility] Comment on above: Performed By: #### U A #### [facility] [address] [place] [address] Hematocrit (Bld) [Volume fraction] 36.9 % Low 37.0-47.0 [facility] Comment on above: Performed By: #### U A #### [facility] [address] [place] [address] Hemoglobin (Bld) [Mass/Vol] 11.9 g/dL Low 12.0-16.0 [facility] Comment on above: Performed By: #### U A #### [facility] [address] [place] [address] Lymphocytes (Bld) [#/Vol] 2.0 10*3/uL Normal 1.0-4.8 [facility] Comment on above: Performed By: #### U A #### [facility] [address] [place] [address] Lymphocytes/100 WBC (Bld) 17.5 % Normal [facility] Comment on above: Performed By: #### U A #### [facility] [address] [place] [address] MCH (RBC) [Entitic mass] 29.0 pg Normal 27.0-31.3 [facility] Comment on above: Performed By: #### U A #### [facility] [address] [place] [address] MCHC 32.2 % Low 33.0-37.0 [facility] Comment on above: Performed By: #### U A #### [facility] [address] [place] [address] MCV (RBC) [Entitic vol] 90.0 fL Normal 79.4-94.8 [facility] Comment on above: Performed By: #### U A #### [facility] [address] [place] [address] Monocytes (Bld) [#/Vol] 1.1 10*3/uL Critically high 0.2-0.8 [facility] Comment on above: Performed By: #### U A #### [facility] [address] [place] [address] Monocytes/100 WBC (Bld) 9.7 % Normal [facility] Comment on above: Performed By: #### U A #### [facility] [address] [place] [address] Neutrophils (Bld) [#/Vol] 7.9 10*3/uL Critically high 1.4-6.5 [facility] Comment on above: Performed By: #### U A #### [facility] [address] [place] [address] Neutrophils/100 WBC (Bld) 70.4 % Normal [facility] Comment on above: Performed By: #### U A #### [facility] [address] [place] [address] Platelets (Bld) [#/Vol] 289 10*3/uL Normal 130-400 [facility] Comment on above: Performed By: #### U A #### [facility] [address] [place] [address] RBC (Bld) [#/Vol] 4.10 10*6/uL Low 4.20-5.40 [facility] Comment on above: Performed By: #### U A #### [facility] [address] [place] [address] WBC (Bld) [#/Vol] 11.2 10*3/uL Critically high 4.8-10.8 [facility] Comment on above: Performed By: #### U A #### [facility] [address] [place] [address] Comprehensive Metabolic Pane mello 07-26-2023 Albumin [Mass/Vol] 3.4 g/dL Low 3.5-4.6 [facility] Comment on above: Performed By: #### C MP #### [facility] [address] [place] [address] ALP [Catalytic activity/Vol] 134 U/L Critically high 40-130 [facility] Comment on above: Performed By: #### C MP #### [facility] [address] [place] [address] ALT [Catalytic activity/Vol] 13 U/L Normal 0-33 [facility] Comment on above: Performed By: #### C MP #### [facility] [address] [place] [address] Anion gap [Moles/Vol] 14 mmol/L Normal 9-15 [facility] Comment on above: Performed By: #### C MP #### [facility] [address] [place] [address] AST [Catalytic activity/Vol] 19 U/L Normal 0-35 [facility] Comment on above: Performed By: #### C MP #### [facility] [address] [place] [address] Bilirubin [Mass/Vol] mg/dL Normal 0.2-0.7 [facility] Comment on above: Performed By: #### C MP #### [facility] [address] [place] [address] Calcium [Mass/Vol] 9.7 mg/dL Normal 8.5-9.9 [facility] Comment on above: Performed By: #### C MP #### [facility] [address] [place] [address] Chloride [Moles/Vol] 103 mmol/L Normal 95-107 [facility] Comment on above: Performed By: #### C MP #### [facility] [address] [place] [address] CO2 [Moles/Vol] 19 mmol/L Low 20-31 [facility] Comment on above: Performed By: #### C MP #### [facility] [address] [place] [address] Creatinine [Mass/Vol] 0.75 mg/dL Normal 0.50-0.90 [facility] Comment on above: Performed By: #### C MP #### [facility] [address] [place] [address] GFR >60.0 Normal >60 [facility] Comment on above: Result Comment: Pedi atric calculator link https://www.kidney.org/professionals/kdoqi/gfr_calculatorped Effective Apr 30, [...] secretion. Performed By: #### C MP #### [facility] [address] [place] [address] Globulin (S) [Mass/Vol] 2.9 g/dL Normal 2.3-3.5 [facility] Comment on above: Performed By: #### C MP #### [facility] [address] [place] [address] Glucose [Mass/Vol] 65 mg/dL Low 70-99 [facility] Comment on above: Performed By: #### C MP #### [facility] [address] [place] [address] Potassium [Moles/Vol] 4.5 mmol/L Normal 3.4-4.9 [facility] Comment on above: Performed By: #### C MP #### [facility] [address] [place] [address] Protein [Mass/Vol] 6.3 g/dL Normal 6.3-8.0 [facility] Comment on above: Performed By: #### C MP #### [facility] [address] [place] [address] Sodium [Moles/Vol] 136 mmol/L Normal 135-144 [facility] Comment on above: Performed By: #### C MP #### [facility] [address] [place] [address] Urea nitrogen [Mass/Vol] 8 mg/dL Normal 6-20 [facility] Comment on above: Performed By: #### C MP #### [facility] [address] [place] [address] Hepatitis B Surface Agon Hepatitis B Surface Ag Interp Non-Reactive Normal [facility] Comment on above: Performed By: #### H BSG #### [facility] [address] [place] [address] RPRon 07-26-2023 Reagin Ab RPR Ql (S) Non-Reactive Normal Non-reacti [facility] Comment on above: Performed By: #### R GA #### [facility] [address] [place] [address] Type and Screen Capture 3 sc rn cellon 07-26-2023 Type and Screen Capture 3 scrn cell PATIENT: ABDIAZIZ Drake LOC: [facility],0324,01 BILL# : [id number] : 2000 SEX: F ORDERED BY: KASSIDY BARAHONA ORDERED : 07/26/2023 09:26 COLLECTED: 07/26/2023 09:44 ORDER : [id number] RECEIVED : 07/26/2023 09:44 TEST NAME RESULT UNITS RANGES ABN FL ST ABORH Capture A POS F Antibody 3 Cell Scrn Captu NEG F Normal [facility] Comment on above: Performed By: #### T S3C #### [facility] [address] [place] [address] UR Drugs of Abuse Panelon Drug Screen Comment see below Normal [facility] Comment on above: Result Comment: This method is a screening test to detect only these drug classes as part of a medical workup. Confirmatory testing by another method should be ordered if clinically indicated. Performed By: #### U DRGS #### [facility] [address] [place] [address] UR Amphetamines Screen Negative Normal Negative < [facility] Comment on above: Performed By: #### U DRGS #### [facility] [address] [place] [address] UR Barbiturates Screen Negative Normal Negative < [facility] Comment on above: Performed By: #### U DRGS #### [facility] [address] [place] [address] UR Benzo Screen Negative Normal Negative < [facility] Comment on above: Performed By: #### U DRGS #### [facility] [address] [place] [address] UR Cannabinoids Screen Negative Normal Negative < [facility] Comment on above: Performed By: #### U DRGS #### [facility] [address] [place] [address] UR Cocaine Screen Negative Normal Negative < [facility] Comment on above: Performed By: #### U DRGS #### [facility] [address] [place] [address] UR Fentanyl Screen Negative Normal Negative < [facility] Comment on above: Performed By: #### U DRGS #### [facility] [address] [place] [address] UR Methadone Screen Negative Normal Negative < [facility] Comment on above: Performed By: #### U DRGS #### [facility] [address] [place] [address] UR Opiates Screen Negative Normal Negative < [facility] Comment on above: Performed By: #### U DRGS #### [facility] [address] [place] [address] UR Oxycodone Screen Negative Normal Negative < [facility] Comment on above: Performed By: #### U DRGS #### [facility] [address] [place] [address] UR PCP Screen Negative Normal Negative < [facility] Comment on above: Performed By: #### U DRGS #### [facility] [address] [place] [address] UR Propoxyphene Screen Negative Normal Negative < [facility] Comment on above: Performed By: #### U DRGS #### [facility] [address] [place] [address] Urinalysis, reflex to micros copicon 07-26-2023 Bilirubin Ql (U) Negative Normal Negative [facility] Comment on above: Performed By: #### U A #### [facility] [address] [place] [address] Clarity (U) Clear Normal Clear [facility] Comment on above: Performed By: #### U A #### [facility] [address] [place] [address] Color (U) Yellow Normal [facility] Comment on above: Performed By: #### U A #### [facility] [address] [place] [address] Glucose Ql (U) Negative Normal Negative [facility] Comment on above: Performed By: #### U A #### [facility] [address] [place] [address] Hemoglobin Ql (U) Negative Normal Negative [facility] Comment on above: Performed By: #### U A #### [facility] [address] [place] [address] Ketones Ql (U) Negative Normal [facility] Comment on above: Performed By: #### U A #### [facility] [address] [place] [address] Leukocyte esterase Test strip Ql (U) TRACE Abnormal Negative [facility] Comment on above: Performed By: #### U A #### [facility] [address] [place] [address] Nitrite Ql (U) Negative Normal [facility] Comment on above: Performed By: #### U A #### [facility] [address] [place] [address] pH (U) 6.5 [pH] Normal 5.0-9.0 [facility] Comment on above: Performed By: #### U A #### [facility] [address] [place] [address] Protein Ql (U) TRACE Abnormal Negative [facility] Comment on above: Performed By: #### U A #### [facility] [address] [place] [address] Specific gravity (U) [Rel density] 1.009 Normal 1.005-1.03 [facility] Comment on above: Performed By: #### U A #### [facility] [address] [place] [address] Urobilinogen Qn (U) 0.2 {Yoselyn'U}/dL Normal < 2.0 [facility] Comment on above: Performed By: #### U A #### [facility] [address] [place] [address] Urine Microscopicon 07-26-20 23 Urine Bacteria RARE Abnormal Negative [facility] Comment on above: Performed By: #### U DEBBI #### [facility] [address] [place] [address] Urine Epithelial Cells Auto 20-50 Normal 0-5 [facility] Comment on above: Performed By: #### U DEBBI #### [facility] [address] [place] [address] Urine Hyaline Casts Auto 1-3 Normal 0-5 [facility] Comment on above: Performed By: #### U DEBBI #### [facility] [address] [place] [address] Urine RBC Auto 0-2 Normal 0-5 [facility] Comment on above: Performed By: #### U DEBBI #### [facility] [address] [place] [address] Urine WBC Auto 10-20 Abnormal 0-5 [facility] Comment on above: Performed By: #### U DEBBI #### [facility] [address] [facility] [address] Culture, Group B Strepon Culture, Group B Strep ORDER#: [id number] ORDERED BY: BR[place]N YI SOURCE: Vagina Genital COLLECTED: 07/12/23 15:54 [facility]OTICS AT [place].: RECEIVED : 07/12/23 16:18 Culture, Group B Strep FINAL 07/16/23 08:16 Rule Out Grp.B Strep: NEGATIVE FOR GROUP B STREPTOCOCCI Performed at [facility] [address] [place] [address] Normal [facility] Comment on above: Performed By: #### R UBEL #### [facility] [address] [place] [address] US OB 1 OR MORE FETUS LIMITE Don 06-28-2023 US OB 1 OR MORE FETUS LIMITED EXAMINATION: 3rd TRIMESTER OBSTETRIC ULTRASOUND 06/28/2023 COMPARISON: None HISTORY: ORDERING SYSTEM PROVIDED HISTORY: Encounter for supervision in primigravida, antepartum, 31 weeks gestation of TECHNOLOGIST PROVIDED HISTORY: This procedure can be scheduled via [employer]. Access your [employer] account by visiting Samb[employer]. What reading provider will be dictating this [...] Casey Hall MD 07/02/23 Final result [facility] RPRon 05-01-2023 Reagin Ab RPR Ql (S) Non-Reactive Normal Non-reacti [facility] Comment on above: Performed By: #### R GA #### [facility] [address] [place] [address] Glucose 1hr PPon 04-30-2023 Glucose [Mass/Vol] 101 mg/dL Normal 60-140 [facility] Comment on above: Result Comment: Gluc ose tolerance is IMPAIRED when the 1 hour post 50 gram load glucose is greater than 130mg/dL Performed By: #### G L1PP #### [facility] [address] [place] [address] Hemoglobin and Hematocriton 04-30-2023 Hematocrit (Bld) [Volume fraction] 35.4 % Low 37.0-47.0 [facility] Comment on above: Performed By: #### C BCWD #### [facility] [address] [place] [address] Hemoglobin (Bld) [Mass/Vol] 11.3 g/dL Low 12.0-16.0 [facility] Comment on above: Performed By: #### C BCWD #### [facility] [address] [place] [address] Nursing Assessmenton 023 Nursing Assessment [id number]#1.00CD:127 Normal [facility] Auth for Release of Medical Recordson 04-22-2023 Auth for Release of Medical Records [id number]#1.00CD:127 [facility] Discharge Instructionson Discharge Instructions [id number]#1.00CD:127 [facility] Inpatient Clinical Summaryon 04-22-2023 Inpatient Clinical Summary [place] [id number] Clinical Summary Person Information Name: HOLLIS FREED Sariah/[facility] Age: 23 Years : 2000 Sex: Female PCP: Gwen Sky DO Marital Status: Single Race: White Ethnicity: Non- or Language: Kinyarwanda Visit Id: Visit Reason: fELL AT HOME Speciality: Acuity: Obs Enc Type: OB Triage Med Service: Obstetrics Arrival: 04/22/2023 14:32:43 Discharge: 04/22/2023 16:33:00 Dispo Type: Home (Routine DC) Address: [address] [id number] Provider Notes: Diagnosis: Problems Active (04/22/2023) Smoker [...] up: With: Address: When: BROOK[place]N YI [address] [address] 04/30/2023 10:15 AM Patient Education Information: Round Ligament Pain Normal [facility] Inpatient Patient Summaryon 04-22-2023 Inpatient Patient Summary [place] [id number] Patient Discharge Instructions PERSON INFORMATION Name: HOLLIS [...] Follow up: With: Address: When: [place] YI [address] [place] [address] 04/30/2023 10:15 AM In the event that [...] 0. Last Dose: Next Dose: Pharmacy Information: [facility] José Miguel Ryan Mazariegos PATIENT EDUCATION INFORMATION Instructions: Round [...] walks if they cause pain. ? Take yrdq-blg-ncsmeel and prescription medicines only as told by [...] (more content not included)... Normal [facility] Insurance Correspondence Off ice04-22-2023 Insurance Correspondence Office [id number]#1.00CD:127 Normal [facility] UA With Cult Reflexon 2022 Bacteria LM Ql (Urine sed) TRACE Normal Trace [facility] Comment on above: Performed By: #### 1 [id number] #### [facility] Laboratory [address] [place] [address] Bilirubin Ql (U) Negative Normal Negative [facility] Comment on above: Performed By: #### 1 [id number] #### [facility] [address] [place] [address] Calcium oxalate crystals LM Ql (Urine sed) Present Normal [facility] Comment on above: Performed By: #### 1 [id number] #### [facility] [address] [place] [address] Clarity (U) SL CLOUDY Invalid Interpretation Code [facility] Comment on above: Performed By: #### 1 [id number] #### [facility] [address] [place] [address] Color (U) YELLOW Normal Yellow [facility] Comment on above: Performed By: #### 1 [id number] #### [facility] [address] [place] [address] Crystals LM Ql (Urine sed) Present Normal [facility] Comment on above: Performed By: #### 1 [id number] #### [facility] [address] [place] [address] Epithelial cells.squamous LM.HPF (Urine sed) [#/Area] 9-10 Normal 0-2 [facility] Comment on above: Performed By: #### 1 [id number] #### [facility] [address] [place] [address] Glucose Test strip (U) [Mass/Vol] Negative Normal Negative [facility] Comment on above: Performed By: #### 1 [id number] #### [facility] [address] [place] [address] Hemoglobin Ql (U) Negative Normal Negative [facility] Comment on above: Performed By: #### 1 [id number] #### [facility] [address] [place] [address] Ketones (U) [Mass/Vol] Negative Normal Negative [facility] Comment on above: Performed By: #### 1 [id number] #### [facility] [address] [place] [address] Craig.plasma/Lit hium.RBC (Bld) [Mass ratio] 0-3 Normal 0-3 [facility] Comment on above: Performed By: #### 1 [id number] #### [facility] [address] [place] [address] Mucus Ql (Urine sed) TRACE Normal [facility] Comment on above: Performed By: #### 1 [id number] #### [facility] [address] [place] [address] Nitrite Ql (U) Negative Normal Negative [facility] Comment on above: Performed By: #### 1 [id number] #### [facility] [address] [place] [address] pH (U) 7.5 [pH] Invalid Interpretation Code 5.0-9.0 [facility] Comment on above: Performed By: #### 1 [id number] #### [facility] [address] [place] [address] Protein (U) [Mass/Vol] Negative Normal Negative [facility] Comment on above: Performed By: #### 1 [id number] #### [facility] [address] [place] [address] Specific gravity (U) [Rel density] 1.010 Invalid Interpretation Code 1.005-1.03 0 [facility] Comment on above: Performed By: #### 1 [id number] #### [facility] [address] [place] [address] Type of Urine collection method Clean Catch Normal [facility] Comment on above: Performed By: #### 1 [id number] #### [facility] [address] [place] [address] Urobilinogen Qn (U) 0.2 {Yoselyn'U}/dL Normal 0.0-1.0 [facility] Comment on above: Performed By: #### 1 [id number] #### [facility] [address] [place] [address] WBC Auto Ql (U) TRACE Abnormal Negative [facility] Comment on above: Performed By: #### 1 [id number] #### [facility] [address] [place] [address] WBC LM.HPF (Urine sed) [#/Area] 0-5 Normal 0-5 [facility] Comment on above: Performed By: #### 1 [id number] #### [facility] [address] [place] [address] US OB 14 PLUS WEEKS SINGLE O R FIRST GESTATIONon 03-01-2023 US OB 14 PLUS WEEKS SINGLE OR FIRST GESTATION EXAMINATION: OBSTETRIC ULTRASOUND 03/01/2023 3:11 pm TECHNIQUE: Transabdominal sonographic evaluation of the pelvis was performed. COMPARISON: 12/31/2022. HISTORY: ORDERING SYSTEM PROVIDED HISTORY: 11 weeks gestation of , Supervision of other normal , antepartum TECHNOLOGIST PROVIDED HISTORY: This procedure can be scheduled via [employer]. Access your [employer] account by visiting Sambazon. What reading provider will be dictating this [...] Jalil Noe MD 03/01/23 Final result [facility] US OB LESS THAN 14 WEEKS SIN GLE OR FIRST GESTATIONon 12-31-2022 1. Single IUP with best estimate of gestational age being 9 weeks and 3 days. No abnormal fluid collections about the gestation. Yolk sac, pole and cardiac motion noted, with heart rate of 176 BPM. 2. 2.6 cm, slightly complex, left ovarian cyst. Possibly a corpus luteum cyst. [facility] EXAM: US First Trimester , Transabdominal and US Duplex Arterial/Venous of the Pelvis, Complete EXAM DATE/TIME: 12/31/2022 4:36 pm CLINICAL History lines: ORDERING SYSTEM PROVIDED Secondary amenorrhea, Positive urine test TECHNOLOGIST PROVIDED History lines: This procedure can be scheduled via [email or web address]. Access your [email or web address] account by visiting Sambazon. What reading provider will be dictating this [...] 2.0 cm. Free fluid: No free fluid. [facility] Steve Borja MD - 12/31/2022 EXAM: US First Trimester , Transabdominal and US Duplex Arterial/Venous of the Pelvis, Complete EXAM DATE/TIME: 12/31/2022 4:36 pm CLINICAL History lines: ORDERING SYSTEM PROVIDED Secondary amenorrhea, Positive urine test TECHNOLOGIST PROVIDED History lines: This procedure can be scheduled via [email or web address]. Access your [email or web address] account by visiting Sambazon. What reading provider will be dictating this [...] ovarian cyst. Possibly a corpus luteum cyst. [employer] Phone: Radiology Study observation (narrative) [facility] Phone: US OB LESS THAN 14 WEEKS SIN GLE OR FIRST GESTATIONOrdered By: Steve Borja on 12-31-2022 [employer] Phone: HPV DNA Typingon 12-26-2022 HPV Type 16 Not detected Normal Not Detect [facility] HPV Type 18 Not detected Normal Not Detect [facility] HPVOH (Other types) Detected Abnormal Not Detect [facility] Comment on above: Result Comment: *Inc ludes 31,33,35,39,45,51,52,56,58,59,66,68 genotypes C.trachomatis N.gonorrhoeae DNAon 12-25-2022 C. trachomatis DNA EVONNE+probe Ql (Unsp spec) Negative Normal [facility] N. gonorrhoeae DNA EVONNE+probe Ql (Unsp spec) Negative Normal Negative [facility] Drug Panel 9A, Screen Only, Urineon 12-21-2022 Alcohol, Urine Negative Normal [facility] Amphetamines, Urine Negative Normal [facility] Barbiturates, Urine Negative Normal [facility] Benzodiazepines, Urine Negative Normal [facility] CDTI 9A Comments See Note Normal [facility] Comment on above: Result Comment: INTE [...] opioid testing can be ordered. Refer to [employer] for test information. For medical purposes only; not valid for forensic use. Performed by [facility], [address] [place] [address] [email or web address], Nolberto Marie MD, PHD - Lab. Director Cocaine, Urine Negative Normal [facility] Creatinine, Urine 65.0 mg/dL Normal 20.0-400.0 [facility] Marijuana, Urine Positive Normal Cut[facility] Comment on above: Result Comment: Pres umptively POSITIVE for cannabinoids (marijuana or Marinol use) by enzyme immunoassay. NOT CONFIRMED by LC-MS/MS. Unconfirmed positive may be useful for medical purposes, but does not meet forensic standards. MDMA, Urine Negative Normal [facility] Methadone, Urine Negative Normal Cutoff 150 [facility] Opiates, Urine Negative Normal [facility] Oxycodone, Urine Negative Normal [facility] Phencyclidine, Urine Negative Normal [facility] 25 [facility] Propoxyphene, Urine Negative Normal [facility] HSV 1 Glycoprotein G Ab, IgG on 12-21-2022 HSV 1 Glycoprotein G Ab, IgG 27.20 IV Critically high <=0.89 [facility] Comment on above: Result Comment: REFE [...] a non-type specific screening test. Performed By: [facility] [address] [place] [address] Water Leak Repairer: Nolberto Marie MD, PhD HSV 2 Glycoprotein G Ab, IgG on 12-21-2022 HSV 2 Glycoprotein G Ab, IgG 0.06 IV Normal <=0.89 [facility] Comment on above: Result Comment: REFE [...] a non-type specific screening test. Performed By: [facility] [address] [place] [address] Water Leak Repairer: Nolberto Marie MD, PhD Varicella-Zoster Virus Ab, I gGon 12-21-2022 Varicella-Zoster Virus Ab, IgG 240.8 IV Normal [facility] Comment on above: Result Comment: INTE [...] laboratory at the same time. Performed By: [facility] [address] [place] [address] Water Leak Repairer: Nolberto Marie MD, PhD HIV Ag/Abon 12-20-2022 HIV Ag/Ab Non-Reactive Normal NR [facility] Comment on above: Result Comment: No l aboratory evidence of HIV infection. If acute HIV infection is suspected, consider testing for HIV-[address] [id number] ([phone] Hep C Abon 12-20-2022 Hep C Ab Non-Reactive Normal NR [facility] Comment on above: Result Comment: The [...] recommended by ordering HCV RNA by PCR. [address] [id number] ([phone] RPRon 12-20-2022 Reagin Ab RPR Ql (S) Non-Reactive Normal Non-reacti [facility] Comment on above: Performed By: #### R UBEL #### [facility] [address] [place] [address] [phone] Trichmonas Vaginalis Screen (EIA)on 12-20-2022 Trichomonas Vaginalis Screen (EIA) Negative Normal [facility] Comment on above: Performed By: #### E TRIC #### [facility] [address] [place] [address] Wet Prep-Medical Purposes On rivera 12-20-2022 Wet Prep Clue Cellls None Seen Normal [facility] Comment on above: Performed By: #### C BCWD #### [facility] [address] [place] [address] Wet Prep Trichomonas See EIA Normal [facility] Comment on above: Performed By: #### C BCWD #### [facility] [address] [place] [address] Wet Prep Yeast None Seen Normal [facility] Comment on above: Performed By: #### C BCWD #### [facility] [address] [place] [address] CBC With Platelet and Differ entialon 12-19-2022 Basophils (Bld) [#/Vol] 0.0 10*3/uL Normal 0.0-0.2 [facility] Comment on above: Performed By: #### C BCWD #### [facility] [address] [place] [address] Basophils/100 WBC (Bld) 0.8 % Normal [facility] Comment on above: Performed By: #### C BCWD #### [facility] [address] [place] [address] Eosinophils (Bld) [#/Vol] 0.1 10*3/uL Normal 0.0-0.7 [facility] Comment on above: Performed By: #### C BCWD #### [facility] [address] [place] [address] Eosinophils/100 WBC (Bld) 1.7 % Normal [facility] Comment on above: Performed By: #### C BCWD #### [facility] [address] [place] [address] Erythrocyte distribution width (RBC) [Ratio] 12.4 % Normal 11.5-14.5 [facility] Comment on above: Performed By: #### C BCWD #### [facility] [address] [place] [address] Hematocrit (Bld) [Volume fraction] 33.7 % Low 37.0-47.0 [facility] Comment on above: Performed By: #### C BCWD #### [facility] [address] [place] [address] Hemoglobin (Bld) [Mass/Vol] 11.5 g/dL Low 12.0-16.0 [facility] Comment on above: Performed By: #### C BCWD #### [facility] [address] [place] [address] Lymphocytes (Bld) [#/Vol] 1.0 10*3/uL Normal 1.0-4.8 [facility] Comment on above: Performed By: #### C BCWD #### [facility] [address] [place] [address] Lymphocytes/100 WBC (Bld) 21.8 % Normal [facility] Comment on above: Performed By: #### C BCWD #### [facility] [address] [place] [address] MCH (RBC) [Entitic mass] 30.7 pg Normal 27.0-31.3 [facility] Comment on above: Performed By: #### C BCWD #### [facility] [address] [place] [address] MCHC 34.1 % Normal 33.0-37.0 [facility] Comment on above: Performed By: #### C BCWD #### [facility] [address] [place] [address] MCV (RBC) [Entitic vol] 89.8 fL Normal 79.4-94.8 [facility] Comment on above: Performed By: #### C BCWD #### [facility] [address] [place] [address] Monocytes (Bld) [#/Vol] 0.4 10*3/uL Normal 0.2-0.8 [facility] Comment on above: Performed By: #### C BCWD #### [facility] [address] [place] [address] Monocytes/100 WBC (Bld) 9.6 % Normal [facility] Comment on above: Performed By: #### C BCWD #### [facility] [address] [place] [address] Neutrophils (Bld) [#/Vol] 3.0 10*3/uL Normal 1.4-6.5 [facility] Comment on above: Performed By: #### C BCWD #### [facility] [address] [place] [address] Neutrophils/100 WBC (Bld) 66.1 % Normal [facility] Comment on above: Performed By: #### C BCWD #### [facility] [address] [place] [address] Platelets (Bld) [#/Vol] 226 10*3/uL Normal 130-400 [facility] Comment on above: Performed By: #### C BCWD #### [facility] [address] [place] [address] RBC (Bld) [#/Vol] 3.76 10*6/uL Low 4.20-5.40 [facility] Comment on above: Performed By: #### C BCWD #### [facility] [address] [place] [address] WBC (Bld) [#/Vol] 4.5 10*3/uL Low 4.8-10.8 [facility] Comment on above: Performed By: #### C BCWD #### [facility] [address] [place] [address] Culture, Urineon 12-19-2022 Culture, Urine ORDER#: [id number] OR DERED BY: [place] YI SOURCE: Urine Clean Catch COLLECTED: 12/19/22 14:44 ANTIBIOTICS AT [place].: RECEIVED : 12/19/22 20:01 Culture, Urine FINAL 12/21/22 12:29 Cult,Urine: NO SIGNIFICANT GROWTH Performed at [address] [address] ([phone] Normal [facility] Comment on above: Performed By: #### R UBEL #### [facility] [address] [facility] [address] Gynecological Specimen (Cyto logy)on 12-19-2022 Gynecological Specimen (Cytology) [facility] [address] [place] [address] FINAL CYTOLOGY PAP REPORT Patient Name: HOLLIS FREED Accession No: [id number] Age Sex: 2000 22 Y / F Location: [facility] Account No: [id number] Collected: 12/19/2022 Med Rec No: [id number] Received: 12/20/2022 Attend Phys: [place] YI Completed: 01/03/2023 Perform Phys: [place] YI SPECIMEN ADEQUACY: Satisfactory for Evaluation. Endocervical cells/transformation zone component present. GENERAL CATEGORIZATION: Epithelial Cell Abnormality INTERPRETATION/RESULTS: Atypical squamous cells of undetermined significance. Specimen: THINPREP LIQUID BASE IMAGED DIAGNOSTIC History: Source: Thin Prep Site: Cervical History: Previous abnormal smear? No History of CA? No Lab Order#: [id number] Test Name Collected D AND T Result [...] (PCR) and nucleic acid hybridization. CPT: Technical: 94089 X1 Professional: 31146 X1 Screened by: JEROME BROOKS(ASCP) EARL CURRIE [...] processed and screened using a Thin Prep Metal Tank Erector at [facility] [address] [place] [address] All abnormal gynecologic interpretation is performed at [facility], unless otherwise noted in the report. Page 1 of 1 Abnormal [facility] Comment on above: Performed By: #### R UBEL #### [facility] [address] [facility] [address] HCG Quanton 12-19-2022 HCG Quant 04953.0 mIU/mL [facility] Comment on above: Result Comment: Gest ational Age Expected HCG values (mIU/ml) 3 weeks 5-72 4 weeks 10-708 5 weeks 217-8,245 6 weeks 152-32,177 8 weeks 31,366-149,094 12 weeks 27,107-201,615 16 weeks 8,904-55,332 18 weeks 9,649-55,271 Performed By: #### R UBEL #### [facility] [address] [facility] [address] HPV DNA Typingon 12-19-2022 HPV Comment See [facility] Comment on above: Result Comment: Th [...] Hepatitis B Surface Ag Interp Non-Reactive [facility] Comment on above: Performed By: #### H BSG #### [facility] [address] [place] [address] Rubella Ab, IgGon 12-19-2022 Rubella Ab, IgG 12.4 IU/mL [facility] Comment on above: Result Comment: Yenni ent's result indicates immunity. Default Normal Ranges >=10 Presumed Immune <10 Presumed Not immune Performed By: #### R UBEL #### [facility] [address] [place] [address] Type and 3 cell Screen OB Ca ptureon 12-19-2022 Type and 3 cell Screen OB Capture PATIENT: ABDIAZIZ Drake [facility] : [id number] : 2000 SEX: F ORDERED BY: KASSIDY BARAHONA ORDERED : 12/19/2022 11:18 COLLECTED: 12/19/2022 11:19 ORDER : [id number] RECEIVED : 12/19/2022 15:40 TEST NAME RESULT UNITS RANGES ABN FL ST ABORH Capture A POS F Antibody 3 Cell Scrn Captu NEG F [facility] Comment on above: Performed By: #### R UBEL #### [facility] [address] [place] [address] Urinalysis, reflex to micros copicon 12-19-2022 Bilirubin Ql (U) Negative Normal [facility] Comment on above: Performed By: #### C BCWD #### [facility] [address] [place] [address] Clarity (U) Clear Normal [facility] Comment on above: Performed By: #### C BCWD #### [facility] [address] [place] [address] Color (U) Yellow Normal [facility] Comment on above: Performed By: #### C BCWD #### [facility] [address] [place] [address] Glucose Ql (U) Negative [facility] Comment on above: Performed By: #### C BCWD #### [facility] [address] [place] [address] Hemoglobin Ql (U) Negative [facility] Comment on above: Performed By: #### C BCWD #### [facility] [address] [place] [address] Ketones Ql (U) Negative [facility] Comment on above: Performed By: #### C BCWD #### [facility] [address] [place] [address] Leukocyte esterase Test strip Ql (U) TRACE Abnormal Negative [facility] Comment on above: Performed By: #### C BCWD #### [facility] [address] [place] [address] Nitrite Ql (U) Negative [facility] Comment on above: Performed By: #### C BCWD #### [facility] [address] [place] [address] pH (U) 7.0 [pH] Normal 5.0-9.0 [facility] Comment on above: Performed By: #### C BCWD #### [facility] [address] [place] [address] Protein Ql (U) Negative [facility] Comment on above: Performed By: #### C BCWD #### [facility] [address] [place] [address] Specific gravity (U) [Rel density] 1.013 Normal 1.005-1.03 [facility] Comment on above: Performed By: #### C BCWD #### [facility] [address] [place] [address] Urobilinogen Qn (U) 0.2 {Yoselyn'U}/dL Normal < 2.0 [facility] Comment on above: Performed By: #### C BCWD #### [facility] [address] [place] [address] Urine Microscopicon 12-20-19 23 Bacteria LM.HPF (Urine sed) [#/Area] Negative [facility] Comment on above: Performed By: #### U DEBBI #### [facility] [address] [place] [address] Urine Epithelial Cells Auto 3-5 Normal 0-5 [facility] Comment on above: Performed By: #### U DEBBI #### [facility] [address] [place] [address] Urine Hyaline Casts Auto 0-1 Normal 0-5 [facility] Comment on above: Performed By: #### U DEBBI #### [facility] [address] [place] [address] Urine RBC Auto 3-5 Abnormal 0-5 [facility] Comment on above: Performed By: #### U DEBBI #### [facility] [address] [place] [address] Urine WBC Auto 0-2 Normal 0-5 [facility] Comment on above: Performed By: #### U DEBBI #### [facility] [address] [place] [address] ANKLE, COMPLETE, MIN 3 VIEWS on 03-20-2022 ANKLE, COMPLETE, MIN 3 VIEWS Patient Name: HOLLIS FREED STUDY: ANKLE, COMPLETE, MIN 3 VIEWS; Right; 03/20/2022 2:21 pm INDICATION: pain M25.579: Ankle pain. ACCESSION NUMBER(S): [id number] ORDERING CLINICIAN: BEE LEDESMA FINDINGS: Right ankle x-rays three views AP, lateral and oblique view: No acute fractures, no dislocation. Mortise intact. Electronically signed by: BEE LEDESMA MD Normal [facility] FOOT COMPLETE, MIN 3 VIEWSon 03-20-2022 FOOT COMPLETE, MIN 3 VIEWS Patient Name: HOLLIS FREED STUDY: FOOT; COMPLETE, MIN 3 VIEWS; Right; 03/20/2022 2:21 pm INDICATION: pain M25.579: Ankle pain M79.673: Foot pain. ACCESSION NUMBER(S): [id number] ORDERING CLINICIAN: BEE LEDESMA FINDINGS: Right foot x-rays three views AP, lateral and oblique view: No acute fractures, no dislocation. No significant degenerative changes. Electronically signed by: BEE LEDESMA MD Normal [facility] Initial Visit (Orthopaedic S urgery)on 03-20-2022 Initial [...] RT Foot and ankle injury. Xrays @ [facility]ECH AND HEARING DIRECTOR History of Present IllnessHollis presents for right [...] Gary, ; Mar 22 2022 4:44PM EST (Investor Relations Associate/Recorder) Electronically signed by : Bee Ledesma MD; Mar 23 2022 8:17AM EST Normal [facility]on 03-20-2022 XR Ankle 3 Views Normal -[facility] -[facility] Work Phone: XR Foot 3 Views Normal -[facility] Work Phone: Tyrese 02-10-2018 [facility] Telephone [facility] CL HOLLIS HEWITT ([id number]) 2000 FDate Time Provider Department02/10/18 STEVE COELLO [...] Rash Comments: BlistersDate Reviewed: 05/27/2017Reviewed by: Cherelle Farfan) Martinez - Fully AssessedReason for Visit: Outside Lab Results [753] Cmt: GC, chlamyd, trich neg 02/01/18Reason For Visit History RecordedPrescriptions as of 02/10/2018 Sig: NORGESTIMATE-ETHINYL ESTRADIO* Take by mouth.Problem List As Of Date 02/10/2018 Noted Resolved PREMATURE PUBERTY [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.1] INVALID FOR* Status:Closed by STEVE COELLO MD on 02/15/18 [facility] HOLLIS CM ([id number]) 2000 FDate Time Provider Eghtdcbbpf73/1/17 STEVE COELLO During your visit today, we [...] by TATIANA PACHECO RN on 05/29/17 Normal [facility] Free T4on 05-28-2017 Thyroxine (T4) free 1.3 ng/dL Normal 0.9-1.7 [facility] Comment on above: Performed By: #### F T4 ####[facility] [address] [place], [place] [phone] CNOVon 05-27-2017 CNOV Office Visit ([facility]) CL HOLLIS HEWITT ([id number]) 2000 FDate Time Provider Fbucpzjdvm64/30/17 4:20 PM STEVE COELLO [facility] During your visit today, we recorded the following information about you: Temperature Pulse Respiration Blood pressure 98 degrees 70/minute 16/minute 118/61 Weight Height Last Period 70.2 kg 1.613 m 05/25/17Lajamie Martinez MA 05/27/2017 4:29 PM SignedPatient presents with:PhysicalPain (Shoulder Pain): Right side pain on and offLauguillermo Martinez MA 05/31/2017 2:26 PM SignedTETANUS due on 2009HPV [...] 11.2 oz) LMP 05/25/2017 SpO2 98% BMI26.97 kg/q6VNVRPMP APPEARANCE: Well appearing, alert, in no acute [...] loss encouragedGet shot recordEchocardiogramincrease fiber in in [id number] PROBLEM LISTPREMATURE PUBERTYThomas Flavia Simpson 05/27/2017 5:43 [...] pain [M25.511, G89.29] Shortness of breath [R06.02]Order(s):ECHO [100299] Order #: [id number]: 1 FUTURE T4 FREE/FREE THYROX [SQFT4] Order #: [id number] FUTURE T4 FREE/FREE THYROX [SQFT4] Order #: [id number]. #:[id number] riptions as of 05/27/2017 Sig: NORGESTIMATE-ETHINYL ESTRADIO* [...] by STEVE COELLO MD on 05/31/17 Normal [facility] PROGRESSon 05-27-2017 Protein HNO ID: [id number] thor: Steve Spenceervice: (none)Author Type: PhysicianType: Progress [...] 11.2 oz) LMP 05/25/2017 SpO2 98% BMI26.97 kg/e1CZBHLXQ APPEARANCE: Well appearing, alert, in no acute [...] loss encouragedGet shot recordEchocardiogramincrease fiber in in [id number] PROBLEM LISTPREMATURE PUBERTYThomas L MD Mode Normal [facility] Protein HNO ID: [id number] thor: Cherelle Farfan)(Hist) VaughnService: (none)Author Type: Medical AssistantType: Progress NotesFiled: 05/31/2017 2:26 PMNote Text:TETANUS due on 2009HPV VACCINE(1 of 3 - Female 3 Dose Series) due on 2009GC (GONORRHEA) SCREENING (18-24) due on 01/22/2016CHLAMYDIA SCREENING (18-24) due on 01/22/2016 Normal [facility] Test, Serum (Walk In)on 03-12-2017 Test, Serum (Walk In) Negative Normal [facility] Comment on above: Performed By: #### P GSWI ####[address] [place] [address] Vital Signs Date Time Vital Sign Value Performing Clinician Giovanna sheriff 08-17-2024 14:24-0500 Body weight 93.62 kg Marilyn LIVINGSTON Work Phone: [facility] 08-17-2024 14:24-0500 Diastolic blood pressure 60 mm[Hg] Marilyn LIVINGSTON Work Phone: [facility] 08-17-2024 14:24-0500 Systolic blood pressure 120 mm[Hg] Marilyn LIVINGSTON Work Phone: [facility] 07-16-2024 10:48-0500 Body weight 88.91 kg Roberto Huma DO Work Phone: [facility] 07-16-2024 10:48-0500 Diastolic blood pressure 60 mm[Hg] Roberto Huma DO Work Phone: [facility] 07-16-2024 10:48-0500 Systolic blood pressure 110 mm[Hg] Roberto Huma DO Work Phone: [facility] 06-16-2024 13:37-0500 Body weight 83.01 kg Marilyn LIVINGSTON Work Phone: [facility] 06-16-2024 13:37-0500 Diastolic blood pressure 64 mm[Hg] Marilyn LIVINGSTON Work Phone: [facility] 06-16-2024 13:37-0500 Systolic blood pressure 112 mm[Hg] Marilyn LIVINGSTON Work Phone: [facility] 05-19-2024 15:04-0400 Body weight 80.74 kg Roberto Huma DO Work Phone: [facility] 05-19-2024 15:04-0400 Diastolic blood pressure 76 mm[Hg] Roberto Huma DO Work Phone: [facility] 05-19-2024 15:04-0400 Systolic blood pressure 138 mm[Hg] Roberto Huma DO Work Phone: [facility] Healthcare Encounters Encounter Date Encounter Type Care Provider Facility Start: 09-10-2024 End: 09-10-2024 Clinisync Result Encounter Marilyn LIVINGSTON Work Phone: [facility] Unsolicited Start: 09-10-2024 End: 09-10-2024 Clinisync Result Encounter Marilyn LIVINGSTON Work Phone: [facility] Unsolicited Start: 08-17-2024 End: 08-17-2024 Office outpatient visit 15 minutes Marilyn LIVINGSTON Work Phone: [facility] Comment on above: Diabetes mellitus sc reening; Second trimester ; 25 weeks gestation of Start: 08-17-2024 End: 08-17-2024 ambulatory MARILYN MCINTYRE Not Available Start: 08-17-2024 End: 08-17-2024 Bamboo flowsheet Marilyn LIVINGSTON Work Phone: [facility] Start: 08-17-2024 End: 08-17-2024 Bamboo flowsheet Marilyn LIVINGSTON Work Phone: [facility] Start: 07-16-2024 End: 07-16-2024 Office outpatient visit 15 minutes Roberto Huma DO Work Phone: [facility] Comment on above: 20 weeks [...] Start: 05-19-2024 End: 05-19-2024 Bamboo flowsheet Roberto Huam DO Work Phone: [facility] Start: [...] GA: 8w5d Start: 01-17-2024 End: 01-19-2024 ambulatory [facility] Start: 07-26-2023 End: 07-29-2023 Evaluation and management of inpatient [facility] Start: 06-28-2023 End: 06-30-2023 ambulatory [facility] Start: 04-23-2023 End: 05-29-2023 Pre-admission assessment Jos Fuchs [facility] Start: 04-22-2023 End: 04-22-2023 ambulatory Jos Canales Jef Facility:[facility] Start: 03-01-2023 End: 03-03-2023 ambulatory BROOKLYN MONTENEGRO [facility] Start: 12-31-2022 End: 01-02-2023 Subsequent hospital visit by physician Brooklyn Montenegro DO Work Phone: [facility] Ultrasound Comment on above: Secondary amenorrhea ; Positive urine test Start: 04-10-[address] Bee canseco Gricelda Facility:[id number] Start: 03-20-[address] [id number] Start: 03-20-2022 Patient encounter procedure Bee Ledesma MD [facility] Phone: [facility] Work Phone: Start: 05-27-2017 End: 06-03-2017 Patient encounter STEVE COELLO [facility] Start: 03-12-2017 Ambulatory NO FAMILY DOCTOR Facili ty:[id number] Procedures Date Procedure Procedure Detail Performing Clinician Start: 09-10-2024 ALL CBC WITH AUTO DIFF Marilyn LIVINGSTON Work Phone: Start: 08-17-2024 Urnls dip stick/tabl et rgnt [...] uterus 1 4 wk transabdl 07/29 gestat Jimenezjosefa Lan DO Work Phone: Start: 08-20-2019 Microscopic observat ion [Identifier] in Cervix by Cyto stain Brooklyn Montenegro DO Work Phone: None (qualifier value) Jos Fuchs Plan of Treatment Date Care Activity Detail Author Start: 09-15-2024 End: 09-15-2024 Patient encounter procedure 09/15/2024 11:10 AM EST Routine [facility] [address] [place] [address] Roberto Finn DO [address] [place], [place] [id number] [facility] Start: 08-17-2024 End: 08-17-2024 Patient encounter procedure 08/17/2024 2:20 PM EST Routine [facility] [address] [place] [address] Marilyn Mcintyre PA [address] [place], [place] [id number] Arrived [facility] Comment on above: Arrived Start: 08-17-2024 End: 08-17-2025 CBC panel - Blood by Automated count CBC Lab Routine Diabetes mellitus screening Expected: 08/17/2024 (Approximate), Expires: 08/17/2025 [facility] Work Phone: Comment on above: Expected: 08/17/2024 (Approximate), Expires: 08/17/2025 Start: 08-17-2024 End: 08-17-2025 Measurement of glucose 1 hour after glucose challenge for glucose tolerance test Glucose tolerance, 1 hour Lab Routine Diabetes mellitus screening Expected: 08/17/2024 (Approximate), Expires: 08/17/2025 [facility] Healthcare Comment on above: Expected: 08/17/2024 (Approximate), Expires: 08/17/2025 Start: 08-13-2024 End: 08-13-2024 Patient encounter procedure 08/13/2024 1:30 PM EST Routine [facility] [address] [place] [address] Marilyn Mcintyre PA [address] [place], [place] [id number] [facility] Start: 07-16-2024 End: 07-16-2024 Alpha fetoprotein, maternal Alpha fetoprotein, maternal Lab Routine Need for maternal serum alpha-protein (MSAFP) screening Expected: 07/16/2024 (Approximate), Expires: 07/16/2024 [facility] Work Phone: Comment on above: Expected: 07/16/2024 (Approximate), Expires: 07/16/2024 Start: 07-16-2024 End: 07-16-2024 Patient encounter procedure 07/16/2024 10:20 AM EST Routine [facility] [address] [phone] Roberto Finn DO [address] [place], [place] [id number] [facility] Start: 06-16-2024 End: 06-16-2025 US for US OB ANATOMY SINGLE W US OB CERVICAL LENGTH Imaging Routine Screening, , for anatomic survey Expected: 06/16/2024 (Approximate), Expires: 06/16/2025 [facility] Comment on above: Expected: 06/16/2024 (Approximate), Expires: 06/16/2025 Start: 06-16-2024 End: 06-16-2024 Patient encounter procedure 06/16/2024 1:00 PM EST Routine [facility] [address] [phone] Marilyn Mcintyre, PA [address] [place] [address] [facility] Start: 05-19-2024 End: 05-19-2024 Patient encounter procedure 05/19/2024 2:40 PM EDT Routine [facility] [address] [place] [phone] Roberto Finn DO [address] [place] [address] [facility] Start: 04-24-2024 End: 04-24-2025 ABO/Rh ABO/Rh Lab Routine Missed menses , unspecified gestational age Expected: 04/24/2024 (Approximate), Expires: 04/24/2025 [facility] Healthcare Comment on above: Expected: 04/24/2024 (Approximate), Expires: 04/24/2025 Start: 04-24-2024 End: 04-24-2025 Blood type and Indirect antibody screen panel - Blood Type and screen Lab Routine Missed menses , unspecified gestational age Expected: 04/24/2024 (Approximate), Expires: 04/24/2025 [facility] Work Phone: Comment on above: Expected: 04/24/2024 (Approximate), Expires: 04/24/2025 Start: 04-24-2024 End: 04-24-2025 Drugs of abuse panel - Urine by Screen method Rapid drug screen, urine Lab Routine , unspecified gestational age Encounter for supervision of normal first in first trimester Expected: 04/24/2024 (Approximate), Expires: 04/24/2025 [facility] Comment on above: Expected: 04/24/2024 (Approximate), Expires: 04/24/2025 Start: 04-24-2024 End: 04-24-2025 US Pelvis transvaginal US OB transvaginal Imaging Routine Missed menses Expected: 04/24/2024 (Approximate), Expires: 04/24/2025 [facility] Healthcare Comment on above: Expected: 04/24/2024 (Approximate), Expires: 04/24/2025 Start: 03-29-2024 Influenza vaccination Influenza Vacc ine (#1) [facility] Start: 12-20-2023 Depression Screen Depression Screen [facility] Start: 12-20-2023 Screening for Chlamy manisha trachomatis Chlamydia/GC screen [facility] Start: 02-26-2023 Influenza vaccination Flu vacc ine (Season Ended) [facility] Start: 01-16-2023 End: 01-16-2023 ambulatory 01/16/2023 Initial Obstetrics and Gynecology Brooklyn Montenegro DO [address] [place], [place] [id number] [facility] Start: 08-20-2022 Screening for malign ant neoplasm of cervix Pap smear [facility] Start: 04-10-2022 FUV, Provider: Bee Ledesma, Status: Pen, Time: 10:15 AM FUV, Provider: Bee Ledesma, Status: Pen, Time: 10:15 AM [facility] Work Phone: Start: 04-20-2019 DTaP/Tdap/Td vaccine (7 - Td or Tdap) DTaP/Tdap/Td vaccine (7 - Td or Tdap) [facility] Start: 07-06-2010 Hepatitis A vaccine (2 of 2 - 2-dose series) Hepatitis A vaccine (2 of 2 - 2-dose series) [facility] Start: 2000 COVID-19 Vaccine (#1) COVID-19 Vacci ne (#1) [facility] Bacteria identified in Urine by Culture Urine culture Microbiology Routine Missed menses Ordered: 04/24/2024 [facility] Comment on above: Ordered: 04/24/2024 CBC W Auto Different ial panel - Blood CBC and differential Lab Routine Missed menses , unspecified gestational age Ordered: 04/24/2024 [facility] Comment on above: Ordered: 04/24/2024 CHLAMYDIA TRACHOMATI S (GENITO/STI) CHLAMYDIA TRACHOMATIS (GENITO/STI) Lab Routine Exposure to STD Ordered: 06/16/2024 [facility] Comment on above: Ordered: 06/16/2024 Hemoglobin A1c/Hemoglobin.total in Blood Hemoglobin A1c Lab Routine Missed menses , unspecified gestational age Ordered: 04/24/2024 [facility] Comment on above: Ordered: 04/24/2024 Hepatitis B virus surface Ag [Presence] in Serum or Plasma by Immunoassay Hepatitis B surface antigen Lab Routine Missed menses , unspecified gestational age Ordered: 04/24/2024 [facility] Comment on above: Ordered: 04/24/2024 Hepatitis C virus Ab [Presence] in Serum or Plasma by Immunoassay Hepatitis C antibody Lab Routine Missed menses , unspecified gestational age Ordered: 04/24/2024 [facility] Comment on above: Ordered: 04/24/2024 HIV-1/HIV-2 antigen/antibody combination immunoassay HIV-1 and HIV-2 antibodies Lab Routine Missed menses , unspecified gestational age Ordered: 04/24/2024 [facility] Comment on above: Ordered: 04/24/2024 Neisseria gonorrhoea e DNA [Presence] in Unspecified specimen by EVONNE with probe detection Neisseria gonorrhea DNA probe, direct Lab Routine Exposure to STD Ordered: 06/16/2024 [facility] Comment on above: Ordered: 06/16/2024 Reagin Ab [Presence] in Serum by RPR RPR Lab Routine Missed menses , unspecified gestational age Ordered: 04/24/2024 [facility] Comment on above: Ordered: 04/24/2024 Rubella antibody, IgG Rubella an tibody, IgG Lab Routine Missed menses , unspecified gestational age Ordered: 04/24/2024 [facility] Comment on above: Ordered: 04/24/2024 SURESWAB(R) ADVANCED VAGINITIS PLUS, TMA SURESWAB(R) ADVANCED VAGINITIS PLUS, TMA Pathology and Cytology Routine Exposure to STD Ordered: 06/16/2024 [facility] Comment on above: Ordered: 06/16/2024 Immunizations Immunization Date Immunization Notes Care Provider Angelique beatty 05-29-2019 influenza virus vaccine, unspecified formulation Jos [facility] Comment on above: Result Comment: [facility] [place] in [place] 06-07-2010 human papilloma viru s vaccine, quadrivalent Brooklyn Montenegro DO Work Phone: [employer] Work Phone: 06-07-2010 influenza virus vaccine, unspecified formulation Brooklyn Montenegro DO Work Phone: [facility] [employer] Work Phone: 01-04-2010 hepatitis A vaccine, unspecified formulation Brooklyn Montenegro DO Work Phone: [facility] [employer] Work Phone: 01-04-2010 human papilloma viru s vaccine, quadrivalent Brooklyn Montenegro DO Work Phone: [employer] Work Phone: 01-04-2010 varicella virus vaccine Brooklyn Montenegro DO Work Phone: [facility] [employer] Work Phone: 04-20-2009 human papilloma viru s vaccine, quadrivalent Brooklyn Montenegro DO Work Phone: [employer] Work Phone: 04-20-2009 tetanus toxoid, reduced diphtheria toxoid, and acellular pertussis vaccine, adsorbed Brooklyn Montenegro DO Work Phone: [employer] Work Phone: 08-19-2006 influenza virus vaccine, unspecified formulation Brooklyn Montenegro DO Work Phone: [employer] Work Phone: 06-14-2006 influenza virus vaccine, unspecified formulation Brooklyn Montenegro DO Work Phone: [employer] Work Phone: 03-02-2003 diphtheria, tetanus toxoids and acellular pertussis vaccine Brooklyn Montenegro DO Work Phone: [employer] Work Phone: 03-02-2003 measles, mumps and rubella virus vaccine Brooklyn Montenegro DO Work Phone: [employer] Work Phone: 03-02-2003 poliovirus vaccine, inactivated Brooklyn Montenegro DO Work Phone: [employer] Work Phone: 04-28-1999 diphtheria, tetanus toxoids and acellular pertussis vaccine Brooklyn Montenegro DO Work Phone: [employer] Work Phone: 04-28-1999 poliovirus vaccine, inactivated Brooklyn Montenegro DO Work Phone: [employer] Work Phone: 01-25-1999 Hib, unspecified Brooklyn you DO Work Phone: [employer] Work Phone: 01-25-1999 measles, mumps and rubella virus vaccine Brooklyn Montenegro DO Work Phone: [employer] Work Phone: 01-25-1999 varicella virus vaccine Brooklyn Montenegro DO Work Phone: [employer] Work Phone: 2000 diphtheria, tetanus toxoids and acellular pertussis vaccine Brooklyn Montenegro DO Work Phone: [employer] Work Phone: 2000 hepatitis B vaccine, adult dosage Brooklyn Montenegro DO Work Phone: [employer] Work Phone: 2000 Hib, unspecified Brooklyn pickenson DO Work Phone: [employer] Work Phone: 2000 diphtheria, tetanus toxoids and acellular pertussis vaccine Brooklyn Montenegro DO Work Phone: [employer] Work Phone: 2000 hepatitis B vaccine, adult dosage Brooklyn Montenegro DO Work Phone: [employer] Work Phone: 1998 Hib, unspecified Brooklyn you DO Work Phone: [employer] Work Phone: 1998 poliovirus vaccine, inactivated Brooklyn Montenegro DO Work Phone: [employer] Work Phone: 1998 hepatitis B vaccine, adult dosage Brooklyn Montenegro DO Work Phone: [employer] Work Phone: 1998 diphtheria, tetanus toxoids and acellular pertussis vaccine Brooklyn Montenegro DO Work Phone: [employer] Work Phone: 1998 poliovirus vaccine, inactivated Brooklyn Montenegro DO Work Phone: [employer] Work Phone: Payers Date Payer Category Payer Medicaid [id number] 2022 Private Health Insurance [id number] 1998 Unknown [id number] 2.16.8 [id number] 1998 Unknown [id number] 2.16.8 40.1.945895.3.579.2.1068 1998 Unknown [id number] 2.16.8 40.1.167583.3.579.2.727 1998 Unknown [id number] 2.16.8 40.1.108714.3.579.2.182 1998 Unknown [id number] 2.16.8 40.1.608653.3.579.2.182 1998 Unknown [id number] 2.16.8 40.1.459094.3.579.2.182 1998 Unknown [id number] 2.16.8 40.1.335312.3.579.2.182 1998 Unknown [id number] 2.16.84 0.1.761730.3.579.2.1259 1998 Unknown [id number] 2.16.84 0.1.334894.3.579.2.1259 1998 Unknown [id number] 2.16.84 0.1.160989.3.579.2.1259 1998 Unknown [id number] 2.16.84 0.1.423515.3.579.2.1259 1998 Unknown [id number] 2.16.84 0.1.313562.3.579.2.1259 Unknown 1914 Unknown Self Pay Social History Date Type Detail Facility Start: 03-02-2020 End: 12-19-2022 Tobacco smoking status [facility] Never smoked tobacco [facility] Phone: Start: 12-19-2022 Tobacco use and exposure Smokeless tobacco non-user [facility] Phone: Start: 12-19-2022 Alcohol intake Ex-drinker (finding) [facility] Phone: Start: 1998 Sex Assigned At Not on file B ON VHT Phone: Sex Assigned At Female [facility] Tobacco smoking status MTIS Tobacco smoking consumption unknown [facility] Start: 03-08-2024 [facility] Start: 1998 Sex assigned at Female [facility] Start: 04-17-2024 Gender identity Identifies as female gender (finding) [facility] Clinical Notes 04-22-2023 to 08-17-2024 YARA Winter - 08/17/2024 2:20 PM BRYANTnaomysandra Issa, MAGALY - 07/16/2024 10:20 AM YARA Holm - 06/16/2024 1:10 PM PATRICIADella Blanco, MAGALY - 05/19/2024 2:40 PM EDT Note Date [...] of: YARA Winter documented in this encounter [facility] 07-16-2024 History of Present illness Narrative Reason [...] nursing note reviewed. Exam conducted with a county adviser present. Vitals: There is no height or [...] Roberto Finn DO documented in this encounter [facility] 06-16-2024 History of Present illness Narrative Reason [...] of: YARA Winter documented in this encounter [facility] 05-19-2024 History of Present illness Narrative Reason [...] nursing note reviewed. Exam conducted with a county adviser present. Vitals: There is no height or [...] undercooked meat, and stay away from [facility]. Patient has been consulted regarding any [...] Roberto Finn DO documented in this encounter [facility] 04-24-2024 History of Present illness Narrative Reason [...] undercooked meat, and stay away from [facility]. Patient has also been advised to not [...] or questions. Nurse Visit Completed by: Connie Chua LPN documented in this encounter [facility] 04-22-2023 Note The following Patien t Education Materials have been given to the patient: EducationMaterial [facility] Evaluation + Plan note No data available for this section [facility] Evaluation note Diagnosis Secondary amenorrhea Absence of menstruation Positive urine test documented in this encounter [facility] Phone: evaluation note* Diagnosis Nausea Nausea alone 12 weeks gestation of First trimester state, incidental documented in this encounter [facility] note* Diagnosis Second trimester state, incidental Exposure to STD Need for maternal serum alpha-protein (MSAFP) screening Screening, , for anatomic survey Encounter for anatomic survey documented in this encounter [facility] note* Diagnosis Missed menses 8 weeks gestation of First trimester state, incidental , unspecified gestational age Encounter for supervision of normal first in first trimester documented in this encounter [facility]* Diagnosis 20 weeks gestation of Second trimester state, incidental [facility] encounter [facility]* Diagnosis Diabetes mellitus screening Screening for diabetes mellitus Second trimester state, incidental 25 weeks gestation of documented in this [facility] Dis[facility] instructions No data available for this [facility] data available for this section [facility] Summary Purpose Family History No Family [...] RT Foot and ankle injury. Xrays @ [facility] [employer] Reason for Referral Specialty Diagnoses / Procedures Referred By Contac t Referred To Contact Radiology Diagnoses Secondary amenorrhea Positive urine test Procedures US OB TRANSVAGINAL Brooklyn Montenegro DO [address] [place] [address] Referral ID Status Reason Start Date Expiration Date Visits Re quested Visits Authorized [id number] Open 12/19/2022 12/19/2023 1 1 Specialty Diagnoses / Procedures Referred By Contac t Referred To Contact Radiology Diagnoses Secondary amenorrhea Positive urine test Procedures US OB LESS THAN 14 WEEKS SINGLE OR FIRST GESTATION Brooklyn Montenegro DO [address] [place] [address] Referral ID Status Reason Start Date Expiration Date Visits Re quested Visits Authorized [id number] Open 12/19/2022 12/19/2023 1 1 Additional Source Comments INFORMATION SOURCE (unrecogn ized section and content) DATE CREATED AUTHOR 01/22/2018 [facility] DATE CREATED AUTHOR AUTHOR'S ORGANIZ ATION 02/17/2018 [facility] DATE CREATED AUTHOR AUTHOR'S ORGANIZ ATION 03/25/2022 [facility] DATE CREATED AUTHOR AUTHOR'S ORGANIZ ATION 04/29/2022 [facility] DATE CREATED AUTHOR AUTHOR'S ORGANIZ ATION 04/30/2023 [facility] DATE CREATED AUTHOR AUTHOR'S ORGANIZ ATION 07/17/2023 [facility] DATE CREATED AUTHOR AUTHOR'S ORGANIZ ATION [facility] DATE CREATED AUTHOR AUTHOR'S ORGANIZ ATION 08/19/2024 [facility] EPIC Reason for Visit (unrecogniz ed section and content) Specialty Diagnoses / Procedures Referred By Contac t Referred To Contact Radiology Diagnoses Secondary amenorrhea Positive urine test Procedures US OB LESS THAN 14 WEEKS SINGLE OR FIRST GESTATION Brooklyn Montenegro DO [address] [place] [address] Referral ID Status Reason Start Date Expiration Date Visits Re quested Visits Authorized [id number] Open 12/19/2022 12/19/2023 1 1 Reason Comments Routine Visit Reason Comments Amenorrhea Care Teams (unrecognized sec tion and content) 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 [facility] [employer] provides no warranty or guarantee of the accuracy or completeness of information in this document.
[2024-09-12 09:34] LABS: Glucose Fasting 88 mg/dL (<95)
[2024-09-12 10:25] LABS: Glucose 1 Hour 203 mg/dL (<180)
[2024-09-12 11:35] LABS: Glucose 2 Hour 137 mg/dL (<155)
[2024-09-12 12:17] LABS: Glucose 3 Hour 57 mg/dL (<140)
== END 2024-09-12 08:45 | disposition home or self-care (01) ==
LOC: LAB 08:44
PROVIDERS: Visit Provider Obstetrics & Gynecology
DX: R73.09 Other abnormal glucose (principal); Z3A.28 28 weeks gestation of pregnancy
CPT/HCPCS: 36415; 82951; 82952

== ENCOUNTER 2024-09-17 13:16 | Observation (INO) | payer MEDICAID, SELFPAY ==
[2024-09-17 13:35] VITALS: BP 130/64; PULSE 112
== END 2024-09-17 19:42 | disposition home or self-care (01) ==
LOC: FBC 13:18
PROVIDERS: Admitting Provider Obstetrics & Gynecology; Visit Provider Obstetrics & Gynecology
DX: O99.891 Other specified diseases and conditions complicating pregnancy (principal); Z3A.29 29 weeks gestation of pregnancy; R10.9 Unspecified abdominal pain; R10.2 Pelvic and perineal pain
CPT/HCPCS: 59025; 76815; G0378; G0379

== ENCOUNTER 2024-09-29 15:15 | Outpatient (OUT) | payer MEDICAID, SELFPAY ==
--- OUTSIDE RECORDS SUMMARY | 2024-09-29 15:35 | XMS_ITS | CCD ---
Author Organization [facility] Care Team Providers Care Salon Manager Name Role Phone NO FAMILY DOCTOR Unavailable Unavailable NO FAMILY DOCTOR, NO FAMILY DOCTOR Unavailable Unavailable STEVE COELLO Unavailable Unavailable Unavailable Unavailable Gricelda, Dr. Bee Campbell Attending Chin Ledesma, Dr. Bee Campbell Attending Chin flynn Undetermined, Awaiting Assignment Primary Care P connie Unavailable Jos Fuchs Attending Unavailable Jos Fuchs Admitting Unavailable Gwen Sky Primary Care Physician [phone] BROOKLYN MONTENEGRO Attending Unavailable BROOKLYN MONTENEGRO Referring Unavailable LAVINAI, GWEN Primary Care Unavailable BROOKLYN MONTENEGRO Attending Unavailable BROOKLYN MONTENEGRO Referring Unavailable LAVINIA, GWEN Primary Care Unavailable BROOKLYN MONTENEGRO Attending Unavailable BROOKLYN MONTENEGRO Referring Unavailable UNDETERMINED, AWAITING ASSIGNMENT Primary Care Unavailable BROOKLYN MONTENEGRO Admitting Unavailable BROOKLYN MONTENEGRO Attending Unavailable LAVINIA, GWEN Primary Care Unavailable Unavailable Primary Care Provider Unavailabl e ROBERTO FINN Attending Unavailable ROBERTO FINN Attending Unavailable MARILYN MCINTYRE Attending Unavailable ROBERTO FINN Attending Unavailable MARILYN MCINTYRE Attending Unavailable Allergies Allergy Classification Reported Allergen(s) Allergy Type Date of Onset Reaction(s) Facility (20 sources) Penicillins; Translations: [PENICILLINS] Propensity to adverse reactions to drug (disorder) 04-01-20 [facility] Repository (1 source) Oseltamivir Drug Allergy 05-08-20 [facility] (20 sources) Sulfamethoxazole / Trimethoprim; Translations: [sulfamethoxazole-t rimethoprim] Drug Allergy 10-18-19 21 Vomiting (disorder), Nausea And Vomiting [facility] (2 sources) Amoxicillin / Clavulanate; Translations: [Augmentin] Drug Allergy [facility] Repository (20 sources) cefdinir; Translations: [cefdinir] Drug Allergy 05-03-20 Eruption of skin (disorder), Rash [facility] Repository (2 sources) Oseltamivir; Translations: [Tamiflu] Drug Allergy [facility] Repository (1 source) Sulfamethoxazole / Trimethoprim; Translations: [Bactrim] Drug Allergy [facility] Repository (20 sources) Clavulanate Drug Allergy 07-15-20 [facility] (20 sources) Oseltamivir Drug Allergy 05-08-20 [facility] (20 sources) Amoxicillin-Pot Clavulanate Drug Allergy 04-24-20 24 [facility] Work Phone: Medications Current Medications Medication Drug Class(es) Dates Sig (Normalized) Sig (Original) docusate sodium 100 mg oral tablet (1 source) Start: 04-22-2023 Dulcolax Stool Softener 100 mg, Oral, Refills(s) 0 Start Date: 04/22/23 Status: Ordered ondansetron 4 mg oral tablet (17 sources) Serotonin-3 Receptor Antagonist Start: 05-19-2024 take [...] Vit-Fe Fumarate-FA ( 1 PLUS 1 PO) (20 sources) Vit-Fe Fumarate-FA ( 1 PLUS 1 PO) Take by mouth Active Completed/Discontinued Medications Medication Drug Class(es) Dates Sig (Normalized) Sig (Original) ibuprofen 400 mg oral tablet (1 source) Nonsteroidal Anti-inflammatory Drug Start: take 1-3 tablets by mouth every six hours as needed ibuprofen 400 mg Tab 400 mg = 1 tab(s), Oral, q6hr, PRN Pain 1-3, # 12 tab(s), Refills(s) 0, Pharmacy: [id number], 163, cm, 04/30/21 15:32:00 EDT, Height/Length [...] Start: 04-30-2021 take 1 tablet by rowan every four hours promethazine 25 mg Tab 25 mg = 1 tab(s), Oral, q4hr, # 12 tab(s), Refills(s) 0, Pharmacy: [id number], 163, cm, 04/30/21 15:32:00 EDT, Height/Length [...] sources) Vomiting; Translations: [Nausea] 11-20-2013 Episodic Other complications of (2 sources) size does not accord with dates; Translations: [Uterine size-date discrepancy, unspecified trimester] 09-15-2024 Episodic Other connective tissue disease (1 source) [...] 03-20-2022 Episodic Other and delivery including normal (20 sources) Urine test positive; Translations: [Encounter for [...] [25 weeks gestation of ] 08-17-2024 Episodic Residual codes; unclassified (2 sources) Gestation period, 29 weeks; Translations: [29 weeks gestation of ] 09-15-2024 Episodic Sprains and strains (1 source) Unspecified [...] Range Facility Urinalysis macro (dipstick) panel (U)on 09-15-2024 Bilirubin, UA Negative Negative - 4(70) +++ mg/dL [facility] Blood, UA Positive Negative - 50 Ilia/mcL [facility] Comment on above: trace Clarity, UA Clear [facility] Color, UA Yellow [facility] Glucose, UA Negative Negative - 1999(110) ++++ mg/dL [facility] Interpretation and review of laboratory results Abnormal [facility] Ketones, UA Negative Negative - 160(16) ++++ mg/dL [facility] Leukocytes, UA Negative Negative - 500+++ Sophy/mcL [facility] Nitrite, UA Negative Negative - Positive [facility] pH, UA 6.5 5 - 9 [facility] Protein, UA Positive Negative - 1999(20) ++++ mg/dL [facility] Comment on above: 30 mg Spec Grav, UA 1.025 1 - 1.03 [facility] Urobilinogen, UA 0.2 0.2 - 12 mg/dL [facility] GLUCOSE TOLERANCE 3 HOURon 0 09-12-2024 GLUCOSE TOLERANCE 3 HOUR High mg/dL [facility] Comment on above: GLU FAST 88 (<95) Co l: 09/12/24 0853 GLU 1HR 203H (<180) Col: 09/12/24 0956 GLU 2HR 137 (<155) Col: 09/12/24 1056 GLU 3HR 57 (<140) Col: 09/12/24 1156 Interpretation and review of laboratory results Abnormal [facility] ALL CBC WITH AUTO DIFFon BASOPHILS ABSOLUTE AUTO 0 [facility] Basophils/100 WBC (Bld) 0.4 % 0.2 - 2.0 % [facility] Eosinophils/100 WBC (Bld) 1 % 0.9 - 7.0 % [facility] Erythrocyte distribution width (RBC) [Ratio] 12.3 % 11.0 - 15.0 % [facility] Hematocrit (Bld) [Volume fraction] 34.3 % Low 36.0 - 48.0 % [facility] Hemoglobin (Bld) [Mass/Vol] 11 g/dL Low 12.0 - 16.0 g/dL [facility] IMMATURE GRANULOCYTES ABS AUTO 0.06 High [facility] Immature granulocytes/100 WBC (Bld) 0.9 % High 0.0 - 0.5 % [facility] Interpretation and review of laboratory results Abnormal [facility] LYMPHOCYTES ABSOLUTE AUTO 1.3 [facility] Lymphocytes/100 WBC (Bld) 19.5 % Low 20.5 - 60.0 % [facility] MCH (RBC) [Entitic mass] 29.2 pg 26.7 - 34.0 pg [facility] MCHC (RBC) [Mass/Vol] 32.1 g/dL 29.9 - 35.2 g/dL [facility] MCV (RBC) [Entitic vol] 91 fL 81.0 - 99.0 fL [facility] MONOCYTES ABSOLUTE AUTO 0.5 [facility] Monocytes/100 WBC (Bld) 6.9 % 1.7 - 12.0 % [facility] NEUTROPHILS ABSOLUTE AUTO 4.9 [facility] Neutrophils/100 WBC (Bld) 71.3 % 43.0 - 75.0 % [facility] Platelet mean volume (Bld) [Entitic vol] 9.5 fL 9.5 - 13.[address] [facility] EO # 0.1 [facility] PLT 281 [facility] RBC 3.[address] [facility] WBC 6.8 [facility] Urinalysis macro (dipstick) panel (U)on 08-17-2024 Bilirubin, UA Negative Negative - 4(70) +++ mg/dL [facility] Blood, UA Negative Negative - 50 Ilia/mcL [facility] Clarity, UA Clear [facility] Color, UA Yellow [facility] Glucose, UA Negative Negative - 1999(110) ++++ mg/dL [facility] Interpretation and review of laboratory results Normal [facility] Ketones, UA Negative Negative - 160(16) ++++ mg/dL [facility] Leukocytes, UA Negative Negative - 500+++ Sophy/mcL [facility] Nitrite, UA Negative Negative - Positive [facility] pH, UA 7 5 - 9 [facility] Protein, UA Negative Negative - 1999(20) ++++ mg/dL [facility] Spec Grav, UA 1.02 1 - 1.03 [facility] Urobilinogen, UA 0.2 0.2 - 12 mg/dL [facility] Urinalysis macro (dipstick) panel (U)on 07-16-2024 Bilirubin, UA Negative Negative - 4(70) +++ mg/dL [facility] Blood, UA Negative Negative - 50 Ilia/mcL [facility] Clarity, UA Clear [facility] Color, UA Yellow [facility] Glucose, UA Negative Negative - 1999(110) ++++ mg/dL [facility] Interpretation and review of laboratory results Abnormal [facility] Ketones, UA Negative Negative - 160(16) ++++ mg/dL [facility] Leukocytes, UA Trace Negative - 500+++ Sophy/mcL [facility] Nitrite, UA Negative Negative - Positive [facility] pH, UA 6.5 5 - 9 [facility] Protein, UA Negative Negative - 1999(20) ++++ mg/dL [facility] Spec Grav, UA 1.02 1 - 1.03 [facility] Urobilinogen, UA 1.0 0.2 - 12 mg/dL [facility] RECURRENT VAGINITIS (HTRX)on 06-18-2024 ATOPOBIUM VAGINAE 0 [facility] ATOPOBIUM VAGINAE Not detected [facility] BVAB 2,3 (BACTERIAL VAGINOSIS ASSOCIATED BACTERIA 2, 3); MOBILUNCUS SPP 0 [facility] BVAB 2,3 (BACTERIAL VAGINOSIS ASSOCIATED BACTERIA 2, 3); MOBILUNCUS SPP Not detected [facility] TIERA ALBICANS, PARAPSILOSIS, TROPICALIS 0 [facility] TIERA ALBICANS, PARAPSILOSIS, TROPICALIS Not detected [facility] TIERA GLABRATA 0 [facility] TIERA GLABRATA Not detected [facility] TIERA KRUSEI 0 [facility] TIERA KRUSEI Not detected [facility] CHLAMYDIA TRACHOMATIS 0 [facility] CHLAMYDIA TRACHOMATIS Not detected [facility] GARDNERELLA VAGINALIS 0 [facility] GARDNERELLA VAGINALIS Not detected [facility] MEGASPHAERA (TYPES 1, 2) 0 [facility] MEGASPHAERA (TYPES 1, 2) Not detected [facility] MYCOPLASMA GENITALIUM 0 [facility] MYCOPLASMA GENITALIUM Not detected [facility] NEISSERIA GONORRHOEAE 0 [facility] NEISSERIA GONORRHOEAE Not detected [facility] TRICHOMONAS VAGINALIS 0 [facility] TRICHOMONAS VAGINALIS Not detected [facility] Urinalysis macro (dipstick) panel (U)on 06-16-2024 Bilirubin, UA Negative Negative - 4(70) +++ mg/dL [facility] Blood, UA Negative Negative - 50 Ilia/mcL [facility] Clarity, UA Clear [facility] Color, UA Colorless [facility] Glucose, UA Negative Negative - 1999(110) ++++ mg/dL [facility] Interpretation and review of laboratory results Normal [facility] Ketones, UA Negative Negative - 160(16) ++++ mg/dL [facility] Leukocytes, UA Negative Negative - 500+++ Sophy/mcL [facility] Nitrite, UA Negative Negative - Positive [facility] pH, UA 7 5 - 9 [facility] Protein, UA Negative Negative - 2000(20) ++++ mg/dL [facility] Spec Grav, UA 1.015 1 - 1.03 [facility] Urobilinogen, UA 0.2 0.2 - 12 mg/dL [facility] Urinalysis macro (dipstick) panel (U)on 05-19-2024 Bilirubin, UA Negative Negative - 4(70) +++ mg/dL [facility] Blood, UA Negative Negative - 50 Ilia/mcL [facility] Clarity, UA Clear [facility] Color, UA Colorless [facility] Glucose, UA Negative Negative - 1999(110) ++++ mg/dL [facility] Interpretation and review of laboratory results Normal [facility] Ketones, UA Negative Negative - 160(16) ++++ mg/dL [facility] Leukocytes, UA Negative Negative - 500+++ Sophy/mcL [facility] Nitrite, UA Negative Negative - Positive [facility] pH, UA 6 5 - 9 [facility] Protein, UA Negative Negative - 1999(20) ++++ mg/dL [facility] Spec Grav, UA 1.01 1 - 1.03 [facility] Urobilinogen, UA 0.2 0.2 - 12 mg/dL [facility] BOX TESTon 05-05-2024 BOX TEST SENT OUT [facility] BOX1 [facility] BOX2 05/05/24 [facility] BOX [facility] HCG ( test) Ql (U)o n 04-24-2024 Interpretation and review of laboratory results Abnormal [facility] Preg Test, Ur Positive [facility] Urinalysis macro (dipstick) panel (U)on 04-24-2024 Bilirubin, UA Negative Negative - 4(70) +++ mg/dL [facility] Blood, UA Negative Negative - 50 Ilia/mcL [facility] Clarity, UA Clear [facility] Color, UA Yellow [facility] Glucose, UA Negative Negative - 1999(110) ++++ mg/dL [facility] Interpretation and review of laboratory results Abnormal [facility] Ketones, UA Negative Negative - 160(16) ++++ mg/dL [facility] Leukocytes, UA Positive Negative - 500+++ Sophy/mcL [facility] Nitrite, UA Negative Negative - Positive [facility] pH, UA 6.0 5 - 9 [facility] Protein, UA Negative Negative - 1999(20) ++++ mg/dL [facility] Spec Grav, UA 1.020 1 - 1.03 [facility] Urobilinogen, UA 1.0 0.2 - 12 mg/dL [facility] US NON OB TRANSVAGINALon US NON OB [...] Steve Borja MD 01/18/24 Final result Normal [facility] US PELVIS COMPLETEon 024 US PELVIS COMPLETE [...] Steve Borja MD 01/18/24 Final result Normal [facility] CBC With Platelet No Differe ntialon 07-28-2023 Erythrocyte distribution width (RBC) [Ratio] 12.5 % Normal 11.5-14.5 [facility] Comment on above: Performed By: #### C BCND #### [facility] [address] [place] [address] Hematocrit (Bld) [Volume fraction] 28.3 % Low 37.0-47.0 [facility] Comment on above: Performed By: #### C BCND #### [facility] [address] [place] [address] Hemoglobin (Bld) [Mass/Vol] 9.2 g/dL Low 12.0-16.0 [facility] Comment on above: Performed By: #### C BCND #### [facility] [address] [place] [address] MCH (RBC) [Entitic mass] 28.9 pg Normal 27.0-31.3 [facility] Comment on above: Performed By: #### C BCND #### [facility] [address] [place] [address] MCHC 32.5 % Low 33.0-37.0 [facility] Comment on above: Performed By: #### C BCND #### [facility] [address] [place] [address] MCV (RBC) [Entitic vol] 89.0 fL Normal 79.4-94.8 [facility] Comment on above: Performed By: #### C BCND #### [facility] [address] [place] [address] Platelets (Bld) [#/Vol] 241 10*3/uL Normal 130-400 [facility] Comment on above: Performed By: #### C BCND #### [facility] [address] [place] [address] RBC (Bld) [#/Vol] 3.18 10*6/uL Low 4.20-5.40 [facility] Comment on above: Performed By: #### C BCND #### [facility] [address] [place] [address] WBC (Bld) [#/Vol] 16.6 10*3/uL Critically high 4.8-10.8 [facility] Comment on above: Performed By: #### C BCND #### [facility] [address] [place] [address] HIV Ag/Abon 07-27-2023 HIV Ag/Ab Non-Reactive Normal NR [facility] Comment on above: Result Comment: No l aboratory evidence of HIV infection. If acute HIV infection is suspected, consider testing for HIV-1 RNA. Performed at [facility], [address] [place], [place] [id number] . CBC With Platelet and Differ entialon 07-26-2023 Basophils (Bld) [#/Vol] 0.1 10*3/uL Normal 0.0-0.2 [facility] Comment on above: Performed By: #### U A #### [facility] [address] [place] [address] Basophils/100 WBC (Bld) 0.5 % Normal [facility] Comment on above: Performed By: #### U A #### [facility] [address] [place] [address] Eosinophils (Bld) [#/Vol] 0.1 10*3/uL Normal 0.0-0.7 [facility] Comment on above: Performed By: #### U A #### [facility] [address] [place] [address] Eosinophils/100 WBC (Bld) 1.0 % Normal [facility] Comment on above: Performed By: #### U A #### [facility] [address] [place] [address] Erythrocyte distribution width (RBC) [Ratio] 12.3 % Normal 11.5-14.5 [facility] Comment on above: Performed By: #### U A #### [facility] [address] [place] [address] Hematocrit (Bld) [Volume fraction] 36.9 % Low 37.0-47.0 [facility] Comment on above: Performed By: #### U A #### [facility] [address] [place] [address] Hemoglobin (Bld) [Mass/Vol] 11.9 g/dL Low 12.0-16.0 [facility] Comment on above: Performed By: #### U A #### [facility] [address] [place] [address] Lymphocytes (Bld) [#/Vol] 2.0 10*3/uL Normal 1.0-4.8 [facility] Comment on above: Performed By: #### U A #### [facility] [address] [place] [address] Lymphocytes/100 WBC (Bld) 17.5 % Normal [facility] Comment on above: Performed By: #### U A #### [facility] [address] [place] [address] MCH (RBC) [Entitic mass] 29.0 pg Normal 27.0-31.3 [facility] Comment on above: Performed By: #### U A #### [facility] [address] [place] [address] MCHC 32.2 % Low 33.0-37.0 [facility] Comment on above: Performed By: #### U A #### [facility] [address] [place] [address] MCV (RBC) [Entitic vol] 90.0 fL Normal 79.4-94.8 [facility] Comment on above: Performed By: #### U A #### [facility] [address] [place] [address] Monocytes (Bld) [#/Vol] 1.1 10*3/uL Critically high 0.2-0.8 [facility] Comment on above: Performed By: #### U A #### [facility] [address] [place] [address] Monocytes/100 WBC (Bld) 9.7 % Normal [facility] Comment on above: Performed By: #### U A #### [facility] [address] [place] [address] Neutrophils (Bld) [#/Vol] 7.9 10*3/uL Critically high 1.4-6.5 [facility] Comment on above: Performed By: #### U A #### [facility] [address] [place] [address] Neutrophils/100 WBC (Bld) 70.4 % Normal [facility] Comment on above: Performed By: #### U A #### [facility] [address] [place] [address] Platelets (Bld) [#/Vol] 289 10*3/uL Normal 130-400 [facility] Comment on above: Performed By: #### U A #### [facility] [address] [place] [address] RBC (Bld) [#/Vol] 4.10 10*6/uL Low 4.20-5.40 [facility] Comment on above: Performed By: #### U A #### [facility] [address] [place] [address] WBC (Bld) [#/Vol] 11.2 10*3/uL Critically high 4.8-10.8 [facility] Comment on above: Performed By: #### U A #### [facility] [address] [place] [address] Comprehensive Metabolic Pane mello 07-26-2023 Albumin [Mass/Vol] 3.4 g/dL Low 3.5-4.6 [facility] Comment on above: Performed By: #### C MP #### [facility] [address] [place] [address] ALP [Catalytic activity/Vol] 134 U/L Critically high 40-130 [facility] Comment on above: Performed By: #### C MP #### [facility] [address] [place] [address] ALT [Catalytic activity/Vol] 13 U/L Normal 0-33 [facility] Comment on above: Performed By: #### C MP #### [facility] [address] [place] [address] Anion gap [Moles/Vol] 14 mmol/L Normal 9-15 [facility] Comment on above: Performed By: #### C MP #### [facility] [address] [place] [address] AST [Catalytic activity/Vol] 19 U/L Normal 0-35 [facility] Comment on above: Performed By: #### C MP #### [facility] [address] [place] [address] Bilirubin [Mass/Vol] mg/dL Normal 0.2-0.7 [facility] Comment on above: Performed By: #### C MP #### [facility] [address] [place] [address] Calcium [Mass/Vol] 9.7 mg/dL Normal 8.5-9.9 [facility] Comment on above: Performed By: #### C MP #### [facility] [address] [place] [address] Chloride [Moles/Vol] 103 mmol/L Normal 95-107 [facility] Comment on above: Performed By: #### C MP #### [facility] [address] [place] [address] CO2 [Moles/Vol] 19 mmol/L Low 20-31 [facility] Comment on above: Performed By: #### C MP #### [facility] [address] [place] [address] Creatinine [Mass/Vol] 0.75 mg/dL Normal 0.50-0.90 [facility] Comment on above: Performed By: #### C MP #### [facility] [address] [place] [address] GFR >60.0 Normal >60 [facility] Comment on above: Result Comment: Gunnar atric [...] secretion. Performed By: #### C MP #### [facility] [address] [place] [address] Globulin (S) [Mass/Vol] 2.9 g/dL Normal 2.3-3.5 [facility] Comment on above: Performed By: #### C MP #### [facility] [address] [place] [address] Glucose [Mass/Vol] 65 mg/dL Low 70-99 [facility] Comment on above: Performed By: #### C MP #### [facility] [address] [place] [address] Potassium [Moles/Vol] 4.5 mmol/L Normal 3.4-4.9 [facility] Comment on above: Performed By: #### C MP #### [facility] [address] [place] [address] Protein [Mass/Vol] 6.3 g/dL Normal 6.3-8.0 [facility] Comment on above: Performed By: #### C MP #### [facility] [address] [place] [address] Sodium [Moles/Vol] 136 mmol/L Normal 135-144 [facility] Comment on above: Performed By: #### C MP #### [facility] [address] [place] [address] Urea nitrogen [Mass/Vol] 8 mg/dL Normal 6-20 [facility] Comment on above: Performed By: #### C MP #### [facility] [address] [place] [address] Hepatitis B Surface Agon Hepatitis B Surface Ag Interp Non-Reactive Normal [facility] Comment on above: Performed By: #### H BSG #### [facility] [address] [place] [address] RPRon 07-26-2023 Reagin Ab RPR Ql (S) Non-Reactive Normal Non-reacti [facility] Comment on above: Performed By: #### R AL #### [facility] [address] [place] [address] Type and Screen Capture 3 sc rn cellon 07-26-2023 Type and Screen Capture 3 scrn cell PATIENT: ABDIAZIZ Drake LOC: [facility],0324,[id number] BILL# : [id number] : 2000 SEX: F ORDERED BY: KASSIDY BARAHONA ORDERED : 07/26/2023 09:26 COLLECTED: 07/26/2023 09:44 ORDER : [id number] RECEIVED : 07/26/2023 09:44 TEST NAME RESULT UNITS RANGES ABN FL ST ABORH Capture A POS F Antibody 3 Cell Scrn Captu NEG F Normal [facility] Comment on above: Performed By: #### T S3C #### [facility] [address] [place] [address] UR Drugs of Abuse Panelon Drug Screen Comment see below Normal [facility] Comment on above: Result Comment: This method is a screening test to detect only these drug classes as part of a medical workup. Confirmatory testing by another method should be ordered if clinically indicated. Performed By: #### U DRGS #### [facility] [address] [place] [address] UR Amphetamines Screen Negative Normal Negative < [facility] Comment on above: Performed By: #### U DRGS #### [facility] [address] [place] [address] UR Barbiturates Screen Negative Normal Negative < [facility] Comment on above: Performed By: #### U DRGS #### [facility] [address] [place] [address] UR Benzo Screen Negative Normal Negative < [facility] Comment on above: Performed By: #### U DRGS #### [facility] [address] [place] [address] UR Cannabinoids Screen Negative Normal Negative < [facility] Comment on above: Performed By: #### U DRGS #### [facility] [address] [place] [address] UR Cocaine Screen Negative Normal Negative < [facility] Comment on above: Performed By: #### U DRGS #### [facility] [address] [place] [address] UR Fentanyl Screen Negative Normal Negative < [facility] Comment on above: Performed By: #### U DRGS #### [facility] [address] [place] [address] UR Methadone Screen Negative Normal Negative < [facility] Comment on above: Performed By: #### U DRGS #### [facility] [address] [place] [address] UR Opiates Screen Negative Normal Negative < [facility] Comment on above: Performed By: #### U DRGS #### [facility] [address] [place] [address] UR Oxycodone Screen Negative Normal Negative < [facility] Comment on above: Performed By: #### U DRGS #### [facility] [address] [place] [address] UR PCP Screen Negative Normal Negative < [facility] Comment on above: Performed By: #### U DRGS #### [facility] [address] [place] [address] UR Propoxyphene Screen Negative Normal Negative < [facility] Comment on above: Performed By: #### U DRGS #### [facility] [address] [place] [address] Urinalysis, reflex to micros copicon 07-26-2023 Bilirubin Ql (U) Negative Normal Negative [facility] Comment on above: Performed By: #### U A #### [facility] [address] [place] [address] Clarity (U) Clear Normal Clear [facility] Comment on above: Performed By: #### U A #### [facility] [address] [place] [address] Color (U) Yellow Normal Straw/[place] [facility] Comment on above: Performed By: #### U A #### [facility] [address] [place] [address] Glucose Ql (U) Negative Normal Negative [facility] Comment on above: Performed By: #### U A #### [facility] [address] [place] [address] Hemoglobin Ql (U) Negative Normal Negative [facility] Comment on above: Performed By: #### U A #### [facility] [address] [place] [address] Ketones Ql (U) Negative Normal Negative [facility] Comment on above: Performed By: #### U A #### [facility] [address] [place] [address] Leukocyte esterase Test strip Ql (U) TRACE Abnormal Negative [facility] Comment on above: Performed By: #### U A #### [facility] [address] [place] [address] Nitrite Ql (U) Negative Normal Negative [facility] Comment on above: Performed By: #### U A #### [facility] [address] [place] [address] pH (U) 6.5 [pH] Normal 5.0-9.0 [facility] Comment on above: Performed By: #### U A #### [facility] [address] [place] [address] Protein Ql (U) TRACE Abnormal Negative [facility] Comment on above: Performed By: #### U A #### [facility] [address] [place] [address] Specific gravity (U) [Rel density] 1.009 Normal 1.005-1.03 [facility] Comment on above: Performed By: #### U A #### [facility] [address] [place] [address] Urobilinogen Qn (U) 0.2 {Yoselyn'U}/dL Normal < 2.0 [facility] Comment on above: Performed By: #### U A #### [facility] [address] [place] [address] Urine Microscopicon 07-26-20 23 Urine Bacteria RARE Abnormal Negative [facility] Comment on above: Performed By: #### U DEBBI #### [facility] [address] [place] [address] Urine Epithelial Cells Auto 20-50 Normal 0-5 [facility] Comment on above: Performed By: #### U DEBBI #### [facility] [address] [place] [address] Urine Hyaline Casts Auto 1-3 Normal 0-5 [facility] Comment on above: Performed By: #### U DEBBI #### [facility] [address] [place] [address] Urine RBC Auto 0-2 Normal 0-5 [facility] Comment on above: Performed By: #### U DEBBI #### [facility] [address] [place] [address] Urine WBC Auto 10-20 Abnormal 0-5 [facility] Comment on above: Performed By: #### U DEBBI #### [facility] [address] [place] [address] Culture, Group B Strepon Culture, Group B Strep ORDER#: [id number] ORDERED BY: BROOKLYN YI SOURCE: Vagina Genital COLLECTED: 07/12/23 15:54 ANTIBIOTICS AT [place].: RECEIVED : 07/12/23 16:18 Culture, Group B Strep FINAL 07/16/23 08:16 Rule Out Grp.B Strep: NEGATIVE FOR GROUP B STREPTOCOCCI Performed at [address] [id number] ([phone] Normal [facility] Comment on above: Performed By: #### R UBEL #### [facility] [address] [place] [address] US OB 1 OR MORE FETUS LIMITE Don 06-28-2023 US OB 1 OR MORE FETUS LIMITED EXAMINATION: 3rd TRIMESTER OBSTETRIC ULTRASOUND 06/28/2023 COMPARISON: None HISTORY: ORDERING SYSTEM PROVIDED HISTORY: Encounter for supervision in primigravida, antepartum, 31 weeks gestation of TECHNOLOGIST PROVIDED HISTORY: This procedure can be scheduled via MyChart. Access your [employer] account by visiting [employer]. What reading provider will be dictating this [...] Casey Hall MD 07/02/23 Final result Normal [facility] RPRon 05-01-2023 Reagin Ab RPR Ql (S) Non-Reactive Normal Non-reacti [facility] Comment on above: Performed By: #### R AL #### [facility] [address] [facility] [address] Glucose 1hr PPon 04-30-2023 Glucose [Mass/Vol] 101 mg/dL Normal 60-140 [facility] Comment on above: Result Comment: Gluc ose tolerance is IMPAIRED when the 1 hour post 50 gram load glucose is greater than 130mg/dL Performed By: #### G L1PP #### [facility] [address] [place] [address] Hemoglobin and Hematocriton 04-30-2023 Hematocrit (Bld) [Volume fraction] 35.4 % Low 37.0-47.0 [facility] Comment on above: Performed By: #### C BCWD #### [facility] [address] [place] [address] Hemoglobin (Bld) [Mass/Vol] 11.3 g/dL Low 12.0-16.0 [facility] Comment on above: Performed By: #### C BCWD #### [facility] [address] [place] [address] Nursing Assessmenton 023 Nursing Assessment [id number]#[id number]:127 Normal [facility] Auth for Release of Medical Recordson 04-22-2023 Auth for Release of Medical Records [id number]#1.00CD:127 Normal [facility] Discharge Instructionson Discharge Instructions [id number]#[id number]:127 Normal [facility] Inpatient Clinical Summaryon 04-22-2023 Inpatient Clinical Summary [place] [id number] Clinical Summary Person Information Name: HOLLIS FREED/[facility] Age: 23 Years : 2000 Sex: Female PCP: Gwen Sky DO Marital Status: Single Race: White Ethnicity: Non- or Language: Sri Lankan Visit Id: Visit Reason: fELL AT HOME Speciality: Acuity: Obs Enc Type: OB Triage Med Service: Obstetrics Arrival: 04/22/2023 14:32:43 Discharge: 04/22/2023 16:33:00 Dispo Type: Home (Routine DC) Address: [address] [place] [address] [phone] Provider Notes: Diagnosis: Problems Active (04/22/2023) Smoker [...] Follow up: With: Address: When: BROOKLYN YI [address] [place] [address] [place] [address] 04/30/2023 10:15 AM Patient Education Information: Round Ligament Pain Normal [facility] Inpatient Patient Summaryon 04-22-2023 Inpatient Patient Summary [address] [address] Patient Discharge Instructions PERSON INFORMATION Name: HOLLIS FREED [place] Date of : 2000 Current Date: 04/22/2023 [...] up: With: Address: When: BROOKLYN YI [address] [place] [address] 04/30/2023 10:15 AM In the event that [...] Last Dose: Next Dose: Pharmacy Information: [facility] PATIENT EDUCATION INFORMATION Instructions: Round Ligament [...] walks if they cause pain. ? Take [id number]-[id number] and prescription medicines only as told by [...] few sec (more content not included)... Normal [facility] Insurance Correspondence Off ice04-22-2023 Insurance Correspondence Office [id number]#[id number]:127 Normal [facility] UA With Cult Reflexon 2022 Bacteria LM Ql (Urine sed) TRACE Normal Trace [facility] Comment on above: Performed By: #### 1 [id number] #### [facility] [address] [place] [address] Bilirubin Ql (U) Negative Normal Negative [facility] Comment on above: Performed By: #### 1 [id number] #### [facility] [address] [place] [address] Calcium oxalate crystals LM Ql (Urine sed) Present Normal [facility] Comment on above: Performed By: #### 1 [id number] #### [facility] [address] [place] [address] Clarity (U) SL CLOUDY Invalid Interpretation Code [facility] Comment on above: Performed By: #### 1 [id number] #### [facility] [address] [place] [address] Color (U) YELLOW Normal Yellow [facility] Comment on above: Performed By: #### 1 [id number] #### [facility] [address] [place] [address] Crystals LM Ql (Urine sed) Present Normal [facility] Comment on above: Performed By: #### 1 [id number] #### [facility] [address] [place] [address] Epithelial cells.squamous LM.HPF (Urine sed) [#/Area] 9-10 Normal 0-2 [facility] Comment on above: Performed By: #### 1 [id number] #### [facility] [address] [place] [address] Glucose Test strip (U) [Mass/Vol] Negative Normal Negative [facility] Comment on above: Performed By: #### 1 [id number] #### [facility] [address] [place] [address] Hemoglobin Ql (U) Negative Normal Negative [facility] Comment on above: Performed By: #### 1 [id number] #### [facility] [address] [place] [address] Ketones (U) [Mass/Vol] Negative Normal Negative [facility] Comment on above: Performed By: #### 1 [id number] #### [facility] [address] [place] [address] [place].plasma/Lit hium.RBC (Bld) [Mass ratio] 0-3 Normal 0-3 [facility] Comment on above: Performed By: #### 1 [id number] #### [facility] [address] [place] [address] Mucus Ql (Urine sed) TRACE Normal [facility] Comment on above: Performed By: #### 1 [id number] #### [facility] [address] [place] [address] Nitrite Ql (U) Negative Normal Negative [facility] Comment on above: Performed By: #### 1 [id number] #### [facility] [address] [place] [address] pH (U) 7.5 [pH] Invalid Interpretation Code 5.0-9.0 [facility] Comment on above: Performed By: #### 1 [id number] #### [facility] [address] [place] [address] Protein (U) [Mass/Vol] Negative Normal Negative [facility] Comment on above: Performed By: #### 1 [id number] #### [facility] [address] [place] [address] Specific gravity (U) [Rel density] 1.010 Invalid Interpretation Code 1.005-1.03 0 [facility] Comment on above: Performed By: #### 1 [id number] #### [facility] [address] [place] [address] Type of Urine collection method Clean Catch Normal [facility] Comment on above: Performed By: #### 1 [id number] #### [facility] [address] [place] [address] Urobilinogen Qn (U) 0.2 {Yoselyn'U}/dL Normal 0.0-1.0 [facility] Comment on above: Performed By: #### 1 [id number] #### [facility] [address] [place] [address] WBC Auto Ql (U) TRACE Abnormal Negative [facility] Comment on above: Performed By: #### 1 [id number] #### [facility] [address] [place] [address] WBC LM.HPF (Urine sed) [#/Area] 0-5 Normal 0-5 [facility] Comment on above: Performed By: #### 1 [id number] #### [facility] [address] [place] [address] US OB 14 PLUS WEEKS SINGLE O R FIRST GESTATIONon 03-01-2023 US OB 14 PLUS WEEKS SINGLE OR FIRST GESTATION EXAMINATION: OBSTETRIC ULTRASOUND 03/01/2023 3:11 pm TECHNIQUE: Transabdominal sonographic evaluation of the pelvis was performed. COMPARISON: 12/31/2022. HISTORY: ORDERING SYSTEM PROVIDED HISTORY: 11 weeks gestation of , Supervision of other normal , antepartum TECHNOLOGIST PROVIDED HISTORY: This procedure can be scheduled via [employer]. Access your [employer] account by visiting [employer]. What reading provider will be dictating this [...] Jalil Noe MD 03/01/23 Final result Normal [facility] US OB LESS THAN 14 WEEKS SIN GLE OR FIRST GESTATIONon 12-31-2022 1. Single IUP with best estimate of gestational age being 9 weeks and 3 days. No abnormal fluid collections about the gestation. Yolk sac, pole and cardiac motion noted, with heart rate of 176 BPM. 2. 2.6 cm, slightly complex, left ovarian cyst. Possibly a corpus luteum cyst. [facility] EXAM: US First Trimester , Transabdominal and US Duplex Arterial/Venous of the Pelvis, Complete EXAM DATE/TIME: 12/31/2022 4:36 pm CLINICAL History lines: ORDERING SYSTEM PROVIDED Secondary amenorrhea, Positive urine test TECHNOLOGIST PROVIDED History lines: This procedure can be scheduled via [employer]. Access your [employer] account by visiting [employer]. What reading provider will be dictating this [...] 2.0 cm. Free fluid: No free fluid. [facility] Steve Borja MD - 12/31/2022 EXAM: US First Trimester , Transabdominal and US Duplex Arterial/Venous of the Pelvis, Complete EXAM DATE/TIME: 12/31/2022 4:36 pm CLINICAL History lines: ORDERING SYSTEM PROVIDED Secondary amenorrhea, Positive urine test TECHNOLOGIST PROVIDED History lines: This procedure can be scheduled via [employer]. Access your [employer] account by visiting [employer]. What reading provider will be dictating this [...] ovarian cyst. Possibly a corpus luteum cyst. [employer] Phone: Radiology Study observation (narrative) [employer] Phone: US OB LESS THAN 14 WEEKS SIN GLE OR FIRST GESTATIONOrdered By: Steve Borja on 12-31-2022 [employer] Phone: HPV DNA Typingon 12-26-2022 HPV Type 16 Not detected Normal Not Detect [facility] HPV Type 18 Not detected Normal Not Detect [facility] HPVOH (Other types) Detected Abnormal Not Detect [facility] Comment on above: Result Comment: *Inc ludes 31,33,35,39,45,51,52,56,58,59,66,68 genotypes C.trachomatis N.gonorrhoeae DNAon 12-25-2022 C. trachomatis DNA EVONNE+probe Ql (Unsp spec) Negative Normal Negative [facility] N. gonorrhoeae DNA EVONNE+probe Ql (Unsp spec) Negative Normal Negative [facility] Drug Panel 9A, Screen Only, Urineon 12-21-2022 Alcohol, Urine Negative Normal Cutoff 40 [facility] Amphetamines, Urine Negative Normal Cutoff 300 [facility] Barbiturates, Urine Negative Normal Cutoff 200 [facility] Benzodiazepines, Urine Negative Normal Cutoff [address] [facility] CDTI 9A Comments See Note Normal [facility] Comment on above: Result Comment: INTE RPRETIVE [...] opioid testing can be ordered. Refer to [employer] for test information. For medical purposes only; not valid for forensic use. Performed by [email or web address], [address] [place] [address] [email or web address], Nolberto Marie MD, PHD - Lab. Director Cocaine, Urine Negative Normal Cutoff 150 [facility] Creatinine, Urine 65.0 mg/dL Normal 20.0-400.0 [facility] Marijuana, Urine Positive Normal Cutoff 50 [facility] Comment on above: Result Comment: Pres umptively POSITIVE for cannabinoids (marijuana or Marinol use) by enzyme immunoassay. NOT CONFIRMED by LC-MS/MS. Unconfirmed positive may be useful for medical purposes, but does not meet forensic standards. MDMA, Urine Negative Normal Cutoff 500 [facility] Methadone, Urine Negative Normal [address] [facility] Opiates, Urine Negative Normal [address] [facility] Oxycodone, Urine Negative Normal Cutoff 100 [facility] Phencyclidine, Urine Negative Normal Cutoff 25 [facility] Propoxyphene, Urine Negative Normal Cutoff [address] [facility] HSV 1 Glycoprotein G Ab, IgG on 12-21-2022 HSV 1 Glycoprotein G Ab, IgG 27.20 IV Critically high <=0.89 [facility] Comment on above: Result Comment: REFE RENCE [...] a non-type specific screening test. Performed By: [email or web address] [address] [place] [address] S[employer] C[employer]: Nolberto Marie MD, PhD HSV 2 Glycoprotein G Ab, IgG on 12-21-2022 HSV 2 Glycoprotein G Ab, IgG 0.06 IV Normal <=0.89 [facility] Comment on above: Result Comment: REFE RENCE [...] a non-type specific screening test. Performed By: [email or web address] [address] [place] [address] Sole Cutter: Nolberto Marie MD, PhD Varicella-Zoster Virus Ab, I gGon 12-21-2022 Varicella-Zoster Virus Ab, IgG 240.8 IV Normal [facility] Comment on above: Result Comment: INTE RPRETIVE [...] laboratory at the same time. Performed By: [email or web address] [address] [place] [address] Sole Cutter: Nolberto Marie MD, PhD HIV Ag/Abon 12-20-2022 HIV Ag/Ab Non-Reactive Normal NR [facility] Comment on above: Result Comment: No l aboratory evidence of HIV infection. If acute HIV infection is suspected, consider testing for HIV-[address] [id number] ([phone] Hep C Abon 12-20-2022 Hep C Ab Non-Reactive Normal NR [facility] Comment on above: Result Comment: The hepatitis [...] recommended by ordering HCV RNA by PCR. [address] [id number] ([phone] RPRon 12-20-2022 Reagin Ab RPR Ql (S) Non-Reactive Normal Non-reacti [facility] Comment on above: Performed By: #### R UBEL #### [facility] [address] [place] [address] Trichmonas Vaginalis Screen (EIA)on 12-20-2022 Trichomonas Vaginalis Screen (EIA) Negative Normal [facility] Comment on above: Performed By: #### E TRIC #### [facility] [address] [place] [address] Wet Prep-Medical Purposes On rivera 12-20-2022 Wet Prep Clue Cellls None Seen Normal [facility] Comment on above: Performed By: #### C BCWD #### [facility] [address] [place] [address] Wet Prep Trichomonas See EIA Normal [facility] Comment on above: Performed By: #### C BCWD #### [facility] [address] [place] [address] Wet Prep Yeast None Seen Normal [facility] Comment on above: Performed By: #### C BCWD #### [facility] [address] [place] [address] CBC With Platelet and Differ entialon 12-19-2022 Basophils (Bld) [#/Vol] 0.0 10*3/uL Normal 0.0-0.2 [facility] Comment on above: Performed By: #### C BCWD #### [facility] [address] [place] [address] Basophils/100 WBC (Bld) 0.8 % Normal [facility] Comment on above: Performed By: #### C BCWD #### [facility] [address] [place] [address] Eosinophils (Bld) [#/Vol] 0.1 10*3/uL Normal 0.0-0.7 [facility] Comment on above: Performed By: #### C BCWD #### [facility] [address] [place] [address] Eosinophils/100 WBC (Bld) 1.7 % Normal [facility] Comment on above: Performed By: #### C BCWD #### [facility] [address] [place] [address] Erythrocyte distribution width (RBC) [Ratio] 12.4 % Normal 11.5-14.5 [facility] Comment on above: Performed By: #### C BCWD #### [facility] [address] [place] [address] Hematocrit (Bld) [Volume fraction] 33.7 % Low 37.0-47.0 [facility] Comment on above: Performed By: #### C BCWD #### [facility] [address] [place] [address] Hemoglobin (Bld) [Mass/Vol] 11.5 g/dL Low 12.0-16.0 [facility] Comment on above: Performed By: #### C BCWD #### [facility] [address] [place] [address] Lymphocytes (Bld) [#/Vol] 1.0 10*3/uL Normal 1.0-4.8 [facility] Comment on above: Performed By: #### C BCWD #### [facility] [address] [place] [address] Lymphocytes/100 WBC (Bld) 21.8 % Normal [facility] Comment on above: Performed By: #### C BCWD #### [facility] [address] [place] [address] MCH (RBC) [Entitic mass] 30.7 pg Normal 27.0-31.3 [facility] Comment on above: Performed By: #### C BCWD #### [facility] [address] [place] [address] MCHC 34.1 % Normal 33.0-37.0 [facility] Comment on above: Performed By: #### C BCWD #### [facility] [address] [place] [address] MCV (RBC) [Entitic vol] 89.8 fL Normal 79.4-94.8 [facility] Comment on above: Performed By: #### C BCWD #### [facility] [address] [place] [address] Monocytes (Bld) [#/Vol] 0.4 10*3/uL Normal 0.2-0.8 [facility] Comment on above: Performed By: #### C BCWD #### [facility] [address] [place] [address] Monocytes/100 WBC (Bld) 9.6 % Normal [facility] Comment on above: Performed By: #### C BCWD #### [facility] [address] [place] [address] Neutrophils (Bld) [#/Vol] 3.0 10*3/uL Normal 1.4-6.5 [facility] Comment on above: Performed By: #### C BCWD #### [facility] [address] [place] [address] Neutrophils/100 WBC (Bld) 66.1 % Normal [facility] Comment on above: Performed By: #### C BCWD #### [facility] [address] [place] [address] Platelets (Bld) [#/Vol] 226 10*3/uL Normal 130-400 [facility] Comment on above: Performed By: #### C BCWD #### [facility] [address] [place] [address] RBC (Bld) [#/Vol] 3.76 10*6/uL Low 4.20-5.40 [facility] Comment on above: Performed By: #### C BCWD #### [facility] [address] [place] [address] WBC (Bld) [#/Vol] 4.5 10*3/uL Low 4.8-10.8 [facility] Comment on above: Performed By: #### C BCWD #### [facility] [address] [place] [address] Culture, Urineon 12-19-2022 Culture, Urine ORDER#: [id number] OR DERED BY: BROOKLYN YI SOURCE: Urine Clean Catch COLLECTED: 12/19/22 14:44 ANTIBIOTICS AT [place].: RECEIVED : 12/19/22 20:01 Culture, Urine FINAL 12/21/22 12:29 Cult,Urine: NO SIGNIFICANT GROWTH Performed at [address] [address] ([phone] Normal [facility] Comment on above: Performed By: #### R UBEL #### [facility] [address] [facility] [id number] Gynecological Specimen (Cyto logy)on 12-19-2022 Gynecological Specimen (Cytology) [facility] [address] [facility], [place] [id number] FINAL CYTOLOGY PAP REPORT Patient Name: HOLLIS FREED Accession No: [id number] Age Sex: 2000 22 Y / F Location: [facility] Account No: [id number] Collected: 12/19/2022 [facility] Rec No: [id number] Received: 12/20/2022 Attend Phys: BROOKLYN YI Completed: 01/03/2023 Perform Phys: BROOKLYN YI SPECIMEN ADEQUACY: Satisfactory for Evaluation. Endocervical cells/transformation zone component present. GENERAL CATEGORIZATION: Epithelial Cell Abnormality INTERPRETATION/RESULTS: Atypical squamous cells of undetermined significance. Specimen: THINPREP LIQUID BASE IMAGED DIAGNOSTIC History: Source: Thin Prep Site: Cervical History: Previous abnormal smear? No History of CA? No Lab Order#: [id number] Test Name Collected D AND T Result [...] (PCR) and nucleic acid hybridization. CPT: Technical: 92179 X1 Professional: 26993 X1 Screened by: JEROME BROOKS(ASCP) EARL CURRIE [...] processed and screened using a Thin Prep Radiology Transcriptionist at [facility] [address] [place] [address] All abnormal gynecologic interpretation is performed at [facility], unless otherwise noted in the report. Page 1 of 1 Abnormal [facility] Comment on above: Performed By: #### R UBEL #### [facility] [address] [place] [address] HCG Quanton 12-19-2022 HCG Quant 33175.0 mIU/mL Normal [facility] Comment on above: Result Comment: Gest ational Age Expected HCG values (mIU/ml) 3 weeks 5-72 4 weeks 10-708 5 weeks 217-8,245 6 weeks 152-32,177 8 weeks 31,366-149,094 12 weeks 27,107-201,615 16 weeks 8,904-55,332 18 weeks 9,649-55,271 Performed By: #### R UBEL #### [facility] [address] [facility] [address] HPV DNA Typingon 12-19-2022 HPV Comment See below Normal [facility] Comment on above: Result Comment: Th is [...] Hepatitis B Surface Ag Interp Non-Reactive Normal [facility] Comment on above: Performed By: #### H BSG #### [facility] [address] [facility] [address] Rubella Ab, IgGon 12-19-2022 Rubella Ab, IgG 12.4 IU/mL Normal [facility] Comment on above: Result Comment: Yenni ent's result indicates immunity. Default Normal Ranges >=10 Presumed Immune <10 Presumed Not immune Performed By: #### R WIL #### [facility] [address] [place] [address] Type and 3 cell Screen OB Ca ptureon 12-19-2022 Type and 3 cell Screen OB Capture PATIENT: ABDIAZIZ Drake LOC: [facility],, BILL# : [id number] : 2000 SEX: F ORDERED BY: KASSIDY BARAHONA ORDERED : 12/19/2022 11:18 COLLECTED: 12/19/2022 11:19 ORDER : [id number] RECEIVED : 12/19/2022 15:40 TEST NAME RESULT UNITS RANGES ABN FL ST ABORH Capture A POS F Antibody 3 Cell Scrn Captu NEG F Normal [facility] Comment on above: Performed By: #### R UBEL #### [facility] [address] [place] [address] Urinalysis, reflex to micros copicon 12-19-2022 Bilirubin Ql (U) Negative Normal Negative [facility] Comment on above: Performed By: #### C BCWD #### [facility] [address] [place] [address] Clarity (U) Clear Normal Clear [facility] Comment on above: Performed By: #### C BCWD #### [facility] [address] [place] [address] Color (U) Yellow Normal St[facility]/[place] [facility] Comment on above: Performed By: #### C BCWD #### [facility] [address] [place] [address] Glucose Ql (U) Negative Normal Negative [facility] Comment on above: Performed By: #### C BCWD #### [facility] [address] [place] [address] Hemoglobin Ql (U) Negative Normal Negative [facility] Comment on above: Performed By: #### C BCWD #### [facility] [address] [place] [address] Ketones Ql (U) Negative Normal Negative [facility] Comment on above: Performed By: #### C BCWD #### [facility] [address] [place] [address] Leukocyte esterase Test strip Ql (U) TRACE Abnormal Negative [facility] Comment on above: Performed By: #### C BCWD #### [facility] [address] [place] [address] Nitrite Ql (U) Negative Normal Negative [facility] Comment on above: Performed By: #### C BCWD #### [facility] [address] [place] [address] pH (U) 7.0 [pH] Normal 5.0-9.0 [facility] Comment on above: Performed By: #### C BCWD #### [facility] [address] [place] [address] Protein Ql (U) Negative Normal Negative [facility] Comment on above: Performed By: #### C BCWD #### [facility] [address] [place] [address] Specific gravity (U) [Rel density] 1.013 Normal 1.005-1.03 [facility] Comment on above: Performed By: #### C BCWD #### [facility] [address] [place] [address] Urobilinogen Qn (U) 0.2 {Yoselyn'U}/dL Normal < 2.0 [facility] Comment on above: Performed By: #### C BCWD #### [facility] [address] [place] [address] Urine Microscopicon 12-20-19 23 Bacteria LM.HPF (Urine sed) [#/Area] Negative Normal Negative [facility] Comment on above: Performed By: #### U DEBBI #### [facility] [address] [place] [address] Urine Epithelial Cells Auto 3-5 Normal 0-5 [facility] Comment on above: Performed By: #### U DEBBI #### [facility] [address] [place] [address] Urine Hyaline Casts Auto 0-1 Normal 0-5 [facility] Comment on above: Performed By: #### U DEBBI #### [facility] [address] [place] [address] Urine RBC Auto 3-5 Abnormal 0-5 [facility] Comment on above: Performed By: #### U DEBBI #### [facility] [address] [place] [address] Urine WBC Auto 0-2 Normal 0-5 [facility] Comment on above: Performed By: #### U DEBBI #### [facility] [address] [place] [address] ANKLE, COMPLETE, MIN 3 VIEWS on 03-20-2022 ANKLE, COMPLETE, MIN 3 VIEWS Patient Name: HOLLIS FREED STUDY: ANKLE, COMPLETE, MIN 3 VIEWS; Right; 03/20/2022 2:21 pm INDICATION: pain M25.579: Ankle pain. ACCESSION NUMBER(S): [id number] ORDERING CLINICIAN: BEE LEDESMA FINDINGS: Right ankle x-rays three views AP, lateral and oblique view: No acute fractures, no dislocation. Mortise intact. Electronically signed by: BEE LEDESMA MD Normal [facility] FOOT COMPLETE, MIN 3 VIEWSon 03-20-2022 FOOT COMPLETE, MIN 3 VIEWS Patient Name: HOLLIS FREED STUDY: FOOT; COMPLETE, MIN 3 VIEWS; Right; 03/20/2022 2:21 pm INDICATION: pain M25.579: Ankle pain M79.673: Foot pain. ACCESSION NUMBER(S): [id number] ORDERING CLINICIAN: BEE LEDESMA FINDINGS: Right foot x-rays three views AP, lateral and oblique view: No acute fractures, no dislocation. No significant degenerative changes. Electronically signed by: BEE LEDESMA MD Normal [facility] Initial Visit (Orthopaedic S urgery)on 03-20-2022 [...] RT Foot and ankle injury. Xrays @ [facility] History of Present IllnessHollis presents for right [...] Gary, ; Mar 22 2022 4:44PM EST (Window/Distribution Clerk/Recorder) Electronically signed by : Bee Ledesma MD; Mar 23 2022 8:17AM EST Normal [facility] Radiologyon 03-20-2022 XR Ankle 3 Views Normal [facility] Work Phone: XR Foot 3 Views Normal -[facility] Work Phone: Tyrese 02-10-2018 COLBYN Telephone (JHONATHAN) HOLLIS CM ([id number]) 2000 [facility] Time Provider Department02/10/18 STEVE COELLO During your visit today, we recorded the following information about you:Julio Capone 02/10/2018 3:25 PM SignedReceived 02/01/18 lab results from [facility]. Placed in provider's inbox forreview.(Gonococcus, Trich, Chlamydia) negativeRoute to [place] for scanning.Julio Liborio 02/17/2018 8:35 AM SignedSent to scanning.Allergies As [...] by STEVE COELLO MD on 02/15/[address] [facility] CNPN Telephone (FAMDNA) HOLLIS CM ([id number]) 2000 FDate Time Provider Zcrilyduxv58/1/17 STEVE COELLO During your visit today, we [...] by TATIANA PACHECO RN on 05/29/17 Normal [facility] Free T4on 05-28-2017 Thyroxine (T4) free 1.3 ng/dL Normal 0.9-1.7 [facility] Comment on above: Performed By: #### F T4 ####[facility] [address] [place], [place] [phone] CNOVon 05-27-2017 CNOV Office Visit (FAMDNA) CL HOLLIS HEWITT ([id number]) 2000 te Time Provider Uacsmzaaqp23/30/17 4:20 PM STEVE COELLO FAMDNA During your visit today, we recorded the following information about you: Temperature Pulse Respiration Blood pressure 98 degrees 70/minute 16/minute 118/61 Weight Height Last Period 70.2 kg 1.613 m 05/25/17Cherelle Martinez MA 05/27/2017 4:29 PM SignedPatient presents with:PhysicalPain (Shoulder Pain): Right side pain on and offLyomaira Martinez MA 05/31/2017 2:26 PM SignedTETANUS due [...] 11.2 oz) LMP 05/25/2017 SpO2 98% BMI26.97 kg/b5MCRRDIL APPEARANCE: Well appearing, alert, in no acute [...] loss encouragedGet shot recordEchocardiogramincrease fiber in in [id number] PROBLEM LISTPREMATURE PUBERTYThomas Flavia Simpson 05/27/2017 5:43 [...] pain [M25.511, G89.29] Shortness of breath [R06.02]Order(s):ECHO [713132] Order #: [id number]: 1 FUTURE T4 FREE/FREE THYROX [SQFT4] Order #: [id number] FUTURE T4 FREE/FREE THYROX [SQFT4] Order #: [id number]. 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 Number of tubes collected: 1gold. Status:Closed by STEVE COELLO MD on 05/31/17 Normal [facility] PROGRESSon 05-27-2017 Protein HNO ID: [id number] thor: Steve Spenceervice: (none)Author Type: PhysicianType: Progress [...] 11.2 oz) LMP 05/25/2017 SpO2 98% BMI26.97 kg/n8IMXRIWR APPEARANCE: Well appearing, alert, in no acute [...] loss encouragedGet shot recordEchocardiogramincrease fiber in in [id number] PROBLEM LISTPREMATURE PUBERTYThomas L MD Mode Normal [facility] Protein HNO ID: [id number] thor: Cherelle Farfan)(Hist) VaughnService: (none)Author Type: Medical AssistantType: Progress NotesFiled: 05/31/2017 2:26 PMNote Text:TETANUS due on 2009HPV VACCINE(1 of 3 - Female 3 Dose Series) due on 2009GC (GONORRHEA) SCREENING (18-24) due on 01/22/2016CHLAMYDIA SCREENING (18-24) due on 01/22/2016 Normal [facility] Test, Serum (Walk In)on 03-12-2017 Test, Serum (Walk In) Negative Normal [facility] Comment on above: Performed By: #### P GSWI ####[address] [place] [address] Vital Signs Date Time Vital Sign Value Performing Clinician Giovanna sheriff 09-15-2024 11:27-0500 Body weight 92.53 kg Causes Work Phone: [facility] 09-15-2024 11:27-0500 Diastolic blood pressure 76 mm[Hg] Roberto Finn DO Work Phone: [facility] 09-15-2024 11:27-0500 Systolic blood pressure 138 mm[Hg] Roberto Huma DO Work Phone: [facility] 08-17-2024 14:24-0500 Body weight 93.62 kg Marilyn Isabel PA Work Phone: [facility] 08-17-2024 14:24-0500 Diastolic blood pressure 60 mm[Hg] Marilyn Isabel PA Work Phone: [facility] 08-17-2024 14:24-0500 Systolic blood pressure 120 mm[Hg] Marilyn Isabel PA Work Phone: [facility] 07-16-2024 10:48-0500 Body weight 88.91 kg Roberto Huma DO Work Phone: [facility] 07-16-2024 10:48-0500 Diastolic blood pressure 60 mm[Hg] Roberto Huma DO Work Phone: [facility] 07-16-2024 10:48-0500 Systolic blood pressure 110 mm[Hg] Roberto Huma DO Work Phone: [facility] 06-16-2024 13:37-0500 Body weight 83.01 kg Marilyn Isabel PA Work Phone: [facility] 06-16-2024 13:37-0500 Diastolic blood pressure 64 mm[Hg] Marilyn Isabel PA Work Phone: [facility] 06-16-2024 13:37-0500 Systolic blood pressure 112 mm[Hg] Marilyn Isabel PA Work Phone: [facility] 05-19-2024 15:04-0400 Body weight 80.74 kg Roberto Huma DO Work Phone: [facility] 05-19-2024 15:04-0400 Diastolic blood pressure 76 mm[Hg] Roberto Huma DO Work Phone: [facility] 05-19-2024 15:04-0400 Systolic blood pressure 138 mm[Hg] Roberto Huma DO Work Phone: [facility] Encounters Encounter Date Encounter Type Care Provider Facility Start: 09-17-2024 End: 09-29-2024 Telephone encounter Roberto Huma DO Work Phone: [facility] Start: 09-15-2024 End: 09-15-2024 Bamboo flowsheet Roberto Huma DO Work Phone: [facility] Start: 09-15-2024 End: 09-15-2024 Bamboo flowsheet Roberto Huma DO Work Phone: [facility] Start: 09-15-2024 End: 09-15-2024 ambulatory ROBERTO HUMA Not Available Start: 09-15-2024 End: 09-15-2024 Office outpatient visit 15 minutes Roberto Huma DO Work Phone: [facility] Comment on above: Third trimester preg maryan; 29 weeks gestation of ; size inconsistent with dates Start: 09-12-2024 End: 09-12-2024 Clinisync Result Encounter Roberto Huma DO Work Phone: [facility] Unsolicited Start: 09-12-2024 End: 09-12-2024 Clinisync Result Encounter Roberto Huma DO Work [...] External Result Encounter Marilyn LIVINGSTON Work Phone: [facility] External Department Unsolicited Start: 06-16-2024 End: 06-16-2024 [...] GA: 8w5d Start: 01-17-2024 End: [facility] Start: 07-26-2023 End: 07-29-2023 Evaluation and management of inpatient [facility] Start: 06-28-2023 End: 06-30-2023 ambulatory [facility] Start: 04-23-2023 End: 05-29-2023 Pre-admission assessment Jos Fuchs [facility] Start: 04-22-2023 End: 04-22-2023 ambulatory Jos Fuchs Facility:[facility] Start: 03-01-2023 End: 03-03-2023 ambulatory [facility] Start: 12-31-2022 End: 01-02-2023 Subsequent hospital visit by physician Brooklyn Montenegro DO Work Phone: [facility] Comment on above: Secondary amenorrhea ; Positive urine test Start: 04-10-[address] Bee canseco Gric[place]da Facility:[id number] Start: 03-20-[address] Bee canseco Gric[place]da Facility:[id number] Start: 03-20-2022 Patient encounter procedure Bee Ledesma MD Work Phone[facility] Work Phone: Start: 05-27-2017 End: 06-03-2017 Patient encounter STEVE COELLO [facility] Start: 03-12-2017 Ambulatory NO FAMILY DOCTOR Facili ty:1637 Procedures Date Procedure Procedure Detail Performing Clinician Start: 09-15-2024 Urnls dip stick/tabl et rgnt non-auto w/o micrscp Roberto Huma DO Work Phone: Start: 09-12-2024 GLUCOSE TOLERANCE 3 HOUR Roberto Huma DO Work Phone: Start: 09-10-2024 ALL CBC WITH AUTO DIFF [...] dip stick/tablet rgnt non-auto w/o micrscp Roberto Huma DO Work Phone: Start: 12-31-2022 Us uterus 1 4 wk transabdl 07/29 gestat Brooklyn Montenegro DO Work Phone: Start: 08-20-2019 Microscopic observat ion [Identifier] in Cervix by Cyto stain Brooklyn Montenegro DO Work Phone: None (qualifier value) Jos Fuchs Plan of Treatment Date Care Activity Detail Author Start: 09-29-2024 End: 09-29-2024 Patient encounter procedure 09/29/2024 2:40 PM EST Routine [facility] [address] [place] [phone] Roberto Finn, DO [address] [place] [address] [facility] Start: 09-29-2024 End: 09-29-2024 Professional / ancillary services management 09/29/2024 2:00 PM EST Ancillary Procedure [facility] [address] [place] [phone] [facility] Start: 09-15-2024 End: 09-15-2025 US for US OB follow up transabdominal approach Imaging Routine size inconsistent with dates Expected: 09/15/2024, Expires: 09/15/2025 [facility] Work Phone: Comment on above: Expected: 09/15/2024 , Expires: 09/15/2025 Start: 09-15-2024 End: 09-15-2024 Patient encounter procedure 09/15/2024 11:10 AM EST Routine [facility] [address] [place] [phone] Roberto Finn, DO [address] [address] [facility] Start: 08-17-2024 End: 08-17-2024 Patient encounter procedure 08/17/2024 2:20 PM EST Routine [facility] [address] [place] [phone] Marilyn Mcintyre PA [address] [place] [address] Arrived [facility] Comment on above: Arrived Start: 08-17-2024 End: 08-17-2025 CBC panel - Blood by Automated count CBC Lab Routine Diabetes mellitus screening Expected: 08/17/2024 (Approximate), Expires: 08/17/2025 [facility] Work Phone: Comment on above: Expected: 08/17/2024 (Approximate), Expires: 08/17/2025 Start: 08-17-2024 End: 08-17-2025 Measurement of glucose 1 hour after glucose challenge for glucose tolerance test Glucose tolerance, 1 hour Lab Routine Diabetes mellitus screening Expected: 08/17/2024 (Approximate), Expires: 08/17/2025 [facility] Comment on above: Expected: 08/17/2024 (Approximate), Expires: 08/17/2025 Start: 08-13-2024 End: 08-13-2024 Patient encounter procedure 08/13/2024 1:30 PM EST Routine [facility] [address] [phone] Marilyn Mcintyre PA [address] [place] [address] [facility] Start: 07-16-2024 End: 07-16-2024 Alpha fetoprotein, maternal Alpha fetoprotein, maternal Lab Routine Need for maternal serum alpha-protein (MSAFP) screening Expected: 07/16/2024 (Approximate), Expires: 07/16/2024 [facility] Work Phone: Comment on above: Expected: 07/16/2024 (Approximate), Expires: 07/16/2024 Start: 07-16-2024 End: 07-16-2024 Patient encounter procedure 07/16/2024 10:20 AM EST Routine [facility] [address] [facility] [place] [phone] Roberto Finn DO [address], [place] [address] [facility] Start: 06-16-2024 End: 06-16-2025 US for US OB ANATOMY SINGLE W US OB CERVICAL LENGTH Imaging Routine Screening, , for anatomic survey Expected: 06/16/2024 (Approximate), Expires: 06/16/2025 [facility] Comment on above: Expected: 06/16/2024 (Approximate), Expires: 06/16/2025 Start: 06-16-2024 End: 06-16-2024 Patient encounter procedure 06/16/2024 1:00 PM EST Routine [facility] [address] [facility] [address] [phone] Marilyn Mcintyre PA [address] [place], [place] [phone] [facility] Start: 05-19-2024 End: 05-19-2024 Patient encounter procedure 05/19/2024 2:40 PM EDT Routine [facility] [address] [place] [phone] Roberto Finn DO [address] [place], [place] [id number] [facility] Start: 04-24-2024 End: 04-24-2025 ABO/Rh ABO/Rh Lab Routine Missed menses , unspecified gestational age Expected: 04/24/2024 (Approximate), Expires: 04/24/2025 [facility] Comment on above: Expected: 04/24/2024 (Approximate), Expires: 04/24/2025 Start: 04-24-2024 End: 04-24-2025 Blood type and Indirect antibody screen panel - Blood Type and screen Lab Routine Missed menses , unspecified gestational age Expected: 04/24/2024 (Approximate), Expires: 04/24/2025 [facility] Work Phone: Comment on above: Expected: 04/24/2024 (Approximate), Expires: 04/24/2025 Start: 04-24-2024 End: 04-24-2025 Drugs of abuse panel - Urine by Screen method Rapid drug screen, urine Lab Routine , unspecified gestational age Encounter for supervision of normal first in first trimester Expected: 04/24/2024 (Approximate), Expires: 04/24/2025 [facility] Comment on above: Expected: 04/24/2024 (Approximate), Expires: 04/24/2025 Start: 04-24-2024 End: 04-24-2025 US Pelvis transvaginal US OB transvaginal Imaging Routine Missed menses Expected: 04/24/2024 (Approximate), Expires: 04/24/2025 [facility] Healthcare Comment on above: Expected: 04/24/2024 (Approximate), Expires: 04/24/2025 Start: 03-29-2024 Influenza vaccination Influenza Vacc ine (#1) [facility] Start: 12-20-2023 Depression Screen Depression Screen [facility] Start: 12-20-2023 Screening for Chlamy manisha trachomatis Chlamydia/GC screen [facility] Start: 02-26-2023 Influenza vaccination Flu vacc ine (Season Ended) [facility] Start: 01-16-2023 End: 01-16-2023 ambulatory 01/16/2023 Initial Obstetrics and Gynecology Brooklyn Montenegro DO [address] [place] [address] [facility] Obstetrics and Gynecology Start: 08-20-2022 Screening for malign ant neoplasm of cervix Pap smear [facility] Start: 04-10-2022 FUV, Provider: Bee Ledesma, Status: Pen, Time: 10:15 AM FUV, Provider: Bee Ledesma, Status: Castillo, Time: 10:15 AM [facility]: Start: 04-20-2019 DTaP/Tdap/Td vaccine (7 - Td or Tdap) DTaP/Tdap/Td vaccine (7 - Td or Tdap) [facility] Start: 07-06-2010 Hepatitis A vaccine (2 of 2 - 2-dose series) Hepatitis A vaccine (2 of 2 - 2-dose series) [facility] Start: 1998 COVID-19 Vaccine (#1) COVID-19 Vacci ne (#1) [facility] Bacteria identified in Urine by Culture Urine culture Microbiology Routine Missed menses Ordered: 04/24/2024 [facility] Comment on above: Ordered: 04/24/2024 CBC W Auto Different ial panel - Blood CBC and differential Lab Routine Missed menses , unspecified gestational age Ordered: 04/24/2024 [facility] Comment on above: Ordered: 04/24/2024 CHLAMYDIA TRACHOMATI S (GENITO/STI) CHLAMYDIA TRACHOMATIS (GENITO/STI) Lab Routine Exposure to STD Ordered: 06/16/2024 [facility] Comment on above: Ordered: 06/16/2024 Hemoglobin A1c/Hemoglobin.total in Blood Hemoglobin A1c Lab Routine Missed menses , unspecified gestational age Ordered: 04/24/2024 [facility] Comment on above: Ordered: 04/24/2024 Hepatitis B virus surface Ag [Presence] in Serum or Plasma by Immunoassay Hepatitis B surface antigen Lab Routine Missed menses , unspecified gestational age Ordered: 04/24/2024 [facility] Comment on above: Ordered: 04/24/2024 Hepatitis C virus Ab [Presence] in Serum or Plasma by Immunoassay Hepatitis C antibody Lab Routine Missed menses , unspecified gestational age Ordered: 04/24/2024 [facility] Comment on above: Ordered: 04/24/2024 HIV-1/HIV-2 antigen/antibody combination immunoassay HIV-1 and HIV-2 antibodies Lab Routine Missed menses , unspecified gestational age Ordered: 04/24/2024 [facility] Comment on above: Ordered: 04/24/2024 Neisseria gonorrhoea e DNA [Presence] in Unspecified specimen by EVONNE with probe detection Neisseria gonorrhea DNA probe, direct Lab Routine Exposure to STD Ordered: 06/16/2024 [facility] Comment on above: Ordered: 06/16/2024 Reagin Ab [Presence] in Serum by RPR RPR Lab Routine Missed menses , unspecified gestational age Ordered: 04/24/2024 [facility] Comment on above: Ordered: 04/24/2024 Rubella antibody, IgG Rubella an tibody, IgG Lab Routine Missed menses , unspecified gestational age Ordered: 04/24/2024 [facility] Comment on above: Ordered: 04/24/2024 SURESWAB(R) ADVANCED VAGINITIS PLUS, TMA SURESWAB(R) ADVANCED VAGINITIS PLUS, TMA Pathology and Cytology Routine Exposure to STD Ordered: 06/16/2024 [facility] Comment on above: Ordered: 06/16/2024 Immunizations Immunization Date Immunization Notes Care Provider Angelique beatty 05-29-2019 influenza virus vaccine, unspecified formulation Jos Fuchs [facility] Comment on above: Result Comment: [facility] [place] 06-07-2010 human papilloma viru s vaccine, quadrivalent Brooklyn Montenegro DO Work Phone: [employer] Work Phone: 06-07-2010 influenza virus vaccine, unspecified formulation Brooklyn Montenegro DO Work Phone: [employer] Work Phone: 01-04-2010 hepatitis A vaccine, unspecified formulation Brooklyn Montenegro DO Work Phone: [employer] Phone: 01-04-2010 human papilloma viru s vaccine, quadrivalent Brooklyn Montenegro DO Work Phone: [employer] Work Phone: 01-04-2010 varicella virus vaccine Brooklyn Montenegro DO Work Phone: [employer] Work Phone: 04-20-2009 human papilloma viru s vaccine, quadrivalent Brooklyn Montenegro DO Work Phone: [employer] Phone: 04-20-2009 tetanus toxoid, reduced diphtheria toxoid, and acellular pertussis vaccine, adsorbed Brooklyn Montenegro DO Work Phone: [employer] Work Phone: 08-19-2006 influenza virus vaccine, unspecified formulation Brooklyn Montenegro DO Work Phone: [employer] Work Phone: 06-14-2006 influenza virus vaccine, unspecified formulation Brooklyn Montenegro DO Work Phone: [employer] Work Phone: 03-02-2003 diphtheria, tetanus toxoids and acellular pertussis vaccine Brooklyn Montenegro DO Work Phone: [employer] Work Phone: 03-02-2003 measles, mumps and rubella virus vaccine Brooklyn Montenegro DO Work Phone: [employer] Work Phone: 03-02-2003 poliovirus vaccine, inactivated Brooklyn Montenegro DO Work Phone: [employer] Work Phone: 04-28-1999 diphtheria, tetanus toxoids and acellular pertussis vaccine Brooklyn Montenegro DO Work Phone: [employer] Work Phone: 04-28-1999 poliovirus vaccine, inactivated Brooklyn Montenegro DO Work Phone: [employer] Work Phone: 01-25-1999 Hib, unspecified Brooklyn pickensarmen DO Work Phone: [employer] Work Phone: 01-25-1999 measles, mumps and rubella virus vaccine Brooklyn Montenegro DO Work Phone: [employer] Work Phone: 01-25-1999 varicella virus vaccine Brooklyn Montenegro DO Work Phone: [employer] Work Phone: 1998 diphtheria, tetanus toxoids and acellular pertussis vaccine Brooklyn Montenegro DO Work Phone: [employer] Work Phone: 1998 hepatitis B vaccine, adult dosage Brooklyn Montenegro DO Work Phone: [employer] Work Phone: 1998 Hib, unspecified Brooklyn you DO Work Phone: [employer] Work Phone: 1998 diphtheria, tetanus toxoids and acellular pertussis vaccine Brooklyn Montenegro DO Work Phone: [employer] Work Phone: 1998 hepatitis B vaccine, adult dosage Brooklyn Montenegro DO Work Phone: [employer] Work Phone: 1998 Hib, unspecified Brooklyn you DO Work Phone: [employer] Work Phone: 1998 poliovirus vaccine, inactivated Brooklny Montenegro DO Work Phone: [employer] Work Phone: 1998 hepatitis B vaccine, adult dosage Brooklyn Montenegro DO Work Phone: [employer] Work Phone: 1998 diphtheria, tetanus toxoids and acellular pertussis vaccine Brooklyn Montenegro DO Work Phone: [employer] Work Phone: 1998 poliovirus vaccine, inactivated Brooklyn Montenegro DO Work Phone: [employer] Work Phone: Payers Date Payer Category Payer Medicaid [id number] 2022 Private Health Insurance [id number] 1998 Unknown [id number] 2.16.8 [id number] 1998 Unknown [id number] 2.16.8 [id number] 1998 Unknown [id number] 2.16.8 [id number] 1998 Unknown [id number] 2.16.8 [id number] 1998 Unknown [id number] 2.16.8 [id number] 1998 Unknown [id number] 2.16.8 [id number] 1998 Unknown [id number] 2.16.8 [id number] 1998 Unknown [id number] 2.16.84 [id number] 1998 Unknown [id number] 2.16.84 [id number] 1998 Unknown [id number] 2.16.84 [id number] 1998 Unknown [id number] 2.16.84 [id number] 1998 Unknown [id number] 2.16.84 [id number] 1998 Unknown [id number] 2.16.84 [id number] Unknown 1914 Unknown Self Pay Social History Date Type Detail Facility Start: 03-02-2020 End: 12-19-2022 Tobacco smoking status [facility] Start: 12-19-2022 Tobacco use and exposure Smokeless tobacco non-user [employer] Phone: Start: 12-19-2022 Alcohol intake Ex-drinker (finding) [employer] Phone: Start: 2000 Sex Assigned At Not on file [employer] Phone: Sex Assigned At Female [facility] Tobacco smoking status NHIS Tobacco smoking consumption unknown [facility] Start: 03-08-2024 [facility] Start: 1998 Sex assigned at Female [facility] Start: 04-17-2024 Gender identity Identifies as female gender (finding) [facility] Clinical Notes 04-22-2023 to 09-17-2024 Telephone Encounter - Connie Chau LPN - 09/17/2024 11:27 AM ESTTelephone Encounter - Connie Chau LPN - 09/17/2024 11:27 AM Emelia Blanco LPN - 09/15/2024 11:10 AM EST Note Date & Type Note Facility 09-17-2024 Telephone encount er Note Hi, this is Hollis Freed. I am almost 30 weeks . I just slipped and fell in my driveway and I am having pain in my hips and I do not know what I should do. I should go to labor and delivery or not and get checked out just to be safe. The baby is moving, but I just want to Make sure about place detach and everything like that. So if you could give me a call back at [phone], that would be great. Thank you. I also talked to pt and advised her to go to the ER and get evaluated. {PVU [facility] 09-17-2024 Miscellaneous Notes Formattin g of this note might be different from the original. Hi, this is Hollis Freed. I am almost 30 weeks . I just slipped and fell in my driveway and I am having pain in my hips and I do not know what I should do. I should go to labor and delivery or not and get checked out just to be safe. The baby is moving, but I just want to Make sure about place detach and everything like that. So if you could give me a call back at [phone], that would be great. Thank you. I also talked to pt and advised her to go to the ER and get evaluated. {PVU OB 29 wks calls with concern of falling on the ice and is now having hip pain. She is tearful. Pt advised to be seen at hospital for evaluation. She will find childcare and go to the hospital in about an hour. documented in this encounter [facility] 09-17-2024 Telephone encount er Note OB 29 wks calls with concern of falling on the ice and is now having hip pain. She is tearful. Pt advised to be seen at hospital for evaluation. She will find childcare and go to the hospital in about an hour. [facility] 09-15-2024 History of Presen t illness Narrative Reason [...] nursing note reviewed. Exam conducted with a catcher plug present. Vitals: There is no height or weight on file to calculate BMI. BP: 138/76 Patient's last menstrual period was 02/23/2024. ASSESSMENT & PLAN ICD-10-CM 1. Third trimester Z34.93 POCT urinalysis dipstick manually resulted 2. 29 weeks gestation of Z3A.29 Return OB: Patient presents today for a routine obstetrics appointment. Patient is currently 29w2d . Patient states she is doing well but has complaints of being tired due to current . Patient has verbalizes frequent movement. labor precautions was discussed/given and patient was instructed to perform kick counts three times a day. Orders Placed This Encounter Procedures POCT urinalysis dipstick manually resulted Follow Up: Patient is to return to office in 2 week for routine OB appointment. Documented by Della Blanco LPN on behalf of: Roberto Finn DO documented in this encounter [facility] 08-17-2024 History of Presen t illness Narrative Reason [...] of: YARA Winter documented in this encounter [facility] 07-16-2024 History of Presen t illness Narrative Reason [...] nursing note reviewed. Exam conducted with a catcher plug present. Vitals: There is no height or [...] Roberto Finn DO documented in this encounter [facility] 06-16-2024 History of Presen t illness Narrative [...] of: YARA Winter documented in this encounter [facility] 05-19-2024 History of Presen t illness Narrative [...] nursing note reviewed. Exam conducted with a catcher plug present. Vitals: There is no height or [...] or undercooked meat, and stay away from [facility]. Patient has been consulted regarding any [...] Roberto Finn DO documented in this encounter [facility] 04-24-2024 History of Presen t illness Narrative Reason [...] or undercooked meat, and stay away from [facility]. Patient has also been advised to [...] Connie Chau LPN documented in this encounter [facility] 04-22-2023 Note The following Patien t Education Materials have been given to the patient: EducationMaterial [facility] Evaluation + Plan note No data available for this section [facility] Evaluation note Diagnosis Secondary amenorrhea Absence of menstruation Positive urine test documented in this encounter [employer] Phone: evaluation note* Diagnosis Nausea Nausea alone 12 weeks gestation of First trimester state, incidental documented in this encounter [facility]* Diagnosis Second trimester state, incidental Exposure to STD Need for maternal serum alpha-protein (MSAFP) screening Screening, , for anatomic survey Encounter for anatomic survey documented in this encounter [facility]* Diagnosis Missed menses 8 weeks gestation of First trimester state, incidental , unspecified gestational age Encounter for supervision of normal first in first trimester documented in this encounter [facility]* Diagnosis 20 weeks gestation of Second trimester state, incidental documented in this encounter [facility]* Diagnosis Diabetes mellitus screening Screening for diabetes mellitus Second trimester state, incidental 25 weeks gestation of [facility] Diagnosis Third trimester state, incidental 29 weeks gestation of size inconsistent with dates [facility] No data available for this section [facility] data available for this section [facility] Summary Purpose Family History No Family History [...] RT Foot and ankle injury. Xrays @ [facility] Reason for Referral Specialty Diagnoses / Procedures Referred By Contac t Referred To Contact Radiology Diagnoses Secondary amenorrhea Positive urine test Procedures US OB TRANSVAGINAL Brooklyn Montenegro, DO [address] [place] [address] Referral ID Status Reason Start Date Expiration Date Visits Re quested Visits Authorized [id number] Open 12/19/2022 12/19/2023 1 1 Specialty Diagnoses / Procedures Referred By Contac t Referred To Contact Radiology Diagnoses Secondary amenorrhea Positive urine test Procedures US OB LESS THAN 14 WEEKS SINGLE OR FIRST GESTATION Brooklyn Montenegro DO [address] [place] [address] Referral ID Status Reason Start Date Expiration Date Visits Re quested Visits Authorized [id number] Open 12/19/2022 12/19/2023 1 1 Additional Source Comments INFORMATION SOURCE (unrecogn ized section and content) DATE CREATED AUTHOR 01/22/2018 [facility] DATE CREATED AUTHOR AUTHOR'S ORGANIZ ATION 02/17/2018 [facility] DATE CREATED AUTHOR AUTHOR'S ORGANIZ ATION 03/25/2022 [employer] DATE CREATED AUTHOR AUTHOR'S ORGANIZ ATION 04/29/2022 [facility] DATE CREATED AUTHOR AUTHOR'S ORGANIZ ATION 04/30/2023 Diallo Valencia [facility] ical Center DATE CREATED AUTHOR AUTHOR'S ORGANIZ ATION 07/17/2023 [facility] DATE CREATED AUTHOR AUTHOR'S ORGANIZ ATION 01/20/2024 [facility] DATE CREATED AUTHOR AUTHOR'S ORGANIZ ATION 09/17/2024 [facility] Reason for Visit (unrecogniz ed section and content) Specialty Diagnoses / Procedures Referred By Contac t Referred To Contact Radiology Diagnoses Secondary amenorrhea Positive urine test Procedures US OB LESS THAN 14 WEEKS SINGLE OR FIRST GESTATION Brooklyn Montenegro DO [address] [place] [address] Referral ID Status Reason Start Date Expiration Date Visits Re quested Visits Authorized [id number] Open 12/19/2022 12/19/2023 1 1 Reason Comments Routine Visit Reason Comments Amenorrhea Care Teams (unrecognized sec tion and content) 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 [facility] [employer] provides no warranty or guarantee of the accuracy or completeness of information in this document.
[2024-09-29 15:39] LABS: Basophils Percent Auto 0.4 % (0.2-2.0); Eosinophils Absolute Auto 0.1 10^3/uL (0.0-0.7); Eosinophils Percent Auto 0.9 % (0.9-7.0); Hematocrit 33.5 % (36.0-48.0); Hemoglobin 10.9 g/dL (12.0-16.0); Immature Granulocytes Abs Auto 0.05 10^3/uL (0.00-0.03); Immature Granulocytes Pct Auto 0.6 % (0.0-0.5); Lymphocytes Absolute Auto 1.4 10^3/uL (1.2-3.8); Lymphocytes Percent Auto 17.3 % (20.5-60.0); Mean Corpuscular HGB Conc 32.5 g/dL (29.9-35.2); Mean Corpuscular Hemoglobin 29.2 pg (26.7-34.0); Mean Corpuscular Volume 89.8 fL (81.0-99.0); Monocytes Absolute Auto 0.8 10^3/uL (0.3-0.8); Monocytes Percent Auto 10.1 % (1.7-12.0); Neutrophils Absolute Auto 5.8 10^3/uL (1.4-6.5); Neutrophils Percent Auto 70.7 % (43.0-75.0); Platelet Count 269 10^3/uL (150-450); Red Blood Count 3.73 10^6/uL (4.20-5.40); Red Cell Distribution Width 12.2 % (11.0-15.0); White Blood Count 8.2 10^3/uL (4.0-11.0)
[2024-09-29 15:40] LABS: Alanine Aminotransferase 10 U/L (14-59); Albumin Globulin Ratio 0.7; Albumin Level 2.5 g/dL (3.4-5.0); Alkaline Phosphatase 91 U/L (46-116); Aspartate Amino Transferase 13 U/L (15-37); Bilirubin Direct 0.1 mg/dL (0.0-0.2); Bilirubin Total 0.2 mg/dL (0.2-1.0); Globulin 3.6 g/dL; Total Protein 6.1 g/dL (6.4-8.2)
[2024-09-30 23:07] LABS: Bile Acids 2.1 umol/L (0.0-10.0)
== END 2024-09-29 15:16 | disposition home or self-care (01) ==
LOC: LAB 15:16
PROVIDERS: Visit Provider Obstetrics & Gynecology
DX: L29.9 Pruritus, unspecified (principal)
CPT/HCPCS: 36415; 80076; 82239; 85025

== ENCOUNTER 2024-10-28 13:43 | Outpatient (OUT) | payer MEDICAID, SELFPAY ==
--- NOTE | 2024-10-28 13:46 | US_ITS ---
The [address] [address] Patient Name: HOLLIS FREED MRN: [id number] date: 2000 Sex: F Assigned Patient Location: US Current Patient Location: US Accession/Order Number: [id number] Exam Date: 10/28/2024 14:37 Report Date: 10/28/2024 14:39 At the request of: MORENO MCINTYRE Procedure: US OB growth Limited ultrasound HISTORY: Excessive growth The fetus is in cephalic presentation with longitudinal lie. The amniotic fluid index is 21.6 cm within normal limits. The largest pocket measures 7.9 cm. The heart rate is 141 bpm. Estimated weight is 3000 g with percentile of 82.1%. Biparietal diameter 8.7 cm consistent with 35 weeks 2 days. Head circumference 33.2 cm consistent with 37 weeks 6 days. Abdominal circumference 33.5 cm consistent with 37 weeks 3 days. Femur length 6.9 cm consistent with 35 weeks 2 days. The average gestational age by ultrasound is 36 weeks 3 days. US/US OB growth IMPRESSION: Single live intrauterine gestation 36 weeks 3 days. Impression dictated by: Rey Camejo M.D.10/28/2024 2:39 PM Dictation Location[facility] Electronically authenticated by: [id number] Date: 10/28/2024 14:39
== END 2024-10-28 13:44 | disposition home or self-care (01) ==
LOC: US 13:44
PROVIDERS: Visit Provider Physician Assistant
DX: O36.63X0 Maternal care for excessive fetal growth, third trimester, not applicable or unspecified (principal); Z3A.36 36 weeks gestation of pregnancy
CPT/HCPCS: 76816

== ENCOUNTER 2024-11-04 21:09 | Outpatient (REF) | payer MEDICAID, SELFPAY ==
--- OUTSIDE RECORDS SUMMARY | 2024-11-04 21:13 | XMS_ITS | CCD ---
Author Organization [facility] Care Team Providers Care Hot Die Picker Name Role Phone NO FAMILY DOCTOR Unavailable Unavailable NO FAMILY DOCTOR, NO FAMILY DOCTOR Unavailable Unavailable STEVE COELLO Unavailable Unavailable Unavailable Unavailable Gricelda, Dr. Bee Campbell Attending Chin Ledesma, Dr. Bee Campbell Attending Chin flynn Undetermined, Awaiting Assignment Primary Care P connie Unavailable Elbert Fuchs Attending Unavailable Elbert Fuchs Admitting Unavailable Gwen Sky Primary Care Physician [phone] BROOKLYN MONTENEGRO Attending Unavailable BROOKLYN MONTENEGRO Referring Unavailable LAVINIA, GWEN Primary Care Unavailable BROOKLYN MONTENEGRO Attending Unavailable ALYSSIA MONTENEGROTA Referring Unavailable LAVINIA, GWEN Primary Care Unavailable BROOKLYN MONTENEGRO Attending Unavailable BROOKLYN MONTENEGRO Referring Unavailable UNDETERMINED, AWAITING ASSIGNMENT Primary Care Unavailable BROOKLYN MONTENEGRO Admitting Unavailable BROOKLYN MONTENEGRO Attending Unavailable LAVINIA, GWEN Primary Care Unavailable Unavailable Primary Care Provider Unavailabl e ROBERTO FINN Attending Unavailable SHERRY FINNY Referring Unavailable ROBERTO FINN Attending Unavailable MARILYN MCINTYRE Attending Unavailable HUMA, ROBERTO Attending Unavailable HUMA, ROBERTO Attending Unavailable ISABEL MARILYN Attending Unavailable HUMA, ROBERTO Attending Unavailable ISABEL MARILYN Attending Unavailable Allergies Allergy Classification Reported Allergen(s) Allergy Type Date of Onset Reaction(s) Facility (20 sources) Penicillins; Translations: [PENICILLINS] Propensity to adverse reactions to drug (disorder) 04-01-20 08 Hives [facility] (1 source) Oseltamivir Drug Allergy 05-08-20 [facility] (20 sources) Sulfamethoxazole / Trimethoprim; Translations: [sulfamethoxazole-t rimethoprim] Drug Allergy 10-18-19 21 Vomiting (disorder), Nausea And Vomiting [facility] (2 sources) Amoxicillin / Clavulanate; Translations: [Augmentin] Drug Allergy [facility] (20 sources) cefdinir; Translations: [cefdinir] Drug Allergy 05-03-20 Eruption of skin (disorder), Rash [facility] (2 sources) Oseltamivir; Translations: [Tamiflu] Drug Allergy [facility] (1 source) Sulfamethoxazole / Trimethoprim; Translations: [Bactrim] Drug Allergy [facility] (20 sources) Clavulanate Drug Allergy 07-15-20 23 [facility] (20 sources) Oseltamivir Drug Allergy 05-08-20 [facility] (20 sources) Amoxicillin-Pot Clavulanate Drug Allergy 04-24-20 24 [facility] Work Phone: Medications Current Medications Medication Drug Class(es) Dates Sig (Normalized) Sig (Original) docusate sodium 100 mg oral tablet (1 source) Start: 04-22-2023 Dulcolax Stool Softener 100 mg, Oral, Refills(s) 0 Start Date: 04/22/23 Status: Ordered fexofenadine hydrochloride 30 mg disintegrating oral tablet (5 sources) Histamine-1 Receptor Antagonist take 1 tablet by mouth once daily fexofenadine ODT (Olga Lidia ODT) 30 MG disintegrating tablet Take 30 mg by mouth Daily Active ondansetron 4 mg oral tablet (20 sources) Serotonin-3 Receptor Antagonist Start: 05-19-2024 take [...] tablet (1 source) Nonsteroidal Anti-inflammatory Drug Start: 1 take 1-3 tablets by mouth every six hours as needed ibuprofen 400 mg Tab 400 mg = 1 tab(s), Oral, q6hr, PRN Pain 1-3, # 12 tab(s), Refills(s) 0, Pharmacy: [facility], 163, cm, 04/30/21 15:32:00 EDT, Height/Length [...] q4hr, # 12 tab(s), Refills(s) 0, Pharmacy: [facility], 163, cm, 04/30/21 15:32:00 EDT, Height/Length [...] [Precocious puberty] Onset: 04-01-2008 10-23-2019 Chronic Other inflammatory condition of skin (2 sources) Pruritus, unspecified; Translations: [Unspecified pruritic disorder] 09-29-2024 Episodic Other non-traumatic joint disorders (1 source) Ankle [...] [29 weeks gestation of ] 09-15-2024 Episodic Residual codes; unclassified (2 sources) Gestation period, 31 weeks; Translations: [31 weeks gestation of ] 09-29-2024 Episodic Residual codes; unclassified (2 sources) Gestation period, 36 weeks; Translations: [36 weeks gestation of ] 11-04-2024 Episodic Sprains and strains (1 source) Unspecified [...] Range Facility Urinalysis macro (dipstick) panel (U)on 11-04-2024 Bilirubin, UA Negative Negative - 4(70) +++ mg/dL [facility] Blood, UA Negative Negative - 50 Ilia/mcL [facility] Clarity, UA Clear [facility] Color, UA Yellow [facility] Glucose, UA Negative Negative - 2000(110) ++++ mg/dL [facility] Interpretation and review of laboratory results Abnormal [facility] Ketones, UA Positive Negative - 160(16) ++++ mg/dL [facility] Comment on above: trace Leukocytes, UA Negative Negative - 500+++ Sophy/mcL [facility] Nitrite, UA Negative Negative - Positive [facility] pH, UA 6.5 5 - 9 [facility] Protein, UA Positive Negative - 2000(20) ++++ mg/dL [facility] Comment on above: 100 Spec Grav, UA 1.025 1 - 1.03 [facility] Urobilinogen, UA 0.2 0.2 - 12 mg/dL [facility] US OB GROWTHon 10-28-2024 [place] [id number] Ultrasound Report Signed Patient: HOLLIS FREED MR#: [id number] : 2000 Acct:[id number] Age/Sex: 24 / F ADM Date: 10/28/24 Loc: US Attending Dr: Marilyn Mcintyre Ordering Physician: Marilyn Mcintyre Date of Service: 10/28/24 Procedure(s): US OB growth Accession Number(s): [id number] cc: Marilyn Mcintyre; Physician,Non-Staff M.D. The [address] [address] Patient Name: HOLLIS FREED MRN: [id number] date: 2000 Sex: F Assigned Patient Location: US Current Patient Location: US Accession/Order Number: [id number] Exam Date: 10/28/2024 14:37 Report Date: 10/28/2024 14:39 At the request of: MARILYN MCINTYRE Procedure: US OB growth Limited ultrasound HISTORY: Excessive growth The fetus is in cephalic presentation with longitudinal lie. The amniotic fluid index is 21.6 cm within normal limits. The largest pocket measures 7.9 cm. The heart rate is 141 bpm. Estimated weight is 3000 g with percentile of 82.1%. Biparietal diameter 8.7 cm consistent with 35 weeks 2 days. Head circumference 33.2 cm consistent with 37 weeks 6 days. Abdominal circumference 33.5 cm consistent with 37 weeks 3 days. Femur length 6.9 cm consistent with 35 weeks 2 days. The average gestational age by ultrasound is 36 weeks 3 days. US/US OB growth IMPRESSION: Single live intrauterine gestation 36 weeks 3 days. Impression dictated by: Rey Camejo M.D.10/28/2024 2:39 PM Dictation Location: [place] [address] Electronically authenticated by: [id number] Y Date: 10/28/2024 14:39 Dictated By: Rey Camejo D.O. Signed By: 10/28/24 1442 DD/ 1439 TD/TT: Ethics Officer: [facility] Radiology, Radiologi MD carolyn - 10/28/2024 [place] [address] Ultrasound Report Signed Patient: HOLLIS FREED MR#: [id number] : 2000 Acct:[id number] Age/Sex: 24 / F ADM Date: 10/28/24 Loc: US Attending Dr: Marilyn Mcintyre Ordering Physician: Marilyn Mcintyre Date of Service: 10/28/24 Procedure(s): US OB growth Accession Number(s): [id number] cc: Marilyn Mcintyre; Physician,Non-Staff Robbie The [address] [address] Patient Name: HOLLIS FREED MRN: [facility]:[id number] date: 2000 Sex: F Assigned Patient Location: US Current Patient Location: US Accession/Order Number: [id number] Exam Date: 10/28/2024 14:37 Report Date: 10/28/2024 14:39 At the request of: MARILYN MCINTYRE Procedure: US OB growth Limited ultrasound HISTORY: Excessive growth The fetus is in cephalic presentation with longitudinal lie. The amniotic fluid index is 21.6 cm within normal limits. The largest pocket measures 7.9 cm. The heart rate is 141 bpm. Estimated weight is 3000 g with percentile of 82.1%. Biparietal diameter 8.7 cm consistent with 35 weeks 2 days. Head circumference 33.2 cm consistent with 37 weeks 6 days. Abdominal circumference 33.5 cm consistent with 37 weeks 3 days. Femur length 6.9 cm consistent with 35 weeks 2 days. The average gestational age by ultrasound is 36 weeks 3 days. US/US OB growth IMPRESSION: Single live intrauterine gestation 36 weeks 3 days. Impression dictated by: Rey Camejo M.D.10/28/2024 2:39 PM Dictation Location: [place] Electronically authenticated by: [id number] Y Date: 10/28/2024 14:39 Dictated By: Rey Camejo D.O. Signed By: 10/28/24 1442 DD/ 1439 TD/TT: Ethics Officer: [facility] Radiology Study observation (narrative) [facility] US OB GROWTHOrdered By: Wenceslao olognemo Radiology on 10-28-2024 [facility] Work Phone: [facility] LIVER PANELon Albumin [Mass/Vol] 2.5 g/dL Low 3.4 - 5.0 g/dL [facility] ALBUMIN GLOBULIN RATIO 0.7 [facility] ALP [Catalytic activity/Vol] 91 U/L 46 - 116 U/L [facility] ALT [Catalytic activity/Vol] 10 U/L Low 14 - 59 U/L [facility] AST [Catalytic activity/Vol] 13 U/L Low 15 - 37 U/L [facility] Bilirubin [Mass/Vol] 0.2 mg/dL 0.2 - 1.0 mg/dL [facility] Bilirubin.indirect [Mass/Vol] 0.1 mg/dL 0.0 - 0.2 mg/dL [facility] Globulin (S) [Mass/Vol] 3.6 g/dL [facility] Interpretation and review of laboratory results Abnormal [facility] Protein [Mass/Vol] 6.1 g/dL Low 6.4 - 8.2 g/dL [facility] US OB FOLLOW UP TRANSABDOMIN AL APPROACHon 09-29-2024 US OB FOLLOW UP TRANSABDOMINAL APPROACH EXAM: US OB FOLLOW UP TRANSABDOMINAL APPROACH HISTORY: Inconsistent size. COMPARISON: OB ultrasound 09/17/2024. TECHNIQUE: Two-dimensional transabdominal grayscale ultrasound imaging of the pelvis was performed. FINDINGS: Gestation: Single Presentation: Cephalic Cardiac Activity: 135 beats per minute Placental Location: Anterior/fundal with no sonographic abnormalities identified. Cervical canal: Not visualized Amniotic Fluid Index: 18.1 cm MEASUREMENTS: BPD: 7.9 cm EGA: 31 weeks 6 days HC: 29.5 cm EGA: 32 weeks 5 days AC: 29.0 cm EGA: 33 weeks 0 days FL: 6.4 cm EGA: 32 weeks 6 days HC/AC Ratio: 1.02 The gestational age by today's ultrasound is 32 weeks 4 days (+/- 16 days gestation). Estimated Weight: 2054 grams, +/- 308 grams ( 4 lb 8 oz). Weight Percentile for gestational age: 86 % IMPRESSION: 1. Single, live intrauterine gestation 31 weeks, 2 days by LMP. Today's ultrasound measurements correlate with a gestational age of 32 weeks 4 days. Estimated weight is 2054 grams, +/- 308 grams ( 4 lb 8 oz) which correlates to 86 %. NOEMI is 11/20/2024. Electronically Signed:Electronically signed by ELBERT IVORY II, MD, PHD at 30-Sep-2024 09:46:06 AM [facility] Normal Not Available Comment on above: Order Comment: US OB SCAN FOR GROWTH Estimated Date of Delivery: 11/29/24 Gestational Age as of 09/15/2024: 29w2d Urinalysis macro (dipstick) panel (U)on 09-29-2024 Bilirubin, UA Negative Negative - 4(70) +++ mg/dL [facility] Blood, UA Positive Negative - 50 Ilia/mcL [facility] Comment on above: trace Clarity, UA Clear [facility] Color, UA Yellow [facility] Glucose, UA Negative Negative - 2000(110) ++++ mg/dL [facility] Interpretation and review of laboratory results Abnormal [facility] Ketones, UA Negative Negative - 160(16) ++++ mg/dL [facility] Leukocytes, UA Negative Negative - 500+++ Sophy/mcL [facility] Nitrite, UA Negative Negative - Positive [facility] pH, UA 6.5 5 - 9 [facility] Protein, UA Negative Negative - 1999(20) ++++ mg/dL [facility] Spec Grav, UA 1.025 1 - 1.03 [facility] Urobilinogen, UA 1.0 0.2 - 12 mg/dL [facility] Urinalysis macro (dipstick) panel (U)on 09-15-2024 Bilirubin, UA Negative Negative - 4(70) +++ mg/dL [facility] Blood, UA Positive Negative - 50 Ilia/mcL [facility] Comment on above: trace Clarity, UA Clear [facility] Color, UA Yellow [facility] Glucose, UA Negative Negative - 1999(110) ++++ mg/dL [facility] Interpretation and review of laboratory results Abnormal [facility] Ketones, UA Negative Negative - 160(16) ++++ mg/dL [facility] Leukocytes, UA Negative Negative - 500+++ Sophy/mcL [facility] Nitrite, UA Negative Negative - Positive [facility] pH, UA 6.5 5 - 9 [facility] Protein, UA Positive Negative - 1999(20) ++++ mg/dL [facility] Comment on above: 30 mg Spec Grav, UA 1.025 1 - 1.03 [facility] Urobilinogen, UA 0.2 0.2 - 12 mg/dL [facility] GLUCOSE TOLERANCE 3 HOURon 0 09-12-2024 GLUCOSE TOLERANCE 3 HOUR High mg/dL [facility] Comment on above: GLU FAST 88 (<95) Co l: 09/12/24 0853 GLU 1HR 203H (<180) Col: 09/12/24 0956 GLU 2HR 137 (<155) Col: 09/12/24 1056 GLU 3HR 57 (<140) Col: 09/12/24 1156 Interpretation and review of laboratory results Abnormal [facility] ALL CBC WITH AUTO DIFFon BASOPHILS ABSOLUTE AUTO 0 [facility] Basophils/100 WBC (Bld) 0.4 % 0.2 - 2.0 % [facility] Eosinophils/100 WBC (Bld) 1 % 0.9 - 7.0 % [facility] Erythrocyte distribution width (RBC) [Ratio] 12.3 % 11.0 - 15.0 % [facility] Hematocrit (Bld) [Volume fraction] 34.3 % Low 36.0 - 48.0 % [facility] Hemoglobin (Bld) [Mass/Vol] 11 g/dL Low 12.0 - 16.0 g/dL [facility] IMMATURE GRANULOCYTES ABS AUTO 0.06 High [facility] Immature granulocytes/100 WBC (Bld) 0.9 % High 0.0 - 0.5 % [facility] Interpretation and review of laboratory results Abnormal [facility] LYMPHOCYTES ABSOLUTE AUTO 1.3 [facility] Lymphocytes/100 WBC (Bld) 19.5 % Low 20.5 - 60.0 % [facility] MCH (RBC) [Entitic mass] 29.2 pg 26.7 - 34.0 pg [facility] MCHC (RBC) [Mass/Vol] 32.1 g/dL 29.9 - 35.2 g/dL [facility] MCV (RBC) [Entitic vol] 91 fL 81.0 - 99.0 fL [facility] MONOCYTES ABSOLUTE AUTO 0.5 [facility] Monocytes/100 WBC (Bld) 6.9 % 1.7 - 12.0 % [facility] NEUTROPHILS ABSOLUTE AUTO 4.9 [facility] Neutrophils/100 WBC (Bld) 71.3 % 43.0 - 75.0 % [facility] Platelet mean volume (Bld) [Entitic vol] 9.5 fL 9.5 - 13.5 fL [facility] EO # 0.1 [facility] PLT 281 [facility] RBC 3.77 Low [facility] WBC 6.8 [facility] Urinalysis macro (dipstick) panel (U)on 08-17-2024 Bilirubin, UA Negative Negative - 4(70) +++ mg/dL [facility] Blood, UA Negative Negative - 50 Ilia/mcL [facility] Clarity, UA Clear [facility] Color, UA Yellow [facility] Glucose, UA Negative Negative - 2000(110) ++++ mg/dL [facility] Interpretation and review of laboratory results Normal [facility] Ketones, UA Negative Negative - 160(16) ++++ mg/dL [facility] Leukocytes, UA Negative Negative - 500+++ Sophy/mcL [facility] Nitrite, UA Negative Negative - Positive [facility] pH, UA 7 5 - 9 [facility] Protein, UA Negative Negative - 1999(20) ++++ mg/dL [facility] Spec Grav, UA 1.02 1 - 1.03 [facility] Urobilinogen, UA 0.2 0.2 - 12 mg/dL [facility] Urinalysis macro (dipstick) panel (U)on 07-16-2024 Bilirubin, UA Negative Negative - 4(70) +++ mg/dL [facility] Blood, UA Negative Negative - 50 Ilia/mcL [facility] Clarity, UA Clear [facility] Color, UA Yellow [facility] Glucose, UA Negative Negative - 1999(110) ++++ mg/dL [facility] Interpretation and review of laboratory results Abnormal [facility] Ketones, UA Negative Negative - 160(16) ++++ mg/dL [facility] Leukocytes, UA Trace Negative - 500+++ Sophy/mcL [facility] Nitrite, UA Negative Negative - Positive [facility] pH, UA 6.5 5 - 9 [facility] Protein, UA Negative Negative - 1999(20) ++++ mg/dL [facility] Spec Grav, UA 1.02 1 - 1.03 [facility] Urobilinogen, UA 1.0 0.2 - 12 mg/dL [facility] RECURRENT VAGINITIS (HTRX)on 06-18-2024 ATOPOBIUM VAGINAE 0 [facility] ATOPOBIUM VAGINAE Not detected [facility] BVAB 2,3 (BACTERIAL VAGINOSIS ASSOCIATED BACTERIA 2, 3); MOBILUNCUS SPP 0 [facility] BVAB 2,3 (BACTERIAL VAGINOSIS ASSOCIATED BACTERIA 2, 3); MOBILUNCUS SPP Not detected [facility] TIERA ALBICANS, PARAPSILOSIS, TROPICALIS 0 [facility] TIERA ALBICANS, PARAPSILOSIS, TROPICALIS Not detected [facility] TIERA GLABRATA 0 [facility] TIERA GLABRATA Not detected [facility] TIERA KRUSEI 0 [facility] TIERA KRUSEI Not detected [facility] CHLAMYDIA TRACHOMATIS 0 [facility] CHLAMYDIA TRACHOMATIS Not detected [facility] GARDNERELLA VAGINALIS 0 [facility] GARDNERELLA VAGINALIS Not detected [facility] MEGASPHAERA (TYPES 1, 2) 0 [facility] MEGASPHAERA (TYPES 1, 2) Not detected [facility] MYCOPLASMA GENITALIUM 0 [facility] MYCOPLASMA GENITALIUM Not detected [facility] NEISSERIA GONORRHOEAE 0 [facility] NEISSERIA GONORRHOEAE Not detected [facility] TRICHOMONAS VAGINALIS 0 [facility] TRICHOMONAS VAGINALIS Not detected [facility] Urinalysis macro (dipstick) panel (U)on 06-16-2024 Bilirubin, UA Negative Negative - 4(70) +++ mg/dL [facility] Blood, UA Negative Negative - 50 Ilia/mcL [facility] Clarity, UA Clear [facility] Color, UA Colorless [facility] Glucose, UA Negative Negative - 1999(110) ++++ mg/dL [facility] Interpretation and review of laboratory results Normal [facility] Ketones, UA Negative Negative - 160(16) ++++ mg/dL [facility] Leukocytes, UA Negative Negative - 500+++ Sophy/mcL [facility] Nitrite, UA Negative Negative - Positive [facility] pH, UA 7 5 - 9 [facility] Protein, UA Negative Negative - 1999(20) ++++ mg/dL [facility] Spec Grav, UA 1.015 1 - 1.03 [facility] Urobilinogen, UA 0.2 0.2 - 12 mg/dL [facility] Urinalysis macro (dipstick) panel (U)on 05-19-2024 Bilirubin, UA Negative Negative - 4(70) +++ mg/dL [facility] Blood, UA Negative Negative - 50 Ilia/mcL [facility] Clarity, UA Clear [facility] Color, UA Colorless [facility] Glucose, UA Negative Negative - 1999(110) ++++ mg/dL [facility] Interpretation and review of laboratory results Normal [facility] Ketones, UA Negative Negative - 160(16) ++++ mg/dL [facility] Leukocytes, UA Negative Negative - 500+++ Sophy/mcL [facility] Nitrite, UA Negative Negative - Positive [facility] pH, UA 6 5 - 9 [facility] Protein, UA Negative Negative - 1999(20) ++++ mg/dL [facility] Spec Grav, UA 1.01 1 - 1.03 [facility] Urobilinogen, UA 0.2 0.2 - 12 mg/dL [facility] BOX TESTon 05-05-2024 BOX TEST SENT OUT [facility] BOX1 [facility] BOX2 05/05/[address] [facility] HCG ( test) Ql (U)o n 04-24-2024 Interpretation and review of laboratory results Abnormal [facility] Preg Test, Ur Positive [facility] Urinalysis macro (dipstick) panel (U)on 04-24-2024 Bilirubin, UA Negative Negative - 4(70) +++ mg/dL [facility] Blood, UA Negative Negative - 50 Ilia/mcL [facility] Clarity, UA Clear [facility] Color, UA Yellow [facility] Glucose, UA Negative Negative - 2000(110) ++++ mg/dL [facility] Interpretation and review of laboratory results Abnormal [facility] Ketones, UA Negative Negative - 160(16) ++++ mg/dL [facility] Leukocytes, UA Positive Negative - 500+++ Sophy/mcL [facility] Nitrite, UA Negative Negative - Positive [facility] pH, UA 6.0 5 - 9 [facility] Protein, UA Negative Negative - 2000(20) ++++ mg/dL [facility] Spec Grav, UA 1.020 1 - 1.03 [facility] Urobilinogen, UA 1.0 0.2 - 12 mg/dL [facility] US NON OB TRANSVAGINALon US [...] will not respect a delayed release to [employer].->Delay Immediate Release by 3 Days Reason for [...] Steve Borja MD 01/18/24 Final result Normal [facility] US PELVIS COMPLETEon -21-2 024 US PELVIS COMPLETE EXAM: US Pelvis [...] Steve Borja MD 01/18/24 Final result Normal [facility] CBC With Platelet No Differe ntialon 07-28-2023 Erythrocyte distribution width (RBC) [Ratio] 12.5 % Normal 11.5-14.5 [facility] Comment on above: Performed By: #### C BCND #### [facility] [address] [place] [address] Hematocrit (Bld) [Volume fraction] 28.3 % Low 37.0-47.0 [facility] Comment on above: Performed By: #### C BCND #### [facility] [address] [place] [address] Hemoglobin (Bld) [Mass/Vol] 9.2 g/dL Low 12.0-16.0 [facility] Comment on above: Performed By: #### C BCND #### [facility] [address] [place] [address] MCH (RBC) [Entitic mass] 28.9 pg Normal 27.0-31.3 [facility] Comment on above: Performed By: #### C BCND #### [facility] [address] [place] [address] MCHC 32.5 % Low 33.0-37.0 [facility] Comment on above: Performed By: #### C BCND #### [facility] [address] [place] [address] MCV (RBC) [Entitic vol] 89.0 fL Normal 79.4-94.8 [facility] Comment on above: Performed By: #### C BCND #### [facility] [address] [place] [address] Platelets (Bld) [#/Vol] 241 10*3/uL Normal 130-400 [facility] Comment on above: Performed By: #### C BCND #### [facility] [address] [place] [address] RBC (Bld) [#/Vol] 3.18 10*6/uL Low 4.20-5.40 [facility] Comment on above: Performed By: #### C BCND #### [facility] [address] [place] [address] WBC (Bld) [#/Vol] 16.6 10*3/uL Critically high 4.8-10.8 [facility] Comment on above: Performed By: #### C BCND #### [facility] [address] [place] [address] HIV Ag/Abon 07-27-2023 HIV Ag/Ab Non-Reactive Normal NR [facility] Comment on above: Result Comment: No l aboratory evidence of HIV infection. If acute HIV infection is suspected, consider testing for HIV-1 RNA. Performed at [facility], [address] [place] [id number] . CBC With Platelet and Differ entialon 07-26-2023 Basophils (Bld) [#/Vol] 0.1 10*3/uL Normal 0.0-0.2 [facility] Comment on above: Performed By: #### U A #### [facility] [address] [place] [address] Basophils/100 WBC (Bld) 0.5 % Normal [facility] Comment on above: Performed By: #### U A #### [facility] [address] [place] [address] Eosinophils (Bld) [#/Vol] 0.1 10*3/uL Normal 0.0-0.7 [facility] Comment on above: Performed By: #### U A #### [facility] [address] [place] [address] Eosinophils/100 WBC (Bld) 1.0 % Normal [facility] Comment on above: Performed By: #### U A #### [facility] [address] [place] [address] Erythrocyte distribution width (RBC) [Ratio] 12.3 % Normal 11.5-14.5 [facility] Comment on above: Performed By: #### U A #### [facility] [address] [place] [address] Hematocrit (Bld) [Volume fraction] 36.9 % Low 37.0-47.0 [facility] Comment on above: Performed By: #### U A #### [facility] [address] [place] [address] Hemoglobin (Bld) [Mass/Vol] 11.9 g/dL Low 12.0-16.0 [facility] Comment on above: Performed By: #### U A #### [facility] [address] [place] [address] Lymphocytes (Bld) [#/Vol] 2.0 10*3/uL Normal 1.0-4.8 [facility] Comment on above: Performed By: #### U A #### [facility] [address] [place] [address] Lymphocytes/100 WBC (Bld) 17.5 % Normal [facility] Comment on above: Performed By: #### U A #### [facility] [address] [place] [address] MCH (RBC) [Entitic mass] 29.0 pg Normal 27.0-31.3 [facility] Comment on above: Performed By: #### U A #### [facility] [address] [place] [address] MCHC 32.2 % Low 33.0-37.0 [facility] Comment on above: Performed By: #### U A #### [facility] [address] [place] [address] MCV (RBC) [Entitic vol] 90.0 fL Normal 79.4-94.8 [facility] Comment on above: Performed By: #### U A #### [facility] [address] [place] [address] Monocytes (Bld) [#/Vol] 1.1 10*3/uL Critically high 0.2-0.8 [facility] Comment on above: Performed By: #### U A #### [facility] [address] [place] [address] Monocytes/100 WBC (Bld) 9.7 % Normal [facility] Comment on above: Performed By: #### U A #### [facility] [address] [place] [address] Neutrophils (Bld) [#/Vol] 7.9 10*3/uL Critically high 1.4-6.5 [facility] Comment on above: Performed By: #### U A #### [facility] [address] [place] [address] Neutrophils/100 WBC (Bld) 70.4 % Normal [facility] Comment on above: Performed By: #### U A #### [facility] [address] [place] [address] Platelets (Bld) [#/Vol] 289 10*3/uL Normal 130-400 [facility] Comment on above: Performed By: #### U A #### [facility] [address] [place] [address] RBC (Bld) [#/Vol] 4.10 10*6/uL Low 4.20-5.40 [facility] Comment on above: Performed By: #### U A #### [facility] [address] [place] [address] WBC (Bld) [#/Vol] 11.2 10*3/uL Critically high 4.8-10.8 [facility] Comment on above: Performed By: #### U A #### [facility] [address] [place] [address] Comprehensive Metabolic Pane mello 07-26-2023 Albumin [Mass/Vol] 3.4 g/dL Low 3.5-4.6 [facility] Comment on above: Performed By: #### C MP #### [facility] [address] [place] [address] ALP [Catalytic activity/Vol] 134 U/L Critically high 40-130 [facility] Comment on above: Performed By: #### C MP #### [facility] [address] [place] [address] ALT [Catalytic activity/Vol] 13 U/L Normal 0-33 [facility] Comment on above: Performed By: #### C MP #### [facility] [address] [place] [address] Anion gap [Moles/Vol] 14 mmol/L Normal 9-15 [facility] Comment on above: Performed By: #### C MP #### [facility] [address] [place] [address] AST [Catalytic activity/Vol] 19 U/L Normal 0-35 [facility] Comment on above: Performed By: #### C MP #### [facility] [address] [place] [address] Bilirubin [Mass/Vol] mg/dL Normal 0.2-0.7 [facility] Comment on above: Performed By: #### C MP #### [facility] [address] [place] [address] Calcium [Mass/Vol] 9.7 mg/dL Normal 8.5-9.9 [facility] Comment on above: Performed By: #### C MP #### [facility] [address] [place] [address] Chloride [Moles/Vol] 103 mmol/L Normal 95-107 [facility] Comment on above: Performed By: #### C MP #### [facility] [address] [place] [address] CO2 [Moles/Vol] 19 mmol/L Low 20-31 [facility] Comment on above: Performed By: #### C MP #### [facility] [address] [place] [address] Creatinine [Mass/Vol] 0.75 mg/dL Normal 0.50-0.90 [facility] Comment on above: Performed By: #### C MP #### [facility] [address] [place] [address] GFR >60.0 Normal >60 [facility] Comment on above: Result Comment: Gunnar [...] secretion. Performed By: #### C MP #### [facility] [address] [place] [address] Globulin (S) [Mass/Vol] 2.9 g/dL Normal 2.3-3.5 [facility] Comment on above: Performed By: #### C MP #### [facility] [address] [place] [address] Glucose [Mass/Vol] 65 mg/dL Low 70-99 [facility] Comment on above: Performed By: #### C MP #### [facility] [address] [place] [address] Potassium [Moles/Vol] 4.5 mmol/L Normal 3.4-4.9 [facility] Comment on above: Performed By: #### C MP #### [facility] [address] [place] [address] Protein [Mass/Vol] 6.3 g/dL Normal 6.3-8.0 [facility] Comment on above: Performed By: #### C MP #### [facility] [address] [place] [address] Sodium [Moles/Vol] 136 mmol/L Normal 135-144 [facility] Comment on above: Performed By: #### C MP #### [facility] [address] [place] [address] Urea nitrogen [Mass/Vol] 8 mg/dL Normal 6-20 [facility] Comment on above: Performed By: #### C MP #### [facility] [address] [place] [address] Hepatitis B Surface Agon Hepatitis B Surface Ag Interp Non-Reactive Normal [facility] Comment on above: Performed By: #### H BSG #### [facility] [address] [place] [address] RPRon 07-26-2023 Reagin Ab RPR Ql (S) Non-Reactive Normal Non-reacti [facility] Comment on above: Performed By: #### R IA #### [facility] [address] [place] [address] Type and Screen Capture 3 sc rn cellon 07-26-2023 Type and Screen Capture 3 scrn cell PATIENT: ABDIAZIZ Drake LOC: [facility],0324, BILL# : [id number] : 2000 SEX: F ORDERED BY: KASSIDY BARAHONA ORDERED : 07/26/2023 09:26 COLLECTED: 07/26/2023 09:44 ORDER : [id number] RECEIVED : 07/26/2023 09:44 TEST NAME RESULT UNITS RANGES ABN FL ST ABORH Capture A POS F Antibody 3 Cell Scrn Captu NEG F [facility] Comment on above: Performed By: #### T S3C #### [facility] [address] [place] [address] UR Drugs of Abuse Panelon Drug Screen Comment see below [facility] Comment on above: Result Comment: This method is a screening test to detect only these drug classes as part of a medical workup. Confirmatory testing by another method should be ordered if clinically indicated. Performed By: #### U DRGS #### [facility] [address] [place] [address] UR Amphetamines Screen Negative Normal Negative < [facility] Comment on above: Performed By: #### U DRGS #### [facility] [address] [place] [address] UR Barbiturates Screen Negative Normal Negative < [facility] Comment on above: Performed By: #### U DRGS #### [facility] [address] [place] [address] UR Benzo Screen Negative Normal Negative < [facility] Comment on above: Performed By: #### U DRGS #### [facility] [address] [place] [address] UR Cannabinoids Screen Negative Normal Negative < [facility] Comment on above: Performed By: #### U DRGS #### [facility] [address] [place] [address] UR Cocaine Screen Negative Normal Negative < [facility] Comment on above: Performed By: #### U DRGS #### [facility] [address] [place] [address] UR Fentanyl Screen Negative Normal Negative < [facility] Comment on above: Performed By: #### U DRGS #### [facility] [address] [place] [address] UR Methadone Screen Negative Normal Negative < [facility] Comment on above: Performed By: #### U DRGS #### [facility] [address] [place] [address] UR Opiates Screen Negative Normal Negative < [facility] Comment on above: Performed By: #### U DRGS #### [facility] [address] [place] [address] UR Oxycodone Screen Negative Normal Negative < [facility] Comment on above: Performed By: #### U DRGS #### [facility] [address] [place] [address] UR PCP Screen Negative Normal Negative < [facility] Comment on above: Performed By: #### U DRGS #### [facility] [address] [place] [address] UR Propoxyphene Screen Negative Normal Negative < [facility] Comment on above: Performed By: #### U DRGS #### [facility] [address] [place] [address] Urinalysis, reflex to micros copicon 07-26-2023 Bilirubin Ql (U) Negative Normal Negative [facility] Comment on above: Performed By: #### U A #### [facility] [address] [place] [address] Clarity (U) Clear Normal Clear [facility] Comment on above: Performed By: #### U A #### [facility] [address] [place] [address] Color (U) Yellow Normal Straw/Crittenden [facility] Comment on above: Performed By: #### U A #### [facility] [address] [place] [address] Glucose Ql (U) Negative Normal Negative [facility] Comment on above: Performed By: #### U A #### [facility] [address] [place] [address] Hemoglobin Ql (U) Negative Normal Negative [facility] Comment on above: Performed By: #### U A #### [facility] [address] [place] [address] Ketones Ql (U) Negative Normal Negative [facility] Comment on above: Performed By: #### U A #### [facility] [address] [place] [address] Leukocyte esterase Test strip Ql (U) TRACE Abnormal Negative [facility] Comment on above: Performed By: #### U A #### [facility] [address] [place] [address] Nitrite Ql (U) Negative Normal Negative [facility] Comment on above: Performed By: #### U A #### [facility] [address] [place] [address] pH (U) 6.5 [pH] Normal 5.0-9.0 [facility] Comment on above: Performed By: #### U A #### [facility] [address] [place] [address] Protein Ql (U) TRACE Abnormal Negative [facility] Comment on above: Performed By: #### U A #### [facility] [address] [place] [address] Specific gravity (U) [Rel density] 1.009 Normal 1.005-1.03 [facility] Comment on above: Performed By: #### U A #### [facility] [address] [place] [address] Urobilinogen Qn (U) 0.2 {Yoselyn'U}/dL Normal < 2.0 [facility] Comment on above: Performed By: #### U A #### [facility] [address] [place] [address] Urine Microscopicon 07-26-20 23 Urine Bacteria RARE Abnormal Negative [facility] Comment on above: Performed By: #### U DEBBI #### [facility] [address] [place] [address] Urine Epithelial Cells Auto 20-50 Normal 0-5 [facility] Comment on above: Performed By: #### U DEBBI #### [facility] [address] [place] [address] Urine Hyaline Casts Auto 1-3 Normal 0-5 [facility] Comment on above: Performed By: #### U DEBBI #### [facility] [address] [place] [address] Urine RBC Auto 0-2 Normal 0-5 [facility] Comment on above: Performed By: #### U DEBBI #### [facility] [address] [place] [address] Urine WBC Auto 10-20 Abnormal 0-5 [facility] Comment on above: Performed By: #### U DEBBI #### [facility] [address] [place] [address] Culture, Group B Strepon Culture, Group B Strep ORDER#: [id number] ORDERED BY: [place] YI SOURCE: Vagina Genital COLLECTED: 07/12/23 15:54 ANTIBIOTICS AT [place].: RECEIVED : 07/12/23 16:18 Culture, Group B Strep FINAL 07/16/23 08:16 Rule Out Grp.B Strep: NEGATIVE FOR GROUP B STREPTOCOCCI Performed at [facility] [address] [place] [address] [id number] ([phone] Normal [facility] Comment on above: Performed By: #### R UBEL #### [facility] [address] [place] [address] US OB 1 OR MORE FETUS LIMITE Don 06-28-2023 US OB 1 OR MORE FETUS LIMITED EXAMINATION: 3rd TRIMESTER OBSTETRIC ULTRASOUND 06/28/2023 COMPARISON: None HISTORY: ORDERING SYSTEM PROVIDED HISTORY: Encounter for supervision in primigravida, antepartum, 31 weeks gestation of TECHNOLOGIST PROVIDED HISTORY: This procedure can be scheduled via [employer]. Access your [employer] account by visiting [employer]. What reading provider will be dictating this [...] Casey Hall MD 07/02/23 Final result Normal [facility] RPRon 05-01-2023 Reagin Ab RPR Ql (S) Non-Reactive Normal Non-reacti [facility] Comment on above: Performed By: #### R IA #### [facility] [address] [place] [address] Glucose 1hr PPon 04-30-2023 Glucose [Mass/Vol] 101 mg/dL Normal 60-140 [facility] Comment on above: Result Comment: Gluc ose tolerance is IMPAIRED when the 1 hour post 50 gram load glucose is greater than 130mg/dL Performed By: #### G L1PP #### [facility] [address] [place] [address] Hemoglobin and Hematocriton 04-30-2023 Hematocrit (Bld) [Volume fraction] 35.4 % Low 37.0-47.0 [facility] Comment on above: Performed By: #### C BCWD #### [facility] [address] [place] [address] Hemoglobin (Bld) [Mass/Vol] 11.3 g/dL Low 12.0-16.0 [facility] Comment on above: Performed By: #### C BCWD #### [facility] [address] [place] [address] Nursing Assessmenton 023 Nursing Assessment [id number]#[id number]:127 Normal [facility] Auth for Release of Medical Recordson 04-22-2023 Auth for Release of Medical Records [id number]#[id number]:127 Normal [facility] Discharge Instructionson Discharge Instructions [id number]#1.00CD:127 [facility] Inpatient Clinical Summaryon 04-22-2023 Inpatient Clinical Summary [address] [address] Clinical Summary Person Information Name: HOLLIS FREED/New_Tim Age: 23 Years : 2000 Sex: Female PCP: Gwen Sky DO Marital Status: Single Race: White Ethnicity: Non- or Language: Mexican Visit Id: Visit Reason: fELL AT HOME Speciality: Acuity: Obs Enc Type: OB Triage Med Service: Obstetrics Arrival: 04/22/2023 14:32:43 Discharge: 04/22/2023 16:33:00 Dispo Type: Home (Routine DC) Address: [address] [place] [id number] Provider Notes: Diagnosis: Problems Active (04/22/2023) Smoker [...] Refills: 0. Care Team Members: Attending Physician: Elbert Fuchs MD Consulting Physician: Referring Physician: Follow up: With: Address: When: [place] [address] [place] [address] 04/30/2023 10:15 AM Patient Education Information: Round Ligament Pain Normal [facility] Inpatient Patient Summaryon 04-22-2023 Inpatient Patient Summary [place] [id number] Patient Discharge Instructions PERSON INFORMATION Name: HOLLIS [...] With: Address: When: [place] [address] [place] [address] 04/30/2023 10:15 AM In the event that [...] 0. Last Dose: Next Dose: Pharmacy Information: [facility] PATIENT EDUCATION INFORMATION Instructions: Round Ligament Pain [...] walks if they cause pain. ? Take bzdd-mia-rtmxrwl and prescription medicines only as told by [...] few sec (more content not included)... Normal [facility] Insurance Correspondence Off ice04-22-2023 Insurance Correspondence Office [id number]#[id number]:127 Normal [facility] UA With Cult Reflexon 2022 Bacteria LM Ql (Urine sed) TRACE Normal Trace [facility] Comment on above: Performed By: #### 1 [id number] #### [facility] [address] [place] [address] Bilirubin Ql (U) Negative Normal Negative [facility] Comment on above: Performed By: #### 1 [id number] #### [facility] [address] [place] [address] Calcium oxalate crystals LM Ql (Urine sed) Present Normal [facility] Comment on above: Performed By: #### 1 [id number] #### [facility] [address] [place] [address] Clarity (U) SL CLOUDY Invalid Interpretation Code [facility] Comment on above: Performed By: #### 1 [id number] #### [facility] [address] [place] [address] Color (U) YELLOW Normal Yellow [facility] Comment on above: Performed By: #### 1 [id number] #### [facility] [address] [place] [address] Crystals LM Ql (Urine sed) Present Normal [facility] Comment on above: Performed By: #### 1 [id number] #### [facility] [address] [place] [address] Epithelial cells.squamous LM.HPF (Urine sed) [#/Area] 9-10 Normal 0-2 [facility] Comment on above: Performed By: #### 1 [id number] #### [facility] [address] [place] [address] Glucose Test strip (U) [Mass/Vol] Negative Normal Negative [facility] Comment on above: Performed By: #### 1 [id number] #### [facility] [address] [place] [address] Hemoglobin Ql (U) Negative Normal Negative [facility] Comment on above: Performed By: #### 1 [id number] #### [facility] [address] [place] [address] Ketones (U) [Mass/Vol] Negative Normal Negative [facility] Comment on above: Performed By: #### 1 [id number] #### [facility] [address] [place] [address] [place].plasma/Lit hium.RBC (Bld) [Mass ratio] 0-3 Normal 0-3 [facility] Comment on above: Performed By: #### 1 [id number] #### [facility] [address] [place] [address] Mucus Ql (Urine sed) TRACE Normal [facility] Comment on above: Performed By: #### 1 [id number] #### [facility] [address] [place] [address] Nitrite Ql (U) Negative Normal Negative [facility] Comment on above: Performed By: #### 1 [id number] #### [facility] [address] [place] [address] pH (U) 7.5 [pH] Invalid Interpretation Code 5.0-9.0 [facility] Comment on above: Performed By: #### 1 [id number] #### [facility] [address] [place] [address] Protein (U) [Mass/Vol] Negative Normal Negative [facility] Comment on above: Performed By: #### 1 [id number] #### [facility] [address] [place] [address] Specific gravity (U) [Rel density] 1.010 Invalid Interpretation Code 1.005-1.03 0 [facility] Comment on above: Performed By: #### 1 [id number] #### [facility] [address] [place] [address] Type of Urine collection method Clean Catch Normal [facility] Comment on above: Performed By: #### 1 [id number] #### [facility] [address] [place] [address] Urobilinogen Qn (U) 0.2 {Yoselyn'U}/dL Normal 0.0-1.0 [facility] Comment on above: Performed By: #### 1 [id number] #### [facility] [address] [place] [address] WBC Auto Ql (U) TRACE Abnormal Negative [facility] Comment on above: Performed By: #### 1 [id number] #### [facility] [address] [place] [address] WBC LM.HPF (Urine sed) [#/Area] 0-5 Normal 0-5 [facility] Comment on above: Performed By: #### 1 [id number] #### [facility] [address] [place] [address] US OB 14 PLUS WEEKS SINGLE O R FIRST GESTATIONon 03-01-2023 US OB 14 PLUS WEEKS SINGLE OR FIRST GESTATION EXAMINATION: OBSTETRIC ULTRASOUND 03/01/2023 3:11 pm TECHNIQUE: Transabdominal sonographic evaluation of the pelvis was performed. COMPARISON: 12/31/2022. HISTORY: ORDERING SYSTEM PROVIDED HISTORY: 11 weeks gestation of , Supervision of other normal , antepartum TECHNOLOGIST PROVIDED HISTORY: This procedure can be scheduled via [employer]. Access your [employer] account by visiting [employer]. What reading provider will be dictating this [...] Jalil Noe MD 03/01/23 Final result Normal [facility] US OB LESS THAN 14 WEEKS SIN GLE OR FIRST GESTATIONon 12-31-2022 1. Single IUP with best estimate of gestational age being 9 weeks and 3 days. No abnormal fluid collections about the gestation. Yolk sac, pole and cardiac motion noted, with heart rate of 176 BPM. 2. 2.6 cm, slightly complex, left ovarian cyst. Possibly a corpus luteum cyst. [facility] EXAM: US First Trimester , Transabdominal and US Duplex Arterial/Venous of the Pelvis, Complete EXAM DATE/TIME: 12/31/2022 4:36 pm CLINICAL History lines: ORDERING SYSTEM PROVIDED Secondary amenorrhea, Positive urine test TECHNOLOGIST PROVIDED History lines: This procedure can be scheduled via [employer]. Access your [employer] account by visiting [employer]. What reading provider will be dictating this [...] 2.0 cm. Free fluid: No free fluid. [facility] Steve Borja MD - 12/31/2022 EXAM: US First Trimester , Transabdominal and US Duplex Arterial/Venous of the Pelvis, Complete EXAM DATE/TIME: 12/31/2022 4:36 pm CLINICAL History lines: ORDERING SYSTEM PROVIDED Secondary amenorrhea, Positive urine test TECHNOLOGIST PROVIDED History lines: This procedure can be scheduled via [employer]. Access your [employer] account by visiting [employer]. What reading provider will be dictating this [...] ovarian cyst. Possibly a corpus luteum cyst. [employer] Phone: Radiology Study observation (narrative) [employer] Phone: US OB LESS THAN 14 WEEKS SIN GLE OR FIRST GESTATIONOrdered By: Steve Borja on 12-31-2022 PATTIE LEPE [facility] [employer] Phone: HPV DNA Typingon 12-26-2022 HPV Type 16 Not detected Normal Not Detect [facility] HPV Type 18 Not detected Normal Not Detect [facility] HPVOH (Other types) Detected Abnormal Not Detect [facility] Comment on above: Result Comment: *Inc ludes 31,33,35,39,45,51,52,56,58,59,66,68 genotypes C.trachomatis N.gonorrhoeae DNAon 12-25-2022 C. trachomatis DNA EVONNE+probe Ql (Unsp spec) Negative Normal Negative [facility] N. gonorrhoeae DNA EVONNE+probe Ql (Unsp spec) Negative Normal Negative [facility] Drug Panel 9A, Screen Only, Urineon 12-21-2022 Alcohol, Urine Negative Normal Cutoff 40 [facility] Amphetamines, Urine Negative Normal Cutoff 300 [facility] Barbiturates, Urine Negative Normal Cutoff 200 [facility] [facility] Benz[facility]ines, Urine Negative Normal Cutoff 200 [facility] CDTI 9A Comments See Note Normal [facility] Comment on above: Result Comment: INTE [...] opioid testing can be ordered. Refer to [facility] for test information. For medical purposes only; not valid for forensic use. Performed by [facility], [address] [place] [address] www.[email or web address], Nolberto Marie MD, PHD - Lab. Director Cocaine, Urine Negative Normal Cutoff 150 [facility] Creatinine, Urine 65.0 mg/dL Normal 20.0-400.0 [facility] Marijuana, Urine Positive Normal Cutoff 50 [facility] Comment on above: Result Comment: Pres umptively POSITIVE for cannabinoids (marijuana or Marinol use) by enzyme immunoassay. NOT CONFIRMED by LC-MS/MS. Unconfirmed positive may be useful for medical purposes, but does not meet forensic standards. MDMA, Urine Negative Normal Cutoff 500 [facility] Methadone, Urine Negative Normal Cutoff 150 [facility] Opiates, Urine Negative Normal Cutoff 300 [facility] Oxycodone, Urine Negative Normal Cutoff 100 [facility] Phencyclidine, Urine Negative Normal Cutoff 25 [facility] Propoxyphene, Urine Negative Normal Cutoff 300 [facility] HSV 1 Glycoprotein G Ab, IgG on 12-21-2022 HSV 1 Glycoprotein G Ab, IgG 27.20 IV Critically high <=0.89 [facility] Comment on above: Result Comment: JEREMY ADHIKARI INTERVAL: HSV 1 Glycoprotein G Ab, IgG [...] a non-type specific screening test. Performed By: [facility] [address] [place] [address] Manager Field Sales: Nolberto Marie MD, PhD HSV 2 Glycoprotein G Ab, IgG on 12-21-2022 HSV 2 Glycoprotein G Ab, IgG 0.06 IV Normal <=0.89 [facility] Comment on above: Result Comment: REFE [...] a non-type specific screening test. Performed By: [facility] [address] [place] [address] Manager Field Sales: Nolberto Marie MD, PhD Varicella-Zoster Virus Ab, I gGon 12-21-2022 Varicella-Zoster Virus Ab, IgG 240.8 IV Normal [facility] Comment on above: Result Comment: INTE [...] laboratory at the same time. Performed By: [facility] [address] [place] [address] Manager Field Sales: Nolberto Marie MD, PhD HIV Ag/Abon 12-20-2022 HIV Ag/Ab Non-Reactive Normal NR [facility] Comment on above: Result Comment: No l aboratory evidence of HIV infection. If acute HIV infection is suspected, consider testing for HIV-[address] [address] Hep C Abon 12-20-2022 Hep C Ab Non-Reactive Normal NR [facility] Comment on above: Result Comment: The [...] recommended by ordering HCV RNA by PCR. [address] [address] RPRon 12-20-2022 Reagin Ab RPR Ql (S) Non-Reactive Normal Non-reacti [facility] Comment on above: Performed By: #### R UBEL #### [facility] [address] [place] [address] Trichmonas Vaginalis Screen (EIA)on 12-20-2022 Trichomonas Vaginalis Screen (EIA) Negative Normal [facility] Comment on above: Performed By: #### E TRIC #### [facility] [address] [place] [address] Wet Prep-Medical Purposes On rivera 12-20-2022 Wet Prep Clue Cellls None Seen Normal [facility] Comment on above: Performed By: #### C BCWD #### [facility] [address] [place] [address] Wet Prep Trichomonas See EIA Normal [facility] Comment on above: Performed By: #### C BCWD #### [facility] [address] [place] [address] Wet Prep Yeast None Seen Normal [facility] Comment on above: Performed By: #### C BCWD #### [facility] [address] [place] [address] CBC With Platelet and Differ entialon 12-19-2022 Basophils (Bld) [#/Vol] 0.0 10*3/uL Normal 0.0-0.2 [facility] Comment on above: Performed By: #### C BCWD #### [facility] [address] [place] [address] Basophils/100 WBC (Bld) 0.8 % Normal [facility] Comment on above: Performed By: #### C BCWD #### [facility] [address] [place] [address] Eosinophils (Bld) [#/Vol] 0.1 10*3/uL Normal 0.0-0.7 [facility] Comment on above: Performed By: #### C BCWD #### [facility] [address] [place] [address] Eosinophils/100 WBC (Bld) 1.7 % Normal [facility] Comment on above: Performed By: #### C BCWD #### [facility] [address] [place] [address] Erythrocyte distribution width (RBC) [Ratio] 12.4 % Normal 11.5-14.5 [facility] Comment on above: Performed By: #### C BCWD #### [facility] [address] [place] [address] Hematocrit (Bld) [Volume fraction] 33.7 % Low 37.0-47.0 [facility] Comment on above: Performed By: #### C BCWD #### [facility] [address] [place] [address] Hemoglobin (Bld) [Mass/Vol] 11.5 g/dL Low 12.0-16.0 [facility] Comment on above: Performed By: #### C BCWD #### [facility] [address] [place] [address] Lymphocytes (Bld) [#/Vol] 1.0 10*3/uL Normal 1.0-4.8 [facility] Comment on above: Performed By: #### C BCWD #### [facility] [address] [place] [address] Lymphocytes/100 WBC (Bld) 21.8 % Normal [facility] Comment on above: Performed By: #### C BCWD #### [facility] [address] [place] [address] MCH (RBC) [Entitic mass] 30.7 pg Normal 27.0-31.3 [facility] Comment on above: Performed By: #### C BCWD #### [facility] [address] [place] [address] MCHC 34.1 % Normal 33.0-37.0 [facility] Comment on above: Performed By: #### C BCWD #### [facility] [address] [place] [address] MCV (RBC) [Entitic vol] 89.8 fL Normal 79.4-94.8 [facility] Comment on above: Performed By: #### C BCWD #### [facility] [address] [place] [address] Monocytes (Bld) [#/Vol] 0.4 10*3/uL Normal 0.2-0.8 [facility] Comment on above: Performed By: #### C BCWD #### [facility] [address] [place] [address] Monocytes/100 WBC (Bld) 9.6 % Normal [facility] Comment on above: Performed By: #### C BCWD #### [facility] [address] [place] [address] Neutrophils (Bld) [#/Vol] 3.0 10*3/uL Normal 1.4-6.5 [facility] Comment on above: Performed By: #### C BCWD #### [facility] [address] [place] [address] Neutrophils/100 WBC (Bld) 66.1 % Normal [facility] Comment on above: Performed By: #### C BCWD #### [facility] [address] [place] [address] Platelets (Bld) [#/Vol] 226 10*3/uL Normal 130-400 [facility] Comment on above: Performed By: #### C BCWD #### [facility] [address] [place] [address] RBC (Bld) [#/Vol] 3.76 10*6/uL Low 4.20-5.40 [facility] Comment on above: Performed By: #### C BCWD #### [facility] [address] [place] [address] WBC (Bld) [#/Vol] 4.5 10*3/uL Low 4.8-10.8 [facility] Comment on above: Performed By: #### C BCWD #### [facility] [address] [place] [address] Culture, Urineon 12-19-2022 Culture, Urine ORDER#: [id number] OR DERED BY: BROOKLYN YI SOURCE: Urine Clean Catch COLLECTED: 12/19/22 14:44 ANTIBIOTICS AT [place].: RECEIVED : 12/19/22 20:01 Culture, Urine FINAL 12/21/22 12:29 Cult,Urine: NO SIGNIFICANT GROWTH Performed at [place] [id number] [phone] Normal [facility] Comment on above: Performed By: #### R UBEL #### [facility] [address] [place] [address] Gynecological Specimen (Cyto logy)on 12-19-2022 Gynecological Specimen (Cytology) [facility] [address] [place] [address] [id number] FINAL CYTOLOGY PAP REPORT Patient Name: HOLLIS FREED Accession No: [id number] Age Sex: 2000 22 Y / F [facility] Account No: [id number] Collected: 12/19/2022 Med Rec No: [id number] Received: 12/20/2022 Attend Phys: BROOKLYN YI Completed: 01/03/2023 Perform Phys: [place]OOK[place] YI SPECIMEN ADEQUACY: Satisfactory for Evaluation. Endocervical cells/transformation zone component present. GENERAL CATEGORIZATION: Epithelial Cell Abnormality INTERPRETATION/RESULTS: Atypical squamous cells of undetermined significance. Specimen: THINPREP LIQUID BASE IMAGED DIAGNOSTIC History: Source: Thin Prep Site: Cervical History: Previous abnormal smear? No History of CA? No Lab Order#: [id number] Test Name Collected D AND T Result [...] (PCR) and nucleic acid hybridization. CPT: Technical: 05391 X1 Professional: 60010 X1 Screened by: JEROME BROOKS(ASCP) EARL CURRIE [...] processed and screened using a Thin Prep Analyst at [facility] [address] [place] [address] All abnormal gynecologic interpretation is performed at [facility], unless otherwise noted in the report. Page 1 of 1 Abnormal [facility] Comment on above: Performed By: #### R UBEL #### [facility] [address] [facility] [address] [phone] HCG Quanton 12-19-2022 HCG Quant 84634.0 mIU/mL Normal [facility] Comment on above: Result Comment: Gest ational Age Expected HCG values (mIU/ml) 3 weeks 5-72 4 weeks 10-708 5 weeks 217-8,245 6 weeks 152-32,177 8 weeks 31,366-149,094 12 weeks 27,107-201,615 16 weeks 8,904-55,332 18 weeks 9,649-55,271 Performed By: #### R UBEL #### [facility] [address] [place] [address] HPV DNA Typingon 12-19-2022 HPV Comment See below Normal [facility] Comment on above: Result Comment: Th [...] Hepatitis B Surface Ag Interp Non-Reactive Normal [facility] Comment on above: Performed By: #### H BSG #### [facility] [address] [place] [address] Rubella Ab, IgGon 12-19-2022 Rubella Ab, IgG 12.4 IU/mL Normal [facility] Comment on above: Result Comment: Yenni ent's result indicates immunity. Default Normal Ranges >=10 Presumed Immune <10 Presumed Not immune Performed By: #### R UBEL #### [facility] [address] [place] [address] Type and 3 cell Screen OB Ca ptureon 12-19-2022 Type and 3 cell Screen OB Capture PATIENT: ABDIAZIZ Drake LOC: SMOOTH,OSIEL# : [id number] : 2000 SEX: F ORDERED BY: KASSIDY BARAHONA ORDERED : 12/19/2022 11:18 COLLECTED: 12/19/2022 11:19 ORDER : [id number] RECEIVED : 12/19/2022 15:40 TEST NAME RESULT UNITS RANGES ABN FL ST ABORH Capture A POS F Antibody 3 Cell Scrn Captu NEG F Normal [facility] Comment on above: Performed By: #### R WIL #### [facility] [address] [place] [address] Urinalysis, reflex to micros copicon 12-19-2022 Bilirubin Ql (U) Negative Normal Negative [facility] Comment on above: Performed By: #### C BCWD #### [facility] [address] [place] [address] Clarity (U) Clear Normal Clear [facility] Comment on above: Performed By: #### C BCWD #### [facility] [address] [place] [address] Color (U) Yellow Normal Straw/Crittenden [facility] Comment on above: Performed By: #### C BCWD #### [facility] [address] [place] [address] Glucose Ql (U) Negative Normal Negative [facility] Comment on above: Performed By: #### C BCWD #### [facility] [address] [place] [address] Hemoglobin Ql (U) Negative Normal Negative [facility] Comment on above: Performed By: #### C BCWD #### [facility] [address] [place] [address] Ketones Ql (U) Negative Normal Negative [facility] Comment on above: Performed By: #### C BCWD #### [facility] [address] [place] [address] Leukocyte esterase Test strip Ql (U) TRACE Abnormal Negative [facility] Comment on above: Performed By: #### C BCWD #### [facility] [address] [place] [address] Nitrite Ql (U) Negative Normal Negative [facility] Comment on above: Performed By: #### C BCWD #### [facility] [address] [place] [address] pH (U) 7.0 [pH] Normal 5.0-9.0 [facility] Comment on above: Performed By: #### C BCWD #### [facility] [address] [place] [address] Protein Ql (U) Negative Normal Negative [facility] Comment on above: Performed By: #### C BCWD #### [facility] [address] [place] [address] Specific gravity (U) [Rel density] 1.013 Normal 1.005-1.03 [facility] Comment on above: Performed By: #### C BCWD #### [facility] [address] [place] [address] Urobilinogen Qn (U) 0.2 {Yoselyn'U}/dL Normal < 2.0 [facility] Comment on above: Performed By: #### C BCWD #### [facility] [address] [place] [address] Urine Microscopicon 12-20-19 23 Bacteria LM.HPF (Urine sed) [#/Area] Negative Normal Negative [facility] Comment on above: Performed By: #### U DEBBI #### [facility] [address] [place] [address] Urine Epithelial Cells Auto 3-5 Normal 0-5 [facility] Comment on above: Performed By: #### U DEBBI #### [facility] [address] [place] [address] Urine Hyaline Casts Auto 0-1 Normal 0-5 [facility] Comment on above: Performed By: #### U DEBBI #### [facility] [address] [place] [address] Urine RBC Auto 3-5 Abnormal 0-5 [facility] Comment on above: Performed By: #### U DEBBI #### [facility] [address] [place] [address] Urine WBC Auto 0-2 Normal 0-5 [facility] Comment on above: Performed By: #### U DEBBI #### [facility] [address] [place] [address] ANKLE, COMPLETE, MIN 3 VIEWS on 03-20-2022 ANKLE, COMPLETE, MIN 3 VIEWS Patient Name: HOLLIS FREED STUDY: ANKLE, COMPLETE, MIN 3 VIEWS; Right; 03/20/2022 2:21 pm INDICATION: pain M25.579: Ankle pain. ACCESSION NUMBER(S): [id number] ORDERING CLINICIAN: BEE LEDESMA FINDINGS: Right ankle x-rays three views AP, lateral and oblique view: No acute fractures, no dislocation. Mortise intact. Electronically signed by: BEE LEDESMA MD Normal [facility] FOOT COMPLETE, MIN 3 VIEWSon 03-20-2022 FOOT COMPLETE, MIN 3 VIEWS Patient Name: HOLLIS FREED STUDY: FOOT; COMPLETE, MIN 3 VIEWS; Right; 03/20/2022 2:21 pm INDICATION: pain M25.579: Ankle pain M79.673: Foot pain. ACCESSION NUMBER(S): [id number] ORDERING CLINICIAN: BEE LEDESMA FINDINGS: Right foot x-rays three views AP, lateral and oblique view: No acute fractures, no dislocation. No significant degenerative changes. Electronically signed by: BEE LEDESMA MD Normal [facility] Initial Visit (Orthopaedic S urgery)on 03-20-2022 [...] RT Foot and ankle injury. Xrays @ [facility] History of Present IllnessHollis presents for right [...] Gary, ; Mar 22 2022 4:44PM EST (Ethics Officer/Recorder) Electronically signed by : Bee Ledesma MD; Mar 23 2022 8:17AM EST Normal [facility] 03-20-2022 XR Ankle 3 Views Normal -[facility] Work Phone: XR Foot 3 Views Normal -[facility] Work Phone: CNPNon 02-10-2018 CNPN Telephone ([facility]) CL HOLLIS HEWITT ([id number]) 2000 FDate Time Provider Department02/10/18 STEVE COELLO During your visit today, we recorded the following information about you:Julio Capone 02/10/2018 3:25 PM SignedReceived 02/01/18 lab results from [facility]. Placed in provider's inbox forreview.(Gonococcus, Trich, Chlamydia) negativeRoute to [place] for scanning.Julio Capone 02/17/2018 8:35 AM SignedSent to scanning.Allergies As of Date: 02/10/2018 Noted Allergy ReactionPENICILLINS 04/01/2008 2 - Rash Comments: BlistersDate Reviewed: 05/27/2017Reviewed by: Cherelle Farfan) Juan - Fully AssessedReason for Visit: Outside Lab Results [753] Cmt: GC, chlamyd, trich neg 02/01/18Reason For Visit History RecordedPrescriptions as of 02/10/2018 Sig: NORGESTIMATE-ETHINYL ESTRADIO* Take by mouth.Problem List As Of Date 02/10/2018 Noted Resolved PREMATURE PUBERTY [E30.1] INVALID FOR* Status:Closed by STEVE COELLO MD on 02/15/18 Normal [facility] 05-29-2017 CNPN Telephone ([facility]) RACHAEL HEWITTHOLLIS ([id number]) 2000 FDate Time Provider Eocitpbakw82/1/17 STEVE COELLO During your visit today, we recorded the following information about you:Tatiana Pacheco RN 05/29/2017 8:54 AM Signed----- Message from Steve Coello sent at 05/29/2017 8:02 AM EDT -----The thyroid Function is fineDenise Junior COTA 05/29/2017 8:56 AM SignedMessage [facility] As of Date: 05/29/2017 Noted Allergy ReactionPENICILLINS 04/01/2008 2 - Rash Comments: BlistersDate Reviewed: 05/27/2017Reviewed by: Cherelle Martinez - Fully AssessedReason for Visit: Results [95] Cmt: thyroid labsReason For Visit History RecordedPrescriptions as of 05/29/2017 Sig: NORGESTIMATE-ETHINYL ESTRADIO* Take by mouth.Problem List As Of Date 05/29/2017 Noted Resolved PREMATURE PUBERTY [E30.1] INVALID FOR* Status:Closed by TATIANA PACHECO RN on 05/29/17 Normal [facility] Free T4on 05-28-2017 Thyroxine (T4) free 1.3 ng/dL Normal 0.9-1.7 [facility] Comment on above: Performed By: #### F T4 ####[facility] [place], [place] [phone] CNOVon 05-27-2017 CNOV Office Visit ([facility]) RACHAEL HOLLIS HEWITT ([id number]) 2000 FDate Time Provider Sgpkykzswr34/30/17 4:20 PM STEVE COELLO During your visit [...] 11.2 oz) LMP 05/25/2017 SpO2 98% BMI26.97 kg/f8HLCNNOT APPEARANCE: Well appearing, alert, in no acute [...] loss encouragedGet shot recordEchocardiogramincrease fiber in in [id number] PROBLEM LISTPREMATURE PUBERTYThomas Flavia Simpson 05/27/2017 5:43 PM SignedVenipuncture performed to right antecubital. Number of tubes collected: 1 gold.Referring Provider: SELF [200]Allergies As of Date: 05/27/2017 Noted Allergy ReactionPENICILLINS 04/01/2008 2 - Rash Comments: BlistersDate Reviewed: 05/27/2017Reviewed by: Cherelle Farfan)(Hist) Martinez - Fully AssessedReason for Visit: Physical [83] Pain (Shoulder Pain) [1343] Cmt: Right side pain on and offPrimary Visit Diagnosis:Physical exam [Z00.00] Other Visit Diagnoses:Heart murmur [R01.1] Diarrhea, unspecified type [R19.7] Chronic right shoulder pain [M25.511, G89.29] Shortness of breath [R06.02]Order(s):ECHO [812125] Order #: [id number]: 1 FUTURE T4 FREE/FREE THYROX [SQFT4] Order #: [id number] FUTURE T4 FREE/FREE THYROX [SQFT4] Order #: [id number]. #:[id number] riptions as of 05/27/2017 Sig: NORGESTIMATE-ETHINYL ESTRADIO* [...] STEVE COELLO MD on 05/31/17 Normal [facility] PROGRESSon 05-27-2017 Protein HNO ID: [id number] thor: Steve Spenceervice: (none)Author Type: PhysicianType: Progress [...] 11.2 oz) LMP 05/25/2017 SpO2 98% BMI26.97 kg/r3WSZVNOL APPEARANCE: Well appearing, alert, in no acute [...] loss encouragedGet shot recordEchocardiogramincrease fiber in in [id number] PROBLEM LISTPREMATURE PUBERTYThomas Luis Alberto Coello MD Normal [facility] Protein HNO ID: [id number] thor: Cherelle Farfan)(Hist) VaughnService: (none)Author Type: Medical AssistantType: Progress NotesFiled: 05/31/2017 2:26 PMNote Text:TETANUS due on 2009HPV VACCINE(1 of 3 - Female 3 Dose Series) due on 2009GC (GONORRHEA) SCREENING (18-24) due on 01/22/2016CHLAMYDIA SCREENING (18-24) due on 01/22/2016 Normal [facility] Test, Serum (Walk In)on 03-12-2017 Test, Serum (Walk In) Negative [facility] Comment on above: Performed By: #### P GSWI ####[address] [place] [address] Vital Signs Date Time Vital Sign Value Performing Clinician Sayi lity 11-04-2024 13:47-0400 Body weight 98.88 kg Roberto Huma DO Work Phone: [facility] 11-04-2024 13:47-0400 Diastolic blood pressure 70 mm[Hg] Roberto Huma DO Work Phone: [facility] 11-04-2024 13:47-0400 Systolic blood pressure 118 mm[Hg] Roberto Huma DO Work Phone: [facility] 09-29-2024 14:49-0500 Body weight 94.8 kg Roberto Huma DO Work Phone: [facility] 09-29-2024 14:49-0500 Diastolic blood pressure 70 mm[Hg] Roberto Huma DO Work Phone: [facility] 09-29-2024 14:49-0500 Systolic blood pressure 130 mm[Hg] Roberto Huma DO Work Phone: [facility] 09-15-2024 11:27-0500 Body weight 92.53 kg Roberto Huma DO Work Phone: [facility] 09-15-2024 11:27-0500 Diastolic blood pressure 76 mm[Hg] Roberto Huma DO Work Phone: [facility] 09-15-2024 11:27-0500 Systolic blood pressure 138 mm[Hg] Roberto Huma DO Work Phone: [facility] 08-17-2024 14:24-0500 Body weight 93.62 kg Marilyn Isabel PA Work Phone: [facility] 08-17-2024 14:24-0500 Diastolic blood pressure 60 mm[Hg] Marilyn Isabel PA Work Phone: [facility] 08-17-2024 14:24-0500 Systolic blood pressure 120 mm[Hg] Marilyn Isabel PA Work Phone: [facility] 07-16-2024 10:48-0500 Body weight 88.91 kg Roberto Huma DO Work Phone: [facility] 07-16-2024 10:48-0500 Diastolic blood pressure 60 mm[Hg] Roberto Huma DO Work Phone: [facility] 07-16-2024 10:48-0500 Systolic blood pressure 110 mm[Hg] Roberto Huma DO Work Phone: [facility] 06-16-2024 13:37-0500 Body weight 83.01 kg Marilyn Isabel PA Work Phone: [facility] 06-16-2024 13:37-0500 Diastolic blood pressure 64 mm[Hg] Marilyn Isabel PA Work Phone: [facility] 06-16-2024 13:37-0500 Systolic blood pressure 112 mm[Hg] Marilyn Isabel PA Work Phone: [facility] 05-19-2024 15:04-0400 Body weight 80.74 kg Roberto Huma DO Work Phone: [facility] 05-19-2024 15:04-0400 Diastolic blood pressure 76 mm[Hg] Roberto Huma DO Work Phone: [facility] 05-19-2024 15:04-0400 Systolic blood pressure 138 mm[Hg] Roberto Huma DO Work Phone: [facility] Encounters Encounter Date Encounter Type Care Provider Facility Start: 11-04-2024 End: 11-04-2024 Bamboo flowsheet Roberto Huma DO Work Phone: [facility] Start: 11-04-2024 End: 11-04-2024 Bamboo flowsheet Roberto Huma DO Work Phone: [facility] Start: 11-04-2024 End: 11-04-2024 Office outpatient visit 15 minutes Roberto Huma DO Work Phone: [facility] Comment on above: 36 weeks gestation o f ; Third trimester Start: 10-28-2024 End: 10-28-2024 ambulatory ROBERTO HUMA Not Available Start: 10-28-2024 End: 10-28-2024 Bamboo flowsheet Roberto Huma DO Work Phone: [facility] Start: 10-28-2024 End: 10-28-2024 Bamboo flowsheet Roberto Huma DO Work Phone: [facility] Start: 10-28-2024 End: 10-28-2024 Clinisync Result Encounter Marilyn Mcintyre PA Work Phone: [facility] Department Unsolicited Start: 10-14-2024 End: 10-14-2024 ambulatory MARILYN MCINTYRE Not Available Start: 09-29-2024 End: 09-29-2024 Office outpatient visit 15 minutes Roberto Huma DO Work Phone: [facility] Comment on above: 31 weeks gestation o f ; Third trimester ; Pruritus Start: 09-29-2024 End: 09-29-2024 Clinisync Result Encounter Roberto Huma DO Work Phone: [facility] Unsolicited Start: 09-29-2024 End: 09-29-2024 Clinisync Result Encounter Roberto Huma DO Work Phone: [facility] Unsolicited Start: 09-29-2024 End: 09-29-2024 ambulatory ROBERTO HUMA Not Available Start: 09-17-2024 End: 09-29-2024 Telephone encounter Roberto [...] External Result Encounter Marilyn LIVINGSTON Work Phone: [facility] External Department Unsolicited Start: 06-16-2024 End: 06-16-2024 [...] Start: 05-05-2024 End: 05-05-2024 Clinisync Result Encounter Robetro Huma DO Work Phone: [facility] Unsolicited Start: 04-24-2024 End: 04-24-2024 ambulatory ROBERTO HUMA Not Available Start: 04-24-2024 End: 04-24-2024 Office outpatient visit 5 minutes [facility] Nurse [facility] Comment on above: GA: 8w5d Start: 01-17-2024 End: 01-19-2024 ambulatory [facility] al [place] Start: 07-26-2023 End: 07-29-2023 Evaluation and management of inpatient [facility] Start: 06-28-2023 End: 06-30-2023 ambulatory [facility] Start: 04-23-2023 End: 05-29-2023 Pre-admission assessment Elbert Fuchs [facility] Start: 04-22-2023 End: 04-22-2023 ambulatory Elbert Fuchs Facility:[facility] Start: 03-01-2023 End: 03-03-2023 [facility] Start: 12-31-2022 End: 01-02-2023 Subsequent hospital visit by physician Brooklyn Montenegro DO Work Phone: [facility] Comment on above: Secondary amenorrhea ; Positive urine test Start: 04-10-[address] Bee canseco [place] Facility:[id number] Start: 03-20-[address] Bee canseco [place] Facility:[id number] Start: 03-20-2022 Patient encounter procedure Bee Ledesma MD Work Phone: [facility] Work Phone: Start: 05-27-2017 End: 06-03-2017 Patient encounter STEVE COELLO [facility] Start: 03-12-2017 Ambulatory NO FAMILY DOCTOR Facili ty:[id number] Procedures Date Procedure Procedure Detail Performing Clinician Start: 11-04-2024 Urnls dip stick/tabl et rgnt non-auto w/o micrscp Roberto Huma DO Work Phone: Start: 10-28-2024 US OB GROWTH Marilyn LIVINGSTON Work Phone: Start: 09-29-2024 [facility] LIVER PANEL Roberto Huma DO Work Phone: Start: 09-29-2024 Urnls dip stick/tabl et rgnt non-auto w/o micrscp Roberto Huma DO Work Phone: Start: 09-15-2024 Urnls dip stick/tabl et rgnt [...] Montenegro DO Work Phone: None (qualifier value) Elbert Fuchs Plan of Treatment Date Care Activity Detail Author Start: 03-29-2025 Influenza vaccination Influenz a Vaccine (Season Ended) [facility] Start: 11-11-2024 End: 11-11-2024 Patient encounter procedure 11/11/2024 10:20 AM EDT Routine [facility] [address] [facility] [place] [address] Marilyn Mcintyre PA [address] [place] [address] [facility] Start: 11-04-2024 End: 11-04-2025 CULTURE, GROUP B STREP WITH SUSCEPTIBLITY CULTURE, GROUP B STREP WITH SUSCEPTIBLITY Lab Routine Third trimester Expected: 11/04/2024, Expires: 11/04/2025 [facility] Work Phone: Comment on above: Expected: 11/04/2024 , Expires: 11/04/2025 Start: 11-04-2024 End: 11-04-2024 Patient encounter procedure 11/04/2024 1:30 PM EDT Routine [facility] [address] [place] [address] Roberto Finn, DO [address], [place] [id number] [facility] Start: 10-28-2024 End: 10-28-2024 Patient encounter procedure 10/28/2024 2:10 PM EDT Routine [facility] [address] [facility] [place] [address] Roberto Finn, DO [address] [place] [address] Arrived [facility] Comment on above: Arrived Start: 10-14-2024 End: 10-14-2024 Patient encounter procedure 10/14/2024 1:30 PM EDT Routine [facility] [address] [facility] [place] [address] Marilyn Mcintyre, PA [address] [place] [address] [facility] Start: 09-29-2024 End: 09-29-2024 Patient encounter procedure 09/29/2024 2:40 PM EST Routine [facility] [address] [facility] [place] [address] Roberto Finn, DO [address] [place] [address] [address] [place] [address] [facility] Start: 09-29-2024 End: 09-29-2025 Bile acids, total Bile acids, total Lab Routine Pruritus Expected: 09/29/2024 (Approximate), Expires: 09/29/2025 [facility] Comment on above: Expected: 09/29/2024 (Approximate), Expires: 09/29/2025 Start: 09-29-2024 End: 09-29-2025 CBC W Auto Differential panel - Blood CBC and differential Lab Routine Pruritus Expected: 09/29/2024 (Approximate), Expires: 09/29/2025 [facility] Comment on above: Expected: 09/29/2024 (Approximate), Expires: 09/29/2025 Start: 09-29-2024 End: 09-29-2025 Hepatic function 2000 panel - Serum or Plasma Hepatic function panel Lab Routine Pruritus Expected: 09/29/2024 (Approximate), Expires: 09/29/2025 [facility] Work Phone: Comment on above: Expected: 09/29/2024 (Approximate), Expires: 09/29/2025 Start: 09-29-2024 End: 09-29-2024 Professional / ancillary services management 09/29/2024 2:00 PM EST Ancillary Procedure [facility] [address] [facility] [place] [address] [facility] Start: 09-15-2024 End: 09-15-2025 US for US OB follow up transabdominal approach Imaging Routine size inconsistent with dates Expected: 09/15/2024, Expires: 09/15/2025 [facility] Work Phone: Comment on above: Expected: 09/15/2024 , Expires: 09/15/2025 Start: 09-15-2024 End: 09-15-2024 Patient encounter procedure 09/15/2024 11:10 AM EST Routine [facility] [address] [facility] [place] [phone] Roberto Finn DO [address] [place], [place] [id number] [facility] Start: 08-17-2024 End: 08-17-2024 Patient encounter procedure 08/17/2024 2:20 PM EST Routine [facility] [address] [place] [address] Marilyn Mcintyre PA [address] [place], [place] [id number] Arrived [facility] Comment on above: Arrived Start: 08-17-2024 End: 08-17-2025 CBC panel - Blood by Automated count CBC Lab Routine Diabetes mellitus screening Expected: 08/17/2024 (Approximate), Expires: 08/17/2025 [facility] Work Phone: Comment on above: Expected: 08/17/2024 (Approximate), Expires: 08/17/2025 Start: 08-17-2024 End: 08-17-2025 Measurement of glucose 1 hour after glucose challenge for glucose tolerance test Glucose tolerance, 1 hour Lab Routine Diabetes mellitus screening Expected: 08/17/2024 (Approximate), Expires: 08/17/2025 [facility] Comment on above: Expected: 08/17/2024 (Approximate), Expires: 08/17/2025 Start: 08-13-2024 End: 08-13-2024 Patient encounter procedure 08/13/2024 1:30 PM EST Routine [facility] [address] [facility] [place] [phone] Marilyn Mcintyre PA [address] [place], [place] [id number] [facility] Start: 07-16-2024 End: 07-16-2024 Alpha fetoprotein, maternal Alpha fetoprotein, maternal Lab Routine Need for maternal serum alpha-protein (MSAFP) screening Expected: 07/16/2024 (Approximate), Expires: 07/16/2024 [facility] Work Phone: Comment on above: Expected: 07/16/2024 (Approximate), Expires: 07/16/2024 Start: 07-16-2024 End: 07-16-2024 Patient encounter procedure 07/16/2024 10:20 AM EST Routine [facility] [address] [facility] [address] [place] [phone] Roberto Finn DO [address], [place] [id number] [facility] Start: 06-16-2024 End: 06-16-2025 US for US OB ANATOMY SINGLE W US OB CERVICAL LENGTH Imaging Routine Screening, , for anatomic survey Expected: 06/16/2024 (Approximate), Expires: 06/16/2025 [facility] Comment on above: Expected: 06/16/2024 (Approximate), Expires: 06/16/2025 Start: 06-16-2024 End: 06-16-2024 Patient encounter procedure 06/16/2024 1:00 PM EST [facility] [address] [facility] [place] [phone] Marilyn Mcintyre PA [address] [place], [place] [id number] [facility] Start: 05-19-2024 End: 05-19-2024 Patient encounter procedure 05/19/2024 2:40 PM EDT Routine [facility] [address] [facility] [place] [phone] Roberto Finn DO [address] [place], [place] [phone] [facility] Start: 04-24-2024 End: 04-24-2025 ABO/Rh ABO/Rh Lab Routine Missed menses , unspecified gestational age Expected: 04/24/2024 (Approximate), Expires: 04/24/2025 [facility] Comment on above: Expected: 04/24/2024 (Approximate), Expires: 04/24/2025 Start: 04-24-2024 End: 04-24-2025 Blood type and Indirect antibody screen panel - Blood Type and screen Lab Routine Missed menses , unspecified gestational age Expected: 04/24/2024 (Approximate), Expires: 04/24/2025 [facility] Work Phone: Comment on above: Expected: 04/24/2024 (Approximate), Expires: 04/24/2025 Start: 04-24-2024 End: 04-24-2025 Drugs of abuse panel - Urine by Screen method Rapid drug screen, urine Lab Routine , unspecified gestational age Encounter for supervision of normal first in first trimester Expected: 04/24/2024 (Approximate), Expires: 04/24/2025 [facility] Comment on above: Expected: 04/24/2024 (Approximate), Expires: 04/24/2025 Start: 04-24-2024 End: 04-24-2025 US Pelvis transvaginal US OB transvaginal Imaging Routine Missed menses Expected: 04/24/2024 (Approximate), Expires: 04/24/2025 [facility] Comment on above: Expected: 04/24/2024 (Approximate), Expires: 04/24/2025 Start: 03-29-2024 Influenza vaccination Influenza Vacc ine (#1) [facility] Start: 12-20-2023 Depression Screen Depression Screen [facility] Start: 12-20-2023 Screening for Chlamy manisha trachomatis Chlamydia/GC screen [facility] Start: 02-26-2023 Influenza vaccination Flu vacc ine (Season Ended) [facility] Start: 01-16-2023 End: 01-16-2023 ambulatory 01/16/2023 Initial Obstetrics and Gynecology Brooklyn Montenegro DO [address] [place], [place] [id number] [facility] Start: 08-20-2022 Screening for malign ant neoplasm of cervix Pap smear [facility] Start: 04-10-2022 FUV, Provider: Bee Ledesma, Status: Pen, Time: 10:15 AM FUV, Provider: Bee Ledesma, Status: Pen, Time: 10:15 AM [facility] Work Phone: Start: 04-20-2019 DTaP/Tdap/Td vaccine (7 - Td or Tdap) DTaP/Tdap/Td vaccine (7 - Td or Tdap) [facility] Start: 07-06-2010 Hepatitis A vaccine (2 of 2 - 2-dose series) Hepatitis A vaccine (2 of 2 - 2-dose series) [facility] Start: 1998 COVID-19 Vaccine (#1) COVID-19 Vacci ne (#1) [facility] Bacteria identified in Urine by Culture Urine culture Microbiology Routine Missed menses Ordered: 04/24/2024 [facility] Comment on above: Ordered: 04/24/2024 CBC W Auto Different ial panel - Blood CBC and differential Lab Routine Missed menses , unspecified gestational age Ordered: 04/24/2024 [facility] Comment on above: Ordered: 04/24/2024 CHLAMYDIA TRACHOMATI S (GENITO/STI) CHLAMYDIA TRACHOMATIS (GENITO/STI) Lab Routine Exposure to STD Ordered: 06/16/2024 [facility] Comment on above: Ordered: 06/16/2024 Hemoglobin A1c/Hemoglobin.total in Blood Hemoglobin A1c Lab Routine Missed menses , unspecified gestational age Ordered: 04/24/2024 [facility] Comment on above: Ordered: 04/24/2024 Hepatitis B virus surface Ag [Presence] in Serum or Plasma by Immunoassay Hepatitis B surface antigen Lab Routine Missed menses , unspecified gestational age Ordered: 04/24/2024 [facility] Comment on above: Ordered: 04/24/2024 Hepatitis C virus Ab [Presence] in Serum or Plasma by Immunoassay Hepatitis C antibody Lab Routine Missed menses , unspecified gestational age Ordered: 04/24/2024 [facility] Comment on above: Ordered: 04/24/2024 HIV-1/HIV-2 antigen/antibody combination immunoassay HIV-1 and HIV-2 antibodies Lab Routine Missed menses , unspecified gestational age Ordered: 04/24/2024 [facility] Comment on above: Ordered: 04/24/2024 Neisseria gonorrhoea e DNA [Presence] in Unspecified specimen by EVONNE with probe detection Neisseria gonorrhea DNA probe, direct Lab Routine Exposure to STD Ordered: 06/16/2024 [facility] Comment on above: Ordered: 06/16/2024 Reagin Ab [Presence] in Serum by RPR RPR Lab Routine Missed menses , unspecified gestational age Ordered: 04/24/2024 [facility] Comment on above: Ordered: 04/24/2024 Rubella antibody, IgG Rubella an tibody, IgG Lab Routine Missed menses , unspecified gestational age Ordered: 04/24/2024 [facility] Comment on above: Ordered: 04/24/2024 SURESWAB(R) ADVANCED VAGINITIS PLUS, TMA SURESWAB(R) ADVANCED VAGINITIS PLUS, TMA Pathology and Cytology Routine Exposure to STD Ordered: 06/16/2024 [facility] Comment on above: Ordered: 06/16/2024 Immunizations Immunization Date Immunization Notes Care Provider Angelique beatty 05-29-2019 influenza virus vaccine, unspecified formulation Elbert Fuchs [facility] Comment on above: Result Comment: [facility] [place] [facility] [place] 06-07-2010 human papilloma viru s vaccine, quadrivalent Brooklyn Lan DO Work Phone: [employer] Work Phone: 06-07-2010 influenza virus vaccine, unspecified formulation Brooklyn Lan DO Work Phone: [employer] Work Phone: 01-04-2010 hepatitis A vaccine, unspecified formulation Brooklyn Montenegro DO Work Phone: [employer] Work Phone: 01-04-2010 human papilloma viru s vaccine, quadrivalent Brooklyn Montenegro DO Work Phone: [employer] Work Phone: 01-04-2010 varicella virus vaccine Brooklyn Lan DO Work Phone: [employer] Work Phone: 04-20-2009 human papilloma viru s vaccine, quadrivalent Brooklyn Montenegro DO Work Phone: [employer] Work Phone: 04-20-2009 tetanus toxoid, reduced diphtheria toxoid, and acellular pertussis vaccine, adsorbed Brooklyn Montenegro DO Work Phone: [employer] Work Phone: 08-19-2006 influenza virus vaccine, unspecified formulation Brooklyn Montenegro DO Work Phone: [employer] Work Phone: 06-14-2006 influenza virus vaccine, unspecified formulation Brooklyn Montenegro DO Work Phone: [employer] Work Phone: 03-02-2003 diphtheria, tetanus toxoids and acellular pertussis vaccine Brooklyn Montenegro DO Work Phone: [employer] Work Phone: 03-02-2003 measles, mumps and rubella virus vaccine Brooklyn Montenegro DO Work Phone: [employer] Work Phone: 03-02-2003 poliovirus vaccine, inactivated Brooklyn Montenegro DO Work Phone: [employer] Work Phone: 04-28-1999 diphtheria, tetanus toxoids and acellular pertussis vaccine Brooklyn Montenegro DO Work Phone: [employer] Work Phone: 04-28-1999 poliovirus vaccine, inactivated Brooklyn Montenegro DO Work Phone: [employer] Work Phone: 01-25-1999 Hib, unspecified Brooklyn you DO Work Phone: [employer] Work Phone: 01-25-1999 measles, mumps and rubella virus vaccine Brooklyn Montenegro DO Work Phone: [employer] Work Phone: 01-25-1999 varicella virus vaccine Brooklyn Montenegro DO Work Phone: [employer] Work Phone: 1998 diphtheria, tetanus toxoids and acellular pertussis vaccine Brooklyn Montenegro DO Work Phone: [employer] Work Phone: 1998 hepatitis B vaccine, adult dosage Brooklyn Montenegro DO Work Phone: [employer] Work Phone: 1998 Hib, unspecified Brooklyn you DO Work Phone: [employer] Work Phone: 1998 diphtheria, tetanus toxoids and acellular pertussis vaccine Brooklyn Montenegro DO Work Phone: [employer] Work Phone: 1998 hepatitis B vaccine, adult dosage Brooklyn Montenegro DO Work Phone: [employer] Work Phone: 1998 Hib, unspecified Brooklyn you DO Work Phone: [employer] Work Phone: 1998 poliovirus vaccine, inactivated Brooklyn Montenegro DO Work Phone: [employer] Work Phone: 1998 hepatitis B vaccine, adult dosage Brooklyn Montenegro DO Work Phone: [employer] Work Phone: 1998 diphtheria, tetanus toxoids and acellular pertussis vaccine Brooklyn Montenegro DO Work Phone: [employer] Work Phone: 1998 poliovirus vaccine, inactivated Brooklyn Montenegro DO Work Phone: [employer] Work Phone: Payers Date Payer Category Payer Medicaid [id number] 2022 Private Health Insurance [id number] 1998 Unknown [id number] 2.16.8 [id number] 1998 Unknown [id number] 2.16.8 [id number] 1998 Unknown [id number] 2.16.8 [id number] 1998 Unknown [id number] 2.16.8 [id number] 1998 Unknown [id number] 2.16.8 [id number] 1998 Unknown [id number] 2.16.8 [id number] 1998 Unknown [id number] 2.16.8 [id number] 1998 Unknown [id number] 2.16.84 [id number] 1998 Unknown [id number] 2.16.84 0.1.333022.3.579.2.9 1998 Unknown [id number] 2.16.84 0.1.207043.3.579.2.1259 1998 Unknown [id number] 2.16.84 0.1.903719.3.579.2.1259 1998 Unknown [id number] 2.16.84 0.1.533171.3.579.2.1259 1998 Unknown [id number] 2.16.84 0.1.997440.3.579.2.1259 1998 Unknown [id number] 2.16.84 0.1.723322.3.579.2.1259 1998 Unknown [id number] 2.16.84 [id number] 1998 Unknown [id number] 2.16.84 0.1.392793.3.579.2.9 1998 Unknown [id number] 2.16.84 [id number] Unknown 1914 Unknown Self Pay Social History Date Type Detail Facility Start: 03-02-2020 End: 12-19-2022 Tobacco smoking status NHIS Never smoked tobacco [employer] Phone: Start: 12-19-2022 Tobacco use and exposure Smokeless tobacco non-user [employer] Phone: Start: 12-19-2022 Alcohol intake Ex-drinker (finding) [employer] Phone: Start: 1998 Sex Assigned At Not on file B ON [employer] Phone: Sex Assigned At Female [facility] Tobacco smoking status [facility] Tobacco smoking consumption unknown [facility] Start: 03-08-2024 [facility] Start: 1998 Sex assigned at Female [facility] Start: 04-17-2024 Gender identity Identifies as female gender (finding) [facility] Clinical Notes 04-22-2023 to 11-04-2024 Della Blanco, [facility] - 11/04/2024 1:30 PM Ryan Parsons, [facility] - 09/29/2024 2:40 PM ESTTelephone Encounter - Connie Chau, [facility] - 09/17/2024 11:27 AM Emelia Blanco, [facility] - 09/15/2024 11:10 AM EST Note Date & Type Note Facility 11-04-2024 History of Presen t illness Narrative Reason for Appointment: Patient ID: Hollis Freed is a 24 y.o. female who presents for Routine Visit Patient presents today for Return OB appointment. MEDICATIONS Current Outpatient Medications Medication Instructions fexofenadine ODT (OLGA LIDIA ODT) 30 mg, Daily ondansetron (ZOFRAN) 4 mg, Oral, Every 6 [...] Constitutional: Appearance: Normal appearance. She is well-developed. Genitourinary: Vulva normal. Cardiovascular: Rate and Rhythm: Normal rate and [...] nursing note reviewed. Exam conducted with a pediatric registered nurse present. Vitals: There is no height or weight on file to calculate BMI. BP: 118/70 Patient's last menstrual period was 02/23/2024. ASSESSMENT & PLAN ICD-10-CM 1. 36 weeks gestation of Z3A.36 POCT urinalysis dipstick manually resulted 2. Third trimester Z34.93 POCT urinalysis dipstick manually resulted CULTURE, GROUP B STREP WITH SUSCEPTIBLITY CULTURE, GROUP B STREP WITH SUSCEPTIBLITY Patient is doing well but has complaints of being tired and having maternal discomfort due to . Patient verbalized frequent movement and was instructed to perform kick counts three times per day. labor precautions were given, LARC consent was signed/declined, and GBS was obtained. Cervical check was performed and patient is 1cm dilated. Orders Placed This Encounter Procedures CULTURE, GROUP B STREP WITH SUSCEPTIBLITY POCT urinalysis dipstick manually resulted Follow Up: Patient is to return to office in 1 week for routine OB appointment Documented by Della Blanco LPN on behalf of: Roberto Finn DO documented in this encounter [facility] 09-29-2024 History of Presen t illness Narrative Reason [...] nursing note reviewed. Exam conducted with a pediatric registered nurse present. Vitals: There is no height or weight on file to calculate BMI. BP: 130/70 Patient's last menstrual period was 02/23/2024. ASSESSMENT & PLAN ICD-10-CM 1. 31 weeks gestation of Z3A.31 POCT urinalysis dipstick manually resulted 2. Third trimester Z34.93 POCT urinalysis dipstick manually resulted Patient presents today for a routine obstetrics appointment. Patient is currently 31w2d with a Estimated Date of Delivery: 11/29/24. Patient has complaints of itching on feet and occasionally on hands. Patient given labs to have drawn to ensure no underlying issues. Patient to return to clinic in 2 weeks. Documented by Hilda Parsons LPN on behalf of: Roberto Finn DO documented in this encounter [facility] 09-17-2024 Telephone encount er Note Hi, this [...] could give me a call back at [phone], that would be great. Thank you. I also talked to pt and advised her to go to the ER and get evaluated. {PVU [facility] 09-17-2024 Miscellaneous Notes Formattin g of this [...] could give me a call back at [phone], that would be great. Thank you. I [...] about an hour. documented in this encounter [facility] 09-17-2024 Telephone encount er Note OB 29 wks calls with concern of falling on the ice and is now having hip pain. She is tearful. Pt advised to be seen at hospital for evaluation. She will find childcare and go to the hospital in about an hour. [facility] 09-15-2024 History of Presen t illness Narrative [...] nursing note reviewed. Exam conducted with a pediatric registered nurse present. Vitals: There is no height or [...] Roberto Finn DO documented in this encounter [facility] 08-17-2024 History of Presen t illness Narrative [...] of: YARA Winter documented in this encounter [facility] 07-16-2024 History of Presen t illness Narrative [...] nursing note reviewed. Exam conducted with a pediatric registered nurse present. Vitals: There is no height or [...] Roberto Finn DO documented in this encounter [facility] 06-16-2024 History of Presen t illness Narrative [...] of: YARA Winter documented in this encounter [facility] 05-19-2024 History of Presen t illness Narrative [...] nursing note reviewed. Exam conducted with a pediatric registered nurse present. Vitals: There is no height or [...] or undercooked meat, and stay away from [facility]. Patient has been consulted regarding [...] Roberto Finn DO documented in this encounter [facility] 04-24-2024 History of Presen t illness Narrative [...] or undercooked meat, and stay away from [facility]. Patient has also been advised [...] Connie Chau LPN documented in this encounter [facility] 04-22-2023 Note The following Patien t Education Materials have been given to the patient: EducationMaterial [facility] Evaluation + Plan note No data available for this section [facility] Evaluation note Diagnosis Secondary amenorrhea Absence of menstruation Positive urine test documented in this encounter [employer] Phone: evaluation note* Diagnosis Nausea Nausea alone 12 weeks gestation of First trimester state, incidental documented in this encounter [facility]* Diagnosis Second trimester state, incidental Exposure to STD Need for maternal serum alpha-protein (MSAFP) screening Screening, , for anatomic survey Encounter for anatomic survey documented in this encounter [facility]* Diagnosis Missed menses 8 weeks gestation of First trimester state, incidental , unspecified gestational age Encounter for supervision of normal first in first trimester documented in this encounter [facility]* Diagnosis 20 weeks gestation of Second trimester state, incidental documented in this encounter [facility]* Diagnosis Diabetes mellitus screening Screening for diabetes mellitus Second trimester state, incidental 25 weeks gestation of documented in this encounter [facility] Diagnosis Third trimester state, incidental 29 weeks gestation of size inconsistent with dates documented in this encounter [facility] Diagnosis 31 weeks gestation of Third trimester state, incidental Pruritus Unspecified pruritic disorder documented in this encounter [facility] Diagnosis 36 weeks gestation of Third trimester state, incidental documented in this encounter [facility] Discharge instructions No data available for this section [facility] data available for this section [facility] Summary Purpose Family History No Family [...] RT Foot and ankle injury. Xrays @ PHYSICIAN ASST Reason for Referral Specialty Diagnoses / Procedures Referred By Contac t Referred To Contact Radiology Diagnoses Secondary amenorrhea Positive urine test Procedures US OB TRANSVAGINAL [place], [address] [place] [address] Referral ID Status Reason Start Date Expiration Date Visits Re quested Visits Authorized [id number] Open 12/19/2022 12/19/2023 1 1 Specialty Diagnoses / Procedures Referred By Contac t Referred To Contact Radiology Diagnoses Secondary amenorrhea Positive urine test Procedures US OB LESS THAN 14 WEEKS SINGLE OR FIRST GESTATION [place], [address] [place] [address] Referral ID Status Reason Start Date Expiration Date Visits Re quested Visits Authorized [id number] Open 12/19/2022 12/19/2023 1 1 Additional Source Comments INFORMATION SOURCE (unrecogn ized section and content) DATE CREATED AUTHOR 01/22/[address] [facility] DATE CREATED AUTHOR AUTHOR'S ORGANIZ ATION 02/17/2018 [facility] DATE CREATED AUTHOR AUTHOR'S ORGANIZ ATION 03/25/2022 [facility] DATE CREATED AUTHOR AUTHOR'S ORGANIZ ATION 04/29/2022 [facility] DATE CREATED AUTHOR AUTHOR'S ORGANIZ ATION 04/30/2023 [facility] DATE CREATED AUTHOR AUTHOR'S ORGANIZ ATION 07/17/2023 [facility] DATE CREATED AUTHOR AUTHOR'S ORGANIZ ATION 01/20/2024 [facility] DATE CREATED AUTHOR AUTHOR'S ORGANIZ ATION 10/31/2024 [facility] EPIC Reason for Visit (unrecogniz ed section and content) Specialty Diagnoses / Procedures Referred By Contac t Referred To Contact Radiology Diagnoses Secondary amenorrhea Positive urine test Procedures US OB LESS THAN 14 WEEKS SINGLE OR FIRST GESTATION [place] DO [address] [place] [address] Referral ID Status Reason Start Date Expiration Date Visits Re quested Visits Authorized [id number] Open 12/19/2022 12/19/2023 1 1 Reason Comments Routine Visit Reason Comments Amenorrhea Care Teams (unrecognized sec tion and content) Hot Die Picker Relationship Specialty Start Date End Date Undetermined, [...] BE BASED ON THE PRIMARY CLINICAL RECORDS. [facility] [employer] provides no warranty or guarantee of the accuracy or completeness of information in this document.
== END 2024-11-04 21:10 | disposition home or self-care (01) ==
LOC: LAB 21:09
PROVIDERS: Visit Provider Obstetrics & Gynecology
DX: Z34.93 Encounter for supervision of normal pregnancy, unspecified, third trimester (principal)
CPT/HCPCS: 36415; 87081

== ENCOUNTER 2024-11-24 06:29 | Inpatient (IN) | payer MEDICAID, SELFPAY ==
[2024-11-24] VITALS (50 sets, daily range): PULSE 68–107; TEMP 35.6–36.6
[2024-11-24] MEDS: 0.9 % SODIUM CHLORIDE 1,000 ML 125 ML IV (06:30)
[2024-11-24 07:16] LABS: Hematocrit 34.2 % (36.0-48.0); Hemoglobin 11.4 g/dL (12.0-16.0); Mean Corpuscular HGB Conc 33.3 g/dL (29.9-35.2); Mean Corpuscular Hemoglobin 29.6 pg (26.7-34.0); Mean Corpuscular Volume 88.8 fL (81.0-99.0); Mean Platelet Volume 11.5 fL (9.5-13.5); Platelet Count 268 10^3/uL (150-450); Red Blood Count 3.85 10^6/uL (4.20-5.40); Red Cell Distribution Width 13.2 % (11.0-15.0); White Blood Count 9.6 10^3/uL (4.0-11.0)
[2024-11-24 07:30] LABS: Amphetamine Screen Urine NEGATIVE (NEGATIVE); Barbiturates Screen Urine NEGATIVE (NEGATIVE); Benzodiazepines Screen Urine NEGATIVE (NEGATIVE); Buprenorphine Screen Urine NEGATIVE (NEGATIVE); Cannabinoid Screen Urine NEGATIVE (NEGATIVE); Cocaine Screen Urine NEGATIVE (NEGATIVE); Methadone Screen Urine NEGATIVE (NEGATIVE); Methamphetamines Screen Urine NEGATIVE (NEGATIVE); Opiate Screen Urine NEGATIVE (NEGATIVE); Oxycodone Screen Urine NEGATIVE (NEGATIVE); Phencyclidine Screen Urine NEGATIVE (NEGATIVE); Tricyclic Antidepressant Urine NEGATIVE (NEGATIVE)
[2024-11-24] MEDS: OXYTOCIN/0.9 % SODIUM CHLORIDE 10 UNITS/500 ML PLAST..BAG 6 UNIT IV (07:38)
[2024-11-24] MEDS: 0.9 % SODIUM CHLORIDE 1,000 ML 1000 ML IV (09:59)
[2024-11-24] MEDS: ROPIVACAINE HCL/PF 400 MG/200 ML PREMIX 6 MG EPIDURAL (10:04)
[2024-11-24] MEDS: OXYTOCIN/0.9 % SODIUM CHLORIDE 20 UNITS/1,000 ML PLAST..BAG 125 UNIT IV (15:32)
[2024-11-24] MEDS: LIDOCAINE HCL 1% 200 MG/20 ML MDV INJ (15:35)
--- NOTE | 2024-11-24 15:42 | PM.OBPRCVD ---
Procedure Intrapartal events: None Induction method: per pitocin protocol Delivery augmentation: rupture of membranes and pitocin Delivery monitor: external uterine Route of delivery: Episiotomy Description: none L&D Laceration Description: perineal - 1st degree Delivery repair: Vicryl Estimated blood loss (mL): 250 Anesthesia type: Epidural Disposition: PACU Delivery date: 11/24/24 Gender: male presentation: vertex Placental delivery description: Spontaneous cord description: 3 Vessels
[2024-11-24] MEDS: GLYCERIN/WITCH HAZEL PADS 1 PAD TOPICAL (15:59)
[2024-11-24] MEDS: BENZOCAINE/MENTHOL 85 GRAM SPRAY BOTTLE 1 APPLIC TOPICAL (15:59)
[2024-11-24] MEDS: IBUPROFEN 600 MG TABLET PO (17:48)
[2024-11-24] MEDS: ACETAMINOPHEN 325 MG TABLET 650 MG PO (23:32)
[2024-11-25] MEDS: IBUPROFEN 600 MG TABLET PO ×3 (04:34→19:38)
[2024-11-25 06:53] LABS: Basophils Percent Auto 0.3 % (0.2-2.0); Eosinophils Absolute Auto 0.1 10^3/uL (0.0-0.7); Eosinophils Percent Auto 0.5 % (0.9-7.0); Hematocrit 30.8 % (36.0-48.0); Immature Granulocytes Pct Auto 0.7 % (0.0-0.5); Lymphocytes Absolute Auto 1.3 10^3/uL (1.2-3.8); Lymphocytes Percent Auto 9.2 % (20.5-60.0); Mean Corpuscular HGB Conc 32.5 g/dL (29.9-35.2); Mean Corpuscular Hemoglobin 29.2 pg (26.7-34.0); Mean Corpuscular Volume 89.8 fL (81.0-99.0); Mean Platelet Volume 10.9 fL (9.5-13.5); Monocytes Absolute Auto 0.8 10^3/uL (0.3-0.8); Monocytes Percent Auto 6.1 % (1.7-12.0); Neutrophils Absolute Auto 11.3 10^3/uL (1.4-6.5); Neutrophils Percent Auto 83.2 % (43.0-75.0); Platelet Count 216 10^3/uL (150-450); Red Blood Count 3.43 10^6/uL (4.20-5.40); Red Cell Distribution Width 13.4 % (11.0-15.0); White Blood Count 13.5 10^3/uL (4.0-11.0)
[2024-11-25] MEDS: ACETAMINOPHEN 325 MG TABLET 650 MG PO ×2 (07:42→19:38)
[2024-11-25] MEDS: DOCUSATE SODIUM 100 MG CAPSULE PO ×2 (07:42→23:29)
[2024-11-25 07:45] VITALS: BP 122/78; PULSE 98; TEMP 36.6
--- NOTE | 2024-11-25 09:52 | PM.OBPN ---
OB - PN: Subj Subjective Patient comments: no complaints and pain well controlled [place] status: doing well Exam Constitutional Vital Signs, click to edit/add: Last Vital Signs Temp 97.7 F 11/24/24 23:38 Pulse 98 H 11/25/24 07:45 Resp 14 11/24/24 07:00 O2 Del Method Room Air 11/24/24 23:37 Documenting provider has reviewed patient's vital signs: yes Common normals: no apparent distress Respiratory Common normals: clear to auscultation bilaterally Cardio Common normals: regular rate and regular rhythm GI Common normals: Normal to inspection, nondistended, normoactive bowel sounds present Extremity Common normals: no clubbing, cyanosis or edema and no calf tenderness Results Labs Labs: Short CBC 11/25/24 Range/Units 06:42 WBC 13.5 H (4.0-11.0) 10^3/uL Hgb 10.0 L (12.0-16.0) g/dL Hct 30.8 L (36.0-48.0) % Plt Count 216 (150-450) 10^3/uL OB - PN: A/P Plan - Vaginal Delivery day: 1 Plan: routine care Time Spent with Patient Time: Total time spent is greater than 50% in coordination of care (as documented) at patient's floor/unit and/or counseling patient: Total time spent with greater than 50% in coordination of care (as documented) at patient's floor/unit and/or counseling patient: less than 15 minutes
[2024-11-25 16:32] VITALS: BP 132/60; PULSE 83; TEMP 36.7
[2024-11-25 23:37] VITALS: BP 131/65; PULSE 75; TEMP 36.4
[2024-11-26] MEDS: ACETAMINOPHEN 325 MG TABLET 650 MG PO ×2 (04:28→11:23)
[2024-11-26] MEDS: IBUPROFEN 600 MG TABLET PO ×2 (04:28→10:44)
--- NOTE | 2024-11-26 07:41 | PM.OBPN ---
OB - PN: Subj Subjective Patient comments: no complaints and pain well controlled [place] status: doing well Exam Constitutional Vital Signs, click to edit/add: Last Vital Signs Temp 97.6 F 11/25/24 23:37 Pulse 75 11/25/24 23:37 Resp 15 11/25/24 23:37 BP 131/65 11/25/24 23:37 O2 Del Method Room Air 11/25/24 23:40 Documenting provider has reviewed patient's vital signs: yes Common normals: no apparent distress Respiratory Common normals: clear to auscultation bilaterally Cardio Common normals: regular rate and regular rhythm GI Common normals: Normal to inspection, nondistended, normoactive bowel sounds present Extremity Common normals: no clubbing, cyanosis or edema and no calf tenderness OB - PN: A/P Plan - Vaginal Delivery day: 2 Plan: routine care, discharge home and follow up 6 weeks Time Spent with Patient Time: Total time spent is greater than 50% in coordination of care (as documented) at patient's floor/unit and/or counseling patient: Total time spent with greater than 50% in coordination of care (as documented) at patient's floor/unit and/or counseling patient: less than 15 minutes
[2024-11-26 08:06] VITALS: BP 117/55; PULSE 77
[2024-11-26] MEDS: DOCUSATE SODIUM 100 MG CAPSULE PO (10:44)
[2024-11-26] MEDS: MEASLES,MUMPS,RUBELLA VACC/PF 0.5 ML VIAL SQ (11:59)
== END 2024-11-26 14:30 | disposition home or self-care (01) | DRG 560 ==
PROVIDERS: Admitting Provider Obstetrics & Gynecology; Visit Provider Obstetrics & Gynecology
DX: O70.0 First degree perineal laceration during delivery (principal); Z3A.39 39 weeks gestation of pregnancy; Z37.0 Single live birth
CPT/HCPCS: 36415; 51702; 59050; 59410; 80307; 85025; 85027; 86850; 86900; 86901; 90707; J0665; J2795

== ENCOUNTER 2025-03-23 20:31 | Outpatient (REF) | payer MEDICAID, SELFPAY ==
--- OUTSIDE RECORDS SUMMARY | 2025-03-23 11:30 | XMS_ITS | Encounter Summary ---
Author Organization [facility] Address [address] [place] [address] Care Team Providers Care Lacing Presser Name Role Phone Unavailable Primary Care Provider Unavailabl e Reason for Visit * Reason Comments Routine Visit Encounter Details Date Type Department Care Team (Late st Contact Info) Description 03/23/2025 11:30 AM EDT Office Visit [facility] [address] [place] [address] Marilyn Mcintyre PA [address] [place] [address] Well woman exam with routine gynecological exam Social History Tobacco Use Types Packs/Day Years Used Date Smoking Tobacco: Never Assessed Comments No Sex and Gender Information Value Date Recorded Sex Assigned at Female 04/17/2024 8:41 AM EDT Legal Sex Female 9:37 AM EDT Gender Identity Female 04/17/2024 8:41 AM EDT Sexual Orientation Not on file documented as of this encounter Last Filed Vital Signs Vital Sign Reading Time Taken Comments Blood Pressure 120/90 03/23/2025 11:50 AM EDT Pulse - - Temperature - - Respiratory Rate - - Oxygen Saturation - - Inhaled Oxygen Concentration - - Weight 85.5 kg (188 lb 8 oz) 03/23/2025 11:50 AM EDT Height - - Body Mass Index - - documented in this encounter Progress Notes * Liza Kitchen MA - 03/23/2025 11:30 AM EDT * YARA Winter - 03/23/2025 11:30 AM EDT Reason for Appointment: Patient ID: Sara Dwyer is a 25 y.o. female who presents for Routine Visit Patient presents today for Return OB appointment. MEDICATIONS Current Outpatient Medications Medication Instructions citalopram (CELEXA) 20 mg, Oral, Daily fexofenadine ODT (JACOB ODT) 30 mg, Daily ALLERGIES Allergies Allergen Reactions Sulfamethoxazole-Trimethoprim Nausea And [...] Appearance: Normal appearance. She is normal weight. Genitourinary: Right Adnexa: not tender and no mass present. Left Adnexa: not tender and no mass present. No cervical discharge. Breasts: Breasts are soft. Right: Normal. Left: Normal. HENT: Head: Normocephalic. Nose: Nose normal. Mouth/Throat: Mouth: Mucous membranes are moist. Cardiovascular: Rate and Rhythm: Normal rate. Pulses: Normal pulses. Pulmonary: Effort: Pulmonary effort is normal. Breath sounds: Normal breath sounds. Abdominal: General: Bowel sounds are normal. Palpations: Abdomen is soft. Musculoskeletal: General: Normal range of motion. Cervical back: Normal range of motion. Neurological: General: No focal deficit present. Mental Status: She is alert and oriented to person, place, and time. Skin: General: Skin is warm and dry. Psychiatric: Mood and Affect: Mood normal. Behavior: Behavior normal. Thought Content: Thought content normal. Judgment: Judgment normal. Vitals and nursing note reviewed. Exam conducted with a farm assistant present. Vitals: There is no height or weight on file to calculate BMI. BP: 120/90 Patient's last menstrual period was 03/15/2025 (approximate). ASSESSMENT & PLAN ICD-10-CM 1. Well woman exam with routine gynecological exam Z01.419 Pap Smear Return OB/Annual Exam: Patient presents today for an annual exam/routine obstetrics appointment. Patient is currently Unknown . Patient is doing well and states she has no complaints. Pap/cultures was obtained without difficulty and patient was given [facility] order to have obtained. No orders of the defined types were placed in this encounter. Follow Up: Patient is to return to our office in 4 weeks for routine OB appointment Documented by YARA Winter on behalf of: YARA Winter documented in this encounter Miscellaneous Notes * Addendum Note - YARA Winter - 03/23/2025 11:30 AM EDTAddended by: MARILYN MCINTYRE on: 03/23/2025 01:27 PM Modules accepted: Level of Service documented in this encounter Plan of Treatment Scheduled Orders Name Type Priority Associated Diagnoses Orde r Schedule Pap Smear Pathology and Cytology Routine Well woman exam with routine gynecological exam Ordered: 03/23/2025 documented as of this encounter Visit Diagnoses Diagnosis Well woman exam with routine gynecological exam Routine gynecological examination documented in this encounter
--- OUTSIDE RECORDS SUMMARY | 2025-03-23 20:37 | XMS_ITS | Clinical Summary ---
Author Organization [facility] Address [address] [place] [address] Care Team Providers Care Centralized Traffic Control Operator Name Role Phone Unavailable Primary Care Provider Unavailabl e Allergies Active Allergy Reactions Criticality Noted Date Comments Amoxicillin-Pot Clavulanate 04/24/2024 Cefdinir Rash Low 05/03/2023 Clavulanic Acid 07/15/2023 Oseltamivir 05/08/2018 Penicillins Hives 06/13/2011 Other Reaction(s): Augmentin Sulfamethoxazole-Trime thoprim Nausea And Vomiting Medium 10/17/2020 Other Reaction(s): Other (See Comments), Vomiting Medications fexofenadine ODT (Olga Lidia ODT) 30 MG disintegrating tablet Take 30 mg by mouth Daily Active citalopram (CeleXA) 20 MG tabletIndications:P ostpartum anxiety ([facility]) Take 1 tablet (20 mg) by mouth Daily 30 tablet 11 5 01/28/20 26 Active Encounters Date Type Department Care Team Description 03/23/2025 11:30 AM EDT Office Visit [facility] [address] [place] [address] Marilyn Hall PA Well woman exam with routine gynecological exam 03/23/2025 Bamboo flowsheet [facility] [address] [place] [phone] Marilyn Hall PA 03/12/2025 Telephone [facility] [address] [place] [address] Connie Chau MAGALY 01/27/2025 10:00 AM EDT Office Visit [facility] [address] [place] [address] Marilyn Hall PA anxiety ([facility]) (Primary Dx) 01/27/2025 Bamboo flowsheet [facility] [address] [place] [address] Marilyn Hall PA 01/06/2025 3:30 PM EDT Visit [facility] [address] [place] [address] Marilyn Hall PA 6 weeks follow-up ([facility]) from Last 3 Months Social History Tobacco Use Types Packs/Day Years Used Date Smoking Tobacco: Never Assessed Comments No Sex and Gender Information Value Date Recorded Sex Assigned at Female 04/17/2024 8:41 AM EDT Legal Sex Female 9:37 AM EDT Gender Identity Female 04/17/2024 8:41 AM EDT Sexual Orientation Not on file Last Filed Vital Signs Vital Sign Reading Time Taken Comments Blood Pressure 120/90 03/23/2025 11:50 AM EDT Pulse - - Temperature - - Respiratory Rate - - Oxygen Saturation - - Inhaled Oxygen Concentration - - Weight 85.5 kg (188 lb 8 oz) 03/23/2025 11:50 AM EDT Height - - Body Mass Index - - Plan of Treatment Health Maintenance Due Date Last Done Comments Influenza Vaccine (#1) 2025 6, 06/07/2010, 08/19/2006, Additional history exists Insurance [employer] [place]
--- OUTSIDE RECORDS SUMMARY | 2025-03-23 20:37 | XMS_ITS | Encounter Summary ---
Author Organization [facility] Address [address] [place] [address] Care Team Providers Care Ux Interaction Designer Name Role Phone Unavailable Primary Care Provider Unavailabl e Encounter Details Date Type Department Care Team (Late st Contact Info) Description 05/12/2024 Abstract [facility] [address] [place] [phone] Roberto Finn DO [address] Christian Muñiz, [facility] Social History Tobacco Use Types Packs/Day Years Used Date Smoking Tobacco: Never Assessed Comments Yes Sex and Gender Information Value Date Recorded Sex Assigned at Female 04/17/2024 8:41 AM EDT Legal Sex Female 9:37 AM EDT Gender Identity Female 04/17/2024 8:41 AM EDT Sexual Orientation Not on file documented as of this encounter Plan of Treatment Not on file documented as of this encounter Visit Diagnoses Not on filedocumented in this encounter
--- OUTSIDE RECORDS SUMMARY | 2025-03-23 20:37 | XMS_ITS | Encounter Summary ---
Author Organization [facility] Address [address] [facility] [place] [place] [address] Care Team Providers Care Business Information Consultant Name Role Phone Unavailable Primary Care Provider Unavailabl e Encounter Details Date Type Department Care Team (Late st Contact Info) Description 08/19/2024 Abstract [facility] [address] [place] [phone] Roberto Finn DO [address] Christian Muñiz, [facility]11 Social History Tobacco Use Types Packs/Day Years [...]
--- OUTSIDE RECORDS SUMMARY | 2025-03-23 20:37 | XMS_ITS | Encounter Summary ---
Author Organization [facility] Address [address] [place] [address] Care Team Providers Care Budget Engineer Name Role Phone Unavailable Primary Care Provider Unavailabl e Encounter Details Date Type Department Care Team (Late st Contact Info) Description 11/18/2024 Abstract [facility] [address] [place] [phone] Roberto Finn DO [address] Christian Muñiz, [facility]11 Social History Tobacco Use Types Packs/Day [...]
--- OUTSIDE RECORDS SUMMARY | 2025-03-23 20:37 | XMS_ITS | Encounter Summary ---
Author Organization [facility] Address [address] [place] [address] Care Team Providers Care Skin Washer Name Role Phone Unavailable Primary Care Provider Unavailabl e Encounter Details Date Type Department Care Team (Late st Contact Info) Description 04/24/2024 Clinisync Result Encounter [facility] External Department Unsolicited Roberto Finn, DO [address] [facility] [address] [place] [phone] Social History Tobacco Use Types Packs/Day Years [...] on file documented as of this encounter Procedures Procedure Name Priority Date/Time Associated Diagnosis Comments US OB TRANSVAGINAL 04/24/2024 3: 49 PM EDT documented in this encounter Results * US OB TRANSVAGINAL (04/24/2024 3:49 PM EDT) Anatomical Region Laterality Modality Other 04/24/2024 3:49 PM EDT Narrative 04/24/2024 3:51 PM EDT The [address] [address] Ultrasound Report Signed Patient: SARA DWYER MR#: [id number] : 2000 Acct:[id number] Age/Sex: 24 / F ADM Date: 04/24/24 Loc: [facility] Attending Dr: Roberto Finn D.O. Ordering Physician: Roberto Finn D.O. Date of Service: 04/24/24 Procedure(s): US OB transvaginal Accession Number(s): [id number] cc: Roberto Finn D.O.; Physician,Non-Staff Robbie The [address] [address] Patient Name: SARA DWYER MRN: [id number] date: 2000 Sex: F Assigned [facility] Current Patient Location: [facility] Accession/Order Number: [id number] Exam Date: 04/24/2024 10:13 Report Date: 04/24/2024 15:49 At the request of: ROBERTO FINN Procedure: US OB transvaginal EXAMINATION: US OB transvaginal HISTORY: MISSED MENSES COMPARISON: No relevant comparison available. FINDINGS: GESTATIONAL SAC: Present and normal appearing. YOLK SAC: Present and normal appearing. POLE: Present and normal appearing. CARDIAC: Present. UTERUS: Normal size and appearance. OVARIES: Right: Normal. Left: Not seen. CERVIX: 4.0 cm in length and closed. CUL-DE-SAC: Normal. OTHER: None. AGE BY LMP: 8 weeks 5 days NOEMI BY LMP: 11/29/2024 AGE BY US CRL: 9 weeks 2 days NOEMI BY US CRL: 11/25/2024 US/US OB transvaginal IMPRESSION: 1. Single live intrauterine . Electronically authenticated by: RIK DELAROSA Date: 04/24/2024 15:49 Dictated By: Rik Delarosa M.D. Signed By: 04/24/24 1551 DD/ 1549 TD/TT: Software Developer Manager: Procedure Note Radiology, Radiologist, - 04/24/[address] [address] Ultrasound Report Signed Patient: SARA DWYER PMR#: [id number] : 2000Acct:[id number] Age/Sex: 24 / FADM Date: 04/24/24 Loc: [facility] Attending Dr: Roberto Finn D.O. Ordering Physician: Roberto Finn D.O. Date of Service: 04/24/24 Procedure(s): US OB transvaginal Accession Number(s): [id number] cc: Roberto Finn D.O.; Physician,Non-Staff [place] [address] Patient Name: SARA DWYER MRN: [id number] date: 2000 Sex: F Assigned Patient [facility]: [facility] Current Patient Location: [facility] Accession/Order Number: [id number] Exam Date: 04/24/2024 10:13 Report Date: 04/24/2024 15:49 At the request of: ROBERTO FINN Procedure: US OB transvaginal EXAMINATION: US OB transvaginal HISTORY: MISSED MENSES COMPARISON: No relevant comparison available. FINDINGS: GESTATIONAL SAC: Present and normal appearing. YOLK SAC: Present and normal appearing. POLE: Present and normal appearing. CARDIAC: Present. UTERUS: Normal size and appearance. OVARIES: Right: Normal. Left: Not seen. CERVIX: 4.0 cm in length and closed. CUL-DE-SAC: Normal. OTHER: None. AGE BY LMP: 8 weeks 5 days NOEMI BY LMP: 11/29/2024 AGE BY US CRL: 9 weeks 2 days NOEMI BY US CRL: 11/25/2024 US/US OB transvaginal IMPRESSION: 1. Single live intrauterine . Electronically authenticated by: RIK DELAROSA Date: 04/24/2024 15:49 Dictated By: Rik Delarosa M.D. Signed By:04/24/24 1556 DD/ 1549 TD/TT: Software Developer Manager: us Roberto Finn DO [facility] Final Result documented in this encounter Visit Diagnoses Not on filedocumented in this encounter
--- OUTSIDE RECORDS SUMMARY | 2025-03-23 20:37 | XMS_ITS | Encounter Summary ---
Author Organization [facility] Address [address] [facility] [place] [address] Care Team Providers Care Water Systems Designer Name Role Phone Unavailable Primary Care Provider Unavailabl e Encounter Details Date Type Department Care Team (Late st Contact Info) Description 05/05/2024 Abstract [facility] [address] [place] [phone] Roberto Finn DO [address] [facility] [address] Christian Muñiz, [facility]11 Social History Tobacco Use Types Packs/Day Years [...]
--- OUTSIDE RECORDS SUMMARY | 2025-03-23 20:37 | XMS_ITS | Encounter Summary ---
Author Organization [facility] Address [address] [place] [address] Care Team Providers Care Bread Racker Name Role Phone Unavailable Primary Care Provider Unavailabl e Encounter Details Date Type Department Care Team (Late st Contact Info) Description 07/16/2024 Clinisync Result Encounter [facility] External Department Unsolicited Marilyn Mcintyre PA [address] [place] [address] Dr Garcia [place] [phone] Social History Tobacco Use Types Packs/Day Years [...] Priority Date/Time Associated Diagnosis Comments US OB ANATOMY 07/16/2024 4:35 AM EST documented in this encounter Results * US OB ANATOMY (07/16/2024 4:35 AM EST) Anatomical Region Laterality Modality Other 07/16/2024 4:35 AM EST Narrative 07/16/2024 4:38 AM EST The [address] [address] Ultrasound Report Signed Patient: SARA DWYER MR#: [id number] : 2000 Acct:[id number] Age/Sex: 24 / F ADM Date: 07/15/24 Loc: US Attending Dr: Marilyn Mcintyre Ordering Physician: Marilyn Mcintyre Date of Service: 07/15/24 Procedure(s): US OB anatomy Accession Number(s): [id number] cc: Marilyn Mcintyre; Physician,Non-Staff Robbie [place] [id number] Patient Name: SARA DWYER MRN: [facility]:[id number] date: 2000 Sex: F Assigned Patient Location: US Current Patient Location: Accession/Order Number: [id number] Exam Date: 07/15/2024 11:09 Report Date: 07/16/2024 04:35 At the request of: MARILYN MCINTYRE Procedure: US OB anatomy EXAMINATION: US OB anatomy, US OB cervical length HISTORY: Screening Anatomic Survey COMPARISON: Ultrasound OB transvaginal 04/24/2024 TECHNIQUE: Transabdominal sonographic examination was performed for obstetrical and evaluation. FINDINGS: Number: 1 Heart Rate: 149.17 bpm Amniotic Fluid Volume: Subjectively normal Placental Location: Anterior-fundal with lower margin 6.4 cm from os. Cervix Length: 4.68 cm ; closed. ANATOMY: Normal Structures -cerebellum, choroid plexus, cisterna magna, lateral cerebral ventricles, orbits, midline falx, hard palate, four-chamber heart, RVOT, LVOT, stomach, kidneys, bladder, umbilical cord insertion into abdomen, three-vessel cord, cervical spine, thoracic spine, lumbar spine, sacral spine, right upper extremity, left upper extremity, right lower extremity, left lower extremity. SUBOPTIMALLY SEEN: None ABNORMALITIES: None BIOMETRY: BPD: 4.96 cm; 21 weeks 0 days; 72.60 % HC: 18.73 cm; 21 weeks 0 days; 69.80 % AC: 16.26 cm; 21 weeks 2 days; 73.50 % FL: 3.40 cm; 20 weeks 5 days; 50.30 % EFW:394.44 g; 78.20 % FL/AC: 20.88 FL/BPD: 68.52 HC/AC: 1.15 GESTATIONAL AGE: Age by EDC: 20 weeks 3 days Age by current US: 21 weeks 0 days NOEMI by current US: 2024-11-25 NOEMI by EDC: 2024-11-29 US/US OB anatomy IMPRESSION: 1. Single live intrauterine with growth detailed above. Electronically authenticated by: RIK DELAROSA Date: 07/16/2024 04:35 Dictated By: Rik Delarosa M.D. Signed By: 07/16/248 DD/ 4 TD/TT: Template Storage Clerk: Procedure Note Radiology, Radiologist, MD - 07/16/2024 The [place] [id number] Ultrasound Report Signed Patient: SARA DWYER PMR#: [id number] : 2000Acct:[id number] Age/Sex: Date: 07/15/24 Loc: US Attending Dr: Marilyn Mcintyre Ordering Physician: Marilyn Mcintyre Date of Service: 07/15/24 Procedure(s): US OB anatomy Accession Number(s): [id number] cc: Marilyn Mcintyre; Physician,Non-Staff Robbie The [place] [id number] Patient Name: SARA DWYER MRN: [id number] date: 2000 Sex: F Assigned Patient Location: US Current Patient Location: Accession/Order Number: [id number] Exam Date: 07/15/2024 11:09 Report Date: 07/16/2024 04:35 At the request of: MARILYN MCINTYRE Procedure: US OB anatomy EXAMINATION: US OB anatomy, US OB cervical length HISTORY: Screening Anatomic Survey COMPARISON: Ultrasound OB transvaginal 04/24/2024 TECHNIQUE: Transabdominal sonographic examination was performed for obstetrical and evaluation. FINDINGS: Number: 1 Heart Rate: 149.17 bpm Amniotic Fluid Volume: Subjectively normal Placental Location: Anterior-fundal with lower margin 6.4 cm from os. Cervix Length: 4.68 cm ; closed. ANATOMY: Normal Structures -cerebellum, choroid plexus, cisterna magna, lateral cerebral ventricles, orbits, midline falx, hard palate, four-chamberheart, RVOT, LVOT, stomach, kidneys, bladder, umbilical cord insertion intoabdomen, three-vessel cord, cervical spine, thoracic spine, lumbar spine, sacralspine, right upper extremity, left upper extremity, right lower extremity, leftlower extremity. SUBOPTIMALLY SEEN: None ABNORMALITIES: None BIOMETRY: BPD: 4.96 cm; 21 weeks 0 days; 72.60 % HC: 18.73 cm; 21 weeks 0 days; 69.80 % AC: 16.26 cm; 21 weeks 2 days; 73.50 % FL: 3.40 cm; 20 weeks 5 days; 50.30 % EFW:394.44 g; 78.20 % FL/AC: 20.88 FL/BPD: 68.52 HC/AC: 1.15 GESTATIONAL AGE: Age by EDC: 20 weeks 3 days Age by current US: 21 weeks 0 days NOEMI by current US: 2024-11-25 NOEMI by EDC: 2024-11-29 US/US OB anatomy IMPRESSION: 1. Single live intrauterine with growth detailed above. Electronically authenticated by: RIK DELAROSA Date: 07/16/2024 04:35 Dictated By: Rik Delarosa M.D. Signed By:07/16/248 DD/ 4 TD/TT: Template Storage Clerk: us Marilyn [facility] Final Result documented in this encounter Visit Diagnoses Not on filedocumented in this encounter
--- OUTSIDE RECORDS SUMMARY | 2025-03-23 20:37 | XMS_ITS | Encounter Summary ---
Author Organization [facility] Address [address] [place] [address] Care Team Providers Care Hand Laster Name Role Phone Unavailable Primary Care Provider Unavailabl e Encounter Details Date Type Department Care Team (Late st Contact Info) Description 09/24/2024 Abstract [facility] [address] [place] [phone] Roberto Finn DO [address] [facility] [address] Christian Muñiz, [facility]11 Social History Tobacco Use Types Packs/Day Years [...]
--- OUTSIDE RECORDS SUMMARY | 2025-03-23 20:37 | XMS_ITS | Encounter Summary ---
Author Organization [facility] Address [address] [place] [address] Care Team Providers Care Flotation Operator Name Role Phone Unavailable Primary Care Provider Unavailabl e Encounter Details Date Type Department Care Team (Late st Contact Info) Description 07/16/2024 Clinisync Result Encounter [facility] External Department Unsolicited Marilyn Mcintyre PA [address] [place] [address] Dr Garcia [place] [phone] Social History Tobacco Use Types Packs/Day Years [...] Priority Date/Time Associated Diagnosis Comments US OB CERVICAL LENGTH 07/16/2024 4:35 AM EST documented in this encounter Results * US OB CERVICAL LENGTH (07/16/2024 4:35 AM EST) Anatomical Region Laterality Modality Other 07/16/2024 4:35 AM EST Narrative 07/16/2024 4:38 AM EST The [address] [address] Ultrasound Report Signed Patient: SARA DWYER MR#: [id number] : 2000 Acct:[id number] Age/Sex: 24 / F ADM Date: 07/15/24 Loc: US Attending Dr: Marilyn Mcintyre Ordering Physician: Marilyn Mcintyre Date of Service: 07/15/24 Procedure(s): US OB cervical length Accession Number(s): [id number] cc: Marilyn Mcintyre; Physician,Non-Staff MMario [place] [id number] Patient Name: SARA DWYER MRN: [facility]:[id number] date: 2000 Sex: F Assigned Patient Location: US Current Patient Location: Accession/Order Number: [id number] Exam Date: 07/15/2024 11:09 Report Date: 07/16/2024 04:35 At the request of: MARILYN MCINTYRE Procedure: US OB cervical length EXAMINATION: US OB anatomy, US OB cervical [...] 2024-11-25 NOEMI by EDC: 2024-11-29 US/US OB cervical length IMPRESSION: 1. Single live intrauterine with growth detailed above. Electronically authenticated by: RIK DELAROSA Date: 07/16/2024 04:35 Dictated By: Rik Delarosa M.D. Signed By: 07/16/24437 DD/ 4 TD/TT: Music Mixer: Procedure Note Radiology, Radiologist, MD - 07/16/2024 [place] [address] Ultrasound Report Signed Patient: SARA DWYER PMR#: [id number] : 2000Acct:[id number] Age/Sex: Date: 07/15/24 Loc: US Attending Dr: Marilyn Mcintyre Ordering Physician: Marilyn Mcintyre Date of Service: 07/15/24 Procedure(s): US OB cervical length Accession Number(s): [id number] cc: Marilyn Mcintyre; Physician,Non-Staff Robbie The [place] [id number] Patient Name: SARA DWYER MRN: [facility]:[id number] date: 2000 Sex: F Assigned Patient Location: US Current Patient Location: Accession/Order Number: [id number] Exam Date: 07/15/2024 11:09 Report Date: 07/16/2024 04:35 At the request of: MARILYN MCINTYRE Procedure: US OB cervical length EXAMINATION: US OB anatomy, US OB cervical [...] 2024-11-25 NOEMI by EDC: 2024-11-29 US/US OB cervical length IMPRESSION: 1. Single live intrauterine with growth detailed above. Electronically authenticated by: RIK DELAROSA Date: 07/16/2024 04:35 Dictated By: Rik Delarosa M.D. Signed By:07/16/248 DD/ 4 TD/TT: Music Mixer: us Marilyn [facility] Final Result documented in this encounter Visit Diagnoses Not on filedocumented in this encounter
--- OUTSIDE RECORDS SUMMARY | 2025-03-23 20:37 | XMS_ITS | Clinical Summary ---
Author Organization [facility] Address [address] [place] [address] Phone Care Team Providers Care Human Resources Operations Coordinator Name Role Phone Unavailable Primary Care Provider Unavailabl e Social History Tobacco Use Types Packs/Day Years Used Date Smoking Tobacco: Never Assessed Comments Unknown Sex and Gender Information Value Date Recorded Sex Assigned at Not on file Legal Sex Female 8:35 PM EST Gender Identity Not on file Sexual Orientation Not on file Plan of Treatment Health Maintenance Due Date Last Done Comments Lipid Panel 2000 Hepatitis B Vaccines (4 of 4 - 4-dose series) [birth year] Hepatitis C Screening 01/22/2016 Cervical Cancer Screening 2019 HPV/Cotest 2019 Pap Smear 2019 DTaP/Tdap/Td Vaccines (7 - Td or Tdap) 04/20/2019 04/20/2009, 03/02/2003, 04/28/1999, Additional history exists COVID-19 Vaccine ( season) 2024 Yearly Adult Physical 2025 2024 Influenza Vaccine (#1) 2025 0, 08/19/2006, 06/14/2006 Zoster Vaccines (1 of 2) 01/22/2048 01/04/2010, 12/29 HIB Vaccines Completed 01/25/1999, 07/29, 1998 IPV Vaccines Completed 03/02/2003, 07/1998, 2000, Additional history exists MMR Vaccines Completed 03/02/2003, 01/25/1999 HPV Vaccines Completed 06/07/2010, 0603/2010, 04/20/2009 HIV Screening Completed 07/26/2023 Hepatitis A Vaccines Aged Out No long er eligible based on patient's age to complete this topic Meningococcal Vaccine Aged Out No mello mae eligible based on patient's age to complete this topic Pneumococcal Vaccine: Pediatrics and At-Risk Adult Patients Aged Out No longer eligible based on patient's age to complete this topic Rotavirus Vaccines Aged Out No longer eligible based on patient's age to complete this topic
--- OUTSIDE RECORDS SUMMARY | 2025-03-23 20:37 | XMS_ITS | Encounter Summary ---
Author Organization [facility] Address [address] [place] [address] Care Team Providers Care Security Systems Installer Name Role Phone Unavailable Primary Care Provider Unavailabl e Encounter Details Date Type Department Care Team (Late st Contact Info) Description 11/18/2024 Abstract [facility] [address] [place] [phone] Roberto Finn DO [address] [facility] [address] [facility] [address] Christian Muñiz, [facility]11 Social History Tobacco Use Types Packs/Day [...]
--- OUTSIDE RECORDS SUMMARY | 2025-03-23 20:37 | XMS_ITS | Encounter Summary ---
Author Organization [facility] Address [address] [place] [address] Care Team Providers Care Field Inspector Name Role Phone Unavailable Primary Care Provider Unavailabl e Encounter Details Date Type Department Care Team (Late st Contact Info) Description 06/16/2024 Abstract [facility] [address] [facility] [place] [phone] Roberto Finn DO [address] [facility] [address] Christian Muñiz, [facility]11 Social History Tobacco Use Types Packs/Day [...]
--- OUTSIDE RECORDS SUMMARY | 2025-03-23 20:37 | XMS_ITS | Encounter Summary ---
Author Organization [facility] Address [address] [place] [place] [address] Care Team Providers Care Kiln Drawer Name Role Phone Unavailable Primary Care Provider Unavailabl e Encounter Details Date Type Department Care Team (Late st Contact Info) Description 09/18/2024 Abstract [facility] [address] [phone] Roberto Finn DO [address] [facility] [address] Christian Muñiz, [facility]11 Social History Tobacco Use Types Packs/Day [...]
--- OUTSIDE RECORDS SUMMARY | 2025-03-23 20:37 | XMS_ITS | Encounter Summary ---
Author Organization [facility] Address [address] [facility], [address] [place] [address] Care Team Providers Care Oil Well Services Supervisor Name Role Phone Asya Estela SILVA Primary Care Provider [phone] Encounter Details Date Type Department Care Team (Late st Contact Info) Description 07/25/2023 Telephone [facility] [address] [place] [address] Eusebia Marie, RN Social History Tobacco Use Types Packs/Day Years Used Date Smoking Tobacco: Never Smokeless Tobacco: Never Alcohol Use Standard Drinks/Week Comments Not Currently 0 (1 standard drink = 0.6 oz pur e alcohol) [facility] Utilities Answer Date Recorded In the past 12 months has [employer], gas, oil, or water [employer] threatened to shut off services in your home? No 07/26/2023 PHQ-2 Answer Date Recorded PHQ-9 Total Score 0 12/19/2022 Hunger Vital Sign Answer Date Recorded Within the past 12 months, y ou worried that your food would run out before you got the money to buy more. Never true 07/26/20 23 Within the past 12 months, t he food you bought just didn't last and you didn't have money to get more. Never true 07/26/2023 PRAPARE - Transportation Answer Date Re corded In the past 12 months, has l ack of transportation kept you from medical appointments or from getting medications? No 06/29 In the past 12 months, has l ack of transportation kept you from meetings, work, or from getting things needed for daily living? No 07/26/2023 Housing Stability Vital Sign Answer Joaquin e Recorded In the last 12 months, was t here a time when you were not able to pay the mortgage or rent on time? No 07/26/2023 In the last 12 months, how many places have you lived? 1 07/26/2023 In the last 12 months, was t here a time when you did not have a steady place to sleep or slept in a senior living (including now)? No 07/26/2023 Newton Depression Scale Answer Date Recorded Last EPDS Total Score Not on file 07/28/2023 The thought of harming myself has occurred to me . Never 07/28/2023 Interpersonal Safety ([facility] HRSN) Answer Date Recorded How often does anyone, riley ibrahim family and friends, physically hurt you? Never 07/26/2023 How often does anyone, riley ibrahim family and friends, scream or curse at you? Not on file 07/26/2023 How often does anyone, riley ibrahim family and friends, insult or talk down to you? Not on file 07/26/2023 How often does anyone, riley ibrahim family and friends, threaten you with harm? Not on file 07/26/2023 Food Insecurity Answer Date Recorded Within the past 12 months, y ou worried that your food would run out before you got the money to buy more. 1 07/26/2023 Within the past 12 months, t he food you bought just didn't last and you didn't have money to get more. 1 07/26/2023 Interpersonal Safety Domain Source: IP Abuse Scr eening Answer Date Recorded Read-Only, Retired: Physical Abuse Denies 07/26/2023 Read-Only, Retired: Verbal Abuse Denies 07/26/2023 Read-Only, Retired: Emotional abuse Denies 07/26/2023 Read-Only, Retired: Financial Abuse Denies 07/26/2023 Read-Only, Retired: Sexual abuse Denies 07/26/2023 Comments Yes Sex and Gender Information Value Date Recorded Sex Assigned at Not on file Legal Sex Female 3:09 AM EST Gender Identity Not on file Sexual Orientation Not on file documented as of this encounter Progress Notes * Eusebia Marie, RN - 07/25/2023 1:55 PM EST Patient called the unit at 1237 -07/25/2023 to confirm induction date and time. Patient spoke with Christi and was given all information. documented in this encounter Plan of Treatment Not on file documented as of this encounter Visit Diagnoses Not on filedocumented in this encounter Care Teams Oil Well Services Supervisor Relationship Specialty Start Date End Date Estela Sky DO [address] [place] [address] PCP - General 05/31/23 documented as of this encounter
--- OUTSIDE RECORDS SUMMARY | 2025-03-23 20:37 | XMS_ITS | Encounter Summary ---
Author Organization [facility] Address [address] [place] [address] Care Team Providers Care Accreditation Manager Name Role Phone Unavailable Primary Care Provider Unavailabl e Encounter Details Date Type Department Care Team (Late st Contact Info) Description 03/23/2025 Bamboo flowsheet [facility] [address] [place] [phone] Marilyn Hall PA [address] [place], [place] [address] Social History Tobacco Use Types Packs/Day Years [...]
--- OUTSIDE RECORDS SUMMARY | 2025-03-23 20:37 | XMS_ITS | Encounter Summary ---
Author Organization [facility] Address [address] [place] [address] Care Team Providers Care Direct Marketing Executive Name Role Phone Unavailable Primary Care Provider Unavailabl e Encounter Details Date Type Department Care Team (Late st Contact Info) Description 03/12/2025 Telephone [facility] [address] [place] [address] Connie Chau LPN [address] [facility] [place] [phone] Social History Tobacco Use Types Packs/Day Years Used Date Smoking Tobacco: Never Assessed Comments No Sex and Gender Information Value Date Recorded Sex Assigned at Female 04/17/2024 8:41 AM EDT Legal Sex Female 9:37 AM EDT Gender Identity Female 04/17/2024 8:41 AM EDT Sexual Orientation Not on file documented as of this encounter Miscellaneous Notes * Telephone Encounter - Connie Chau LPN - 03/12/2025 11:50 AM EDT Hi, my name is Sara Reymundo. I actually have just a question about just a couple of questions. If you could just call me back and answer those for me, , that would be great. You have a great day. Thank you. Niraj niraj. Attempted to call pt back but she did not answer. Detailed voicemail left to call office back documented in this encounter Plan of Treatment Not on file documented as of this encounter Visit Diagnoses Not on filedocumented in this encounter
--- OUTSIDE RECORDS SUMMARY | 2025-03-23 20:37 | XMS_ITS | Encounter Summary ---
Author Organization [facility] Address [address] [place] [address] Care Team Providers Care Personal Investment Adviser Name Role Phone Unavailable Primary Care Provider Unavailabl e Encounter Details Date Type Department Care Team (Late st Contact Info) Description 04/27/2024 Abstract [facility] [address] [place] [phone] Roberto Finn DO [address] Christian Muñiz, [facility]11 Social History Tobacco Use Types Packs/Day Years [...]
--- OUTSIDE RECORDS SUMMARY | 2025-03-23 20:37 | XMS_ITS | Encounter Summary ---
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
--- OUTSIDE RECORDS SUMMARY | 2025-03-23 20:39 | XMS_ITS | CCD ---
Author Organization [facility] Care Team Providers Care Ball Shagger Name Role Phone NO FAMILY DOCTOR Unavailable Unavailable NO FAMILY DOCTOR, NO FAMILY DOCTOR Unavailable Unavailable STEVE COELLO Unavailable Unavailable Unavailable Unavailable Gricelda, Dr. Bee Campbell Attending Chin Ledesma, Dr. Bee Campbell Attending Chin flynn Undetermined, Awaiting Assignment Primary Care P connie Unavailable Elbert Fuchs Attending Unavailable Elbert Fuchs Admitting Unavailable Gwen Sky Primary Care Physician [phone] BROOKLYN MONTENEGRO Attending Unavailable BROOKLYN MONTENEGRO Referring Unavailable LAVINIA, GWEN Primary Care Unavailable BROOKLYN MONTENEGRO Attending Unavailable ALYSSIA MONTENEGROTA Referring Unavailable LAVINIA, GWEN Primary Care Unavailable BROOKLYN MONTENEGRO Attending Unavailable BROOKLYN MONTENEGRO Referring Unavailable UNDETERMINED, AWAITING ASSIGNMENT Primary Care Unavailable BROOKLYN MONTENEGRO Admitting Unavailable BROOKLYN MONTENEGRO Attending Unavailable LAVINIA, GWEN Primary Care Unavailable Unavailable Primary Care Provider Unavailabl e HUMA, ROBERTO Attending Unavailable HUMA, ROBERTO Referring Unavailable HUMA, ROBERTO Attending Unavailable ISABEL, MARILYN Attending Unavailable HUMA, ROBERTO Attending Unavailable HUMA, ROBERTO Attending Unavailable HUMA, ROBERTO Attending Unavailable ISABEL, MARILYN Attending Unavailable HUMA, ROBERTO Attending Unavailable HUMA, ROBERTO Attending Unavailable HUMA, ROBERTO Attending Unavailable ISABEL, MARILYN Attending Unavailable ISABEL, MARILYN Attending Unavailable ISABEL, MARILYN Attending Unavailable Allergies Allergy Classification Reported Allergen(s) Allergy Type Date of Onset Reaction(s) Facility (20 sources) Penicillins; Translations: [PENICILLINS] Propensity to adverse reactions to drug (disorder) 04-01-20 08 [facility] Repository (1 source) Oseltamivir Drug Allergy 05-08-20 [facility] (20 sources) Sulfamethoxazole / Trimethoprim; Translations: [sulfamethoxazole-t rimethoprim] Drug Allergy 10-18-19 Vomiting (disorder), Nausea And Vomiting [facility] (2 sources) Amoxicillin / Clavulanate; Translations: [Augmentin] Drug Allergy [facility] Repository (20 sources) cefdinir; Translations: [cefdinir] Drug Allergy 05-03-20 Eruption of skin (disorder), Rash [facility] Repository (2 sources) Oseltamivir; Translations: [Tamiflu] Drug Allergy [facility] Repository (1 source) Sulfamethoxazole / Trimethoprim; Translations: [Bactrim] Drug Allergy [facility] Repository (20 sources) Clavulanate Drug Allergy 07-15-20 [facility] (20 sources) Oseltamivir Drug Allergy 05-08-20 18 [facility] (20 sources) Amoxicillin-Pot Clavulanate Drug Allergy 04-24-20 [facility] Work Phone: Medications Current Medications Medication Drug Class(es) Dates Sig (Normalized) Sig (Original) citalopram 20 mg oral tablet (5 sources) Serotonin Reuptake Inhibitor Start: 01-27-2025 End: 01-27-2026 take 1 tablet by mouth once daily citalopram (CeleXA) 20 MG tablet Indications: anxiety (HHS-HCC) Take 1 tablet (20 mg) by mouth Daily 30 tablet 11 01/27/2025 01/27/2026 Active docusate sodium 100 mg oral tablet (1 source) Start: 04-22-2023 Dulcolax Stool Softener 100 mg, Oral, Refills(s) 0 Start Date: 04/22/23 Status: Ordered fexofenadine hydrochloride 30 mg disintegrating oral tablet (20 sources) Histamine-1 Receptor Antagonist take 1 tablet by mouth once daily fexofenadine ODT (Olga Lidia ODT) 30 MG disintegrating tablet Take 30 mg by mouth Daily Active Multivitamins (1 source) Start: 04-22-2023 take 1 tablet by mouth once daily Multivitamins 1 tab(s), Oral, Daily, Refill(s) 0 Start Date: 04/22/23 Status: Ordered Completed/Discontinued Medications Medication Drug Class(es) Dates Sig (Normalized) Sig (Original) ibuprofen 400 mg oral tablet (1 source) Nonsteroidal Anti-inflammator y Drug Start: 1 take 1-3 tablets by mouth every six hours as needed ibuprofen 400 mg Tab 400 mg = 1 tab(s), Oral, q6hr, PRN Pain 1-3, # 12 tab(s), Refills(s) 0, Pharmacy: [id number], 163, cm, 04/30/21 15:32:00 EDT, Height/Length Dosing, 68, kg, 04/30/21 15:32:00 EDT, Weight Dosing Start Date: 04/30/21 Status: Ordered methylPREDNISolone 4 MG Oral Tablet Therapy Pack (1 source) Start: 2 methylPREDNISolone 4 MG Oral Tablet Therapy Pack USE DIRECTED ; QTY 21 TABLET Quantity: 1 Refills: 0 Ordered: 20-Mar-2022 Bee Ledesma MD Start : 20-Mar-2022 Active ondansetron 4 mg oral tablet (20 sources) Serotonin-3 Receptor Antagonist Start: 4 End: 5 take 1 tablet by mouth every six hours as needed for nausea and vomiting and nausea and nausea ondansetron (Zofran) 4 MG tablet Indications: Nausea Take 1 tablet (4 mg) by mouth every 6 (six) hours if needed for nausea or vomiting for up to 120 doses Take 1 tablet by mouth every 6 hours as needed for nausea. 30 tablet 3 05/19/2024 01/06/2025 Discontinued Vit-Fe Fumarate-FA ( 1 PLUS 1 PO) (20 sources) End: 5 Vit-Fe Fumarate-FA ( 1 PLUS 1 PO) Take by mouth 01/06/2025 Discontinued Vit-Fe Fumarate-FA ( 1 PLUS 1 PO) Take by mouth Active promethazine hydrochloride 12.5 mg oral tablet (11 sources) Phenothiazine Start: 04-27-2024 End: 07-16-2024 take 1 tablet by mouth every six [...] q4hr, # 12 tab(s), Refills(s) 0, Pharmacy: [id number], 163, cm, 04/30/21 15:32:00 EDT, Height/Length [...] size-date discrepancy, unspecified trimester] 09-15-2024 Episodic Other complications of (2 sources) Other mental disorders complicating the puerperium; Translations: [Mental disorders of mother, condition or complication] 01-27-2025 Episodic Other connective tissue disease (1 source) [...] [36 weeks gestation of ] 11-04-2024 Episodic Residual codes; unclassified (2 sources) Gestation period, 38 weeks; Translations: [38 weeks gestation of ] 11-18-2024 Episodic Residual codes; unclassified (2 sources) Gestation period, 37 weeks; Translations: [37 weeks gestation of ] 11-12-2024 Episodic Sprains and strains (1 source) Unspecified [...] WITH AUTO DIFFon BASOPHILS ABSOLUTE AUTO 0 [facility] Basophils/100 WBC (Bld) 0.3 % 0.2 - 2.0 % [facility] Eosinophils/100 WBC (Bld) 0.5 % Low 0.9 - 7.0 % [facility] Erythrocyte distribution width (RBC) [Ratio] 13.4 % 11.0 - 15.0 % [facility] Hematocrit (Bld) [Volume fraction] 30.8 % Low 36.0 - 48.0 % [facility] Hemoglobin (Bld) [Mass/Vol] 10 g/dL Low 12.0 - 16.0 g/dL [facility] IMMATURE GRANULOCYTES ABS AUTO 0.1 High [facility] Immature granulocytes/100 WBC (Bld) 0.7 % High 0.0 - 0.5 % [facility] Interpretation and review of laboratory results Abnormal [facility] LYMPHOCYTES ABSOLUTE [facility]O [facility].[address] [facility] Lymphocytes/100 WBC (Bld) 9.2 % Low 20.5 - 60.0 % [facility] MCH (RBC) [Entitic mass] 29.2 pg 26.7 - 34.0 pg [facility] MCHC (RBC) [Mass/Vol] 32.5 g/dL 29.9 - 35.2 g/dL [facility] MCV (RBC) [Entitic vol] 89.8 fL 81.0 - 99.0 fL [facility] MONOCYTES ABSOLUTE AUTO 0.8 [facility] Monocytes/100 WBC (Bld) 6.1 % 1.7 - 12.0 % [facility] NEUTROPHILS ABSOLUTE AUTO 11.3 High [facility] Neutrophils/100 WBC (Bld) 83.2 % High 43.0 - 75.0 % [facility] Platelet mean volume (Bld) [Entitic vol] 10.9 fL 9.5 - 13.5 fL [facility] TBH EO # 0.1 [facility] TB PLT 216 [facility] RBC 3.43 Low [facility] WBC 13.5 High [facility] WITH [facility]ATELET NO DI FFERENTIALon 11-24-2024 Erythrocyte distribution width (RBC) [Ratio] 13.2 % 11.0 - 15.0 % [facility] Hematocrit (Bld) [Volume fraction] 34.2 % Low 36.0 - 48.0 % [facility] Hemoglobin (Bld) [Mass/Vol] 11.4 g/dL Low 12.0 - 16.0 g/dL [facility] Interpretation and review of laboratory results Abnormal [facility] MCH (RBC) [Entitic mass] 29.6 pg 26.7 - 34.0 pg [facility] MCHC (RBC) [Mass/Vol] 33.3 g/dL 29.9 - 35.2 g/dL [facility] MCV (RBC) [Entitic vol] 88.8 fL 81.0 - 99.0 fL [facility] Platelet mean volume (Bld) [Entitic vol] 11.5 fL 9.5 - 13.5 fL [facility] TB PLT 268 [facility] TB RBC 3.85 Low [facility] WBC 9.6 [facility] Urinalysis macro (dipstick) panel (U)on 11-12-2024 Bilirubin, UA Negative Negative - 4(70) +++ mg/dL [facility] Blood, UA Negative Negative - 50 Ilia/mcL [facility] Clarity, UA Clear [facility] Color, UA Yellow [facility] Glucose, UA Negative Negative - 2000(110) ++++ mg/dL [facility] Interpretation and review of laboratory results Normal [facility] Ketones, UA Negative Negative - 160(16) ++++ mg/dL [facility] Leukocytes, UA Trace Negative - 500+++ Sophy/mcL [facility] Nitrite, UA Negative Negative - Positive [facility] pH, UA 7 5 - 9 [facility] Protein, UA Positive Negative - 2000(20) ++++ mg/dL [facility] Comment on above: 30 Spec Grav, UA 1.02 1 - 1.03 [facility] Urobilinogen, UA 0.2 0.2 - 12 mg/dL [facility] ALL MISCELLANEOUS TESTon MISCELLANEOUS TEST COMMENT . [facility] Comment on above: Test Ordered: [id number] Strep Gp B Culture+Rflx Strep Gp B Culture+Rflx Negative CB Reference Range: Negative Centers for Disease Control and Prevention (CDC) and [place] [employer]stetricians and Gynecologists (ACOG) guidelines for prevention of group B streptococcal (GBS) disease specify co-collection of a vaginal and rectal swab specimen to maximize sensitivity of GBS detection. Per the CDC and ACOG, swabbing both the lower vagina and rectum substantially increases the yield of detection compared with sampling the vagina alone. Penicillin G, ampicillin, or cefazolin are indicated for intrapartum prophylaxis of GBS colonization. Reflex susceptibility testing should be performed prior to use of clindamycin only on GBS isolates from penicillin- allergic women who are considered a high risk for anaphylaxis. Treatment with vancomycin without additional testing is warranted if resistance to clindamycin is noted. Performed at: - [facility] [id number] Procurement Professional: Cody Oconnor PhD, Phone: [phone] GROUP B STREP SWAB [id number] CULTURE, GROUP B STREP WITH SUSCEPTIBILITY [facility] Urinalysis macro (dipstick) panel (U)on 11-04-2024 Bilirubin, UA Negative Negative - 4(70) +++ mg/dL [facility] Blood, UA Negative Negative - 50 Ilia/mcL [facility] Clarity, UA Clear [facility] Color, UA Yellow [facility] Glucose, UA Negative Negative - 1999(110) ++++ mg/dL [facility] Interpretation and review of laboratory results Abnormal [facility] Ketones, UA Positive Negative - 160(16) ++++ mg/dL [facility] Comment on above: trace Leukocytes, UA Negative Negative - 500+++ Sophy/mcL [facility] Nitrite, UA Negative Negative - Positive [facility] pH, UA 6.5 5 - 9 [facility] Protein, UA Positive Negative - 1999(20) ++++ mg/dL [facility] Comment on above: 100 Spec Grav, UA 1.025 1 - 1.03 [facility] Urobilinogen, UA 0.2 0.2 - 12 mg/dL [facility] OB GROWTHon 10-28-2024 [place] [address] Ultrasound Report Signed Patient: HOLLIS FREED MR#: [id number] : 2000 Acct:[id number] Age/Sex: 24 / F ADM Date: 10/28/24 Loc: US Attending Dr: Marilyn Mcintyre Ordering Physician: Marilyn Mcintyre Date of Service: 10/28/24 Procedure(s): US OB growth Accession Number(s): [id number] cc: Marilyn Mcintyre; Physician,Non-Staff M.DHermilo [place] [address] Patient Name: HOLLIS FREED MRN: [facility]:[id number] date: 2000 Sex: F Assigned Patient Location: [place] Current Patient Location: [place] Accession/Order Number: [id number] Exam Date: 10/28/2024 14:37 Report Date: 10/28/2024 [...] Rey Camejo M.D.10/28/2024 2:39 PM Dictation Location: [facility] Electronically authenticated by: [id number] Y Date: 10/28/2024 14:39 Dictated By: Rey Camejo D.O. Signed By: 10/28/24 1442 DD/ 1439 TD/TT: Production Broaching Machine Operator: [facility] RadiologyValeriaograchel leon MD - 10/28/2024 [place] [address] Ultrasound Report Signed Patient: HOLLIS FREED MR#: [id number] : 2000 Acct:[id number] Age/Sex: 24 / F ADM Date: 10/28/24 Loc: US Attending Dr: Marilyn Mcintyre Ordering Physician: Marilyn Mcintyre Date of Service: 10/28/24 Procedure(s): US OB growth Accession Number(s): [id number] cc: Marilyn Mcintyre; Physician,Non-Staff Robbie The [address] [address] Patient Name: HOLLIS FREED MRN: [facility]:[id number] date: 2000 Sex: F Assigned Patient Location: [place] Current Patient Location: [place] Accession/Order Number: [id number] Exam Date: 10/28/2024 14:37 Report Date: 10/28/2024 [...] Rey Camejo M.D.10/28/2024 2:39 PM Dictation Location: [facility] Electronically authenticated by: [id number] Y Date: 10/28/2024 14:39 Dictated By: Rey Camejo D.O. Signed By: 10/28/24 1442 DD/ 1439 TD/TT: Production Broaching Machine Operator: [facility] Radiology Study observation (narrative) [facility] US OB GROWTHOrdered By: Wenceslao olognemo Radiology on 10-28-2024 [facility] Work Phone: [facility] LIVER PANELon Albumin [Mass/Vol] 2.5 g/dL Low 3.4 - 5.0 g/dL [facility] ALBUMIN GLOBULIN RATIO 0.7 [facility] ALP [Catalytic activity/Vol] 91 U/L 46 - 116 U/L [facility] ALT [Catalytic activity/Vol] 10 U/L Low 14 - 59 U/L [facility] AST [Catalytic activity/Vol] 13 U/L Low 15 - 37 U/L [facility] Bilirubin [Mass/Vol] 0.2 mg/dL 0.2 - 1.0 mg/dL [facility] Bilirubin.indirect [Mass/Vol] 0.1 mg/dL 0.0 - 0.2 mg/dL [facility] Globulin (S) [Mass/Vol] 3.6 g/dL [facility] Interpretation and review of laboratory results Abnormal [facility] Protein [Mass/Vol] 6.1 g/dL Low 6.4 - 8.2 g/dL [facility] US OB FOLLOW UP TRANSABDOMIN AL APPROACHon [...] II, MD, PHD at 30-Sep-2024 09:46:06 AM [facility] [place] Normal Not Available Comment on above: Order Comment: US OB SCAN FOR GROWTH Estimated Date of Delivery: 11/29/24 Gestational Age as of 09/15/2024: 29w2d Urinalysis macro (dipstick) panel (U)on 09-29-2024 Bilirubin, UA Negative Negative - 4(70) +++ mg/dL [facility] Blood, UA Positive Negative - 50 Ilia/mcL [facility] Comment on above: trace Clarity, UA Clear [facility] Color, UA Yellow [facility] Glucose, UA Negative Negative - 1999(110) ++++ mg/dL [facility] Interpretation and review of laboratory results Abnormal [facility] Ketones, UA Negative Negative - 160(16) ++++ mg/dL [facility] Leukocytes, UA Negative Negative - 500+++ Sophy/mcL [facility] Nitrite, UA Negative Negative - Positive [facility] pH, UA 6.5 5 - 9 [facility] Protein, UA Negative Negative - 1999(20) ++++ mg/dL [facility] Spec Grav, UA 1.025 1 - 1.03 [facility] Urobilinogen, UA 1.0 0.2 - 12 mg/dL [facility] Urinalysis macro (dipstick) panel (U)on 09-15-2024 Bilirubin, UA Negative Negative - 4(70) +++ mg/dL [facility] Blood, UA Positive Negative - 50 Ilia/mcL [facility] Comment on above: trace Clarity, UA Clear [facility] Color, UA Yellow [facility] Glucose, UA Negative Negative - 1999(110) ++++ mg/dL [facility] Interpretation and review of laboratory results Abnormal [facility] Ketones, UA Negative Negative - 160(16) ++++ mg/dL [facility] Leukocytes, UA Negative Negative - 500+++ Sophy/mcL [facility] Nitrite, UA Negative Negative - Positive [facility] pH, UA 6.5 5 - 9 [facility] Protein, UA Positive Negative - 1999(20) ++++ mg/dL [facility] Comment on above: 30 mg Spec Grav, UA 1.025 1 - 1.03 [facility] Urobilinogen, UA 0.2 0.2 - 12 mg/dL [facility] GLUCOSE TOLERANCE 3 HOURon 0 09-12-2024 GLUCOSE TOLERANCE 3 HOUR High mg/dL [facility] Comment on above: GLU FAST 88 (<95) Co l: 09/12/24 0853 GLU 1HR 203H (<180) Col: 09/12/24 0956 GLU 2HR 137 (<155) Col: 09/12/24 1056 GLU 3HR 57 (<140) Col: 09/12/24 1156 Interpretation and review of laboratory results Abnormal [facility] ALL CBC WITH AUTO DIFFon BASOPHILS ABSOLUTE AUTO 0 [facility] Basophils/100 WBC (Bld) 0.4 % 0.2 - 2.0 % [facility] Eosinophils/100 WBC (Bld) 1 % 0.9 - 7.0 % [facility] Erythrocyte distribution width (RBC) [Ratio] 12.3 % 11.0 - 15.0 % [facility] Hematocrit (Bld) [Volume fraction] 34.3 % Low 36.0 - 48.0 % [facility] Hemoglobin (Bld) [Mass/Vol] 11 g/dL Low 12.0 - 16.0 g/dL [facility] IMMATURE GRANULOCYTES ABS AUTO 0.06 High [facility] Immature granulocytes/100 WBC (Bld) 0.9 % High 0.0 - 0.5 % [facility] Interpretation and review of laboratory results Abnormal [facility] LYMPHOCYTES ABSOLUTE AUTO 1.3 [facility] Lymphocytes/100 WBC (Bld) 19.5 % Low 20.5 - 60.0 % [facility] MCH (RBC) [Entitic mass] 29.2 pg 26.7 - 34.0 pg [facility] MCHC (RBC) [Mass/Vol] 32.1 g/dL 29.9 - 35.2 g/dL [facility] MCV (RBC) [Entitic vol] 91 fL 81.0 - 99.0 fL [facility] MONOCYTES ABSOLUTE AUTO 0.5 [facility] Monocytes/100 WBC (Bld) 6.9 % 1.7 - 12.0 % [facility] NEUTROPHILS ABSOLUTE AUTO 4.9 [facility] Neutrophils/100 WBC (Bld) 71.3 % 43.0 - 75.0 % [facility] Platelet mean volume (Bld) [Entitic vol] 9.5 fL 9.5 - 13.5 fL [facility] TBH EO # 0.1 [facility] TBH PLT 281 [facility] RBC 3.77 Low [facility] WBC 6.8 [facility] Urinalysis macro (dipstick) panel (U)on 08-17-2024 Bilirubin, UA Negative Negative - 4(70) +++ mg/dL [facility] Blood, UA Negative Negative - 50 Ilia/mcL [facility] Clarity, UA Clear [facility] Color, UA Yellow [facility] Glucose, UA Negative Negative - 1999(110) ++++ mg/dL [facility] Interpretation and review of laboratory results Normal [facility] Ketones, UA Negative Negative - 160(16) ++++ mg/dL [facility] Leukocytes, UA Negative Negative - 500+++ Sophy/mcL [facility] Nitrite, UA Negative Negative - Positive [facility] pH, UA 7 5 - 9 [facility] Protein, UA Negative Negative - 1999(20) ++++ mg/dL [facility] Spec Grav, UA 1.02 1 - 1.03 [facility] Urobilinogen, UA 0.2 0.2 - 12 mg/dL [facility] Urinalysis macro (dipstick) panel (U)on 07-16-2024 Bilirubin, UA Negative Negative - 4(70) +++ mg/dL [facility] Blood, UA Negative Negative - 50 Ilia/mcL [facility] Clarity, UA Clear [facility] Color, UA Yellow [facility] Glucose, UA Negative Negative - 1999(110) ++++ mg/dL [facility] Interpretation and review of laboratory results Abnormal [facility] Ketones, UA Negative Negative - 160(16) ++++ mg/dL [facility] Leukocytes, UA Trace Negative - 500+++ Sophy/mcL [facility] Nitrite, UA Negative Negative - Positive [facility] pH, UA 6.5 5 - 9 [facility] Protein, UA Negative Negative - 1999(20) ++++ mg/dL [facility] Spec Grav, UA 1.02 1 - 1.03 [facility] Urobilinogen, UA 1.0 0.2 - 12 mg/dL [facility] RECURRENT VAGINITIS (HTRX)on 06-18-2024 ATOPOBIUM VAGINAE 0 [facility] ATOPOBIUM VAGINAE Not detected [facility] BVAB 2,3 (BACTERIAL VAGINOSIS ASSOCIATED BACTERIA 2, 3); MOBILUNCUS SPP 0 [facility] BVAB 2,3 (BACTERIAL VAGINOSIS ASSOCIATED BACTERIA 2, 3); MOBILUNCUS SPP Not detected [facility] TIERA ALBICANS, PARAPSILOSIS, TROPICALIS 0 [facility] TIERA ALBICANS, PARAPSILOSIS, TROPICALIS Not detected [facility] TIERA GLABRATA 0 [facility] TIERA GLABRATA Not detected [facility] TIERA KRUSEI 0 [facility] TIERA KRUSEI Not detected [facility] CHLAMYDIA TRACHOMATIS 0 [facility] CHLAMYDIA TRACHOMATIS Not detected [facility] GARDNERELLA VAGINALIS 0 [facility] GARDNERELLA VAGINALIS Not detected [facility] MEGASPHAERA (TYPES 1, 2) 0 [facility] MEGASPHAERA (TYPES 1, 2) Not detected [facility] MYCOPLASMA GENITALIUM 0 [facility] MYCOPLASMA GENITALIUM Not detected [facility] NEISSERIA GONORRHOEAE 0 [facility] NEISSERIA GONORRHOEAE Not detected [facility] TRICHOMONAS VAGINALIS 0 [facility] TRICHOMONAS VAGINALIS Not detected [facility] Urinalysis macro (dipstick) panel (U)on 06-16-2024 Bilirubin, UA Negative Negative - 4(70) +++ mg/dL [facility] Blood, UA Negative Negative - 50 Ilia/mcL [facility] Clarity, UA Clear [facility] Color, UA Colorless [facility] Glucose, UA Negative Negative - 1999(110) ++++ mg/dL [facility] Interpretation and review of laboratory results Normal [facility] Ketones, UA Negative Negative - 160(16) ++++ mg/dL [facility] Leukocytes, UA Negative Negative - 500+++ Sophy/mcL [facility] Nitrite, UA Negative Negative - Positive [facility] pH, UA 7 5 - 9 [facility] Protein, UA Negative Negative - 1999(20) ++++ mg/dL [facility] Spec Grav, UA 1.015 1 - 1.03 [facility] Urobilinogen, UA 0.2 0.2 - 12 mg/dL [facility] Urinalysis macro (dipstick) panel (U)on 05-19-2024 Bilirubin, UA Negative Negative - 4(70) +++ mg/dL [facility] Blood, UA Negative Negative - 50 Ilia/mcL [facility] Clarity, UA Clear [facility] Color, UA Colorless [facility] Glucose, UA Negative Negative - 1999(110) ++++ mg/dL [facility] Interpretation and review of laboratory results Normal [facility] Ketones, UA Negative Negative - 160(16) ++++ mg/dL [facility] Leukocytes, UA Negative Negative - 500+++ Sophy/mcL [facility] Nitrite, UA Negative Negative - Positive [facility] pH, UA 6 5 - 9 [facility] Protein, UA Negative Negative - 1999(20) ++++ mg/dL [facility] Spec Grav, UA 1.01 1 - 1.03 [facility] Urobilinogen, UA 0.2 0.2 - 12 mg/dL [facility] BOX TESTon 05-05-2024 BOX TEST SENT OUT [facility] BOX1 [facility] BOX2 05/05/24 [facility] ( test) Ql (U)o n 04-24-2024 Interpretation and review of laboratory results Abnormal [facility] Preg Test, Ur Positive [facility] Urinalysis macro (dipstick) panel (U)on 04-24-2024 Bilirubin, UA Negative Negative - 4(70) +++ mg/dL [facility] Blood, UA Negative Negative - 50 Ilia/mcL [facility] Clarity, UA Clear [facility] Color, UA Yellow [facility] Glucose, UA Negative Negative - 2000(110) ++++ mg/dL [facility] Interpretation and review of laboratory results Abnormal [facility] Ketones, UA Negative Negative - 160(16) ++++ mg/dL [facility] Leukocytes, UA Positive Negative - 500+++ Sophy/mcL [facility] Nitrite, UA Negative Negative - Positive [facility] pH, UA 6.0 5 - 9 [facility] Protein, UA Negative Negative - 2000(20) ++++ mg/dL [facility] Spec Grav, UA 1.020 1 - 1.03 [facility] Urobilinogen, UA 1.0 0.2 - 12 mg/dL [facility] US NON OB TRANSVAGINALon US NON OB TRANSVAGINAL EXAM: US Pelvis Transabdominal and Transvaginal, Complete and US Duplex Arterial/Venous of the Pelvis, Complete EXAM DATE/TIME: 01/17/2024 6:09 pm; 01/17/2024 7:16 pm CLINICAL HISTORY: ORDERING SYSTEM PROVIDED HISTORY: Right ovarian cyst, Pelvic pain TECHNOLOGIST PROVIDED HISTORY: This procedure can be scheduled via [employer]. Release to patient - Note: Delayed release [...] HISTORY: This procedure can be scheduled via [employer]. ; ORDERING SYSTEM PROVIDED HISTORY: Right ovarian [...] Steve Borja MD 01/18/24 Final result Normal [facility] US PELVIS COMPLETEon 024 US PELVIS COMPLETE [...] Steve Borja MD 01/18/24 Final result Normal [facility] CBC With Platelet No Differe ntialon 07-28-2023 Erythrocyte distribution width (RBC) [Ratio] 12.5 % Normal 11.5-14.5 [facility] Comment on above: Performed By: #### C BCND #### [facility] [address] [place] [address] Hematocrit (Bld) [Volume fraction] 28.3 % Low 37.0-47.0 [facility] Comment on above: Performed By: #### C BCND #### [facility] [address] [place] [address] Hemoglobin (Bld) [Mass/Vol] 9.2 g/dL Low 12.0-16.0 [facility] Comment on above: Performed By: #### C BCND #### [facility] [address] [place] [address] MCH (RBC) [Entitic mass] 28.9 pg Normal 27.0-31.3 [facility] Comment on above: Performed By: #### C BCND #### [facility] [address] [place] [address] MCHC 32.5 % Low 33.0-37.0 [facility] Comment on above: Performed By: #### C BCND #### [facility] [address] [place] [address] MCV (RBC) [Entitic vol] 89.0 fL Normal 79.4-94.8 [facility] Comment on above: Performed By: #### C BCND #### [facility] [address] [place] [address] Platelets (Bld) [#/Vol] 241 10*3/uL Normal 130-400 [facility] Comment on above: Performed By: #### C BCND #### [facility] [address] [place] [address] RBC (Bld) [#/Vol] 3.18 10*6/uL Low 4.20-5.40 [facility] Comment on above: Performed By: #### C BCND #### [facility] [address] [place] [address] WBC (Bld) [#/Vol] 16.6 10*3/uL Critically high 4.8-10.8 [facility] Comment on above: Performed By: #### C BCND #### [facility] [address] [place] [address] HIV Ag/Abon 07-27-2023 HIV Ag/Ab Non-Reactive Normal NR [facility] Comment on above: Result Comment: No l aboratory evidence of HIV infection. If acute HIV infection is suspected, consider testing for HIV-1 RNA. Performed at [facility], [address] [place] [id number] . CBC With Platelet and Differ entialon 07-26-2023 Basophils (Bld) [#/Vol] 0.1 10*3/uL Normal 0.0-0.2 [facility] Comment on above: Performed By: #### U A #### [facility] [address] [place] [address] Basophils/100 WBC (Bld) 0.5 % Normal [facility] Comment on above: Performed By: #### U A #### [facility] [address] [place] [address] Eosinophils (Bld) [#/Vol] 0.1 10*3/uL Normal 0.0-0.7 [facility] Comment on above: Performed By: #### U A #### [facility] [address] [place] [address] Eosinophils/100 WBC (Bld) 1.0 % Normal [facility] Comment on above: Performed By: #### U A #### [facility] [address] [place] [address] Erythrocyte distribution width (RBC) [Ratio] 12.3 % Normal 11.5-14.5 [facility] Comment on above: Performed By: #### U A #### [facility] [address] [place] [address] Hematocrit (Bld) [Volume fraction] 36.9 % Low 37.0-47.0 [facility] Comment on above: Performed By: #### U A #### [facility] [address] [place] [address] Hemoglobin (Bld) [Mass/Vol] 11.9 g/dL Low 12.0-16.0 [facility] Comment on above: Performed By: #### U A #### [facility] [address] [place] [address] Lymphocytes (Bld) [#/Vol] 2.0 10*3/uL Normal 1.0-4.8 [facility] Comment on above: Performed By: #### U A #### [facility] [address] [place] [address] Lymphocytes/100 WBC (Bld) 17.5 % Normal [facility] Comment on above: Performed By: #### U A #### [facility] [address] [place] [address] MCH (RBC) [Entitic mass] 29.0 pg Normal 27.0-31.3 [facility] Comment on above: Performed By: #### U A #### [facility] [address] [place] [address] MCHC 32.2 % Low 33.0-37.0 [facility] Comment on above: Performed By: #### U A #### [facility] [address] [place] [address] MCV (RBC) [Entitic vol] 90.0 fL Normal 79.4-94.8 [facility] Comment on above: Performed By: #### U A #### [facility] [address] [place] [address] Monocytes (Bld) [#/Vol] 1.1 10*3/uL Critically high 0.2-0.8 [facility] Comment on above: Performed By: #### U A #### [facility] [address] [place] [address] Monocytes/100 WBC (Bld) 9.7 % Normal [facility] Comment on above: Performed By: #### U A #### [facility] [address] [place] [address] Neutrophils (Bld) [#/Vol] 7.9 10*3/uL Critically high 1.4-6.5 [facility] Comment on above: Performed By: #### U A #### [facility] [address] [place] [address] Neutrophils/100 WBC (Bld) 70.4 % Normal [facility] Comment on above: Performed By: #### U A #### [facility] [address] [place] [address] Platelets (Bld) [#/Vol] 289 10*3/uL Normal 130-400 [facility] Comment on above: Performed By: #### U A #### [facility] [address] [place] [address] RBC (Bld) [#/Vol] 4.10 10*6/uL Low 4.20-5.40 [facility] Comment on above: Performed By: #### U A #### [facility] [address] [place] [address] WBC (Bld) [#/Vol] 11.2 10*3/uL Critically high 4.8-10.8 [facility] Comment on above: Performed By: #### U A #### [facility] [address] [place] [address] Comprehensive Metabolic Pane mello 07-26-2023 Albumin [Mass/Vol] 3.4 g/dL Low 3.5-4.6 [facility] Comment on above: Performed By: #### C MP #### [facility] [address] [place] [address] ALP [Catalytic activity/Vol] 134 U/L Critically high 40-130 [facility] Comment on above: Performed By: #### C MP #### [facility] [address] [place] [address] ALT [Catalytic activity/Vol] 13 U/L Normal 0-33 [facility] Comment on above: Performed By: #### C MP #### [facility] [address] [place] [address] Anion gap [Moles/Vol] 14 mmol/L Normal 9-15 [facility] Comment on above: Performed By: #### C MP #### [facility] [address] [place] [address] AST [Catalytic activity/Vol] 19 U/L Normal 0-35 [facility] Comment on above: Performed By: #### C MP #### [facility] [address] [place] [address] Bilirubin [Mass/Vol] mg/dL Normal 0.2-0.7 [facility] Comment on above: Performed By: #### C MP #### [facility] [address] [place] [address] Calcium [Mass/Vol] 9.7 mg/dL Normal 8.5-9.9 [facility] Comment on above: Performed By: #### C MP #### [facility] [address] [place] [address] Chloride [Moles/Vol] 103 mmol/L Normal 95-107 [facility] Comment on above: Performed By: #### C MP #### [facility] [address] [place] [address] CO2 [Moles/Vol] 19 mmol/L Low 20-31 [facility] Comment on above: Performed By: #### C MP #### [facility] [address] [place] [address] Creatinine [Mass/Vol] 0.75 mg/dL Normal 0.50-0.90 [facility] Comment on above: Performed By: #### C MP #### [facility] [address] [place] [address] GFR >60.0 Normal >60 [facility] Comment on above: Result Comment: Pedi atric [...] secretion. Performed By: #### C MP #### [facility] [address] [place] [address] Globulin (S) [Mass/Vol] 2.9 g/dL Normal 2.3-3.5 [facility] Comment on above: Performed By: #### C MP #### [facility] [address] [place] [address] Glucose [Mass/Vol] 65 mg/dL Low 70-99 [facility] Comment on above: Performed By: #### C MP #### [facility] [address] [place] [address] Potassium [Moles/Vol] 4.5 mmol/L Normal 3.4-4.9 [facility] Comment on above: Performed By: #### C MP #### [facility] [address] [place] [address] Protein [Mass/Vol] 6.3 g/dL Normal 6.3-8.0 [facility] Comment on above: Performed By: #### C MP #### [facility] [address] [place] [address] Sodium [Moles/Vol] 136 mmol/L Normal 135-144 [facility] Comment on above: Performed By: #### C MP #### [facility] [address] [place] [address] Urea nitrogen [Mass/Vol] 8 mg/dL Normal 6-20 [facility] Comment on above: Performed By: #### C MP #### [facility] [address] [place] [address] Hepatitis B Surface Agon Hepatitis B Surface Ag Interp Non-Reactive Normal [facility] Comment on above: Performed By: #### H BSG #### [facility] [address] [place] [address] RPRon 07-26-2023 Reagin Ab RPR Ql (S) Non-Reactive Normal Non-reacti [facility] Comment on above: Performed By: #### R NM #### [facility] [address] [place] [address] Type and Screen Capture 3 sc rn cellon 07-26-2023 Type and Screen Capture 3 scrn cell PATIENT: ABDIAZIZ Drake LOC: [facility],0324,01 BILL# : [id number] : 2000 SEX: F ORDERED BY: KASSIDY BARAHONA ORDERED : 07/26/2023 09:26 COLLECTED: 07/26/2023 09:44 ORDER : [id number] RECEIVED : 07/26/2023 09:44 TEST NAME RESULT UNITS RANGES ABN FL ST ABORH Capture A POS F Antibody 3 Cell Scrn Captu NEG F Normal [facility] Comment on above: Performed By: #### T S3C #### [facility] [address] [facility] [address] UR Drugs of Abuse Panelon Drug Screen Comment see below Normal [facility] Comment on above: Result Comment: This method is a screening test to detect only these drug classes as part of a medical workup. Confirmatory testing by another method should be ordered if clinically indicated. Performed By: #### U DRGS #### [facility] [address] [place] [address] UR Amphetamines Screen Negative Normal Negative < [facility] Comment on above: Performed By: #### U DRGS #### [facility] [address] [place] [address] UR Barbiturates Screen Negative Normal Negative < [facility] Comment on above: Performed By: #### U DRGS #### [facility] [address] [place] [address] UR Benzo Screen Negative Normal Negative < [facility] Comment on above: Performed By: #### U DRGS #### [facility] [address] [place] [address] UR Cannabinoids Screen Negative Normal Negative < [facility] Comment on above: Performed By: #### U DRGS #### [facility] [address] [place] [address] UR Cocaine Screen Negative Normal Negative < [facility] Comment on above: Performed By: #### U DRGS #### [facility] [address] [place] [address] UR Fentanyl Screen Negative Normal Negative < [facility] Comment on above: Performed By: #### U DRGS #### [facility] [address] [place] [address] UR Methadone Screen Negative Normal Negative < [facility] Comment on above: Performed By: #### U DRGS #### [facility] [address] [place] [address] UR Opiates Screen Negative Normal Negative < [facility] Comment on above: Performed By: #### U DRGS #### [facility] [address] [place] [address] UR Oxycodone Screen Negative Normal Negative < [facility] Comment on above: Performed By: #### U DRGS #### [facility] [address] [place] [address] UR PCP Screen Negative Normal Negative < [facility] Comment on above: Performed By: #### U DRGS #### [facility] [address] [place] [address] UR Propoxyphene Screen Negative Normal Negative < [facility] Comment on above: Performed By: #### U DRGS #### [facility] [address] [place] [address] Urinalysis, reflex to micros copicon 07-26-2023 Bilirubin Ql (U) Negative Normal Negative [facility] Comment on above: Performed By: #### U A #### [facility] [address] [place] [address] Clarity (U) Clear Normal Clear [facility] Comment on above: Performed By: #### U A #### [facility] [address] [place] [address] Color (U) Yellow Normal Straw/Banks [facility] Comment on above: Performed By: #### U A #### [facility] [address] [place] [address] Glucose Ql (U) Negative Normal Negative [facility] Comment on above: Performed By: #### U A #### [facility] [address] [place] [address] Hemoglobin Ql (U) Negative Normal Negative [facility] Comment on above: Performed By: #### U A #### [facility] [address] [place] [address] Ketones Ql (U) Negative Normal Negative [facility] Comment on above: Performed By: #### U A #### [facility] [address] [place] [address] Leukocyte esterase Test strip Ql (U) TRACE Abnormal Negative [facility] Comment on above: Performed By: #### U A #### [facility] [address] [place] [address] Nitrite Ql (U) Negative Normal Negative [facility] Comment on above: Performed By: #### U A #### [facility] [address] [place] [address] pH (U) 6.5 [pH] Normal 5.0-9.0 [facility] Comment on above: Performed By: #### U A #### [facility] [address] [place] [address] Protein Ql (U) TRACE Abnormal Negative [facility] Comment on above: Performed By: #### U A #### [facility] [address] [place] [address] Specific gravity (U) [Rel density] 1.009 Normal 1.005-1.03 [facility] Comment on above: Performed By: #### U A #### [facility] [address] [place] [address] Urobilinogen Qn (U) 0.2 {Yoselyn'U}/dL Normal < 2.0 [facility] Comment on above: Performed By: #### U A #### [facility] [address] [place] [address] Urine Microscopicon 07-26-20 23 Urine Bacteria RARE Abnormal Negative [facility] Comment on above: Performed By: #### U DEBBI #### [facility] [address] [place] [address] Urine Epithelial Cells Auto 20-50 Normal 0-5 [facility] Comment on above: Performed By: #### U DEBBI #### [facility] [address] [place] [address] Urine Hyaline Casts Auto 1-3 Normal 0-5 [facility] Comment on above: Performed By: #### U DEBBI #### [facility] [address] [place] [address] Urine RBC Auto 0-2 Normal 0-5 [facility] Comment on above: Performed By: #### U DEBBI #### [facility] [address] [place] [address] Urine WBC Auto 10-20 Abnormal 0-5 [facility] Comment on above: Performed By: #### U DEBBI #### [facility] [address] [place] [address] Culture, Group B Strepon Culture, Group B Strep ORDER#: [id number] ORDERED BY: [place] SOURCE: Vagina Genital COLLECTED: 07/12/23 15:54 ANTIBIOTICS AT [place].: RECEIVED : 07/12/23 16:18 Culture, Group B Strep FINAL 07/16/23 08:16 Rule Out Grp.B Strep: NEGATIVE FOR GROUP B STREPTOCOCCI Performed at [facility] [address] [place] [address] ([phone] Normal [facility] Comment on above: Performed By: #### R UBEL #### [facility] [address] [place] [address] US OB 1 OR MORE FETUS LIMITE Don 06-28-2023 US OB 1 OR MORE FETUS LIMITED EXAMINATION: 3rd TRIMESTER OBSTETRIC ULTRASOUND 06/28/2023 COMPARISON: None HISTORY: ORDERING SYSTEM PROVIDED HISTORY: Encounter for supervision in primigravida, antepartum, 31 weeks gestation of TECHNOLOGIST PROVIDED HISTORY: This procedure can be scheduled via [employer]. Access your [employer] account by visiting [employer]. What reading provider will be dictating this [...] Casey Hall MD 07/02/23 Final result Normal [facility] RPRon 05-01-2023 Reagin Ab RPR Ql (S) Non-Reactive Normal Non-reacti [facility] Comment on above: Performed By: #### R NM #### [facility] [address] [place] [address] Glucose 1hr PPon 04-30-2023 Glucose [Mass/Vol] 101 mg/dL Normal 60-140 [facility] Comment on above: Result Comment: Gluc ose tolerance is IMPAIRED when the 1 hour post 50 gram load glucose is greater than 130mg/dL Performed By: #### G L1PP #### [facility] [address] [place] [address] Hemoglobin and Hematocriton 04-30-2023 Hematocrit (Bld) [Volume fraction] 35.4 % Low 37.0-47.0 [facility] Comment on above: Performed By: #### C BCWD #### [facility] [address] [place] [address] Hemoglobin (Bld) [Mass/Vol] 11.3 g/dL Low 12.0-16.0 [facility] Comment on above: Performed By: #### C BCWD #### [facility] [address] [place] [address] Nursing Assessmenton 023 Nursing Assessment [id number]#[id number]:127 Normal [facility] Auth for Release of Medical Recordson 04-22-2023 Auth for Release of Medical Records [id number]#[id number]:127 Normal [facility] Discharge Instructionson Discharge Instructions [id number]#[id number]:127 Normal [facility] Inpatient Clinical Summaryon 04-22-2023 Inpatient Clinical Summary [address] [address] Clinical Summary Person Information Name: HOLLIS FREED[place] Age: 23 Years : 2000 Sex: Female PCP: Gwen Sky DO Marital Status: Single Race: White Ethnicity: Non- or Language: Malay Visit Id: Visit Reason: fELL AT HOME Speciality: Acuity: Obs Enc Type: OB Triage Med Service: Obstetrics Arrival: 04/22/2023 14:32:43 Discharge: 04/22/2023 16:33:00 Dispo Type: Home (Routine DC) Address: [address] [place] [id number] Provider Notes: Diagnosis: Problems Active (04/22/2023) Smoker [...] Care Team Members: Attending Physician: Jef ALLEN, Elbert Canales Consulting Physician: Referring Physician: Follow up: With: Address: When: [place] [address] [place] [address] 04/30/2023 10:15 AM Patient Education Information: Round Ligament Pain Normal [facility] Inpatient Patient Summaryon 04-22-2023 Inpatient Patient Summary [place] [address] Patient Discharge Instructions PERSON INFORMATION Name: HOLLIS [...] With: Address: When: [place] [address] [place] [address] 04/30/2023 10:15 AM In the event that [...] walks if they cause pain. ? Take [id number] and prescription medicines only as told by [...] few sec (more content not included)... Normal [facility] Insurance Correspondence Off ice04-22-2023 Insurance Correspondence Office [id number]#[id number]:127 Normal [facility] UA With Cult Reflexon 2022 Bacteria LM Ql (Urine sed) TRACE Normal Trace [facility] Comment on above: Performed By: #### 1 [id number] #### [facility] [address] [facility] [place] [address] Bilirubin Ql (U) Negative Normal Negative [facility] Comment on above: Performed By: #### 1 [id number] #### [facility] [address] [facility] [place] [address] Calcium oxalate crystals LM Ql (Urine sed) Present Normal [facility] Comment on above: Performed By: #### 1 [id number] #### [facility] [address] [place] [address] Clarity (U) SL CLOUDY Invalid Interpretation Code [facility] Comment on above: Performed By: #### 1 [id number] #### [facility] [address] [facility] [place] [address] Color (U) YELLOW Normal Yellow [facility] Comment on above: Performed By: #### 1 [id number] #### [facility] [address] [facility] [place] [address] Crystals LM Ql (Urine sed) Present Normal [facility] Comment on above: Performed By: #### 1 [id number] #### [facility] [address] [place] [address] Epithelial cells.squamous LM.HPF (Urine sed) [#/Area] 9-10 Normal 0-2 [facility] Comment on above: Performed By: #### 1 [id number] #### [facility] [address] [place] [address] Glucose Test strip (U) [Mass/Vol] Negative Normal Negative [facility] Comment on above: Performed By: #### 1 [id number] #### [facility] [address] [facility] [place] [address] Hemoglobin Ql (U) Negative Normal Negative [facility] Comment on above: Performed By: #### 1 [id number] #### [facility] [address] [place] [address] Ketones (U) [Mass/Vol] Negative Normal Negative [facility] Comment on above: Performed By: #### 1 [id number] #### [facility] [address] [place] [address] Brewer.plasma/Lit hium.RBC (Bld) [Mass ratio] 0-3 Normal 0-3 [facility] Comment on above: Performed By: #### 1 [id number] #### [facility] [address] [place] [address] Mucus Ql (Urine sed) TRACE Normal [facility] Comment on above: Performed By: #### 1 [id number] #### [facility] [address] [place] [address] Nitrite Ql (U) Negative Normal Negative [facility] Comment on above: Performed By: #### 1 [id number] #### [facility] [address] [place] [address] pH (U) 7.5 [pH] Invalid Interpretation Code 5.0-9.0 [facility] Comment on above: Performed By: #### 1 [id number] #### [facility] [address] [address] Protein (U) [Mass/Vol] Negative Normal Negative [facility] Comment on above: Performed By: #### 1 [id number] #### [facility] [address] [address] Specific gravity (U) [Rel density] 1.010 Invalid Interpretation Code 1.005-1.03 0 [facility] Comment on above: Performed By: #### 1 [id number] #### [facility] [address] [place] [address] Type of Urine collection method Clean Catch Normal [facility] Comment on above: Performed By: #### 1 [id number] #### [facility] [address] [place] [address] Urobilinogen Qn (U) 0.2 {Yoselyn'U}/dL Normal 0.0-1.0 [facility] Comment on above: Performed By: #### 1 [id number] #### [facility] [address] [place] [address] WBC Auto Ql (U) TRACE Abnormal Negative [facility] Comment on above: Performed By: #### 1 [id number] #### [facility] [address] [place] [address] WBC LM.HPF (Urine sed) [#/Area] 0-5 Normal 0-5 [facility] Comment on above: Performed By: #### 1 [id number] #### [facility] [address] [place] [address] US OB 14 PLUS WEEKS SINGLE O R FIRST GESTATIONon 03-01-2023 US OB 14 PLUS WEEKS SINGLE OR FIRST GESTATION EXAMINATION: OBSTETRIC ULTRASOUND 03/01/2023 3:11 pm TECHNIQUE: Transabdominal sonographic evaluation of the pelvis was performed. COMPARISON: 12/31/2022. HISTORY: ORDERING SYSTEM PROVIDED HISTORY: 11 weeks gestation of , Supervision of other normal , antepartum TECHNOLOGIST PROVIDED HISTORY: This procedure can be scheduled via [employer]. Access your [employer] account by visiting [employer]Fix. What reading provider will be dictating this [...] Jalil Noe MD 03/01/23 Final result Normal [facility] US OB LESS THAN 14 WEEKS SIN GLE OR FIRST GESTATIONon 12-31-2022 1. Single IUP with best estimate of gestational age being 9 weeks and 3 days. No abnormal fluid collections about the gestation. Yolk sac, pole and cardiac motion noted, with heart rate of 176 BPM. 2. 2.6 cm, slightly complex, left ovarian cyst. Possibly a corpus luteum cyst. [facility] EXAM: US First Trimester , Transabdominal and US Duplex Arterial/Venous of the Pelvis, Complete EXAM DATE/TIME: 12/31/2022 4:36 pm CLINICAL History lines: ORDERING SYSTEM PROVIDED Secondary amenorrhea, Positive urine test TECHNOLOGIST PROVIDED History lines: This procedure can be scheduled via [employer]. Access your [employer] account by visiting BigFix. What reading provider will be dictating this [...] 2.0 cm. Free fluid: No free fluid. [facility] Steve Borja MD - 12/31/2022 EXAM: US First Trimester , Transabdominal and US Duplex Arterial/Venous of the Pelvis, Complete EXAM DATE/TIME: 12/31/2022 4:36 pm CLINICAL History lines: ORDERING SYSTEM PROVIDED Secondary amenorrhea, Positive urine test TECHNOLOGIST PROVIDED History lines: This procedure can be scheduled via [employer]. Access your [employer] account by visiting BigFix. What reading provider will be dictating this [...] ovarian cyst. Possibly a corpus luteum cyst. [employer] Phone: Radiology Study observation (narrative) [employer] Phone: US OB LESS THAN 14 WEEKS SIN GLE OR FIRST GESTATIONOrdered By: Steve Borja on 12-31-2022 [employer] Phone: HPV DNA Typingon 12-26-2022 HPV Type 16 Not detected Normal Not Detect [facility] HPV Type 18 Not detected Normal Not Detect [facility] HPVOH (Other types) Detected Abnormal Not Detect [facility] Comment on above: Result Comment: *Inc ludes 31,33,35,39,45,51,52,56,58,59,66,68 genotypes C.trachomatis N.gonorrhoeae DNAon 12-25-2022 C. trachomatis DNA EVONNE+probe Ql (Unsp spec) Negative Normal Negative [facility] N. gonorrhoeae DNA EVONNE+probe Ql (Unsp spec) Negative Normal Negative [facility] Drug Panel 9A, Screen Only, Urineon 12-21-2022 Alcohol, Urine Negative Normal Cutoff 40 [facility] Amphetamines, Urine Negative Normal Cutoff 300 [facility] Barbiturates, Urine Negative Normal Cutoff 200 [facility] Benzodiazepines, Urine Negative Normal Cutoff 200 [facility] CDTI 9A Comments See Note Normal [facility] Comment on above: Result Comment: [...] opioid testing can be ordered. Refer to [email or web address] for test information. For medical purposes only; not valid for forensic use. Performed by [facility], [address] [place] [address] [email or web address], Nolberto Marie MD, PHD - Lab. Director Cocaine, Urine Negative Normal Cutoff 150 [facility] Creatinine, Urine 65.0 mg/dL Normal 20.0-400.0 [facility] Marijuana, Urine Positive Normal Cutoff 50 [facility] Comment on above: Result Comment: Pres umptively POSITIVE for cannabinoids (marijuana or Marinol use) by enzyme immunoassay. NOT CONFIRMED by LC-MS/MS. Unconfirmed positive may be useful for medical purposes, but does not meet forensic standards. MDMA, Urine Negative Normal Cut[address] [facility] Methadone, Urine Negative Normal [address] [facility] Opiates, Urine Negative Normal Cutoff [address] [facility] Oxycodone, Urine Negative Normal Cutoff 100 [facility] Phencyclidine, Urine Negative Normal Cutoff 25 [facility] Propoxyphene, Urine Negative Normal Cutoff [address] [facility] HSV 1 Glycoprotein G Ab, IgG on 12-21-2022 HSV 1 Glycoprotein G Ab, IgG 27.20 IV Critically high <=0.89 [facility] Comment on above: Result Comment: [...] a non-type specific screening test. Performed By: [facility] [address] [place] [address] Residential Door Unit Installer: Nolberto Marie MD, PhD HSV 2 Glycoprotein G Ab, IgG on 12-21-2022 HSV 2 Glycoprotein G Ab, IgG 0.06 IV Normal <=0.89 [facility] Comment on above: Result Comment: [...] a non-type specific screening test. Performed By: [facility] [address] [place] [address] Residential Door Unit Installer: Nolberto Marie MD, PhD Varicella-Zoster Virus Ab, I gGon 12-21-2022 Varicella-Zoster Virus Ab, IgG 240.8 IV Normal [facility] Comment on above: Result Comment: [...] laboratory at the same time. Performed By: [facility] [address] [place] [address] Residential Door Unit Installer: Nolberto Marie MD, PhD HIV Ag/Abon 12-20-2022 HIV Ag/Ab Non-Reactive Normal NR [facility] Comment on above: Result Comment: No l aboratory evidence of HIV infection. If acute HIV infection is suspected, consider testing for HIV-[address] [address] Hep C Abon 12-20-2022 Hep C Ab Non-Reactive Normal NR [facility] Comment on above: Result Comment: [...] recommended by ordering HCV RNA by PCR. [address] [place] [address] RPRon 12-20-2022 Reagin Ab RPR Ql (S) Non-Reactive Normal Non-reacti [facility] Comment on above: Performed By: #### R UBEL #### [facility] [address] [place] [address] Trichmonas Vaginalis Screen (EIA)on 12-20-2022 Trichomonas Vaginalis Screen (EIA) Negative Normal [facility] Comment on above: Performed By: #### E TRIC #### [facility] [address] [place] [address] Wet Prep-Medical Purposes On rievra 12-20-2022 Wet Prep Clue Cellls None Seen Normal [facility] Comment on above: Performed By: #### C BCWD #### [facility] [address] [place] [address] Wet Prep Trichomonas See EIA Normal [facility] Comment on above: Performed By: #### C BCWD #### [facility] [address] [place] [address] Wet Prep Yeast None Seen Normal [facility] Comment on above: Performed By: #### C BCWD #### [facility] [address] [place] [address] CBC With Platelet and Differ entialon 12-19-2022 Basophils (Bld) [#/Vol] 0.0 10*3/uL Normal 0.0-0.2 [facility] Comment on above: Performed By: #### C BCWD #### [facility] [address] [place] [address] Basophils/100 WBC (Bld) 0.8 % Normal [facility] Comment on above: Performed By: #### C BCWD #### [facility] [address] [place] [address] Eosinophils (Bld) [#/Vol] 0.1 10*3/uL Normal 0.0-0.7 [facility] Comment on above: Performed By: #### C BCWD #### [facility] [address] [place] [address] Eosinophils/100 WBC (Bld) 1.7 % Normal [facility] Comment on above: Performed By: #### C BCWD #### [facility] [address] [place] [address] Erythrocyte distribution width (RBC) [Ratio] 12.4 % Normal 11.5-14.5 [facility] Comment on above: Performed By: #### C BCWD #### [facility] [address] [place] [address] Hematocrit (Bld) [Volume fraction] 33.7 % Low 37.0-47.0 [facility] Comment on above: Performed By: #### C BCWD #### [facility] [address] [place] [address] Hemoglobin (Bld) [Mass/Vol] 11.5 g/dL Low 12.0-16.0 [facility] Comment on above: Performed By: #### C BCWD #### [facility] [address] [place] [address] Lymphocytes (Bld) [#/Vol] 1.0 10*3/uL Normal 1.0-4.8 [facility] Comment on above: Performed By: #### C BCWD #### [facility] [address] [place] [address] Lymphocytes/100 WBC (Bld) 21.8 % Normal [facility] Comment on above: Performed By: #### C BCWD #### [facility] [address] [place] [address] MCH (RBC) [Entitic mass] 30.7 pg Normal 27.0-31.3 [facility] Comment on above: Performed By: #### C BCWD #### [facility] [address] [place] [address] MCHC 34.1 % Normal 33.0-37.0 [facility] Comment on above: Performed By: #### C BCWD #### [facility] [address] [place] [address] MCV (RBC) [Entitic vol] 89.8 fL Normal 79.4-94.8 [facility] Comment on above: Performed By: #### C BCWD #### [facility] [address] [place] [address] Monocytes (Bld) [#/Vol] 0.4 10*3/uL Normal 0.2-0.8 [facility] Comment on above: Performed By: #### C BCWD #### [facility] [address] [place] [address] Monocytes/100 WBC (Bld) 9.6 % Normal [facility] Comment on above: Performed By: #### C BCWD #### [facility] [address] [place] [address] Neutrophils (Bld) [#/Vol] 3.0 10*3/uL Normal 1.4-6.5 [facility] Comment on above: Performed By: #### C BCWD #### [facility] [address] [place] [address] Neutrophils/100 WBC (Bld) 66.1 % Normal [facility] Comment on above: Performed By: #### C BCWD #### [facility] [address] [place] [address] Platelets (Bld) [#/Vol] 226 10*3/uL Normal 130-400 [facility] Comment on above: Performed By: #### C BCWD #### [facility] [address] [place] [address] RBC (Bld) [#/Vol] 3.76 10*6/uL Low 4.20-5.40 [facility] Comment on above: Performed By: #### C BCWD #### [facility] [address] [place] [address] WBC (Bld) [#/Vol] 4.5 10*3/uL Low 4.8-10.8 [facility] Comment on above: Performed By: #### C BCWD #### [facility] [address] [place] [address] Culture, Urineon 12-19-2022 Culture, Urine ORDER#: [id number] OR DERED BY: BROOKLYN YI SOURCE: Urine Clean Catch COLLECTED: 12/19/22 14:44 ANTIBIOTICS AT [place].: RECEIVED : 12/19/22 20:01 Culture, Urine FINAL 12/21/22 12:29 Cult,Urine: NO SIGNIFICANT GROWTH Performed at [address] [address] [phone] Normal [facility] Comment on above: Performed By: #### R UBEL #### [facility] [address] [facility] [address] Gynecological Specimen (Cyto logy)on 12-19-2022 Gynecological Specimen (Cytology) [facility] [address] [place], [place] [id number] FINAL CYTOLOGY PAP REPORT Patient Name: HOLLIS FREED Accession No: [id number] Age Sex: 2000 22 Y / F Location: [facility] Account No: [id number] Collected: 12/19/2022 Med Rec No: [id number] Received: 12/20/2022 Attend Phys: BROOKLYN YI Completed: 01/03/2023 Perform Phys: BROOK[place]N YI SPECIMEN ADEQUACY: Satisfactory for Evaluation. Endocervical cells/transformation zone component present. GENERAL CATEGORIZATION: Epithelial Cell Abnormality INTERPRETATION/RESULTS: Atypical squamous cells of undetermined significance. Specimen: THINPREP LIQUID BASE IMAGED DIAGNOSTIC History: Source: Thin Prep Site: Cervical History: Previous abnormal smear? No History of CA? No Lab Order#: [id number] Test Name Collected D AND T Result [...] (PCR) and nucleic acid hybridization. CPT: Technical: 73771 X1 Professional: 80539 X1 Screened by: JEROME BROOKS(ASCP) EARL CURRIE [...] processed and screened using a Thin Prep Spray Crew at [facility] [address] [place] [address] All abnormal gynecologic interpretation is performed at [facility], unless otherwise noted in the report. Page 1 of 1 Abnormal [facility] Comment on above: Performed By: #### R UBEL #### [facility] [address] [facility] [address] HCG Quanton 12-19-2022 HCG Quant 08838.0 mIU/mL Normal [facility] Comment on above: Result Comment: Gest ational Age Expected HCG values (mIU/ml) 3 weeks 5-72 4 weeks 10-708 5 weeks 217-8,245 6 weeks 152-32,177 8 weeks 31,366-149,094 12 weeks 27,107-201,615 16 weeks 8,904-55,332 18 weeks 9,649-55,271 Performed By: #### R UBEL #### [facility] [address] [place] [address] HPV DNA Typingon 12-19-2022 HPV Comment See below Normal [facility] Comment on above: Result Comment: [...] Hepatitis B Surface Ag Interp Non-Reactive Normal [facility] Comment on above: Performed By: #### H BSG #### [facility] [address] [place] [address] Rubella Ab, IgGon 12-19-2022 Rubella Ab, IgG 12.4 IU/mL Normal [facility] Comment on above: Result Comment: Yenni ent's result indicates immunity. Default Normal Ranges >=10 Presumed Immune <10 Presumed Not immune Performed By: #### R UBEL #### [facility] [address] [place] [address] Type and 3 cell Screen OB Ca ptureon 12-19-2022 Type and 3 cell Screen OB Capture PATIENT: ABDIAZIZ Drake LOC: LCAMontserrat,OSIEL# : [id number] : 2000 SEX: F ORDERED BY: KASSIDY BARAHONA ORDERED : 12/19/2022 11:18 COLLECTED: 12/19/2022 11:19 ORDER : [id number] RECEIVED : 12/19/2022 15:40 TEST NAME RESULT UNITS RANGES ABN FL ST ABORH Capture A POS F Antibody 3 Cell Scrn Captu NEG F Normal [facility] Comment on above: Performed By: #### R WIL #### [facility] [address] [place] [address] Urinalysis, reflex to micros copicon 12-19-2022 Bilirubin Ql (U) Negative Normal Negative [facility] Comment on above: Performed By: #### C BCWD #### [facility] [address] [place] [address] Clarity (U) Clear Normal Clear [facility] Comment on above: Performed By: #### C BCWD #### [facility] [address] [place] [address] Color (U) Yellow Normal Straw/Banks [facility] Comment on above: Performed By: #### C BCWD #### [facility] [address] [place] [address] Glucose Ql (U) Negative Normal Negative [facility] Comment on above: Performed By: #### C BCWD #### [facility] [address] [place] [address] Hemoglobin Ql (U) Negative Normal Negative [facility] Comment on above: Performed By: #### C BCWD #### [facility] [address] [place] [address] Ketones Ql (U) Negative Normal Negative [facility] Comment on above: Performed By: #### C BCWD #### [facility] [address] [place] [address] Leukocyte esterase Test strip Ql (U) TRACE Abnormal Negative [facility] Comment on above: Performed By: #### C BCWD #### [facility] [address] [place] [address] Nitrite Ql (U) Negative Normal Negative [facility] Comment on above: Performed By: #### C BCWD #### [facility] [address] [place] [address] pH (U) 7.0 [pH] Normal 5.0-9.0 [facility] Comment on above: Performed By: #### C BCWD #### [facility] [address] [place] [address] Protein Ql (U) Negative Normal Negative [facility] Comment on above: Performed By: #### C BCWD #### [facility] [address] [place] [address] Specific gravity (U) [Rel density] 1.013 Normal 1.005-1.03 [facility] Comment on above: Performed By: #### C BCWD #### [facility] [address] [place] [address] Urobilinogen Qn (U) 0.2 {Yoselyn'U}/dL Normal < 2.0 [facility] Comment on above: Performed By: #### C BCWD #### [facility] [address] [place] [address] Urine Microscopicon 12-20-19 23 Bacteria LM.HPF (Urine sed) [#/Area] Negative Normal Negative [facility] Comment on above: Performed By: #### U DEBBI #### [facility] [address] [place] [address] Urine Epithelial Cells Auto 3-5 Normal 0-5 [facility] Comment on above: Performed By: #### U DEBBI #### [facility] [address] [place] [address] Urine Hyaline Casts Auto 0-1 Normal 0-5 [facility] Comment on above: Performed By: #### U DEBBI #### [facility] [address] [place] [address] Urine RBC Auto 3-5 Abnormal 0-5 [facility] Comment on above: Performed By: #### U DEBBI #### [facility] [address] [place] [address] Urine WBC Auto 0-2 Normal 0-5 [facility] Comment on above: Performed By: #### U DEBBI #### [facility] [address] [place] [address] ANKLE, COMPLETE, MIN 3 VIEWS on 03-20-2022 ANKLE, COMPLETE, MIN 3 VIEWS Patient Name: HOLLIS FREED STUDY: ANKLE, COMPLETE, MIN 3 VIEWS; Right; 03/20/2022 2:21 pm INDICATION: pain M25.579: Ankle pain. ACCESSION NUMBER(S): [id number] ORDERING CLINICIAN: BEE LEDESMA FINDINGS: Right ankle x-rays three views AP, lateral and oblique view: No acute fractures, no dislocation. Mortise intact. Electronically signed by: BEE LEDESMA MD Normal [facility] FOOT COMPLETE, MIN 3 VIEWSon 03-20-2022 FOOT COMPLETE, MIN 3 VIEWS Patient Name: HOLLIS FREED STUDY: FOOT; COMPLETE, MIN 3 VIEWS; Right; 03/20/2022 2:21 pm INDICATION: pain M25.579: Ankle pain M79.673: Foot pain. ACCESSION NUMBER(S): [id number] ORDERING CLINICIAN: BEE LEDESMA FINDINGS: Right foot x-rays three views AP, lateral and oblique view: No acute fractures, no dislocation. No significant degenerative changes. Electronically signed by: BEE LEDESMA MD Normal [facility] Initial Visit (Orthopaedic S urgery)on [...] RT Foot and ankle injury. 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) Electronically signed by : Bee Ledesma MD; Mar 23 2022 8:17AM EST Normal [facility] 03-20-2022 XR Ankle 3 Views Normal [facility] Work Phone: XR Foot 3 Views Normal -[facility] Work Phone: [facility] CL HOLLIS HEWITT ([id number]) 2000 FDate Time Provider Department02/10/18 STEVE COELLO During your visit today, we recorded the following information about you:Julio Capone 02/10/2018 3:25 PM SignedReceived 02/01/18 lab results from [facility]. Placed in provider's inbox forreview.(Gonococcus, Trich, Chlamydia) [...] Status:Closed by STEVE COELLO MD on 02/15/18 [facility] Tyrese 05-29-2017 [facility] HOLLIS CM ([id number]) 2000 FDate Time Provider Qdjzmaxjpd83/1/17 STEVE COELLO During your visit today, we [...] by TATIANA PACHECO RN on 05/29/17 Normal [facility] Free T4on 05-28-2017 Thyroxine (T4) free 1.3 ng/dL Normal 0.9-1.7 [facility] Comment on above: Performed By: #### F T4 ####[facility] [address] [place], [place] [phone] CNOVon 05-27-2017 CNOV Office Visit ([facility]) HOLLIS CM ([id number]) 2000 FDate Time Provider Nxzqyrhwng91/30/17 4:20 PM STEVE COELLO [facility] During your [...] 11.2 oz) LMP 05/25/2017 SpO2 98% BMI26.97 kg/q0KYSUKRV APPEARANCE: Well appearing, alert, in no acute [...] loss encouragedGet shot recordEchocardiogramincrease fiber in in [id number] PROBLEM LISTPREMATURE PUBERTYThomas Flavia Simpson 05/27/2017 5:43 [...] pain [M25.511, G89.29] Shortness of breath [R06.02]Order(s):ECHO [308477] Order #: [id number]: 1 FUTURE T4 FREE/FREE THYROX [SQFT4] Order #: [id number] FUTURE T4 FREE/FREE THYROX [SQFT4] Order #: [id number]. #:[id number] riptions as of 05/27/2017 Sig: NORGESTIMATE-ETHINYL ESTRADIO* [...] by STEVE COELLO MD on 05/31/17 Normal [facility] PROGRESSon 05-27-2017 Protein HNO ID: [id number] thor: Steve Spenceervice: (none)Author Type: PhysicianType: Progress [...] 11.2 oz) LMP 05/25/2017 SpO2 98% BMI26.97 kg/w6DVPLWRU APPEARANCE: Well appearing, alert, in no acute [...] loss encouragedGet shot recordEchocardiogramincrease fiber in in [id number] PROBLEM LISTPREMATURE PUBERTYThomas L MD Mode Normal [facility] Protein HNO ID: [id number] thor: Cherelle Farfan)(Hist) VaughnService: (none)Author Type: Medical AssistantType: Progress NotesFiled: 05/31/2017 2:26 PMNote Text:TETANUS due on 2009HPV VACCINE(1 of 3 - Female 3 Dose Series) due on 2009GC (GONORRHEA) SCREENING (18-24) due on 01/22/2016CHLAMYDIA SCREENING (18-24) due on 01/22/2016 Normal [facility] Test, Serum (Walk In)on 03-12-2017 Test, Serum (Walk In) Negative Normal [facility] Comment on above: Performed By: #### P GSWI ####[id number] [place] [address] Vital Signs Date Time Vital Sign Value Performing Clinician Giovanna sheriff 03-23-2025 11:50-0400 Body weight 85.5 kg Marilyn Mcintyre PA Work Phone: [facility] 03-23-2025 11:50-0400 Diastolic blood pressure 90 mm[Hg] Marilyn Isabel PA Work Phone: [facility] 03-23-2025 11:50-0400 Systolic blood pressure 120 mm[Hg] Marilyn Mcintyre PA Work Phone: [facility] 01-27-2025 10:17-0400 Body weight 88 kg Marilyn Isabel PA Work Phone: [facility] 01-27-2025 10:17-0400 Diastolic blood pressure 72 mm[Hg] Marilyn Charleston PA Work Phone: [facility] 01-27-2025 10:17-0400 Systolic blood pressure 118 mm[Hg] Marilyn Charleston PA Work Phone: [facility] 01-06-2025 16:03-0400 Body weight 91.35 kg Marilyn Isabel PA Work Phone: [facility] 01-06-2025 16:03-0400 Diastolic blood pressure 60 mm[Hg] Marilyn Charleston PA Work Phone: [facility] 01-06-2025 16:03-0400 Systolic blood pressure 110 mm[Hg] Marilyn Isabel PA Work Phone: [facility] 11-18-2024 15:04-0400 Body weight 99.34 kg Roberto Finn DO Work Phone: [facility] 11-18-2024 15:04-0400 Diastolic blood pressure 74 mm[Hg] Roberto Huma DO Work Phone: [facility] 11-18-2024 15:04-0400 Systolic blood pressure 124 mm[Hg] Roberto Huma DO Work Phone: [facility] 11-12-2024 10:52-0400 Body weight 98.88 kg Roberto Huma DO Work Phone: [facility] 11-12-2024 10:52-0400 Diastolic blood pressure 70 mm[Hg] Roberto Huma DO Work Phone: [facility] 11-12-2024 10:52-0400 Systolic blood pressure 122 mm[Hg] Roberto Huma DO Work Phone: [facility] 11-04-2024 13:47-0400 Body weight 98.88 kg Roberto Huma DO Work Phone: [facility] 11-04-2024 13:47-0400 Diastolic blood pressure 70 mm[Hg] Roberto Huma DO Work Phone: [facility] 11-04-2024 13:47-0400 Systolic blood pressure 118 mm[Hg] Roberto Huma DO Work Phone: [facility] 09-29-2024 14:49-0500 Body weight 94.8 kg Roberto Huma DO Work Phone: [facility] 09-29-2024 14:49-0500 Diastolic blood pressure 70 mm[Hg] Roberto Huma DO Work Phone: [facility] 09-29-2024 14:49-0500 Systolic blood pressure 130 mm[Hg] Roberto Huma DO Work Phone: [facility] 09-15-2024 11:27-0500 Body weight 92.53 kg Roberto Huma DO Work Phone: [facility] 09-15-2024 11:27-0500 Diastolic blood pressure 76 mm[Hg] Roberto Huma DO Work Phone: [facility] 09-15-2024 11:27-0500 Systolic blood pressure 138 mm[Hg] Roberto Huma DO Work Phone: [facility] 08-17-2024 14:24-0500 Body weight 93.62 kg Marilyn Mcintyre PA Work Phone: [facility] 08-17-2024 14:24-0500 Diastolic blood pressure 60 mm[Hg] Marilyn Isabel PA Work Phone: [facility] 08-17-2024 14:24-0500 Systolic blood pressure 120 mm[Hg] Marilyn Isable PA Work Phone: [facility] 07-16-2024 10:48-0500 Body weight 88.91 kg Roberto Huma DO Work Phone: [facility] 07-16-2024 10:48-0500 Diastolic blood pressure 60 mm[Hg] Roberto Huma DO Work Phone: [facility] 07-16-2024 10:48-0500 Systolic blood pressure 110 mm[Hg] Roberto Huma DO Work Phone: [facility] 06-16-2024 13:37-0500 Body weight 83.01 kg Marilyn Mcintyre PA Work Phone: [facility] 06-16-2024 13:37-0500 Diastolic blood pressure 64 mm[Hg] Marilyn Mcintyre PA Work Phone: [facility] 06-16-2024 13:37-0500 Systolic blood pressure 112 mm[Hg] Marilyn Isabel PA Work Phone: [facility] 05-19-2024 15:04-0400 Body weight 80.74 kg Roberto Huma DO Work Phone: [facility] 05-19-2024 15:04-0400 Diastolic blood pressure 76 mm[Hg] Roberto Huma DO Work Phone: [facility] 05-19-2024 15:04-0400 Systolic blood pressure 138 mm[Hg] Roberto Huma DO Work Phone: [facility] Encounters Encounter Date Encounter Type Care Provider Facility Start: 03-23-2025 End: 03-23-2025 Bamboo flowsheet Marilyn LIVINGSTON Work Phone: [facility] Start: 03-23-2025 End: 03-23-2025 Bamboo flowsheet Marilyn LIVINGSTON Work Phone: [facility] Start: 03-23-2025 End: 03-23-2025 Office outpatient visit 15 minutes Marilyn LIVINGSTON Work Phone: [facility] Comment on above: Well woman exam with routine gynecological exam Start: 03-23-2025 End: 03-23-2025 Patient encounter procedure Marilyn LIVINGSTON Work Phone: [facility] Start: 01-27-2025 End: 01-27-2025 Bamboo flowsheet Marilyn LIVINGSTON Work Phone: [facility] Start: 01-27-2025 End: 01-27-2025 Bamboo flowsheet Marilyn LIVINGSTON Work Phone: [facility] Start: 01-27-2025 End: 01-27-2025 ambulatory MARILYN MCINTYRE Not Available Start: 01-27-2025 End: 01-27-2025 care visit Marilyn LIVINGSTON Work Phone: [facility] Comment on above: anxiety ( HHS-HCC) (Primary Dx) Start: 01-06-2025 End: 01-06-2025 ambulatory Marilyn LIVINGSTON Work Phone: [facility] Start: 01-06-2025 End: 01-06-2025 Follow-up encounter Marilyn LIVINGSTON Work Phone: [facility] Comment on above: 6 weeks f ollow-up Start: 11-25-2024 End: 11-25-2024 Clinisync Result Encounter Roberto Huma DO Work Phone: [facility] Unsolicited Start: 11-25-2024 End: 11-25-2024 Clinisync Result Encounter Roberto Huma DO Work Phone: [facility] Unsolicited Start: 11-24-2024 End: 11-24-2024 Clinisync Result Encounter Roberto Huma DO Work Phone: [facility] Unsolicited Start: 11-24-2024 End: 11-24-2024 Clinisync Result Encounter Roberto Huma DO Work Phone: [facility] Unsolicited Start: 11-18-2024 End: 11-18-2024 ambulatory ROBERTO HUMA Not Available Start: 11-18-2024 End: 11-18-2024 Office outpatient visit 15 minutes Roberto Huma DO Work Phone: [facility] Comment on above: Third trimester preg maryan; 38 weeks gestation of Start: 11-18-2024 End: 11-18-2024 Bamboo flowsheet Roberto Huma DO Work Phone: [facility] Start: 11-18-2024 End: 11-18-2024 Bamboo flowsheet Roberto Huma DO Work Phone: [facility] Start: 11-12-2024 End: 11-12-2024 Bamboo flowsheet Roberto Huma DO Work Phone: [facility] Start: 11-12-2024 End: 11-12-2024 Bamboo flowsheet Roberto Huma DO Work Phone: [facility] Start: 11-12-2024 End: 11-12-2024 ambulatory ROBERTO HUMA Not Available Start: 11-12-2024 End: 11-12-2024 Office outpatient visit 15 minutes Roberto Huma DO Work Phone: [facility] Comment on above: Third trimester preg maryan; 37 weeks gestation of Start: 11-04-2024 End: 11-04-2024 Bamboo flowsheet Roberto Huma DO Work Phone: [facility] Start: 11-04-2024 End: 11-09-2024 Bamboo flowsheet Roberto Huma DO Work Phone: [facility] Start: 11-04-2024 End: 11-09-2024 Clinisync Result Encounter Roberto Huma DO Work Phone: [facility] Unsolicited Start: 11-04-2024 End: 11-04-2024 ambulatory ROBERTO HUMA Not Available Start: 11-04-2024 End: 11-04-2024 Office outpatient visit [...] OB Start: 09-15-2024 End: 09-15-2024 ambulatory ROBERTO HUAM Not Available Start: 09-15-2024 End: 09-15-2024 Office [...] External Result Encounter Marilyn LIVINGSTON Work Phone: [facility] External Department Unsolicited Start: 06-16-2024 End: 06-16-2024 [...] [id number] Start: 01-17-2024 End: 01-19-2024 ambulatory [facility] [place] Start: 07-26-2023 End: 07-29-2023 Evaluation and management of inpatient [facility] Start: 06-28-2023 End: 06-30-2023 ambulatory [facility] Start: 04-23-2023 End: 05-29-2023 Pre-admission assessment [facility]bert [facility] Start: 04-22-2023 End: 04-22-2023 ambulatory Elbert Fuchs Facility:[facility] Start: 03-01-2023 End: 03-03-20[facility] Start: 12-31-2022 End: 01-02-2023 Subsequent hospital visit by physician Brooklyn Montenegro DO Work Phone: [facility] Comment on above: Secondary amenorrhea ; Positive urine test Start: 04-10-[address] Bee canseco G[place] Facility:[id number] Start: 03-20-[address] Bee canseco [place] Facility:[id number] Start: 03-20-2022 Patient encounter procedure Bee Ledesma MD Work Phone[facility] Work Phone: Start: 05-27-2017 End: 06-03-2017 Patient encounter STEVE COELLO [facility] Start: 03-12-2017 Ambulatory [facility] Facili ty:[id number] Procedures Date Procedure Procedure Detail Performing Clinician Start: 11-25-2024 ALL CBC WITH AUTO DIFF Roberto Huma DO Work Phone: Start: 11-24-2024 [facility] CBC WITH PLATEL ET NO DIFFERENTIAL Roberto Huma DO Work Phone: Start: 11-12-2024 Urnls dip stick/tabl et rgnt non-auto w/o micrscp Roberto Huma DO Work Phone: Start: 11-04-2024 Urnls dip stick/tabl et rgnt non-auto w/o micrscp Roberto Huma DO Work Phone: Start: 11-04-2024 ALL MISCELLANEOUS TEST Roberto Huma DO Work Phone: Start: 10-28-2024 [...] Activity Detail Author Start: 03-29-2025 Influenza vaccination [facility] Start: 03-03-2025 End: 03-03-2025 Patient encounter procedure 03/03/2025 3:00 PM EDT Office Visit [facility] [address] [place] [address] Marilyn Mcintyre PA [address] [place] [address] [facility] Start: 01-27-2025 End: 01-27-2025 Patient encounter procedure 01/27/2025 10:00 AM EDT Office Visit [facility] [address] [place] [phone] Marilyn Mcintyre, PA [address] [place] [address] [facility] Start: 11-11-2024 End: 11-11-2024 Patient encounter procedure 11/11/2024 10:20 AM EDT Routine [facility] [address] [place] [phone] Marilyn Mcintyre, PA [address] [facility] [address] [place] [address] [facility] Start: 11-04-2024 End: 11-04-2025 CULTURE, GROUP B STREP WITH SUSCEPTIBLITY CULTURE, GROUP B STREP WITH SUSCEPTIBLITY Lab Routine Third trimester Expected: 11/04/2024, Expires: 11/04/2025 [facility] Work Phone: Comment on above: Expected: 11/04/2024 , Expires: 11/04/2025 Start: 11-04-2024 End: 11-04-2024 Patient encounter procedure 11/04/2024 1:30 PM EDT Routine [facility] [address] [place] [phone] Roberto Finn, DO [address] [address] [facility] Start: 10-28-2024 End: 10-28-2024 Patient encounter procedure 10/28/2024 2:10 PM EDT Routine [facility] [address] [place] [phone] Roberto Finn, DO [address] [place] [address] Arrived [facility] Comment on above: Arrived Start: 10-14-2024 End: 10-14-2024 Patient encounter procedure 10/14/2024 1:30 PM EDT Routine [facility] [address] [facility] [place] [phone] Marilyn Mcintyre PA [address] [facility] [address] [place], [place] [id number] [facility] Start: 09-29-2024 End: 09-29-2024 Patient encounter procedure 09/29/2024 2:40 PM EST Routine [facility] [address] [place] [address] [place] [phone] Roberto Finn DO [address] [facility] [address] [place], [place] [id number] [facility] Start: 09-29-2024 End: 09-29-2025 Bile acids, total Bile acids, total Lab Routine Pruritus Expected: 09/29/2024 (Approximate), Expires: 09/29/2025 [facility] Comment on above: Expected: 09/29/2024 (Approximate), Expires: 09/29/2025 Start: 09-29-2024 End: 09-29-2025 CBC W Auto Differential panel - Blood CBC and differential Lab Routine Pruritus Expected: 09/29/2024 (Approximate), Expires: 09/29/2025 [facility] Comment on above: Expected: 09/29/2024 (Approximate), Expires: 09/29/2025 Start: 09-29-2024 End: 09-29-2025 Hepatic function 2000 panel - Serum or Plasma Hepatic function panel Lab Routine Pruritus Expected: 09/29/2024 (Approximate), Expires: 09/29/2025 [facility] Work Phone: Comment on above: Expected: 09/29/2024 (Approximate), Expires: 09/29/2025 Start: 09-29-2024 End: 09-29-2024 Professional / ancillary services management 09/29/2024 2:00 PM EST Ancillary Procedure [facility] [address] [facility] [place] [address] [facility] Start: 09-15-2024 End: 09-15-2025 US for US OB follow up transabdominal approach Imaging Routine size inconsistent with dates Expected: 09/15/2024, Expires: 09/15/2025 [facility] Work Phone: Comment on above: Expected: 09/15/2024 , Expires: 09/15/2025 Start: 09-15-2024 End: 09-15-2024 Patient encounter procedure 09/15/2024 11:10 AM EST Routine [facility] [address] [facility] [place] [phone] Roberto Finn DO [address] [facility] [address] [place], [place] [id number] [facility] Start: 08-17-2024 End: 08-17-2024 Patient encounter procedure 08/17/2024 2:20 PM EST Routine [facility] [address] [facility] [place] [phone] Marilyn Mcintyre PA [address] [facility] [place] [address] Arrived [facility] Comment on above: Arrived Start: 08-17-2024 End: 08-17-2025 CBC panel - Blood by Automated count CBC Lab Routine Diabetes mellitus screening Expected: 08/17/2024 (Approximate), Expires: 08/17/2025 [facility] Work Phone: Comment on above: Expected: 08/17/2024 (Approximate), Expires: 08/17/2025 Start: 08-17-2024 End: 08-17-2025 Measurement of glucose 1 hour after glucose challenge for glucose tolerance test Glucose tolerance, 1 hour Lab Routine Diabetes mellitus screening Expected: 08/17/2024 (Approximate), Expires: 08/17/2025 [facility] Comment on above: Expected: 08/17/2024 (Approximate), Expires: 08/17/2025 Start: 08-13-2024 End: 08-13-2024 Patient encounter procedure 08/13/2024 1:30 PM EST Routine [facility] [address] [facility] [place] [phone] Marilyn Mcintyre PA [address] [facility] [address] [place], [place] [phone] [facility] Start: 07-16-2024 End: 07-16-2024 Alpha fetoprotein, maternal Alpha fetoprotein, maternal Lab Routine Need for maternal serum alpha-protein (MSAFP) screening Expected: 07/16/2024 (Approximate), Expires: 07/16/2024 [facility] Work Phone: Comment on above: Expected: 07/16/2024 (Approximate), Expires: 07/16/2024 Start: 07-16-2024 End: 07-16-2024 Patient encounter procedure 07/16/2024 10:20 AM EST Routine [facility] [address] [facility] [place] [phone] Roberto Finn DO [address] [facility] [address] [place] [address] [facility] Start: 06-16-2024 End: 06-16-2025 US for US OB ANATOMY SINGLE W US OB CERVICAL LENGTH Imaging Routine Screening, , for anatomic survey Expected: 06/16/2024 (Approximate), Expires: 06/16/2025 [facility] Comment on above: Expected: 06/16/2024 (Approximate), Expires: 06/16/2025 Start: 06-16-2024 End: 06-16-2024 Patient encounter procedure 06/16/2024 1:00 PM EST Routine [facility] [address] [facility] [place] [phone] Marilyn Mcintyre PA [address] [facility] [place] [address] [facility] Start: 05-19-2024 End: 05-19-2024 Patient encounter procedure 05/19/2024 2:40 PM EDT Routine [facility] [address] [facility] [place] [address] Roberto Finn, [address] [facility] [address] [place] [address] [facility] Start: 04-24-2024 End: 04-24-2025 ABO/Rh ABO/Rh Lab Routine Missed menses , unspecified gestational age Expected: 04/24/2024 (Approximate), Expires: 04/24/2025 [facility] Comment on above: Expected: 04/24/2024 (Approximate), Expires: 04/24/2025 Start: 04-24-2024 End: 04-24-2025 Blood type and Indirect antibody screen panel - Blood Type and screen Lab Routine Missed menses , unspecified gestational age Expected: 04/24/2024 (Approximate), Expires: 04/24/2025 [facility] Work Phone: Comment on above: Expected: 04/24/2024 (Approximate), Expires: 04/24/2025 Start: 04-24-2024 End: 04-24-2025 Drugs of abuse panel - Urine by Screen method Rapid drug screen, urine Lab Routine , unspecified gestational age Encounter for supervision of normal first in first trimester Expected: 04/24/2024 (Approximate), Expires: 04/24/2025 [facility] Comment on above: Expected: 04/24/2024 (Approximate), Expires: 04/24/2025 Start: 04-24-2024 End: 04-24-2025 US Pelvis transvaginal US OB transvaginal Imaging Routine Missed menses Expected: 04/24/2024 (Approximate), Expires: 04/24/2025 [facility] Comment on above: Expected: 04/24/2024 (Approximate), Expires: 04/24/2025 Start: 03-29-2024 Influenza vaccination Influenza Vacc ine (#1) [facility] Start: 12-20-2023 Depression Screen Depression Screen [facility] Start: 12-20-2023 Screening for Chlamy manisha trachomatis Chlamydia/GC screen [facility] Start: 02-26-2023 Influenza vaccination Flu vacc ine (Season Ended) [facility] Start: 01-16-2023 End: 01-16-2023 ambulatory 01/16/2023 Initial Obstetrics and Gynecology Brooklyn Montenegro DO [address] [place] [address] [facility] Start: 08-20-2022 Screening for malign ant neoplasm of cervix Pap smear [facility] Start: 04-10-2022 FUV, Provider: Bee Ledesma, Status: Pen, Time: 10:15 AM FUV, Provider: Bee Ledesma, Status: Castillo, Time: 10:15 AM [facility] Work Phone: Start: 04-20-2019 DTaP/Tdap/Td vaccine (7 - Td or Tdap) DTaP/Tdap/Td vaccine (7 - Td or Tdap) [facility] Start: 07-06-2010 Hepatitis A vaccine (2 of 2 - 2-dose series) Hepatitis A vaccine (2 of 2 - 2-dose series) [facility] Start: 1998 COVID-19 Vaccine (#1) COVID-19 Vacci ne (#1) [facility] Bacteria identified in Urine by Culture Urine culture Microbiology Routine Missed menses Ordered: 04/24/2024 [facility] Comment on above: Ordered: 04/24/2024 CBC W Auto Different ial panel - Blood CBC and differential Lab Routine Missed menses , unspecified gestational age Ordered: 04/24/2024 [facility] Comment on above: Ordered: 04/24/2024 CHLAMYDIA TRACHOMATI S (GENITO/STI) CHLAMYDIA TRACHOMATIS (GENITO/STI) Lab Routine Exposure to STD Ordered: 06/16/2024 [facility] Comment on above: Ordered: 06/16/2024 Cytology Cervical or vaginal smear or scraping study Pap Smear Pathology and Cytology Routine Well woman exam with routine gynecological exam Ordered: 03/23/2025 [facility] Work Phone: Comment on above: Ordered: 03/23/2025 Hemoglobin A1c/Hemoglobin.total in Blood Hemoglobin A1c Lab Routine Missed menses , unspecified gestational age Ordered: 04/24/2024 [facility] Comment on above: Ordered: 04/24/2024 Hepatitis B virus surface Ag [Presence] in Serum or Plasma by Immunoassay Hepatitis B surface antigen Lab Routine Missed menses , unspecified gestational age Ordered: 04/24/2024 [facility] Comment on above: Ordered: 04/24/2024 Hepatitis C virus Ab [Presence] in Serum or Plasma by Immunoassay Hepatitis C antibody Lab Routine Missed menses , unspecified gestational age Ordered: 04/24/2024 [facility] Comment on above: Ordered: 04/24/2024 HIV-1/HIV-2 antigen/antibody combination immunoassay HIV-1 and HIV-2 antibodies Lab Routine Missed menses , unspecified gestational age Ordered: 04/24/2024 [facility] Comment on above: Ordered: 04/24/2024 Neisseria gonorrhoea e DNA [Presence] in Unspecified specimen by EVONNE with probe detection Neisseria gonorrhea DNA probe, direct Lab Routine Exposure to STD Ordered: 06/16/2024 [facility] Comment on above: Ordered: 06/16/2024 Reagin Ab [Presence] in Serum by RPR RPR Lab Routine Missed menses , unspecified gestational age Ordered: 04/24/2024 [facility] Comment on above: Ordered: 04/24/2024 Rubella antibody, IgG Rubella an tibody, IgG Lab Routine Missed menses , unspecified gestational age Ordered: 04/24/2024 [facility] Comment on above: Ordered: 04/24/2024 SURESWAB(R) ADVANCED VAGINITIS PLUS, TMA SURESWAB(R) ADVANCED VAGINITIS PLUS, TMA Pathology and Cytology Routine Exposure to STD Ordered: 06/16/2024 [facility] Comment on above: Ordered: 06/16/2024 Immunizations Immunization Date Immunization Notes Care Provider Fa ciliharjit 05-29-2019 influenza virus vaccine, unspecified formulation Elbert Fuchs [facility] Comment on above: Result Comment: Drug [place] 10-07-2015 influenza virus vaccine, unspecified formulation Marilyn LIVINGSTON Work Phone: [facility] 06-07-2010 human papilloma viru s vaccine, quadrivalent Brooklyn Montenegro DO Work Phone: [facility] Work Phone: 06-07-2010 influenza virus vaccine, unspecified formulation Brooklyn Montenegro DO Work Phone: [facility] Work Phone: 01-04-2010 hepatitis A vaccine, unspecified formulation Brooklyn Montenegro DO Work Phone: [facility] Work Phone: 01-04-2010 human papilloma viru s vaccine, quadrivalent Brooklyn Montenegro DO Work Phone: [facility] Work Phone: 01-04-2010 varicella virus vaccine Brooklyn Montenegro DO Work Phone: [facility] Work Phone: 04-20-2009 human papilloma viru s vaccine, quadrivalent Brooklyn Montenegro DO Work Phone: [facility] Work Phone: 04-20-2009 tetanus toxoid, reduced diphtheria toxoid, and acellular pertussis vaccine, adsorbed Brooklyn Montenegro DO Work Phone: [facility] Work Phone: 08-19-2006 influenza virus vaccine, unspecified formulation Brooklyn Montenegro DO Work Phone: [facility] Work Phone: 06-14-2006 influenza virus vaccine, unspecified formulation Brooklyn Montenegro DO Work Phone: [facility] Work Phone: 03-02-2003 diphtheria, tetanus toxoids and acellular pertussis vaccine Brooklyn Montenegro DO Work Phone: [facility] Work Phone: 03-02-2003 measles, mumps and rubella virus vaccine Brooklyn Montenegro DO Work Phone: [facility] Work Phone: 03-02-2003 poliovirus vaccine, inactivated Brooklyn Montenegro DO Work Phone: [facility] Work Phone: 04-28-1999 diphtheria, tetanus toxoids and acellular pertussis vaccine Brooklyn Montenegro DO Work Phone: [facility] Work Phone: 04-28-1999 poliovirus vaccine, inactivated Brooklyn Montenegro DO Work Phone: [facility] Work Phone: 01-25-1999 Hib, unspecified Brooklyn pickenson DO Work Phone: [facility] Work Phone: 01-25-1999 measles, mumps and rubella virus vaccine Brooklyn Montenegro DO Work Phone: [facility] Work Phone: 01-25-1999 varicella virus vaccine Brooklyn Montenegro DO Work Phone: [facility] Work Phone: 1998 diphtheria, tetanus toxoids and acellular pertussis vaccine Brooklyn Montenegro DO Work Phone: [facility] Work Phone: 1998 hepatitis B vaccine, adult dosage Brooklyn Montenegro DO Work Phone: [facility] Work Phone: 1998 Hib, unspecified Brooklyn pickenson DO Work Phone: [facility] Work Phone: 1998 diphtheria, tetanus toxoids and acellular pertussis vaccine Brooklyn Montenegro DO Work Phone: [facility] Work Phone: 1998 hepatitis B vaccine, adult dosage Brooklyn Montenegro DO Work Phone: [facility] Work Phone: 1998 Hib, unspecified Brooklyn you DO Work Phone: [facility] Work Phone: 1998 poliovirus vaccine, inactivated Brooklyn Montenegro DO Work Phone: [employer] Work Phone: 1998 hepatitis B vaccine, adult dosage Brooklyn Montenegro DO Work Phone: [employer] Work Phone: 1998 diphtheria, tetanus toxoids and acellular pertussis vaccine Brooklyn Montenegro DO Work Phone: [employer] Work Phone: 1998 poliovirus vaccine, inactivated Brooklyn Montenegro DO Work Phone: [employer] Work Phone: Payers Date Payer Category Payer Medicaid [id number] 2022 Private Health Insurance [id number] 1998 Unknown [id number] 2.16.8 40.1.033060.3.579.2.1068 1998 Unknown [id number] 2.16.8 40.1.310615.3.579.2.1068 1998 Unknown [id number] 2.16.8 40.1.245251.3.579.2.727 1998 Unknown [id number] 2.16.8 40.1.329975.3.579.2.182 1998 Unknown [id number] 2.16.8 40.1.612921.3.579.2.182 1998 Unknown [id number] 2.16.8 40.1.232442.3.579.2.182 1998 Unknown [id number] 2.16.8 40.1.351430.3.579.2.182 1998 Unknown [id number] 2.16.8 40.1.113092.3.579.2.9 1998 Unknown [id number] 2.16.8 40.1.517960.3.579.2.9 1998 Unknown [id number] 2.16.84 0.1.155811.3.579.2.1258 1998 Unknown [id number] 2.16.84 0.1.522492.3.579.2.1258 1998 Unknown [id number] 2.16.84 0.1.744779.3.579.2.1258 1998 Unknown [id number] 2.16.84 0.1.468361.3.579.2.1258 1998 Unknown [id number] 2.16.84 0.1.278747.3.579.2.1258 1998 Unknown [id number] 2.16.84 0.1.458201.3.579.2.1258 1998 Unknown [id number] 2.16.84 0.1.437003.3.579.2.1258 1998 Unknown [id number] 2.16.84 0.1.991847.3.579.2.1258 1998 Unknown [id number] 2.16.84 0.1.727957.3.579.2.1258 1998 Unknown [id number] 2.16.84 0.1.330149.3.579.2.1258 1998 Unknown [id number] 2.16.84 0.1.278203.3.579.2.1258 1998 Unknown [id number] 2.16.84 0.1.493972.3.579.2.1259 1998 Unknown [id number] 2.16.84 0.1.319348.3.579.2.1259 Unknown 1914 Unknown Self Pay Social History Date Type Detail Facility Start: 03-02-2020 End: 12-19-2022 Tobacco smoking status NHIS Never smoked tobacco [employer] Phone: Start: 12-19-2022 Tobacco use and exposure Smokeless tobacco non-user [facility] Phone: Start: 12-19-2022 Alcohol intake Ex-drinker (finding) [facility] Phone: Start: 1998 Sex Assigned At Not on file B ON [employer] Phone: Sex Assigned At Female [facility] Tobacco smoking status NHIS Tobacco smoking consumption unknown [facility] Start: 03-08-2024 [facility] Start: 1998 Sex assigned at Female [facility] Start: 04-17-2024 Gender identity Identifies as female gender (finding) [facility] Clinical Notes 04-22-2023 to 03-23-2025 Liza Kitchen MA - 03/23/2025 11:30 AM YARA Solomon - 03/23/2025 11:30 AM YARA Solomon - 01/27/2025 10:00 AM EDTMesteban Farnsworth MA - 01/27/2025 10:00 AM EDT Note Date & Type Note Facility 03-23-2025 History of Presen t illness Narrative Reason for Appointment: Patient ID: Hollis Freed is a 25 y.o. female who presents for Routine Visit Patient presents today for Return OB appointment. MEDICATIONS Current Outpatient Medications Medication Instructions citalopram (CELEXA) 20 mg, Oral, Daily fexofenadine ODT (OLGA LIDIA ODT) 30 mg, Daily ALLERGIES Allergies Allergen [...] nursing note reviewed. Exam conducted with a division manager present. Vitals: There is no height or [...] obtained without difficulty and patient was given msAFP order to have obtained. No orders of the defined types were placed in this encounter. Follow Up: Patient is to return to our office in 4 weeks for routine OB appointment Documented by YARA Winter on behalf of: YARA Winter documented in this encounter [facility] 01-27-2025 History of Presen t illness Narrative Reason for Appointment: Patient ID: Hollis Freed is a 25 y.o. female who presents for Gynecologic Exam (Pt present today for annual appointment and to discuss post anxiety. Pt delivered on 11/24/2024.) Patient presents today for Post Follow Up appointment. MEDICATIONS Current Outpatient Medications Medication Instructions fexofenadine ODT (OLGA LIDIA ODT) 30 mg, Daily ALLERGIES Allergies Allergen [...] weight on file to calculate BMI. BP: 118/72 Patient's last menstrual period was 01/25/2025 (approximate). ASSESSMENT & PLAN ICD-10-CM 1. Well woman exam with routine gynecological exam Z01.419 CANCELED: Pap Smear 2. anxiety ([facility]) O99.345 F41.8 Patient wishes to do annual in a month. Post Follow Up: Patient is doing well. Patient presents today for 6 week visit. Patient is s/p Vaginal delivery. Patient states depression but denies suicidal and homicidal ideations. All options were discussed with the patient regarding control and patient desires no control at this time. We will call in celexa, patient will reschedule for annual in one month and we will assess how she is feeling, states had an anxiety attack several days ago and feeling anxious Follow Up: Patient is to return for annual unless needed otherwise. Documented by YARA Winter on behalf of: YARA Winter Reason for Appointment: Patient ID: Hollis Freed is a 25 y.o. female who presents for Care (Pt present today to discuss post anxiety.) Patient presents today for Post Follow Up appointment. MEDICATIONS Current Outpatient Medications Medication Instructions citalopram (CELEXA) 20 mg, Oral, Daily fexofenadine ODT (OLGA LIDIA ODT) 30 mg, Daily ALLERGIES Allergies Allergen [...] SYSTEMS Review of Systems: Review of Systems OBJECTIVE Objective: OBGyn Exam Vitals: There is no height or weight on file to calculate BMI. BP: 118/72 Patient's last menstrual period was 01/25/2025 (approximate). ASSESSMENT & PLAN ICD-10-CM 1. anxiety ([facility]) O99.345 citalopram (CeleXA) 20 MG tablet F41.8 Patient present today to discuss post anxiety w/Marilyn Mcintyre. Pt states she had an anxiety attack on 01/23/2025 and had to have her father come and help her with her children. Pt states its a lot for her mentally with two children under the age of 2. Pt is coming to talk about medication to help cope with her anxiety. Pt is not breast feeding anymore. Marilyn Mcintyre prescribed Celexa and schedule a f/up visit to discuss anxiety medication and an annual. PVU and rx was sent. Documented by Samra Farnsworth MA on behalf of: YARA Winter documented in this encounter [facility] 01-06-2025 History of Presen t illness Narrative Reason for Appointment: Patient ID: Hollis Freed is a 24 y.o. female who presents for Follow-up Patient presents today for Post Follow Up appointment. MEDICATIONS Current Outpatient Medications Medication Instructions fexofenadine ODT (OLGA LIDIA ODT) 30 mg, Daily ALLERGIES Allergies Allergen [...] was 02/23/2024. ASSESSMENT & PLAN ICD-10-CM 1. 6 weeks follow-up Z39.2 Post Follow Up: Patient is doing well. Patient presents today for 6 week visit. Patient is s/p Vaginal delivery. Patient states depression but denies suicidal and homicidal ideations. All options were discussed with the patient regarding control and patient desires none at this time. Follow Up: Patient is to return for annual unless needed otherwise. Documented by YARA Winter on behalf of: YARA Winter documented in this encounter [facility] 11-18-2024 History of Presen t illness Narrative Reason [...] nursing note reviewed. Exam conducted with a division manager present. Vitals: There is no height or weight on file to calculate BMI. BP: 124/74 Patient's last menstrual period was 02/23/2024. ASSESSMENT & PLAN ICD-10-CM 1. Third trimester Z34.93 CANCELED: POCT urinalysis dipstick manually resulted 2. 38 weeks gestation of Z3A.38 Return OB: Patient presents today for a routine obstetrics appointment. Patient is currently 38w3d . Patient states she is doing well but has complaints of being tired due to current . Patient has verbalizes frequent movement. labor precautions was discussed/given and patient was instructed to perform kick counts three times a day. Induction consents signed. Pt to be induced Saturday11/23/24 No orders of the defined types were placed in this encounter. Follow Up: Patient is to return to office in 1 week for routine OB appointment. Documented by Della Blanco LPN on behalf of: Roberto Finn DO documented in this encounter [facility] 11-12-2024 History of Presen t illness Narrative Reason [...] Objective: Physical Exam Constitutional: Appearance: Normal appearance. Genitourinary: Right Adnexa: not tender and no mass present. Left Adnexa: not tender and no mass present. No cervical discharge. Breasts: Breasts are soft. Right: Normal. Left: Normal. HENT: Head: Normocephalic. Nose: Nose normal. Mouth/Throat: Mouth: Mucous membranes are moist. Cardiovascular: Rate and Rhythm: Normal rate. Pulmonary: Effort: Pulmonary effort is normal. Abdominal: General: Bowel sounds are normal. Palpations: Abdomen is soft. Musculoskeletal: General: Normal range of motion. Cervical back: Normal range of motion. Neurological: General: No focal deficit present. Mental Status: She is alert. Skin: General: Skin is warm and dry. Psychiatric: Mood and Affect: Mood normal. Vitals and nursing note reviewed. Exam conducted with a division manager present. Vitals: There is no height or weight on file to calculate BMI. BP: 122/70 Patient's last menstrual period was 02/23/2024. ASSESSMENT & PLAN ICD-10-CM 1. Third trimester Z34.93 POCT urinalysis dipstick manually resulted 2. 37 weeks gestation of Z3A.37 Return OB: Patient presents today for a routine obstetrics appointment. Patient is currently 37w4d . Patient states she is doing well but has complaints of being tired due to current and having lots of vaginal pressure. Patient is desiring to have a cervical check on today's visit. Patient has verbalizes frequent movement. labor precautions was discussed/given and patient was instructed to perform kick counts three times a day. Orders Placed This Encounter Procedures POCT urinalysis dipstick manually resulted Follow Up: Patient is to return to office in 1 week for routine OB appointment. Documented by Samra Farnsworth MA on behalf of: Roberto Huma, DO documented in this encounter [facility] 11-04-2024 History of Presen t illness Narrative [...] nursing note reviewed. Exam conducted with a division manager present. Vitals: There is no height or [...] Roberto Finn DO documented in this encounter [facility] 09-29-2024 History of Presen t illness Narrative [...] nursing note reviewed. Exam conducted with a division manager present. Vitals: There is no height or [...] Roberto Finn DO documented in this encounter [facility] 09-17-2024 Telephone encount er Note Hi, this [...] could give me a call back at [phone], that would be great. Thank you. I also talked to pt and advised her to go to the ER and get evaluated. {PVU [facility] 09-17-2024 Miscellaneous Notes Formattin g of this [...] could give me a call back at [phone], that would be great. Thank you. I [...] about an hour. documented in this encounter [facility] 09-17-2024 Telephone encount er Note OB 29 wks calls with concern of falling on the ice and is now having hip pain. She is tearful. Pt advised to be seen at hospital for evaluation. She will find childcare and go to the hospital in about an hour. [facility] 09-15-2024 History of Presen t illness Narrative [...] nursing note reviewed. Exam conducted with a division manager present. Vitals: There is no height or [...] Roberto Finn DO documented in this encounter [facility] 08-17-2024 History of Presen t illness Narrative [...] of: YARA Winter documented in this encounter [facility] 07-16-2024 History of Presen t illness Narrative [...] nursing note reviewed. Exam conducted with a division manager present. Vitals: There is no height or [...] Roberto Finn DO documented in this encounter [facility] 06-16-2024 History of Presen t illness Narrative [...] of: YARA Winter documented in this encounter [facility] 05-19-2024 History of Presen t illness Narrative [...] nursing note reviewed. Exam conducted with a division manager present. Vitals: There is no height or [...] meat, and stay away from [facility]. Patient has been consulted regarding any [...] Roberto Finn DO documented in this encounter [facility] 04-24-2024 History of Presen t illness Narrative [...] meat, and stay away from [facility]. Patient has also been advised to [...] Connie Chau LPN documented in this encounter [facility] 04-22-2023 Note The following Patien t Education Materials have been given to the patient: EducationMaterial [facility] Evaluation + Plan note No data available for this section [facility] Evaluation note Diagnosis Secondary amenorrhea Absence of menstruation Positive urine test documented in this encounter PATTIE LEPE [employer] Phone: evaluation note* Diagnosis Nausea Nausea alone 12 weeks gestation of First trimester state, incidental documented [facility] Diagnosis Second trimester state, incidental Exposure to STD Need for maternal serum alpha-protein (MSAFP) screening Screening, , for anatomic survey Encounter for anatomic survey documented [facility] this encounter [facility]* Diagnosis Missed menses 8 weeks [...] HealthcareEvaluation note* Diagnosis Third trimester state, incidental 38 weeks gestation of documented in this encounter [facility]* Diagnosis Third trimester state, incidental 37 weeks gestation of documented [facility]* Diagnosis 6 weeks follow-up documented [facility] this [facility]* Diagnosis anxiety (HHS-HCC)- Primary documented [facility] this encounter [facility]* Diagnosis Well woman exam with routine gynecological exam Routine gynecological examination [facility] No data available for this section [facility] data available [facility] this section [facility] Summary Purpose Family History No Family [...] RT Foot and ankle injury. 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 Reason for Referral Specialty Diagnoses / Procedures Referred By Contac t Referred To Contact Radiology Diagnoses Secondary amenorrhea Positive urine test Procedures US OB TRANSVAGINAL Brooklyn Montenegro, DO [address] [place] [address] Referral ID Status Reason Start Date Expiration Date Visits Re quested Visits Authorized [id number] Open 12/19/2022 12/19/2023 1 1 Specialty Diagnoses / Procedures Referred By Contac t Referred To Contact Radiology Diagnoses Secondary amenorrhea Positive urine test Procedures US OB LESS THAN 14 WEEKS SINGLE OR FIRST GESTATION Brooklyn Montenegro, [address] [place] [address] Referral ID Status Reason Start Date Expiration Date Visits Re quested Visits Authorized [id number] Open 12/19/2022 12/19/2023 1 1 Additional Source Comments INFORMATION SOURCE (unrecogn ized section and content) DATE CREATED AUTHOR 01/22/2018 [facility] DATE CREATED AUTHOR AUTHOR'S ORGANIZ ATION 02/17/2018 [facility] DATE CREATED AUTHOR AUTHOR'S ORGANIZ ATION 03/25/2022 [employer] DATE CREATED AUTHOR AUTHOR'S ORGANIZ ATION 04/29/2022 [facility] DATE CREATED AUTHOR AUTHOR'S ORGANIZ ATION 04/30/2023 [facility] DATE CREATED AUTHOR AUTHOR'S ORGANIZ ATION 07/17/2023 [facility] DATE CREATED AUTHOR AUTHOR'S ORGANIZ ATION 01/20/2024 [facility] [place] DATE CREATED AUTHOR AUTHOR'S ORGANIZ ATION 01/29/2025 [facility] EPIC Reason for Visit (unrecogniz ed section and content) Specialty Diagnoses / Procedures Referred By Contac t Referred To Contact Radiology Diagnoses Secondary amenorrhea Positive urine test Procedures US OB LESS THAN 14 WEEKS SINGLE OR FIRST GESTATION Brooklyn Montenegro DO [address] [place] [address] Referral ID Status Reason Start Date Expiration Date Visits Re quested Visits Authorized [id number] Open 12/19/2022 12/19/2023 1 1 Reason Comments Routine Visit Reason Comments Amenorrhea Reason Comments Follow-up Reason Comments Care Pt present today to discuss post anxiety. Care Teams (unrecognized sec tion and content) Ball Shagger Relationship Specialty Start Date End Date Undetermined, [...] BE BASED ON THE PRIMARY CLINICAL RECORDS. [employer] provides no warranty or guarantee of the accuracy or completeness of information in this document.
[2025-03-26 17:09] LABS: Age Gdln ACOG Testing Note (.); IGP, rfx Aptima HPV ASCU Note (.)
== END 2025-03-23 20:32 | disposition home or self-care (01) ==
LOC: LAB 20:31
PROVIDERS: Visit Provider Physician Assistant
DX: Z01.419 Encounter for gynecological examination (general) (routine) without abnormal findings (principal)
CPT/HCPCS: 88175